=== PATIENT | female | born 2005 | race Caucasian/White ===

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

== ENCOUNTER 2024-02-11 09:22 | Outpatient (OUT) | payer OTHER, SELFPAY ==
--- NOTE | 2024-02-11 09:24 | US_ITS ---
[address] [address] Patient Name: MIHIR CHRISTIE MRN: [id number] date: 2005 Sex: F Assigned Patient Location: [facility] Current Patient Location: [facility] Accession/Order Number: [id number] Exam Date: 02/11/2024 09:24 Report Date: 02/11/2024 12:06 At the request of: LITA ROSENBERG Procedure: US pelvis w/ transvaginal EXAMINATION: US pelvis w/ transvaginal HISTORY: IRREGULAR MENSTRAL CYCLE COMPARISON: No relevant comparison available. FINDINGS: Transabdominal and transvaginal images The uterus is normal in size, contour and myometrial echotexture measuring 6.9 x 3.0 x 4.9 cm. Anteverted, anteflexed. Endometrium measures 6 mm, normal. The right ovary is normal in size, contour and echotexture measuring 3.0 x 2.0 x 2.8 cm. Normal color Doppler flow The left ovary is normal in size, contour and echotexture measuring 3.1 x 2.1 x 2.9 cm. Normal color Doppler flow No free fluid US/US pelvis w/ transvaginal IMPRESSION: Normal exam Electronically authenticated by: OPAL REYES Date: 02/11/2024 12:06
[2024-02-11 11:25] LABS: Basophils Absolute Auto 0.1 10^3/uL (0.0-0.1); Eosinophils Absolute Auto 0.2 10^3/uL (0.0-0.7); Eosinophils Percent Auto 2.6 % (0.9-7.0); Hematocrit 42.6 % (36.0-48.0); Hemoglobin 14.1 g/dL (12.0-16.0); Immature Granulocytes Abs Auto 0.02 10^3/uL (0.00-0.03); Immature Granulocytes Pct Auto 0.3 % (0.0-0.5); Lymphocytes Absolute Auto 2.2 10^3/uL (1.2-3.8); Lymphocytes Percent Auto 28.5 % (20.5-60.0); Mean Corpuscular HGB Conc 33.1 g/dL (29.9-35.2); Mean Corpuscular Hemoglobin 28.5 pg (26.7-34.0); Mean Corpuscular Volume 86.2 fL (81.0-99.0); Mean Platelet Volume 8.8 fL (9.5-13.5); Monocytes Absolute Auto 0.5 10^3/uL (0.3-0.8); Monocytes Percent Auto 6.8 % (1.7-12.0); Neutrophils Absolute Auto 4.7 10^3/uL (1.4-6.5); Neutrophils Percent Auto 60.8 % (43.0-75.0); Platelet Count 395 10^3/uL (150-450); Red Blood Count 4.94 10^6/uL (4.20-5.40); Red Cell Distribution Width 12.5 % (11.0-15.0); White Blood Count 7.8 10^3/uL (4.0-11.0)
[2024-02-11 11:48] LABS: Estimated Average Glucose 111 mg/dL; Glycohemoglobin A1C 5.5 % (4.5-6.2)
[2024-02-11 13:19] LABS: Thyroid Stimulating Hormone 2.107 uIU/mL (0.516-4.130)
[2024-02-11 13:51] LABS: HCG Quantitative <1 mIU/mL
[2024-02-12 04:08] LABS: FSH 4.3 mIU/mL (.); Luteinizing Hormone(LH) 9.5 mIU/mL (.)
== END 2024-02-11 09:23 | disposition home or self-care (01) ==
LOC: NOMS 09:22
PROVIDERS: Visit Provider Obstetrics & Gynecology
DX: N92.6 Irregular menstruation, unspecified (principal)
CPT/HCPCS: 36415; 76830; 76856; 82626; 82627; 83001; 83002; 83036; 84439; 84443; 84702; 85025

== ENCOUNTER 2024-02-20 09:54 | Emergency (ER) | payer OTHER, SELFPAY ==
--- OUTSIDE RECORDS SUMMARY | 2024-02-20 10:01 | XMS_ITS ---
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 Name Role Phone LITA ROSENBERG Attending Unavailable ALISHA WILLIAMSON Attending Unavailable CHET, LITA Attending Unavailable Encounters Encounter Date Encounter Type Care Provider Facility Start: 02-09-2024 End: 02-09-2024 ambulatory LITA ROSENBERG Not Available Start: 09-23-2023 End: 09-23-2023 ambulatory ALISHA WILLIAMSON Not Available Start: 08-25-2023 End: 08-25-2023 ambulatory LITA CHET Not Available Payers Date Payer Category Payer Medicaid [id number] 2005 Unknown [id number] 2004 Unknown [id number] 2004 Unknown [id number] Summary Purpose Family History No Family History Records Found Advance Directives No Advanced Directives Records Found Additional Source Comments INFORMATION SOURCE (unrecogn ized section and content) DATE CREATED AUTHOR 02/10/2024 [facility] EPIC FOR RECORDS PERTAINING TO PATIENTS WHO ARE OR HAVE BEEN ENROLLED IN A CHEMICAL DEPENDENCY/SUBSTANCEABUSE PROGRAM, SOME INFORMATION MAY BE OMITTED. This clinical summary was aggregated from multiple sources. Caution should be exercised in using it in the provision of clinical care. This summary normalizes information from multiple sources, and as a consequence, information in this document may materially change the coding, format and clinical context of patient data. In addition, data may be omitted in some cases. CLINICAL DECISIONS SHOULD BE BASED ON THE PRIMARY CLINICAL RECORDS. [facility] [employer] [facility]. provides no warranty or guarantee of the accuracy or completeness of information in this document.
[2024-02-20 10:03] VITALS: BP 128/92; PULSE 82; TEMP 37; O2SAT 100; BMI 33.4
--- NOTE | 2024-02-20 10:06 | ED.GENADUL1 ---
HPI HPI - General Adult General Chief complaint: Back Pain/Injury Stated complaint: RIGHT FLANK PAIN Time Seen by Provider: 02/20/24 10:06 Source: patient and family History of Present Illness HPI narrative: Patient here complaining of right flank pain. She states earlier this week she started developing symptoms such as diarrhea did not feel very good some nausea. She also has frequency of urination voiding very small amounts. She has no history of kidney stones. She has not seen blood in her stool or urine. She is not on any antibiotics. She has not been running a fever. She has no history of pyelonephritis. Does not have any cough cold or URI symptoms. She has not had any past surgical history. She is sexually active but does not know if she is . Most the pain is in the right flank sometimes rating to the right abdomen. Related Data Home Medications ?Medication ?Instructions ?Recorded ?Confirmed No Known Home Medications 02/20/24 02/20/24 Allergies Allergy/AdvReac Type Severity Reaction Status Date / Time No Known Drug Allergies Allergy Verified 02/20/24 10:08 Opioid HPI Opioid Management Most Recent Opioid Data: Last Pain Scale 0 02/20/24 11:05 Last ED Pain Assessment 02/20/24 11:05 Last MAR Pain Assessment 02/20/24 10:33 Exam Narrative Exam Narrative: Awake alert pleasant does not appear toxic. Her skin is warm and dry mucous membranes are moist and pink there is no mottling of the extremities. She is not cold or clammy. Examination abdomen is soft and supple with no tenderness guarding masses rebound or rigidity. No tenderness at McBurney's point. Henry sign is negative. Her lungs are clear but she does have some costovertebral angle tenderness to percussion on the right side. ENT examination shows no focal evidence of abnormalities or infectious process. Medical Decision Making MDM Narrative Medical decision making narrative: Patient underwent CT imaging laboratory testing and urinalysis. Urinalysis is suggestive of a UTI and the CT does not show any obstructions or stones but is consistent with pyelonephritis. She was given intravenous antibiotics and p.o. fluids and analgesics and is doing better. She is not . Discharge Plan Discharge Stand Alone Forms: Portal Instructions Chief Complaint: Back Pain/Injury Clinical Impression: Pyelonephritis Patient Disposition: Home, Self-Care Time of Disposition Decision: 12:45 Prescriptions / Home Meds: No Action No Known Home Medications Print Language: Kinyarwanda Additional Instructions: Cipro/Zofran/Vicodin Referrals: Physician,Non-Staff, MD [Primary Care Provider] - 1 week
--- NOTE | 2024-02-20 10:07 | CT_ITS ---
[address] [address] Patient Name: MIHIR CHRISTIE MRN: [id number] date: 2005 Sex: F Assigned Patient Location: ER Current Patient Location: ER Accession/Order Number: [id number] Exam Date: 02/20/2024 10:57 Report Date: 02/20/2024 12:32 At the request of: CONCEPCION RENDON Procedure: CT abdomen pelvis wo con EXAM: CT SCAN OF THE ABDOMEN AND PELVIS WITHOUT IV CONTRAST DATE OF EXAM: 02/20/2024 10:57 AM EDT HISTORY: Right flank pain 18-year-old female. COMPARISON: None. TECHNIQUE: CT examination of the abdomen and pelvis with sagittal and coronal reformations was performed without intravenous contrast. CT dose lowering techniques were used, to include: automated exposure control, adjustment for patient size, and/or use of iterative reconstruction. CONTRAST: None. FINDINGS: Note: This exam is limited because some types of pathology may not be adequately demonstrated due to lack of contrast enhancement. Services Host/Lines & Tubes: Non obstructive bowel gas pattern. Lower Chest: Normal Free Air: None. Liver: Normal Gallbladder: Normal Common Bile Duct: Normal Pancreas: Normal Spleen: Normal Adrenal Glands: Right: Normal. Left: Normal Kidneys: Right Kidney: Mild edema of the right renal parenchyma without evidence of hydronephrosis nor obstructing stone. Right Ureter: Normal. Left Kidney: Normal. Left Ureter: Normal. GI Tract: Distal Esophagus: Normal. Stomach: Normal Small Bowel: Normal Appendix: Normal on axial image 97 series 3 Large Bowel: Normal Mesentery/Peritoneum: Subcentimeter lymph nodes in the mesentery. Vasculature: Normal Lymph Nodes: Normal Abdominal Wall: Normal Bladder: Normal Reproductive: Normal Musculoskeletal: Normal Free Fluid: Mild amount of free fluid in the cul-de-sac. CT/CT abdomen pelvis wo con IMPRESSION: 1. Mild edema of the right renal parenchyma without evidence of hydronephrosis nor obstructing stone. Please correlate for pyelonephritis. 2. Unremarkable noncontrast CT of the abdomen and pelvis for acute pathology. Electronically authenticated by: LIDIA ESCOBEDO Date: 02/20/2024 12:32
[2024-02-20] MEDS: 0.9 % SODIUM CHLORIDE 1,000 ML 999 ML IV (10:32)
[2024-02-20] MEDS: ONDANSETRON PF 4 MG/2 ML VIAL IV (10:32)
[2024-02-20] MEDS: KETOROLAC TROMETHAMINE 30 MG/ML VIAL IVP (10:32)
[2024-02-20 10:33] LABS: Bilirubin Urine NEGATIVE (NEGATIVE); Blood Urine SMALL (NEGATIVE); Clarity Urine CLEAR (CLEAR); Color Urine LT. YELLOW (YELLOW); Glucose Urine UA NEGATIVE (NEGATIVE); HCG Qualitative Urine* NEGATIVE (NEGATIVE); Internal Control Within Normal Limits; Ketones Urine NEGATIVE (NEGATIVE); Leukocyte Esterase Urine SMALL (NEGATIVE); Nitrite Urine NEGATIVE (NEGATIVE); Protein Urine NEGATIVE (NEG/TRACE); Specific Gravity Urine 1.025 (1.005-1.025); Urobilinogen Urine 0.2 EU/dL (0.2-1.0)
[2024-02-20] MEDS: HYDROMORPHONE HCL 1 MG/ML CARTRIDGE IVP (10:33)
[2024-02-20 10:34] LABS: Urine Microscopic Indicated YES
[2024-02-20 10:34] LABS: Basophils Absolute Auto 0.1 10^3/uL (0.0-0.1); Basophils Percent Auto 0.5 % (0.2-2.0); Eosinophils Absolute Auto 0.1 10^3/uL (0.0-0.7); Eosinophils Percent Auto 1.5 % (0.9-7.0); Hematocrit 45.7 % (36.0-48.0); Hemoglobin 15.3 g/dL (12.0-16.0); Immature Granulocytes Abs Auto 0.01 10^3/uL (0.00-0.03); Immature Granulocytes Pct Auto 0.1 % (0.0-0.5); Lymphocytes Absolute Auto 2.5 10^3/uL (1.2-3.8); Lymphocytes Percent Auto 26.5 % (20.5-60.0); Mean Corpuscular HGB Conc 33.5 g/dL (29.9-35.2); Mean Corpuscular Hemoglobin 29.2 pg (26.7-34.0); Mean Corpuscular Volume 87.2 fL (81.0-99.0); Mean Platelet Volume 8.6 fL (9.5-13.5); Monocytes Absolute Auto 0.8 10^3/uL (0.3-0.8); Neutrophils Absolute Auto 5.9 10^3/uL (1.4-6.5); Neutrophils Percent Auto 63.4 % (43.0-75.0); Platelet Count 397 10^3/uL (150-450); Red Blood Count 5.24 10^6/uL (4.20-5.40); White Blood Count 9.4 10^3/uL (4.0-11.0)
[2024-02-20 10:37] LABS: Urine Culture Indicated YES
[2024-02-20 10:44] LABS: Bacteria Urine SMALL #/HPF (NONE SEEN); Cast Seen? NONE SEEN #/LPF (NONE SEEN); Crystals Seen? None Seen #/HPF (None Seen); Mucus Urine NONE SEEN (NONE SEEN); RBC Urine 0-2 #/HPF (0-2); Squamous Epithelial Cell Urine MODERATE #/LPF (NONE/RARE)
[2024-02-20 10:44] LABS: Anion Gap 14.4; Carbon Dioxide 25.7 mmol/L (21.0-32.0); Chloride 102 mmol/L (98-107); Estimated GFR (African America >60 (>=60); Estimated GFR (Non-African Ame >60 (>=60); Glucose 101 mg/dL (74-106); Potassium 4.1 mmol/L (3.5-5.1); Sodium 138 mmol/L (136-145)
--- NOTE | 2024-02-20 10:47 | PC.NURSE ---
Pain medication given as ordered
[2024-02-20 11:40] VITALS: BP 125/75; PULSE 69; O2SAT 99
[2024-02-20] MEDS: CIPROFLOXACIN IN 5 % DEXTROSE 400 MG/200 ML PIGGYBACK 200 MG IV (12:16)
[2024-02-20 13:22] VITALS: PULSE 70; O2SAT 98
== END 2024-02-20 13:24 | disposition home or self-care (01) ==
PROVIDERS: Emergency Provider Emergency Medicine Emergency Medical Services
DX: N12 Tubulo-interstitial nephritis, not specified as acute or chronic (principal)
CPT/HCPCS: 36415; 74176; 80048; 81001; 83690; 84703; 85025; 87086; 87150; 87186; 96361; 96365; 96375; 99284; J0744; J1170; J1885; J2405

== ENCOUNTER 2024-05-12 12:35 | Outpatient (OUT) | payer OTHER, SELFPAY ==
--- OUTSIDE RECORDS SUMMARY | 2024-05-12 12:41 | XMS_ITS | CCD ---
Author Organization [facility] Care Team Providers Care Orchestra Director Name Role Phone CHET, LITA Attending Unavailable TERIALISHA Attending Unavailable CHET, LITA Attending Unavailable CHET, LITA Attending Unavailable Encounters Encounter Date Encounter Type Care Provider Facility Start: 05-04-2024 End: 05-04-2024 ambulatory LITA CHET Not Available Start: 02-09-2024 End: 02-09-2024 ambulatory LITA CHET Not Available Start: 09-23-2023 End: 09-23-2023 ambulatory ALISHA WILLIAMSON Not Available Start: 08-25-2023 End: 08-25-2023 ambulatory LITA CHET Not Available Payers Date Payer Category Payer Medicaid [id number] 2005 Unknown [id number] 2004 Unknown [id number] 2004 Unknown [id number] 2004 Unknown [id number] Summary Purpose Family History No Family History Records Found Advance Directives No Advanced Directives Records Found Additional Source Comments INFORMATION SOURCE (unrecogn ized section and content) DATE CREATED AUTHOR 05/06/2024 [facility] EPIC FOR RECORDS PERTAINING TO PATIENTS [...] BE BASED ON THE PRIMARY CLINICAL RECORDS. [facility]. provides no warranty or guarantee of the accuracy or completeness of information in this document.
[2024-05-12 13:16] LABS: Basophils Absolute Auto 0.1 10^3/uL (0.0-0.1); Basophils Percent Auto 0.7 % (0.2-2.0); Eosinophils Absolute Auto 0.1 10^3/uL (0.0-0.7); Eosinophils Percent Auto 0.9 % (0.9-7.0); Hematocrit 42.4 % (36.0-48.0); Hemoglobin 14.4 g/dL (12.0-16.0); Immature Granulocytes Abs Auto 0.02 10^3/uL (0.00-0.03); Immature Granulocytes Pct Auto 0.2 % (0.0-0.5); Lymphocytes Absolute Auto 2.7 10^3/uL (1.2-3.8); Lymphocytes Percent Auto 30.6 % (20.5-60.0); Mean Corpuscular Hemoglobin 29.2 pg (26.7-34.0); Mean Platelet Volume 8.7 fL (9.5-13.5); Monocytes Absolute Auto 0.7 10^3/uL (0.3-0.8); Monocytes Percent Auto 8.4 % (1.7-12.0); Neutrophils Absolute Auto 5.1 10^3/uL (1.4-6.5); Neutrophils Percent Auto 59.2 % (43.0-75.0); Platelet Count 370 10^3/uL (150-450); Red Blood Count 4.93 10^6/uL (4.20-5.40); Red Cell Distribution Width 12.7 % (11.0-15.0); White Blood Count 8.7 10^3/uL (4.0-11.0)
[2024-05-12 13:30] LABS: Estimated Average Glucose 108 mg/dL; Glycohemoglobin A1C 5.4 % (4.5-6.2)
[2024-05-12 14:02] LABS: Free T4 0.89 ng/dL (0.78-1.34)
[2024-05-12 14:11] LABS: Thyroid Stimulating Hormone 4.328 uIU/mL (0.516-4.130)
[2024-05-12 14:24] LABS: HCG Quantitative <1 mIU/mL
[2024-05-13 04:08] LABS: Luteinizing Hormone(LH) 4.7 mIU/mL (.); Progesterone 8.5 ng/mL (.)
[2024-05-16 18:07] LABS: DHEA, Serum 316 ng/dL (40-491)
== END 2024-05-12 12:36 | disposition home or self-care (01) ==
LOC: LAB 12:39
PROVIDERS: Visit Provider Obstetrics & Gynecology
DX: N92.6 Irregular menstruation, unspecified (principal); N97.0 Female infertility associated with anovulation; E28.2 Polycystic ovarian syndrome; N97.9 Female infertility, unspecified; N93.8 Other specified abnormal uterine and vaginal bleeding
CPT/HCPCS: 36415; 82397; 82626; 82627; 83001; 83002; 83036; 84144; 84439; 84443; 84702; 85025

== ENCOUNTER 2024-08-17 07:02 | Outpatient (OUT) | payer OTHER, SELFPAY ==
--- OUTSIDE RECORDS SUMMARY | 2024-08-17 07:09 | XMS_ITS | CCD ---
Author Organization [facility] Care Team Providers Care [employer] Press Tender Name Role Phone LITA BROWN Attending Unavailable ALISHA WILLIAMSON Attending Unavailable LITA BROWN Attending Unavailable LITA BROWN Attending Unavailable Unavailable Primary Care Provider Unavailabl e Medications Current Medications Medication Drug Class(es) Dates Sig (Normalized) Sig (Original) [id number] 200 actuat albuterol 0.09 mg/actuat metered dose inhaler (7 sources) beta2-Adrenergic Agonist take 2 puff(s) by inhalation every six hours for wheezing albuterol HFA 90 mcg/act inhaler Inhale 2 puffs every 6 (six) hours if needed for wheezing Active 120 actuat fluticasone propionate 0.044 mg/actuat metered dose inhaler (7 sources) Corticosteroid take 1 puff(s) by inhalation in the morning fluticasone (Flovent HFA) 44 MCG/ACT inhaler Inhale 1 puff in the morning and 1 puff before bedtime. Active levothyroxine sodium 0.025 mg oral tablet (2 sources) l-Thyroxine Start: 05-13-2024 End: 05-13-2025 take 1 tablet by mouth before mealtime levothyroxine (Synthroid) 25 MCG tablet Indications: Elevated TSH Take 1 tablet (25 mcg) by mouth in the morning. Take before meals. 30 tablet 6 05/13/2024 05/13/2025 Active 24 hr metFORMIN hydrochloride 500 mg extended release oral tablet (2 sources) Biguanide Start: 05-13-2024 End: 06-12-2024 take 1 tablet by mouth every twenty-four hours at mealtime metFORMIN XR (Glucophage-XR) 500 MG 24 hr tablet Indications: Anovulation , Irregular menstrual cycle Take 1 tablet (500 mg) by mouth in the evening. Take with meals Do not crush, chew, or split. 30 tablet 6 05/13/2024 06/12/2024 Active Completed/Discontinued Medications Medication Drug Class(es) Dates Sig (Normalized) Sig (Original) doxycycline hyclate 100 mg oral capsule (6 sources) Tetracycline-clas s Drug Start: 05-04-2024 End: 07-03-2024 doxycycline (Vibramycin) 100 MG capsule Indications: Bacterial infection Take 1 capsule (100 mg) by mouth in the morning and 1 capsule (100 mg) before bedtime. Take with at least 8 ounces (large glass) of water, do not lie down for 30 minutes after. 120 capsule 05/04/2024 05/13/2024 Discontinued Problems Active Problems Problem Classification Problem Date Documented Da te Episodic/Chronic Bacterial infection; unspecified site (2 sources) Bacterial infectious disease; Translations: [Bacterial infection, unspecified] 05-04-2024 Episodic Female infertility (8 sources) Female infertility; Translations: [Female infertility, unspecified] Onset: 05-13-2024 05-04-2024 Chronic Menstrual disorders (9 sources) Irregular periods; Translations: [Irregular menstruation, unspecified] Onset: 02-09-2024 02-09-2024 Chronic Other screening for suspected conditions (not mental disorders or infectious disease) (4 sources) Raised TSH level; Translations: [Other specified abnormal findings of blood chemistry] Onset: 05-13-2024 05-13-2024 Episodic Past or Other Problems Problem Classification Problem Date Documented Da te Episodic/Chronic Contraceptive and procreative management (7 sources) Patient encounter status; Translations: [Encounter for other procreative management] Onset: 02-09-2024 02-09-2024 Episodic Results Test Name Value Interpretation Reference Range Facil ity ALL CBC WITH AUTO DIFFon BASOPHILS ABSOLUTE AUTO 0.1 [facility] Basophils/100 WBC (Bld) 0.7 % 0.2 - 2.0 % [facility] Eosinophils/100 WBC (Bld) 0.9 % 0.9 - 7.0 % [facility] Erythrocyte distribution width (RBC) [Ratio] 12.7 % 11.0 - 15.0 % [facility] are Hematocrit (Bld) [Volume fraction] 42.4 % 36.0 - 48.0 % [facility] Hemoglobin (Bld) [Mass/Vol] 14.4 g/dL 12.0 - 1 6.0 g/dL [facility] IMMATURE GRANULOCYTES ABS AUTO 0.02 [facility] Immature granulocytes/100 WBC (Bld) 0.2 % 0.0 - 0.5 % [facility] Interpretation and review of laboratory results Abnormal [facility] LYMPHOCYTES ABSOLUTE AUTO 2.7 [facility] Lymphocytes/100 WBC (Bld) 30.6 % 20.5 - 60. 0 % [facility] MCH (RBC) [Entitic mass] 29.2 pg 26.7 - 34.0 pg [facility] MCHC (RBC) [Mass/Vol] 34.0 g/dL 29.9 - 35.2 g/ dL [facility] MCV (RBC) [Entitic vol] 86.0 fL 81.0 - 99.0 fL [facility] MONOCYTES ABSOLUTE AUTO 0.7 N [facility] Monocytes/100 WBC (Bld) 8.4 % 1.7 - 12.0 % [facility] NEUTROPHILS ABSOLUTE AUTO 5.1 [facility] Neutrophils/100 WBC (Bld) 59.2 % 43.0 - 75. 0 % [facility] Platelet mean volume (Bld) [Entitic vol] 8.7 fL Low 9.5 - 13.5 fL [facility] EO # 0.1 [facility] PLT 370 [facility] RBC 4.93 [facility] WBC 8.7 [facility] Vital Signs Date Time Vital Sign Value Performing Clinician Angie reynoso 05-13-2024 11:58-0400 Body mass index (BMI) [Ratio] 32.88 kg/m2 [facility] Work Phone: [facility] 05-13-2024 11:58-0400 Body weight 73.85 kg [facility] Work Phone: [facility] 05-13-2024 11:58-0400 Diastolic blood pressure 70 mm[Hg] [facility] Work Phone: [facility] 05-13-2024 11:58-0400 Systolic blood pressure 100 mm[Hg] [facility] Work Phone: [facility] 05-04-2024 10:00-0400 Body mass index (BMI) [Ratio] 32.68 kg/m2 Lita Stephanie DO Work Phone: [facility] 05-04-2024 10:00-0400 Body weight 73.39 kg Lita Stephanie DO Work Phone: [facility] 05-04-2024 10:00-0400 Diastolic blood pressure 60 mm[Hg] Lita Stephanie DO Work Phone: [facility] 05-04-2024 10:00-0400 Systolic blood pressure 100 mm[Hg] Lita Stephanie DO Work Phone: [facility] Encounters Encounter Date Encounter Type Care Provider Facility Start: 05-13-2024 End: 05-13-2024 Bamboo flowsheet Lita Stephanie DO Work Phone: [facility] Start: 05-13-2024 End: 05-13-2024 Bamboo flowsheet Lita Stephanie DO Work Phone: [facility] Start: 05-13-2024 End: 05-13-2024 Office outpatient visit 15 minutes Lita Stephanie DO Work Phone: [facility] Comment on above: Anovulation; Irregular menstrual cycle; Elevated TSH Start: 05-12-2024 End: 05-12-2024 [facility] Result Encounter Lita Stephanie DO Work Phone: [facility] External Department Unsolicited Start: 05-12-2024 End: 05-12-2024 [facility] Result Encounter Lita Stephanie DO Work Phone: [facility] External Department Unsolicited Start: 05-04-2024 End: 05-04-2024 Bamboo flowsheet Lita Stephanie DO Work Phone: [facility] Start: 05-04-2024 End: 05-04-2024 Bamboo flowsheet Lita Stephanie DO Work Phone: [facility] Start: 05-04-2024 End: 05-04-2024 Office outpatient visit 15 minutes Lita Stephanie DO Work Phone: [facility] Comment on above: Female infertility; Anovulation; Bacterial infection Start: 05-04-2024 End: 05-04-2024 ambulatory LITA STEPHANIE Not Available Start: 02-09-2024 End: 02-09-2024 ambulatory LITA STEPHANIE Not Available Start: 09-23-2023 End: 09-23-2023 ambulatory ALISHA WILLIAMSON Not Available Start: 08-25-2023 End: 08-25-2023 ambulatory LITA STEPHANIE Not Available Procedures Date Procedure Procedure Detail Performing Clinician Start: 05-12-2024 ALL CBC WITH AUTO DIFF Lita Stephanie DO Work Phone: Plan of Treatment Date Care Activity Detail Author Start: 2024 End: 2024 Patient encounter procedure 2024 1:10 PM EDT Office Visit [facility] [address] [place] [id number] Lita Brown, DO [address] [place] [address] [facility] Start: 05-13-2024 End: 05-13-2024 Patient encounter procedure [facility] Comment on above: Arrived Start: 05-04-2024 End: 05-04-2025 Antimullerian hormone (AMH) Antimullerian hormone (AMH) Lab Routine Anovulation Expected: 05/04/2024 (Approximate), Expires: 05/04/2025 [facility] Comment on above: Expected: 05/04/2024 (Approximate), Expires: 05/04/2025 Start: 05-04-2024 End: 05-04-2024 Patient encounter procedure 05/04/2024 9:50 AM EDT Office Visit [facility] [address] [place] [id number] Lita Brown, DO [address] [place] [address] Arrived [facility] Comment on above: Arrived Progesterone Progesterone Lab Routine Anovulation Ordered: 05/04/2024 [facility] Work Phone: Comment on above: Ordered: 05/04/2024 Payers Date Payer Category Payer Medicaid [employer] [place] [employer] [id number] 2018-Present [address] [place] [address] [id number] 2018 Medicaid [id number] 2004 Unknown [id number] 2004 Unknown [id number] 2004 Unknown [id number] 2004 Unknown [id number] Social History Date Type Detail Facility Tobacco smoking stat [facility] Tobacco smoking consumption unknown [facility] Start: 2004 Sex assigned at Female [facility] Start: 04-27-2024 Gender identity Identifies as female gender (finding) [facility] Sexual orientation Not on file [facility] History of Present illness Narrative 05-13-2024 Tabby Gamble LPN - 05/13/2024 11:30 AM EDT Note Date & Type Note Facility 05-13-2024 History of Presen t illness Narrative Reason for Appointment: Patient ID: Amalia Bunch is a 18 y.o. female who presents for follow up labs Patient presents today for Consult appointment. MEDICATIONS Current Outpatient Medications Medication Instructions albuterol HFA 90 mcg/act inhaler 2 puffs, Inhalation, Every 6 hours PRN fluticasone (Flovent HFA) 44 MCG/ACT inhaler 1 puff, Inhalation, 2 times daily RT ALLERGIES No Known Allergies PROBLEMS Active Ambulatory Problems Diagnosis Date Noted Irregular menstrual cycle 02/09/2024 Encounter for fertility planning 02/09/2024 Resolved Ambulatory Problems Diagnosis Date Noted No Resolved Ambulatory Problems No Additional Past Medical History HISTORY PAST MEDICAL HISTORY SOCIAL HISTORY History reviewed. No pertinent past medical history. Social History Tobacco Use Smoking status: Not on file Smokeless tobacco: Not on file Substance Use Topics Alcohol use: Not on file Drug use: Not on file FAMILY HISTORY Family History Problem Relation Name Age of Onset Other (high blood pressure) Father Other (high blood pressure) Paternal Grandfather SURGICAL HISTORY Past Surgical History: Procedure Laterality Date TONSILLECTOMY REVIEW OF SYSTEMS Review of Systems: Review of Systems All other systems reviewed and are negative. OBJECTIVE Objective: Physical Exam Constitutional: Appearance: Normal appearance. She is well-developed. Cardiovascular: Rate and Rhythm: Normal rate and regular rhythm. Pulmonary: Effort: Pulmonary effort is normal. Breath sounds: Normal breath sounds. Abdominal: General: Bowel sounds are normal. There is no distension. Palpations: Abdomen is soft. Tenderness: There is no abdominal tenderness. There is no guarding or rebound. Musculoskeletal: General: No swelling. Normal range of motion. Right lower leg: No edema. Left lower leg: No edema. Neurological: Mental Status: She is alert and oriented to person, place, and time. Skin: General: Skin is warm and dry. Psychiatric: Mood and Affect: Mood normal. Behavior: Behavior normal. Vitals and nursing note reviewed. Exam conducted with a sports anchor present. Vitals: Estimated body mass index is 32.88 kg/m as calculated from the following: Height as of 09/23/23: 4' 11 . Weight as of this encounter: 162 lb 12.8 oz. BP: 100/70 Patient's last menstrual period was 04/22/2024. ASSESSMENT & PLAN ICD-10-CM 1. Female infertility N97.9 Patient presents for follow up lab work. Discussed lab results and how labs could effect ovulation. Informed patient that Progesterone on Day 21 is recommended to be >9 to confirm ovulation. Informed patient that based on A1c she would benefit from Metformin 500mg. Informed patient that it is ideal to have TSH a little lower as well and patient will be started on Synthroid 25mcg as well. Patient will reach out to office with any questions. Medications will be sent to Ysabel Barrera. Documented by Tabby Gamble LPN on behalf of: Lita Stephanie, DO documented in this encounter [facility] History of Present illness Narrative 05-04-2024 Sofía Higuera LPN - 05/04/2024 9:50 AM EDT Note Date & Type Note Facility 05-04-2024 History of Presen t illness Narrative Reason for Appointment: Patient ID: Amalia Bunch is a 18 y.o. female who presents for Infertility Patient presents today for Fertility Follow Up appointment. MEDICATIONS Current Outpatient Medications Medication Instructions albuterol HFA 90 mcg/act inhaler 2 puffs, Inhalation, Every 6 hours PRN fluticasone (Flovent HFA) 44 MCG/ACT inhaler 1 puff, Inhalation, 2 times daily RT ALLERGIES No Known Allergies PROBLEMS Active Ambulatory Problems Diagnosis Date Noted Irregular menstrual cycle 02/09/2024 Encounter for fertility planning 02/09/2024 Resolved Ambulatory Problems Diagnosis Date Noted No Resolved Ambulatory Problems No Additional Past Medical History HISTORY PAST MEDICAL HISTORY SOCIAL HISTORY History reviewed. No pertinent past medical history. Social History Tobacco Use Smoking status: Not on file Smokeless tobacco: Not on file Substance Use Topics Alcohol use: Not on file Drug use: Not on file FAMILY HISTORY Family History Problem Relation Name Age of Onset Other (high blood pressure) Father Other (high blood pressure) Paternal Grandfather SURGICAL HISTORY Past Surgical History: Procedure Laterality Date TONSILLECTOMY REVIEW OF SYSTEMS Review of Systems: Review of Systems Constitutional: Negative. HENT: Negative. Eyes: Negative. Respiratory: Negative. Cardiovascular: Negative. Gastrointestinal: Negative. Genitourinary: Negative. Musculoskeletal: Negative. Skin: Negative. Neurological: Negative. All other systems reviewed and are negative. Hematological: Negative. Endocrine: Negative. Allergic/Immunologic: Negative. OBJECTIVE Objective: Physical Exam Constitutional: Appearance: Normal appearance. She is well-developed. Cardiovascular: Rate and Rhythm: Normal rate and regular rhythm. Pulmonary: Effort: Pulmonary effort is normal. Breath sounds: Normal breath sounds. Abdominal: General: Bowel sounds are normal. There is no distension. Palpations: Abdomen is soft. Tenderness: There is no abdominal tenderness. There is no guarding or rebound. Musculoskeletal: General: No swelling. Normal range of motion. Right lower leg: No edema. Left lower leg: No edema. Neurological: Mental Status: She is alert and oriented to person, place, and time. Skin: General: Skin is warm and dry. Psychiatric: Mood and Affect: Mood normal. Behavior: Behavior normal. Vitals and nursing note reviewed. Exam conducted with a sports anchor present. Vitals: Estimated body mass index is 32.68 kg/m as calculated from the following: Height as of 24: 4' 11 . Weight as of this encounter: 161 lb 12.8 oz. BP: 100/60 Patient's last menstrual period was 04/22/2024. ASSESSMENT & PLAN ICD-10-CM 1. Female infertility N97.9 Pt presents to discuss fertility. Pt was referred to [facility] and pt never scheduled. Reviewed semen analysis with pt in detail. Doxy faxed to pharmacy for partner. Pt to have progesterone day 21 drawn. Pt to wait 2 more months to start femara. Pt voiced understanding. Repeat semen analysis in 2 months Documented by Sofía Higuera LPN on behalf of: Lita Brown DO documented in this encounter [facility] Evaluation note Note Date & Type Note Facility Evaluation note Diagnosis Female infertility Female infertility of unspecified origin Anovulation Female infertility associated with anovulation Bacterial infection documented in this encounter [facility] Evaluation note Note Date & Type Note Facility Evaluation note Diagnosis Anovulation Female infertility associated with anovulation Irregular menstrual cycle Elevated TSH Other abnormal blood chemistry documented in this encounter [facility] Summary Purpose Family History No Family History Records Found Advance Directives No Advanced Directives Records Found Additional Source Comments INFORMATION SOURCE (unrecogn ized section and content) DATE CREATED AUTHOR 05/06/2024 [facility] Reason for Visit (unrecogniz ed section and content) Reason Comments Infertility Reason Comments follow up labs FOR RECORDS PERTAINING TO PATIENTS WHO ARE [...] BE BASED ON THE PRIMARY CLINICAL RECORDS. [employer] [facility]. provides no warranty or guarantee of the accuracy or completeness of information in this document.
[2024-08-17 09:08] LABS: Basophils Absolute Auto 0.1 10^3/uL (0.0-0.1); Basophils Percent Auto 0.7 % (0.2-2.0); Eosinophils Absolute Auto 0.1 10^3/uL (0.0-0.7); Eosinophils Percent Auto 1.7 % (0.9-7.0); Hematocrit 43.1 % (36.0-48.0); Hemoglobin 14.1 g/dL (12.0-16.0); Immature Granulocytes Abs Auto 0.01 10^3/uL (0.00-0.03); Immature Granulocytes Pct Auto 0.1 % (0.0-0.5); Lymphocytes Absolute Auto 2.5 10^3/uL (1.2-3.8); Lymphocytes Percent Auto 33.9 % (20.5-60.0); Mean Corpuscular HGB Conc 32.7 g/dL (29.9-35.2); Mean Corpuscular Hemoglobin 28.7 pg (26.7-34.0); Mean Corpuscular Volume 87.8 fL (81.0-99.0); Mean Platelet Volume 8.8 fL (9.5-13.5); Monocytes Absolute Auto 0.6 10^3/uL (0.3-0.8); Monocytes Percent Auto 8.7 % (1.7-12.0); Neutrophils Percent Auto 54.9 % (43.0-75.0); Platelet Count 363 10^3/uL (150-450); Red Blood Count 4.91 10^6/uL (4.20-5.40); Red Cell Distribution Width 12.4 % (11.0-15.0); White Blood Count 7.3 10^3/uL (4.0-11.0)
[2024-08-17 10:15] LABS: Estimated Average Glucose 111 mg/dL; Glycohemoglobin A1C 5.5 % (4.5-6.2)
[2024-08-17 10:19] LABS: Alanine Aminotransferase 27 U/L (14-59); Albumin Level 3.9 g/dL (3.4-5.0); Alkaline Phosphatase 65 U/L (46-116); Anion Gap 11.1; Aspartate Amino Transferase 16 U/L (15-37); BUN Creatinine Ratio 14.1; Bilirubin Total 0.3 mg/dL (0.2-1.0); Calcium 9.2 mg/dL (8.5-10.1); Carbon Dioxide 29.3 mmol/L (21.0-32.0); Chloride 105 mmol/L (98-107); Chol HDL Ratio 2.8; Cholesterol 144 mg/dL (104-227); Estimated GFR (African America >60 (>=60 mL/min/1.73m^2); Estimated GFR (Non-African Ame >60 (>=60 mL/min/1.73m^2); Free T3 3.13 pg/mL (2.91-4.70); Globulin 3.8 g/dL; Glucose 89 mg/dL (74-106); HDL Cholesterol 52 mg/dL (29-69); LDL Cholesterol Calculated 79.4 mg/dL; Potassium 4.4 mmol/L (3.5-5.1); Sodium 141 mmol/L (136-145); Total Protein 7.7 g/dL (6.4-8.2); Triglycerides 63 mg/dL (53-208); VLDL CHOLESTEROL 12.6 mg/dL
== END 2024-08-17 07:03 | disposition home or self-care (01) ==
LOC: LAB 07:06
PROVIDERS: Visit Provider Family Medicine
DX: Z00.00 Encounter for general adult medical examination without abnormal findings (principal)
CPT/HCPCS: 36415; 80053; 80061; 83036; 83525; 83540; 84436; 84443; 84481; 85025

== ENCOUNTER 2024-08-25 10:18 | Emergency (ER) | payer BC, OTHER, SELFPAY ==
[2024-08-25 10:26] VITALS: BP 154/99; PULSE 94; TEMP 36.7; O2SAT 98; BMI 73.7
--- NOTE | 2024-08-25 10:43 | ED.GENADUL1 ---
HPI HPI - General Adult General Chief complaint: Abdominal Pain Stated complaint: ABDOMINAL PAIN, HEADACHE, NAUSEA Time Seen by Provider: 08/25/24 10:21 Source: patient Mode of arrival: walk-in History of Present Illness HPI narrative: Patient presents ED complaining of lower abdominal pain. She states for the past 3 days or so she has had severe cramps on and off in the lower abdomen. Nausea no vomiting. No fevers no cough or shortness of breath. She states she is not actively trying to get but she is not actively preventing either. Unsure if , last menstrual period was August 07. Patient states she has been constipated. She does report some urinary frequency yesterday but no pain with urination. Patient reports the abdominal pain is slightly generalized but seems worse in the lower Abdomen: On both sides and in the middle. No fevers.. Patient is resting comfortably in the bed in no acute distress. Denies any leg pain or swelling. She does report that she has had a mild headache on and off throughout this time as well. No other complaints at this time Related Data Previous Rx's ?Medication ?Instructions ?Recorded cephalexin 500 mg capsule 500 mg PO TID 7 days #21 caps 08/25/24 Allergies Allergy/AdvReac Type Severity Reaction Status Date / Time No Known Drug Allergies Allergy Verified 08/25/24 10:25 Opioid HPI Opioid Management Most Recent Opioid Data: Last Pain Scale 6 08/25/24 11:07 08/25/24 Last MAR Pain Assessment 08/25/24 11:07 Review of Systems ROS Status of ROS 10 or more systems reviewed and unremarkable except as noted in history and below PFSH PFSH Social History Little interest or pleasure in doing things: more than half the days Feeling down, depressed, or hopeless: more than half the days Exam Narrative Exam Narrative: Time Seen: [] Vital Signs: [Per nurse's notes.] General: [Alert] Skin: [Warm, dry, no rash.] Head: [Normocephalic, atraumatic.] Neck: [Supple, trachea midline.] Eye: [Pupils are equal, round and reactive to light, extraocular movements are intact, normal conjunctiva.] Ears, nose, mouth and throat: oral mucosa moist. Cardiovascular: [Regular rate and rhythm, no murmur.] Respiratory: [Lungs are clear to auscultation, respirations are non-labored, breath sounds are equal.] Chest wall: [No tenderness, no deformity.] Gastrointestinal: [Soft, mild generalized tenderness worse in the lower abdomen no rebound no guarding, non distended, normal bowel sounds.] MSK: 5 out of 5 muscle strength x 4 extremities no calf pain or edema Lymphatics: [No lymphadenopathy.] Psychiatric: [Cooperative, appropriate mood & affect.] Neurological: [Alert and oriented to person, place, time, and situation, no focal neurological deficit observed.] Constitutional Vital Signs, click to edit/add: Last Vital Signs Temp 98.1 F 08/25/24 10:26 Pulse 94 H 08/25/24 10:26 Resp 16 08/25/24 10:26 BP 154/99 H 08/25/24 10:26 Pulse Ox 98 08/25/24 10:26 O2 Del Method Room Air 08/25/24 10:26 Course Vital Signs Vital signs: Vital Signs Temperature 98.1 F 08/25/24 10:26 Pulse Rate 94 H 08/25/24 10:26 Respiratory Rate 16 08/25/24 10:26 Blood Pressure 154/99 H 08/25/24 10:26 Pulse Oximetry 98 08/25/24 10:26 Oxygen Delivery Method Room Air 08/25/24 10:26 Temperature 98.1 F 08/25/24 10:26 Pulse Rate 94 H 08/25/24 10:26 Respiratory Rate 16 08/25/24 10:26 Blood Pressure 154/99 H 08/25/24 10:26 Pulse Oximetry 98 08/25/24 10:26 Oxygen Delivery Method Room Air 08/25/24 10:26 Medical Decision Making [facility] Narrative Medical decision making narrative: Patient's labs showing urinary tract infection. Negative test. Labs are otherwise stable, no elevated white blood cell count or creatinine. Patient was given an IV dose of Rocephin here in ED and sent home with oral Keflex. Return to ED if worsening symptoms otherwise follow-up with family doctor as needed. Patient is comfortable with care plan for home Differential Diagnosis Differential Diagnosis: UTI, flu, COVID, viral gastroenteritis, Lab Data Lab results reviewed: Yes I reviewed the patient's lab results Labs: Lab Results 08/25/24 08/25/24 Range/Units 10:43 10:47 WBC 8.4 (4.0-11.0) 10^3/uL RBC 5.23 (4.20-5.40) 10^6/uL Hgb 15.0 (12.0-16.0) g/dL Hct 45.6 (36.0-48.0) % MCV 87.2 (81.0-99.0) fL MCH 28.7 (26.7-34.0) pg MCHC 32.9 (29.9-35.2) g/dL RDW 12.6 (11.0-15.0) % Plt Count 392 (150-450) 10^3/uL MPV 8.8 L (9.5-13.5) fL Neut % (Auto) 58.9 (43.0-75.0) % Lymph % (Auto) 30.6 (20.5-60.0) % [place]ing % (Auto) 8.6 (1.7-12.0) % Eos % (Auto) 1.2 (0.9-7.0) % Baso % (Auto) 0.6 (0.2-2.0) % Neut # (Auto) 4.9 (1.4-6.5) 10^3/uL Lymph # (Auto) 2.6 (1.2-3.8) 10^3/uL [place] # (Auto) 0.7 (0.3-0.8) 10^3/uL Eos # (Auto) 0.1 (0.0-0.7) 10^3/uL Baso # (Auto) 0.1 (0.0-0.1) 10^3/uL Abs Immat Gran (auto) 0.01 (0.00-0.03) 10^3/uL Imm/Tot Granulo (auto) 0.1 (0.0-0.5) % Sodium 141 (136-145) mmol/L Potassium 4.0 (3.5-5.1) mmol/L Chloride 104 (98-107) mmol/L Carbon Dioxide 26.1 (21.0-32.0) mmol/L Anion Gap 14.9 BUN 13.0 (6.4-19.3) mg/dL Creatinine 0.95 (0.55-1.02) mg/dL Est GFR ( Amer) >60 (>=60 mL/min/1.73m^2) Est GFR (Non-Af Amer) >60 (>=60 mL/min/1.73m^2) BUN/Creatinine Ratio 13.7 Glucose 86 (74-106) mg/dL Calcium 9.0 (8.5-10.1) mg/dL Total Bilirubin 0.3 (0.2-1.0) mg/dL AST 18 (15-37) U/L ALT 25 (14-59) U/L Alkaline Phosphatase 65 (46-116) U/L Total Protein 8.2 (6.4-8.2) g/dL Albumin 4.1 (3.4-5.0) g/dL Globulin 4.1 g/dL Albumin/Globulin Ratio 1.0 Urine Color Lt. yellow (YELLOW) Urine Clarity Clear (CLEAR) Urine pH 6.0 (5.0-9.0) Ur Specific [place] >=1.030 A (1.005-1.025) Urine Protein Negative (NEG/TRACE) mg/dL Urine Glucose (UA) Negative (NEGATIVE) mg/dL Urine Ketones Negative (NEGATIVE) mg/dL Urine Occult Blood Negative (NEGATIVE) Urine Nitrite Positive A (NEGATIVE) Urine Bilirubin Negative (NEGATIVE) Urine Urobilinogen 0.2 (0.2-1.0) EU/dL Ur Leukocyte Esterase Moderate A (NEGATIVE) Urine RBC None seen (0-2) #/HPF Urine WBC 20-50 A (NONE SEEN) #/HPF Ur Squamous Epith Cells Moderate A (NONE/RARE) #/LPF Urine Crystals Not Reportable Urine Bacteria Large A (NONE SEEN) #/HPF Urine Casts Not Reportable Urine Mucus None seen (NONE SEEN) Ur Culture Indicated? Yes Urine HCG, Qual Negative (NEGATIVE) Influenza Type A Ag Negative Influenza Type B Ag Negative SARS-CoV-2 Ag (CV2AG) Negative (NEGATIVE) Discharge Plan Discharge Chief Complaint: Abdominal Pain Clinical Impression: UTI (urinary tract infection) Patient Disposition: Home, Self-Care Time of Disposition Decision: 11:30 Condition: Good Mode of Transportation: Private Vehicle Prescriptions / Home Meds: New cephalexin 500 mg capsule 500 mg PO TID 7 Days Qty: 21 0RF Print Language: Estonian Instructions: Urinary Tract Infection in Women (ED) Referrals: Oliver Montelongo MD [Primary Care Provider] - 1 week
[2024-08-25 10:57] LABS: Basophils Absolute Auto 0.1 10^3/uL (0.0-0.1); Basophils Percent Auto 0.6 % (0.2-2.0); Bilirubin Urine NEGATIVE (NEGATIVE); Blood Urine NEGATIVE (NEGATIVE); Clarity Urine CLEAR (CLEAR); Color Urine LT. YELLOW (YELLOW); Eosinophils Absolute Auto 0.1 10^3/uL (0.0-0.7); Eosinophils Percent Auto 1.2 % (0.9-7.0); Glucose Urine UA NEGATIVE (NEGATIVE); Hematocrit 45.6 % (36.0-48.0); Immature Granulocytes Abs Auto 0.01 10^3/uL (0.00-0.03); Immature Granulocytes Pct Auto 0.1 % (0.0-0.5); Ketones Urine NEGATIVE (NEGATIVE); Leukocyte Esterase Urine MODERATE (NEGATIVE); Lymphocytes Absolute Auto 2.6 10^3/uL (1.2-3.8); Lymphocytes Percent Auto 30.6 % (20.5-60.0); Mean Corpuscular HGB Conc 32.9 g/dL (29.9-35.2); Mean Corpuscular Hemoglobin 28.7 pg (26.7-34.0); Mean Corpuscular Volume 87.2 fL (81.0-99.0); Mean Platelet Volume 8.8 fL (9.5-13.5); Monocytes Absolute Auto 0.7 10^3/uL (0.3-0.8); Monocytes Percent Auto 8.6 % (1.7-12.0); Neutrophils Absolute Auto 4.9 10^3/uL (1.4-6.5); Neutrophils Percent Auto 58.9 % (43.0-75.0); Nitrite Urine POSITIVE (NEGATIVE); Platelet Count 392 10^3/uL (150-450); Protein Urine NEGATIVE (NEG/TRACE); Red Blood Count 5.23 10^6/uL (4.20-5.40); Red Cell Distribution Width 12.6 % (11.0-15.0); Specific Gravity Urine >=1.030 (1.005-1.025); Urine Microscopic Indicated YES; Urobilinogen Urine 0.2 EU/dL (0.2-1.0); White Blood Count 8.4 10^3/uL (4.0-11.0)
[2024-08-25 11:03] LABS: HCG Qualitative Urine* NEGATIVE (NEGATIVE); Internal Control Within Normal Limits
[2024-08-25 11:07] LABS: WBC Urine 20-50 #/HPF (NONE SEEN)
[2024-08-25] MEDS: KETOROLAC TROMETHAMINE 30 MG/ML VIAL 15 MG IVP (11:07)
[2024-08-25] MEDS: 0.9 % SODIUM CHLORIDE 500 ML IV (11:07)
[2024-08-25 11:08] LABS: Bacteria Urine LARGE #/HPF (NONE SEEN); Mucus Urine NONE SEEN (NONE SEEN); RBC Urine NONE SEEN #/HPF (0-2); Squamous Epithelial Cell Urine MODERATE #/LPF (NONE/RARE)
[2024-08-25] MEDS: ONDANSETRON PF 4 MG/2 ML VIAL IV (11:08)
[2024-08-25 11:09] LABS: Urine Culture Indicated YES
[2024-08-25 11:10] LABS: Anion Gap 14.9; Carbon Dioxide 26.1 mmol/L (21.0-32.0); Chloride 104 mmol/L (98-107); Estimated GFR (African America >60 (>=60 mL/min/1.73m^2); Glucose 86 mg/dL (74-106); Sodium 141 mmol/L (136-145)
[2024-08-25 11:11] LABS: Alanine Aminotransferase 25 U/L (14-59); Albumin Level 4.1 g/dL (3.4-5.0); Alkaline Phosphatase 65 U/L (46-116); Aspartate Amino Transferase 18 U/L (15-37); BUN Creatinine Ratio 13.7; Bilirubin Total 0.3 mg/dL (0.2-1.0); Estimated GFR (Non-African Ame >60 (>=60 mL/min/1.73m^2); Globulin 4.1 g/dL; Total Protein 8.2 g/dL (6.4-8.2)
[2024-08-25 11:11] LABS: Influenza Virus A Antigen Negative; Influenza Virus B Antigen Negative; Internal Control Within Normal Limits; SARS-CoV-2 Ag NEGATIVE (NEGATIVE)
[2024-08-25] MEDS: CEFTRIAXONE 1,000 MG in 0.9 % SODIUM CHLORIDE 50 ML 100 MG IV (11:21)
[2024-08-25 11:47] VITALS: BP 110/65; PULSE 68; O2SAT 100
[2024-08-26 08:12] LABS: BOX Test Reference Lab FIRELANDS
--- NOTE | 2024-08-31 14:25 | PC.NURSE ---
Urine culture completed and reviewed by Brittanie CARD. patient already placed on cephalexin and no change in treatment needed.
== END 2024-08-25 11:58 | disposition home or self-care (01) ==
PROVIDERS: Emergency Provider Emergency Medicine; PCP Family Medicine
DX: N39.0 Urinary tract infection, site not specified (principal)
CPT/HCPCS: 36415; 80053; 81001; 84703; 85025; 87086; 87150; 87186; 87804; 87811; 96365; 96375; 99284; J0696; J1885; J2405

== ENCOUNTER 2024-09-08 15:35 | Outpatient (OUT) | payer BC, OTHER, SELFPAY ==
[2024-09-08 16:31] LABS: Free T3 2.75 pg/mL (2.91-4.70); Thyroid Stimulating Hormone 2.666 uIU/mL (0.516-4.130)
== END 2024-09-08 15:36 | disposition home or self-care (01) ==
LOC: LAB 15:35
PROVIDERS: PCP Family Medicine; Visit Provider Family Medicine
DX: R79.89 Other specified abnormal findings of blood chemistry (principal)
CPT/HCPCS: 36415; 84436; 84443; 84481

== ENCOUNTER 2024-09-11 10:33 | Outpatient (OUT) | payer BC, OTHER, SELFPAY ==
--- NOTE | 2024-09-11 10:36 | US_ITS ---
The [address] [address] Patient Name: MIHIR WOOD MRN: [id number] date: 2005 Sex: F Assigned Patient Location: Current Patient Location: Accession/Order Number: [id number] Exam Date: 09/11/2024 10:43 Report Date: 09/14/2024 04:49 At the request of: IAN REDDING Procedure: US renal bladder EXAMINATION: US renal bladder HISTORY: RECURRENT UTI N39.0 COMPARISON: No relevant comparison available. TECHNIQUE: Ultrasound examination was performed of the kidneys and urinary bladder. FINDINGS: RIGHT KIDNEY: No evidence of pelvocaliectasis, mass, or calculi. Normal parenchymal echogenicity. Color Doppler demonstrates blood flow within the kidney. Kidney: 9.7 x 4.8 x 5.3 cm LEFT KIDNEY: No evidence of pelvocaliectasis, mass, or calculi. Normal parenchymal echogenicity. Color Doppler demonstrates blood flow within the kidney. Kidney: 9.7 x 3.8 x 3.8 cm BLADDER: No visible wall thickening, mass, or calculi. Post void residual: 22 mL URETERAL JETS: Visualized bilaterally. US/US renal bladder IMPRESSION: 1. Normal appearance of the kidneys and urinary bladder. 2. Small amount of post void residual within bladder, 22 mL. Electronically authenticated by: UMBERTO RICCI Date: 09/14/2024 04:49
== END 2024-09-11 10:34 | disposition home or self-care (01) ==
LOC: US 10:33
PROVIDERS: PCP Family Medicine; Visit Provider Family Medicine
DX: N39.0 Urinary tract infection, site not specified (principal)
CPT/HCPCS: 76770

== ENCOUNTER 2024-11-11 07:26 | Outpatient (OUT) | payer BC, SELFPAY | END 2024-11-11 07:27 | disposition home or self-care (01) | LOC: LAB 07:27 | PROVIDERS: PCP Family Medicine; Visit Provider Obstetrics & Gynecology | DX: N97.0 Female infertility associated with anovulation (principal) | CPT/HCPCS: 36415; 84144 ==

== ENCOUNTER 2024-11-16 14:47 | Outpatient (RCR) | payer BC, SELFPAY ==
[2024-11-16 15:48] LABS: HCG Quantitative <1 mIU/mL
== END 2024-12-15 09:57 | disposition home or self-care (01) ==
LOC: LAB 14:47
PROVIDERS: Visit Provider Obstetrics & Gynecology
DX: N92.6 Irregular menstruation, unspecified (principal)
CPT/HCPCS: 36415; 84702

== ENCOUNTER 2024-12-06 15:02 | Outpatient (OUT) | payer BC, SELFPAY ==
[2024-12-07 08:11] LABS: Progesterone 11.6 ng/mL (.)
== END 2024-12-06 15:03 | disposition home or self-care (01) ==
LOC: LAB 15:03
PROVIDERS: Visit Provider Obstetrics & Gynecology
DX: N97.0 Female infertility associated with anovulation (principal); E34.9 Endocrine disorder, unspecified
CPT/HCPCS: 36415; 84144

== ENCOUNTER 2024-12-27 13:48 | Emergency (ER) | payer BC, SELFPAY ==
[2024-12-27 13:53] VITALS: BP 135/83; PULSE 99; TEMP 36.9; O2SAT 99; BMI 34.5
[2024-12-27 14:19] LABS: Bilirubin Urine NEGATIVE (NEGATIVE); Blood Urine NEGATIVE (NEGATIVE); Clarity Urine CLEAR (CLEAR); Color Urine LT. YELLOW (YELLOW); Glucose Urine UA NEGATIVE (NEGATIVE); Ketones Urine NEGATIVE (NEGATIVE); Leukocyte Esterase Urine SMALL (NEGATIVE); Nitrite Urine NEGATIVE (NEGATIVE); Protein Urine NEGATIVE (NEG/TRACE); Specific Gravity Urine 1.025 (1.005-1.025); Urobilinogen Urine 0.2 EU/dL (0.2-1.0)
[2024-12-27 14:23] LABS: HCG Qualitative Urine* NEGATIVE (NEGATIVE); Internal Control Within Normal Limits
[2024-12-27 14:31] LABS: Bacteria Urine SMALL #/HPF (NONE SEEN); Mucus Urine NONE SEEN (NONE SEEN); Squamous Epithelial Cell Urine FEW #/LPF (NONE/RARE)
[2024-12-27 14:32] LABS: Cast Seen? NONE SEEN #/LPF (NONE SEEN); Crystals Seen? None Seen #/HPF (None Seen); RBC Urine 0-2 #/HPF (0-2); Urine Culture Indicated YES-FRMC
--- NOTE | 2024-12-27 14:36 | ED_ITS ---
HPI HPI - General Adult General Chief complaint: Back Pain/Injury Stated complaint: BACK PAIN, PAIN IN R LEG, BLURRED VISION Time Seen by Provider: 12/27/24 13:53 Mode of arrival: walk-in History of Present Illness HPI narrative: 19-year-old female presents for right lower back pain. It goes into her right leg and she feels like something is pinched. No injury or unusual activity. No dysuria or hematuria. She does not have a history of back injuries or back issues. Related Data Previous Rx's ?Medication ?Instructions ?Recorded methocarbamol 500 mg tablet 500 mg PO Q8H PRN pain #20 tabs 12/27/24 prednisone 10 mg tablet See Rx Instructions .Route 0 12/27/24 .COMPLEX #30 tabs Allergies Allergy/AdvReac Type Severity Reaction Status Date / Time No Known Drug Allergies Allergy Verified 12/27/24 13:53 Opioid HPI Opioid Management Most Recent Opioid Data: Last Pain Scale 8 Today, 13:53 Review of Systems ROS Narrative A ten point review of systems is negative except as noted above. PFSH PFSH Social History Little interest or pleasure in doing things: not at all Feeling down, depressed, or hopeless: not at all Exam Narrative Exam Narrative: Nurses note and vital signs reviewed and patient is not hypoxic. General: The patient appears well and in no apparent distress. Patient is resting comfortably on cart. Skin: Warm, dry, no pallor noted. There is no rash noted. Head: Normocephalic, atraumatic Eye: Normal conjunctiva, no drainage Ears, Nose, Mouth, and Throat: oral mucosa is moist. Nares patent. Cardiovascular: Regular Rate and Rhythm Respiratory: Patient is in no distress, no accessory muscle use, lungs are clear to auscultation, no wheezing, rales or rhonchi Back: non-tender, no CVA tenderness bilaterally to percussion. No bruise rash or palpable tenderness GI: Soft and nontender Musculoskeletal: The patient has no evidence of calf tenderness, no pitting edema, symmetrical pulses noted bilaterally Neurological: A&O, normal speech Psychiatric: Cooperative Constitutional Vital Signs, click to edit/add: Last Vital Signs Temp 98.5 F 12/27/24 13:53 Pulse 99 H 12/27/24 13:53 Resp 16 12/27/24 13:53 BP 135/83 12/27/24 13:53 Pulse Ox 99 12/27/24 13:53 O2 Del Method Room Air 12/27/24 13:53 Course Vital Signs Vital signs: Vital Signs Temperature 98.5 F 12/27/24 13:53 Pulse Rate 99 H 12/27/24 13:53 Respiratory Rate 16 12/27/24 13:53 Blood Pressure 135/83 12/27/24 13:53 Pulse Oximetry 99 12/27/24 13:53 Oxygen Delivery Method Room Air 12/27/24 13:53 Temperature 98.5 F 12/27/24 13:53 Pulse Rate 99 H 12/27/24 13:53 Respiratory Rate 16 12/27/24 13:53 Blood Pressure 135/83 12/27/24 13:53 Pulse Oximetry 99 12/27/24 13:53 Oxygen Delivery Method Room Air 12/27/24 13:53 Medical Decision Making MDM Narrative Medical decision making narrative: Lumbar films on my interpretation showed no acute findings in her urinalysis is negative. She will be treated symptomatically with steroid and muscle relaxer. Treatment diagnosis and follow-up were discussed with the patient. Differential Diagnosis Differential Diagnosis: UTI, lumbar strain, lumbar radiculopathy Lab Data Lab results reviewed: Yes I reviewed the patient's lab results Labs: Lab Results 12/27/24 Range/Units 14:05 Urine Color Lt. yellow (YELLOW) Urine Clarity Clear (CLEAR) Urine pH 6.0 (5.0-9.0) Ur Specific [place] 1.025 (1.005-1.025) Urine Protein Negative (NEG/TRACE) mg/dL Urine Glucose (UA) Negative (NEGATIVE) mg/dL Urine Ketones Negative (NEGATIVE) mg/dL Urine Occult Blood Negative (NEGATIVE) Urine Nitrite Negative (NEGATIVE) Urine Bilirubin Negative (NEGATIVE) Urine Urobilinogen 0.2 (0.2-1.0) EU/dL Ur Leukocyte Esterase Small A (NEGATIVE) Urine RBC 0-2 (0-2) #/HPF Urine WBC 5-10 A (NONE SEEN) #/HPF Ur Squamous Epith Cells Few A (NONE/RARE) #/LPF Urine Crystals None seen (None Seen) #/HPF Urine Bacteria Small A (NONE SEEN) #/HPF Urine Casts None seen (NONE SEEN) #/LPF Urine Mucus None seen (NONE SEEN) Ur Culture Indicated? [place] [place] HCG, Qual Negative (NEGATIVE) Imaging Data Lumbar x-rays: My impression: No acute findings Discharge Plan Discharge Chief Complaint: Back Pain/Injury Clinical Impression: Low back pain Patient Disposition: Home, Self-Care Time of Disposition Decision: 15:54 Condition: Good Mode of Transportation: Private Vehicle Prescriptions / Home Meds: New methocarbamol 500 mg tablet 500 mg PO Q8H PRN (Reason: pain) Qty: 20 0RF prednisone 10 mg tablet See Rx Instructions .ROUTE .COMPLEX Qty: 30 0RF Rx Instructions: 4 by mouth daily for three days then 3 by mouth daily for three days then 2 by mouth daily for three days then 1 by mouth daily for three days Print Language: Lithuanian Instructions: Acute Low Back Pain (ED) Referrals: Physician,Non-Staff, MD [Primary Care Provider] - 1 week
== END 2024-12-27 16:08 | disposition home or self-care (01) ==
PROVIDERS: Emergency Provider Emergency Medicine
DX: M54.50 Low back pain, unspecified (principal); M54.16 Radiculopathy, lumbar region
CPT/HCPCS: 72100; 81001; 84703; 87086; 87088; 87186; 99285

== ENCOUNTER 2025-02-25 09:48 | Outpatient (OUT) | payer BC, SELFPAY ==
--- OUTSIDE RECORDS SUMMARY | 2024-12-29 12:01 | XMS_ITS ---
Author Organization The [facility] in [place] Address [address] [place] [address] Care Team Providers Care Building Maintenance Technician Name Role Phone Rogelio Montelongo Primary Care Provider REASON FOR VISIT referall to CASIE Encounters Encounter Location Date Provider Diagnosis [facility] [place] [address] [place] [address] 12/29/2024 Rogelio Jayda Plan Of Treatment Next Appt Details Provider Name:Rogelio Montelongo, 03:15:00 PM, [address] [place], [address], Progress Notes * Amalia WOODDOB: [birth year] (19 yo F)Acc No.[id number]:12/29/2024 Patient: Nano LEMOS Amalia COLON :2005 A ge:19 Y S ex:Female Address:[address] [place] [address], [phone] * true * Date: Generated for Printi ng/Faxing/eTransmitting on: 0 02/25/2025 09:51 AM EDT
--- OUTSIDE RECORDS SUMMARY | 2025-01-11 11:06 | XMS_ITS ---
Author Organization The [facility] in [place] Address [address] [place] [address] Care Team Providers Care Brake Specialist Name Role Phone Rogelio Montelongo Primary Care Provider Reason For Referral Diagnosis 1 Carpal tunnel syndro me (G56.00) Referral Organization [facility] Referring Provider First Name Rogelio Referring Provider Last Name Jayda Referring Provider [facility] icine Referred Provider [facility] Referred Provider Specialty Neurology Referral Priority Routine REASON FOR VISIT EMG CASIE referral Encounters Encounter Location Date Provider Diagnosis [facility] [address] [place] [address] 01/11/2025 Rogelio Montelongo Carpal tunnel syndro me G56.00 Assessments Encounter Date Diagnosis (ICD Code) Assessment Notes Treatment Notes Treatment Clinical Notes Section Notes 01/11/2025 Carpal tunnel syndrome (ICD-10 - G56.00) Plan Of Treatment Referrals Referral Date Details 01/11/2025 01/11/2025, [facility] Next Appt Details Provider Name:Rogelio Montelongo, 03:15:00 PM, [address] [place], [address], Progress Notes * Amalia WOODDOB: [birth year] (19 yo F)Acc No.[id number]:01/11/2025 Patient: Nano LEMOS Amalia COLON :2005 A ge:19 Y S ex:Female Address:[address] [place] [address], [phone] Subjective: * Chief Complaints: * E MG CASIE referral * Medical History: * Surgical History: * Hospitalization/Major Diagno stic Procedure: * Medications: Objective: * Vitals: * Physical Examination: Assessment: * Assessment: 1. C arpal tunnel syndrome - G56.00 (Primary) Plan: * Treatment: * Procedure Codes: * true * Date: Generated for Karen holt/Toby/eTransmitting on: 0 02/25/2025 09:51 AM EDT Consultation Request Notes Referral Date Referring Provider Referred Provider Not es 01/11/2025 Rogelio Montelongo [facility]
--- OUTSIDE RECORDS SUMMARY | 2025-01-28 11:15 | XMS_ITS ---
Author Organization The [facility] in [place] Address [address] [place] [address] Care Team Providers Care Resort Housekeeper Name Role Phone Rogelio Montelongo Primary Care Provider [phone] Allergies No Known Allergies REASON FOR VISIT [...] 01/28/2025 Encounters Encounter Location Date Provider Diagnosis [facility] [address] [place] [address] 01/28/2025 Rogelio Montelongo Asthma J45.909 and Encounter [...] arnaud kfast Orally Once a day 01/28/2025 Next Appt Details Provider Name:Rogelio Montelongo, 03:15:00 PM, [address] [place], [address], Progress Notes * Amalia GARZADOB: [birth year] (19 yo F)Acc No.[id number]:01/28/2025 Progress Note Patient: Amalia RAMOS Provider: Geovanni Montelongo ([facility])MD :2005 A ge:19 Y S ex:Female Date:01/28/2025 Address:[address] [place], [place] [address] Check In:03:13 PM ESTCheck O ut:03:51 PM [...] and affect. Assessment: * Assessment: 1. A sta - J45.909 (Primary) 2 . E ncounter for medication management - Z79.899 Plan: * Treatment: * Procedure Codes: * Preventive Medicine: Screenings/Counseling: B CA ACTION PLAN Above Normal BMI Follow-up D ietary management education, guidance, and counseling * * Sign off status: Completed Visit Status: C HK (Check Out) true * Provider: Geovanni Montelongo ([facility])MD Date: 0 01/28/2025 Generated for Printi ng/Faxing/eTransmitting on: 0 02/25/2025 09:51 AM EDT History and Physical Notes * [...]
--- OUTSIDE RECORDS SUMMARY | 2025-02-23 10:31 | XMS_ITS | Continuity of Care Document ---
Author Organization [facility] Address [address] [place] [address] Phone Care Team Providers Care Manufacturing Production Manager Name Role Phone Santos Simpson DO Attending Provider Huy Martínez DO Attending Provider Oliver Montelongo MD Primary Care Provider Care Teams Patient Care Team Team Status: Active Member Role Status Dates Oliver Montelongo MD Primary Care Provider Active Visit Care Team Team Status: Inactive Member Role Status Dates Santos Simpson DO Attending Provider Active S tart: December 27, 2024 End: December 27, 2024 Patient Care Team Team Status: Inactive Member Role Status Dates Huy Martínez DO Attending Provider Active Start: February 23, 2025 End: February 23, 2025 Oliver Montelongo MD Primary Care Provider Active Start: February 23, 2025 End: February 23, 2025 Chief Complaint and Reason for Visit Chief Complaint Admit Date Unknown December 27, 2024 2:05p m RUE February 23, 2025 1:50p m Social History Smoking Status Unknown if ever smoked Observation Status Observation Response Date of Response Legal Sex Female (finding) Sex Assigned At Female October Problems Active Problems Medical Problem Onset Date Status Carpal tunnel syndrome, right Unknown Ac tive Procedures Procedure Date Performed Status Urine Culture December 27, 2024 completed Relevant Diagnostic Tests and/or Laboratory Data Microbiology Results Procedure Source Result Collection Date/Time Result Date/Time Result Comment Performing Site Urine Culture Urine, Clean-Voided Midstream Escherichia coli December 27, 2024 2:05pm December 30, 2024 9:15am [facility] [id number] [address] [place], [place] [id number] Advance Directives Advance Directive Response Recorded Date/ Time Advance Directives No February 23 1:50pm Insurance Providers Payer Policy Id Subscriber's Name Subscriber Id Effectiv e Date Expiration Date Tali HOFFMAN [id number] Amalia Garza [id number] Encounters Encounter Location(s) Arrival/Admit Date Discharge/Depart Date Provider(s) Departed Referred -[facility] December 27, 2024 2:05pm December 27, 2024 2:06pm Geovanni Dixon DO Departed Physician/Prov ider Office Visit -[facility] February 23, 2025 1:50pm February 23, 2025 2:30pm Anegla Brownlee DO
--- OUTSIDE RECORDS SUMMARY | 2025-02-25 09:51 | XMS_ITS | Encounter Summary ---
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 [place] [address] Social History Tobacco Use Types Packs/Day Years Used Date Smoking Tobacco: Never Assessed Comments No Sex and Gender Information Value Date Recorded Sex Assigned at Female 04/27/2024 11:52 AM EDT Legal Sex Female 4:30 PM EDT Gender Identity Female 04/27/2024 11:52 AM EDT Sexual Orientation Not on file documented as of this encounter Plan of Treatment Not on file documented as of this encounter Procedures Procedure Name Priority Date/Time Associated Diagnosis Comments US PELVIS W/ TRANSVAGINAL 2023 12:06 PM EDT [facility] PREG QUANT HCG Routine 02/11/2024 10:54 AM EDT ALL THYROXINE (T4) FREE Routine 02/11/20 10:54 AM EDT ALL THYROID STIM HORMONE Routine 024 10:54 AM EDT ALL LUTEINIZING HORMONE Routine 02/11/20 24 10:54 AM EDT ALL FOLLICLE STIMULATING HORMONE Routine 02/11/2024 10:54 AM EDT ALL DHEA SULFATE Routine 02/11/2024 10:54 AM EDT ALL DEHYDROEPIANDROSTERONE Routine 02/10 10:54 AM EDT documented in this encounter Results * US PELVIS W/ TRANSVAGINAL (02/11/2024 12:06 PM EDT) Anatomical Region Laterality Modality Other 02/11/2024 12:0 6 PM EDT Narrative 02/11/2024 12:09 [place] [address] Ultrasound Report Signed Patient: MIHIR CHRISTIE MR#: [id number] : 2005 Acct:[id number] Age/Sex: 18 / F ADM Date: 02/11/24 Loc: [facility] Attending Dr: Lita Brown D.O. Ordering Physician: Lita Brown D.O. Date of Service: 02/11/24 Procedure(s): US pelvis w/ transvaginal Accession Number(s): [id number] cc: Lita Brown D.O.; Physician,Non-Staff M.D. [place] [id number] Patient Name: MIHIR CHRISTIE MRN: [id number] date: 2005 Sex: F Assigned Patient Location: [facility] Current Patient Location: [facility] Accession/Order Number: [id number] Exam Date: 02/11/2024 09:24 Report Date: 02/11/2024 12:06 At the request of: LITA BROWN Procedure: US pelvis w/ transvaginal EXAMINATION: US pelvis w/ transvaginal HISTORY: IRREGULAR MENSTRAL CYCLE COMPARISON: No relevant comparison available. FINDINGS: Transabdominal and transvaginal images The uterus is normal in size, contour and myometrial echotexture measuring 6.9 x 3.0 x 4.9 cm. Anteverted, anteflexed. Endometrium measures 6 mm, normal. The right ovary is normal in size, contour and echotexture measuring 3.0 x 2.0 x 2.8 cm. Normal color Doppler flow The left ovary is normal in size, contour and echotexture measuring 3.1 x 2.1 x 2.9 cm. Normal color Doppler flow No free fluid US/US pelvis w/ transvaginal IMPRESSION: Normal exam Electronically authenticated by: OPAL REYES Date: 02/11/2024 12:06 Dictated By: Opal Reyes M.D. Signed By: 02/11/24 1209 DD/ 1206 TD/TT: Delivery Person: Procedure Note Radiology, Radiologist, MD - 02/11/2024 [place] [address] Ultrasound Report Signed Patient: MIHIR CHRISTIEMR#: [id number] : 2005Acct:[id number] Age/Sex: 18 / FADM Date: 02/11/24 Loc: [facility] Attending Dr: Lita Brown D.O. Ordering Physician: Lita Brown D.O. Date of Service: 02/11/24 Procedure(s): US pelvis w/ transvaginal Accession Number(s): [id number] cc: Lita Brown D.O.; Physician,Non-Staff [place] [facility] [place] [id number] Patient Name: MIHIR CHRISTIE MRN: [id number] date: 2005 Sex: F Assigned Patient Location: [facility] Current Patient Location: [facility] Accession/Order Number: [id number] Exam Date: 02/11/2024 09:24 Report Date: 02/11/2024 12:06 At the request of: LITA BROWN Procedure: US pelvis w/ transvaginal EXAMINATION: US pelvis w/ transvaginal HISTORY: IRREGULAR MENSTRAL CYCLE COMPARISON: No relevant comparison available. FINDINGS: Transabdominal and transvaginal images The uterus is normal in size, contour and myometrial echotexture measuring6.9 x 3.0 x 4.9 cm. Anteverted, anteflexed. Endometrium measures 6 mm, normal. The right ovary is normal in size, contour and echotexture measuring 3.0 x2.0 x 2.8 cm. Normal color Doppler flow The left ovary is normal in size, contour and echotexture measuring 3.1 x2.1 x 2.9 cm. Normal color Doppler flow No free fluid US/US pelvis w/ transvaginal IMPRESSION: Normal exam Electronically authenticated by: OPAL REYES Date: 02/11/2024 12:06 Dictated By: Opal Reyes M.D. Signed By:02/11/24 1209 DD/ 1206 TD/TT: Delivery Person: us Lita Stephanie DO [facility] Final Result * ALL DEHYDROEPIANDROSTERONE (02/11/2024 10:54 AM EDT) DHEA, SERUM 376 40 - 491 ng/dL TB Comment: Age 1 - 5 years 0 - 67 6 - 7 years 0 - 110 8 - 10 years 0 - 185 11 - 12 years 0 - 201 13 - 14 years 0 - 318 15 - 16 years 39 - 481 17 - 19 years 40 - 491 20 - 50 years 31 - 701 >50 years 21 - 402 This test was developed and its performance characteristics determined by [facility]. It has not been cleared or approved by the Food and Drug Administration. Performed at: [address] [id number] Fishing Manager: Lisseth Betancourt MD, Phone: [phone] 02/11/2024 10:5 4 AM EDT 02/11/2024 11:05 AM EDT Narrative [facility] - 02/16/2024 3:09 PM EDT us Lita Stephanie DO [facility] Final Result Performing Organization Address [facility] Co de Phone Number [facility] * ALL FOLLICLE STIMULATING HORMONE (02/11/2024 10:54 AM EDT) FSH 4.3 . mIU/mL [facility] Comment: Adult Female Range Follicular phase 3.5 - 12.5 Ovulation phase 4.7 - 21.5 Luteal phase 1.7 - 7.7 Postmenopausal 25.8 - 134.8 Performed at: [address] [id number] Fishing Manager: Sonny Cox PhD, Phone: [phone] 02/11/2024 10:5 4 AM EDT 02/11/2024 11:05 AM EDT Narrative [facility] - 02/12/2024 4:08 AM EDT [facility] [place] DO [facility] Final Result Performing Organization Address [facility] de Phone Number [facility] * ALL LUTEINIZING HORMONE (02/11/2024 10:54 AM EDT) LUTEINIZING HORMONE(LH) 9.5 . mIU/mL [facility] Comment: Adult Female Range Follicular phase 2.4 - 12.6 Ovulation phase 14.0 - 95.6 Luteal phase 1.0 - 11.4 Postmenopausal 7.7 - 58.5 02/11/2024 10:5 4 AM EDT 02/11/2024 11:05 AM EDT Narrative [facility] - 02/12/2024 4:08 AM EDT [facility] Final Result Performing Organization Address [facility] de Phone Number [facility] * ALL DHEA SULFATE (02/11/2024 10:54 AM EDT) DHEA-SULFATE 378.0 110.0 - 433.2 ug/dL [facility] 02/11/2024 10:5 4 AM EDT 02/11/2024 11:05 AM EDT Narrative [facility] - 02/12/2024 4:08 AM EDT Lita Stevenso DO [facility] Final Result Performing Organization Address [facility] Co de Phone Number [facility] * [facility] PREG QUANT HCG (02/11/2024 10:54 AM EDT) HCG QUANTITATIVE <1 mIU/mL [facility] Comment: 5-50 0.2-1 WEEK 50-500 1-2 WEEKS 100-5,000 2-3 WEEKS 500-10,000 3-4 WEEKS 1,000-50,000 4-5 WEEKS 10,000-100,000 5-6 WEEKS 15,000-200,000 6-8 WEEKS 10,000-100,000 2-3 MONTHS 02/11/2024 10:5 4 AM EDT 02/11/2024 11:05 AM EDT Narrative [facility] - 02/11/2024 1:51 PM EDT Litakellee Stevenso DO [facility] Final Result Performing Organization Address [facility]/ZIP Co de Phone Number [facility] * ALL THYROID STIM HORMONE (02/11/2024 10:54 AM EDT) THYROID STIMULATING HORMONE 2.107 0.516 - 4.130 uIU/mL [facility] 02/11/2024 10:5 4 AM EDT 02/11/2024 11:05 AM EDT Narrative [facility] - 02/11/2024 1:51 PM EDT Litakellee Stevenso DO [facility] Final Result Performing Organization Address City/[facility] Co de Phone Number [facility] * ALL THYROXINE (T4) FREE (02/11/2024 10:54 AM EDT) FREE T4 1.00 0.78 - 1.34 ng/dL [facility] 02/11/2024 10:5 4 AM EDT 02/11/2024 11:05 AM EDT Narrative [facility] - 02/11/2024 12:16 PM EDT us Lita Brown DO [facility] Final Result [facility] documented in this encounter Visit Diagnoses Not on filedocumented in this encounter Care Teams [employer] Helper Relationship Specialty Start Date End Date Oliver Montelongo MD PCP - General Family Medicine 10/05/24 documented as of this encounter
--- OUTSIDE RECORDS SUMMARY | 2025-02-25 09:51 | XMS_ITS | Patient Health Record ---
Author Organization The [facility] [place] Address [address] [place] [address] Care Team Providers Care Balancing Machine Operator Name Role Phone Rogelio Redding Primary Care Provider [phone] Allergies No Known Allergies Results Component Value Reference Range Notes FREE T3 Reviewed date:08/18/2024 03:47:54 PM Interpretation: Performing Lab: Notes/Report: [facility] Free T3 3.13 2.91-4.70 pg/mL Performing Lab: see note ML - [facility] LB GLYCOHEMOGLOBIN A1C Reviewed date:08/18/2024 03:47:54 PM Interpretation: Performing Lab: Notes/Report: [facility] , Glycohemoglobin A1C 5.5 4.5-6.2 % > 7.0 ACTION SUGGESTED ADA THERAPEUTIC TARGET < 7.0 ADA RECOMMENDED LIMIT 4.0 - 6.0 Estimated Average Glucose 111 Performing Lab: see note ML - [facility] LB IRON Reviewed date:08/18/2024 03:47:54 PM Interpretation: Performing Lab: Notes/Report: [facility] , Iron 48.0 50.0-170.0 ug/dL Performing Lab: see note ML - [facility] LB LIPID PROFILE Reviewed date:08/18/2024 03:47:54 PM Interpretation: Performing Lab: Notes/Report: [facility] , Triglycerides 63 53-208 mg/dL Cholesterol 144 104-227 mg/dL HDL Cholesterol 52 29-69 mg/dL <40 mg/dl - HIGH CARDIOVASCULAR RISK > or =60 mg/dl - LOW CARDIOVASCULAR RISK LDL Cholesterol Calculated 79.4 100-129 mg/dl NEAR OR ABOVE OPTIMAL 130-159 mg/dl BORDERLINE HIGH >190 mg/dl VERY HIGH <100 mg/dl OPTIMAL 160-189 mg/dl HIGH VLDL CHOLESTEROL 12.6 Chol HDL Ratio 2.8 >11.0 HIGH RISK 7.1 - 11.0 MODERATE RISK 3.3 - 4.4 LOW RISK 4.4 - 7.1 AVERAGE RISK Performing Lab: see note ML - [facility] LB PROF 14(COMP METB) Reviewed date:08/18/2024 03:47:54 PM Interpretation: Performing Lab: Notes/Report: [facility] , Sodium 141 136-145 mmol/L Potassium 4.4 3.5-5.1 mmol/L Chloride 105 98-107 mmol/L Carbon Dioxide 29.3 21.0-32.0 mmol/L Anion Gap 11.1 Glucose 89 74-106 mg/dL Blood Urea Nitrogen 14.0 6.4-19.3 mg/dL Creatinine 0.99 0.55-1.02 mg/dL Estimated GFR ( Felecia >60 >=60 mL/min/1.73m 2 Estimated GFR (Non- Patricia >60 >=60 mL/min/1.73m 2 BUN Creatinine Ratio 14.1 Calcium 9.2 8.5-10.1 mg/dL Bilirubin Total 0.3 0.2-1.0 mg/dL Aspartate Amino Transferase 16 15-37 U/L Alanine Aminotransferase 27 14-59 U/L Alkaline Phosphatase 65 46-116 U/L Total Protein 7.7 6.4-8.2 g/dL Albumin Level 3.9 3.4-5.0 g/dL Globulin 3.8 Albumin Globulin Ratio 1.0 Performing Lab: see note ML - [facility] LB T4 Reviewed date:08/18/2024 03:47:54 PM Interpretation: Performing Lab: Notes/Report: [facility] , T4 Thyroxine 8.50 5.40-10.60 ug/dL Performing Lab: see note ML - [facility] LB TSH Reviewed date:08/18/2024 03:47:54 PM Interpretation: Performing Lab: Notes/Report: [facility] , Thyroid Stimulating Hormone 4.190 0.516-4.130 uIU/mL Performing Lab: see note ML - [facility] LB UA (CLEAN or CATCH) MEDICAL AFFAIRS DIRECTOR or M ICRO IF IND. Reviewed date:08/25/2024 07:20:00 PM Interpretation: Performing Lab: Notes/Report: [facility] , Color Urine LT. YELLOW YELLOW Clarity Urine CLEAR CLEAR Specific [place] Urine >=1.030 1.005-1.025 pH Urine 6.0 5.0-9.0 Protein Urine NEGATIVE NEG/TRACE mg/dL Glucose Urine UA NEGATIVE NEGATIVE mg/dL Bilirubin Urine NEGATIVE NEGATIVE Ketones Urine NEGATIVE NEGATIVE mg/dL Blood Urine NEGATIVE NEGATIVE Nitrite Urine POSITIVE NEGATIVE Urobilinogen Urine 0.2 0.2-1.0 EU/dL Leukocyte Esterase Urine MODERATE NEGATIVE Urine Microscopic Indicated YES Performing Lab: see note ML - [facility] URINE MICROSCOPIC ONLY Reviewed date:08/25/2024 07:20:00 PM Interpretation: Performing Lab: Notes/Report: [facility] , WBC Urine 20-50 NONE SEEN #/HPF RBC Urine NONE SEEN 0-2 #/HPF Bacteria Urine LARGE NONE SEEN #/HPF Mucus Urine NONE SEEN NONE SEEN Squamous Epithelial Cell Urine MODERATE NONE/RARE #/LPF Urine Culture Indicated YES Performing Lab: see note ML - [facility] HCG Qualitative Urine Reviewed date:08/25/2024 07:20:00 PM Interpretation: Performing Lab: Notes/Report: [facility] , HCG Qualitative Urine* NEGATIVE NEGATIVE Performing Lab: see note ML - [facility] LB Box Test Reviewed date:08/29/2024 10:43:25 AM Interpretation: Performing Lab: Notes/Report: [facility] , BOX Test Sent Out URINE CULTURE BOX Test Reference Lab [facility] BOX Test Date Sent 08/25/24 BOX Test Result SEE SCANNED REPORT Performing Lab: see note ML - [facility] FREE T3 Reviewed date:09/08/2024 04:48:07 PM Interpretation: Performing Lab: Notes/Report: [facility] , Free T3 2.75 2.91-4.70 pg/mL Performing Lab: see note ML - [facility] LB T4 Reviewed date:09/08/2024 04:48:07 PM Interpretation: Performing Lab: Notes/Report: [facility] , T4 Thyroxine 7.60 5.40-10.60 ug/dL Performing Lab: see note ML - [facility] LB TSH Reviewed date:09/08/2024 04:48:07 PM Interpretation: Performing Lab: Notes/Report: [facility] , Thyroid Stimulating Hormone 2.666 0.516-4.130 uIU/mL Performing Lab: see note - [facility] LB PROF 14(COMP METB) Reviewed date:08/25/2024 07:20:00 PM Interpretation: Performing Lab: Notes/Report: [facility] , Sodium 141 136-145 mmol/L Potassium 4.0 3.5-5.1 mmol/L Chloride 104 98-107 mmol/L Carbon Dioxide 26.1 21.0-32.0 mmol/L Anion Gap 14.9 Glucose 86 74-106 mg/dL Blood Urea Nitrogen 13.0 6.4-19.3 mg/dL Creatinine 0.95 0.55-1.02 mg/dL Estimated GFR ( Felecia >60 >=60 mL/min/1.73m 2 Estimated GFR (Non- Patricia >60 >=60 mL/min/1.73m 2 BUN Creatinine Ratio 13.7 Calcium 9.0 8.5-10.1 mg/dL Bilirubin Total 0.3 0.2-1.0 mg/dL Aspartate Amino Transferase 18 15-37 U/L Alanine Aminotransferase 25 14-59 U/L Alkaline Phosphatase 65 46-116 U/L Total Protein 8.2 6.4-8.2 g/dL Albumin Level 4.1 3.4-5.0 g/dL Globulin 4.1 Albumin Globulin Ratio 1.0 Performing Lab: see note ML - [facility] LB INFLUENZA A AND B AG Reviewed date:08/25/2024 07:20:00 PM Interpretation: Performing Lab: Notes/Report: [facility] , Influenza Virus A Antigen Negative Negative for Flu A protein antigen. Infection due to Flu A below the detection limit of the test. cannot be ruled out. Flu A antigen in the sample may be Influenza Virus B Antigen Negative Negative for Flu B protein antigen. Infection due to Flu B below the detection limit of the test. cannot be ruled out. Flu B antigen in the sample may be Performing Lab: see note ML - [facility] LB CBC AUTO DIFF Reviewed date:08/25/2024 07:20:00 PM Interpretation: Performing Lab: Notes/Report: [facility] , White Blood Count 8.4 4.0-11.0 10 3/uL Red Blood Count 5.23 4.20-5.40 10 6/uL Hemoglobin 15.0 12.0-16.0 g/dL Hematocrit 45.6 36.0-48.0 % Mean Corpuscular Volume 87.2 81.0-99.0 fL Mean Corpuscular Hemoglobin 28.7 26.7-34.0 pg Mean Corpuscular HGB Conc 32.9 29.9-35.2 g/dL Red Cell Distribution Width 12.6 11.0-15.0 % Platelet Count 392 150-450 10 3/uL Mean Platelet Volume 8.8 9.5-13.5 fL Neutrophils Percent Auto 58.9 43.0-75.0 % Lymphocytes Percent Auto 30.6 20.5-60.0 % Monocytes Percent Auto 8.6 1.7-12.0 % Eosinophils Percent Auto 1.2 0.9-7.0 % Basophils Percent Auto 0.6 0.2-2.0 % Immature Granulocytes Pct Auto 0.1 0.0-0.5 % Neutrophils Absolute Auto 4.9 1.4-6.5 10 3/uL Lymphocytes Absolute Auto 2.6 1.2-3.8 10 3/uL Monocytes Absolute Auto 0.7 0.3-0.8 10 3/uL Eosinophils Absolute Auto 0.1 0.0-0.7 10 3/uL Basophils Absolute Auto 0.1 0.0-0.1 10 3/uL Immature Granulocytes Abs Auto 0.01 0.00-0.03 10 3/uL Performing Lab: see note ML - [facility] LB INSULIN Reviewed date:08/22/2024 08:57:18 PM Interpretation: Performing Lab: Notes/Report: [facility] , Insulin 13.0 2.6-24.9 uIU/mL Patient Care Director: Sonny Cox PhD, Phone: [phone] Performed at: [facility] [address] [id number] Performing Lab: see note - [facility] LB CBC AUTO DIFF Reviewed date:08/18/2024 03:47:54 PM Interpretation: Performing Lab: Notes/Report: [facility] , White Blood Count 7.3 4.0-11.0 10 3/uL Red Blood Count 4.91 4.20-5.40 10 6/uL Hemoglobin 14.1 12.0-16.0 g/dL Hematocrit 43.1 36.0-48.0 % Mean Corpuscular Volume 87.8 81.0-99.0 fL Mean Corpuscular Hemoglobin 28.7 26.7-34.0 pg Mean Corpuscular HGB Conc 32.7 29.9-35.2 g/dL Red Cell Distribution Width 12.4 11.0-15.0 % Platelet Count 363 150-450 10 3/uL Mean Platelet Volume 8.8 9.5-13.5 fL Neutrophils Percent Auto 54.9 43.0-75.0 % Lymphocytes Percent Auto 33.9 20.5-60.0 % Monocytes Percent Auto 8.7 1.7-12.0 % Eosinophils Percent Auto 1.7 0.9-7.0 % Basophils Percent Auto 0.7 0.2-2.0 % Immature Granulocytes Pct Auto 0.1 0.0-0.5 % Neutrophils Absolute Auto 4.0 1.4-6.5 10 3/uL Lymphocytes Absolute Auto 2.5 1.2-3.8 10 3/uL Monocytes Absolute Auto 0.6 0.3-0.8 10 3/uL Eosinophils Absolute Auto 0.1 0.0-0.7 10 3/uL Basophils Absolute Auto 0.1 0.0-0.1 10 3/uL Immature Granulocytes Abs Auto 0.01 0.00-0.03 10 3/uL Performing Lab: see note ML - [facility] US renal bladder Reviewed date:09/14/2024 05:04:28 PM Interpretation: Performing Lab: Notes/Report: Source Facility: [place] [address] [place] [address] Ultrasound Report Signed Patient: MIHIR WOOD MR#: [id number] : 2005 Acct:[id number] Age/Sex: 18 / F ADM Date: 09/11/24 Loc: US Attending Dr: Oliver Redding M.D. Ordering Physician: Oliver Redding M.D. Date of Service: 09/11/24 Procedure(s): US renal bladder Accession Number(s): [id number] cc: Oliver Redding M.D. [place] [id number] Patient Name: MIHIR WOOD MRN: [facility]:[id number] date: 2005 Sex: F Assigned Patient Location: US Current Patient Location: Accession/Order Number: [id number] Exam Date: 09/11/2024 10:43 Report Date: 09/14/2024 04:49 At the request of: OLIVER REDDING Procedure: US renal bladder EXAMINATION: US renal bladder HISTORY: RECURRENT UTI N39.0 COMPARISON: No relevant comparison available. TECHNIQUE: Ultrasound examination was performed of the kidneys and urinary bladder. FINDINGS: RIGHT KIDNEY: No evidence of pelvocaliectasis, mass, or calculi. Normal parenchymal echogenicity. Color Doppler demonstrates blood flow within the kidney. Kidney: 9.7 x 4.8 x 5.3 cm LEFT KIDNEY: No evidence of pelvocaliectasis, mass, or calculi. Normal parenchymal echogenicity. Color Doppler demonstrates blood flow within the kidney. Kidney: 9.7 x 3.8 x 3.8 cm BLADDER: No visible wall thickening, mass, or calculi. Post void residual: 22 mL URETERAL JETS: Visualized bilaterally. US/US renal bladder IMPRESSION: 1. Normal appearance of the kidneys and urinary bladder. 2. Small amount of post void residual within bladder, 22 mL. Electronically authenticated by: TERRY IYER Date: 09/14/2024 04:49 Dictated By: Terry Iyer M.D. Signed By: 09/14/24 0452 DD/ 0449 TD/TT: [facility] [employer] Program Assistant: [address] [id number] Ultrasound Report Signed Patient: MIHIR WOOD MR#: [id number] : 2005 Acct:[id number] Age/Sex: 18 / F ADM Date: 09/11/24 Loc: US Attending Dr: James Redding M.D. Ordering Physician: Oliver Redding M.D. Date of Service: 09/11/24 Procedure(s): US jina al bladder Accession Number(s): [id number] cc: Oliver Redding M.D. [facility] [place] [id number] Patient Name: MIHIR WOOD MRN: [id number] date: 2005 Sex: F Assigned Patient Location: Current Patient Location: Accession/Order Number: [id number] Exam Date: 09/11/2024 10:43 Report Date: 09/14/2024 04:49 At the request of: OLIVER REDDING Procedure: US renal bladder EXAMINATION: US antione l bladder HISTORY: RECURRENT U TI N39.0 COMPARISON: No relevant comparison available. TECHNIQUE: Ultrasoun d examination was performed of the kidneys and urinary bladder. FINDINGS: RIGHT KIDNEY: No evidence of pelvocaliectasis, mass, or calculi. Normal parenchymal echogenicity. Color Doppler demonstrates blood flow within the kidney. Kidney: 9.7 x 4.8 x 5.3 cm LEFT KIDNEY: No evidence of pelvocaliectasis, mass, or calculi. Normal parenchymal echogenicity. Color Doppler demonstrates blood flow within the kidney. Kidney: 9.7 x 3.8 x 3.8 cm BLADDER: No visible wall thickening, mass, or calculi. Post void residual: 22 mL URETERAL JETS: Visualized bilaterally. US/US renal bladder IMPRESSION: 1. Normal appearance of the kidneys and urinary bladder. 2. Small amount of post void residual within bladder, 22 mL. Electronically authenticated by: TERRY IYER Date: 09/14/2024 04:49 Dictated By: Terry Iyer M.D. Signed By: 09/14/24 0452 DD/ 0449 TD/TT: Child [facility] Youth Program Assistant: SARS-CoV-2 Ag* Reviewed date:08/25/2024 07:20:00 PM Interpretation: Performing Lab: Notes/Report: [facility] , SARS-CoV-2 Ag NEGATIVE NEGATIVE the detection of proteins from SARS-CoV-2, not for any other terminated or authorization is revoked sooner. Act, 21 U.S.C. 360bbb-3(b)(1), unless the declaration is and/or diagnosis of Covid-19 under section 564(b)(1) of the authorized for the duration of the declaration that emergency use of in vitro diagnostic tests for detection authorized by the FDA under an Emergency Use Authorization viruses or pathogens. The emergency use of this test is This test has not been FDA cleared or approved, but has been (EUA) for use by authorized laboratories certified under CLIA that meet the requirements to perform moderate or high complexity testing. This test has been authorized only for circumstances exist justifying the authorization of Performing Lab: see note ML - [facility] LB Progesterone Reviewed date:11/14/2024 04:21:20 PM Interpretation: Performing Lab: Notes/Report: [facility] , Progesterone 13.0 . ng/mL Luteal phase 1.8 - 23.[address] [place] [id number] Patient Care Director: Sonny Cox PhD, Phone: [phone] Postmenopausal 0.0 - 0.1 Performed at: - [facility] [place] Ovulation phase 0.1 - 12.0 Third trimester 58.7 - 214.0 Second trimester 25.4 - 83.3 Follicular phase 0.1 - 0.9 First trimester 11.0 - 44.3 Performing Lab: see note LC - [facility] LB Reason For Referral Diagnosis 1 Carpal tunnel syndro me (G56.00) Referral Organization [facility] Referring Provider First Name Rogelio Referring Provider Last Name Jayda Referring Provider Speciality [facility] Referred Provider [facility] Referred Provider Specialty Neurology Referral Priority Routine Medications Medication SIG (Take, Route, Fr equency, Duration) Notes Start Date End Date Status Adipex-P 37.5 MG 1 tablet before arnaud kfast Orally Once a day 01/28/2025 Active Social History Tobacco Use: Social History Observation Description Date Details (start date - stop date) Never Smoker NA - NA Tobacco Control (Standard) Question Answer Notes Tobacco use: Nonsmoker AUDIT-C (Standard) Question Answer Notes Did you have a drink containing alcohol in the p ast year? No Points 0 Interpretation Negative Problems Problem Type SNOMED Code ICD Code Onset Dates Problem Status W/U Status Risk Notes Problem Recurrent urinary tract infection (768358222) Recurrent UTI (N39.0) Active confirmed Problem Asthma (137838362) Asthma (J45.909) Active confirmed Problem Carpal tunnel syndrome (18181226) Carpal tunnel syndrome (G56.00) Active confirmed Problem Anxiety (13944024) Anxiety (F41.9) Active confirmed Problem Well adult (212241621) Well adult (Z00.00) Active confirmed Vital Signs Blood pressure diastolic 82 mm Hg 01/28/2025 Height 58 in 01/28/2025 BMI Percentile 96.91 % 09/09/2024 Blood pressure systolic 122 mm Hg 01/28/2025 Weight 158.0 lbs 01/28/2025 BMI 33.02 kg/m2 01/28/2025 Encounters Encounter Location Date Provider Diagnosis [facility] [address] [place] [address] 08/16/2024 Rogelio Redding Well adult Z00.[address] [place] [address] [place] [address] 09/09/2024 Rogelio Redding Recurrent UTI N39.0 [facility] [address] [place] [address] 12/29/2024 Rogelio Redding Carpal tunnel syndro me G56.00 [facility] [address] [place] [address] 01/28/2025 Rogelio Redding Asthma J45.909 and Encounter for medication management Z79.899 [facility] [address] [place] [address] 08/18/2024 Rogelio Redding Low thyroid stimulat ing hormone (TSH) level R79.89 [facility] [address] [place] [address] 08/25/2024 Rogelio Redding [facility] [address] [place] [address] 08/29/2024 Rogelio Redding [facility] [address] [place] [address] 09/08/2024 Rogelio Reddnig [facility] [address] [place] [address] 09/14/2024 Rogelio Redding [facility] [address] [place] [address] 12/29/2024 Rogelio Redding [facility] [address] [place] [address] 01/11/2025 Rogelio Redding Carpal tunnel syndro [place] G56.00 Assessments Encounter Date Diagnosis (ICD Code) Assessment Notes Treatment Notes Treatment Clinical Notes Section Notes 08/16/2024 Well adult (ICD-10 - Z00.00) 09/09/2024 Recurrent UTI (ICD-10 - N39.0) 12/29/2024 Carpal tunnel syndrome (ICD-10 - G56.00) 01/28/2025 Asthma (ICD-10 - J45.909) 01/28/2025 Encounter for medication management (ICD-10 - Z79.899) 08/18/2024 Low thyroid stimulating hormone (TSH) level (ICD-10 - R79.89) 01/11/2025 Carpal tunnel syndrome (ICD-10 - G56.00) Plan Of Treatment Pending Test Test Name Order Date CMP (COMPLETE METABOLIC PANEL) 4 HEMOGLOBIN A1C (GLYCO) 08/16/2024 IRON, TOTAL 08/16/2024 LIPID PANEL (CHOL/TRIG/HDL/LDL) 08/16/20 24 CBC WITH DIFF 08/16/2024 Insulin Level 08/16/2024 THYROID PANEL (T4/TSH/FREE T3) 4 THYROID PANEL (T4/TSH/FREE T3) 5 Next Appt Details Provider Name:Rogelio Redding, 03:15:00 PM, [address] [place], [address], Insurance Providers Payer Name Payer Address Payer Phone Subscriber Number Group Number Insured Name Patient Relationship to Insured Coverage Start Date Coverage End Date [employer] ACCESS PPO PLUS LOCAL PLAN [address] [place] [address] [id number] Mihir Wood Self - patient is the insured Medical (General) History Medical History History ICD Code Asthma J45.909 Anxiety F41.9 Surgical History Surgery Date(Month/Year) Tonsillectomy and addenoidectomy
--- OUTSIDE RECORDS SUMMARY | 2025-02-25 09:51 | XMS_ITS | Encounter Summary ---
Author Organization [facility] Address [address] [place] [address] Care Team Providers Care Camera Person Name Role Phone Oliver Montelongo MD Primary Care Provider [phone] Encounter Details Date Type Department Care Team (Late st Contact Info) Description 05/04/2024 Abstract [facility] [address] [place] [address] Vickey Brown, [address] [place] [address] Social History Tobacco Use Types Packs/Day Years [...] on file documented as of this encounter Visit Diagnoses Not on filedocumented in this encounter Care Teams Camera Person Relationship Specialty Start Date End Date Oliver Montelongo MD PCP - General Family Medicine 10/05/24 documented as of this encounter
--- OUTSIDE RECORDS SUMMARY | 2025-02-25 09:51 | XMS_ITS | Clinical Summary ---
Author Organization [facility] Address [address] [place] [address] Care Team Providers Care Medical Collections Specialist Name Role Phone Oliver Montelongo MD Primary Care Provider [phone] Allergies No known active allergies Medications albuterol HFA 90 mcg/act inhaler Inhale 2 puffs every 6 (six) hours if needed for wheezing Active fluticasone (Flovent HFA) 44 MCG/ACT inhaler Inhale 1 puff in the morning and 1 puff before bedtime. Active levothyroxine (Synthroid) 25 MCG tabletIndicatio ns:Elevated TSH Take 1 tablet (25 mcg) by mouth in the morning. Take before meals. 30 tablet 6 10/22/2024 10/23/19 26 Active metFORMIN XR (Glucophage-XR) 500 MG 24 hr tabletIndicatio ns:Anovulation, Irregular menstrual cycle Take 1 tablet (500 mg) by mouth in the evening. Take with meals Do not crush, chew, or split. 30 tablet 11 10/22/2024 10/18/19 26 Active Active Problems Problem Noted Date Diagnosed Date Anovulation 05/13/2024 Elevated TSH 05/13/2024 Irregular menstrual cycle 02/09/2024 Encounter for fertility planning 02/09/2024 Encounters Date Type Department Care Team Description 12/06/2024 Clinisync Result Encounter [facility] External Department Unsolicited Stephanie, Vickey, DO 12/02/2024 Telephone [facility] [address] [place] [address] Vickey Brown DO from Last 3 Months Family History Medical History Relation Name Comments high blood pressure Father high blood pressure Paternal Grandfather Relation Name Status Comments Father Paternal Grandfather Social History Tobacco Use Types Packs/Day Years Used Date Smoking Tobacco: Never Assessed Comments No Sex and Gender Information Value Date Recorded Sex Assigned at Female 04/27/2024 11:52 AM EDT Legal Sex Female 4:30 PM EDT Gender Identity Female 04/27/2024 11:52 AM EDT Sexual Orientation Not on file Last Filed Vital Signs Vital Sign Reading Time Taken Comments Blood Pressure 102/68 10/05/2024 2:52 PM EST Pulse - - Temperature - - Respiratory Rate - - Oxygen Saturation - - Inhaled Oxygen Concentration - - Weight 75.8 kg (167 lb) 10/05/2024 2:52 PM EST Height 149.9 cm (4' 11 ) 09/23/2023 1:34 PM EST Body Mass Index 33.73 09/23/2023 1:34 PM EST Plan of Treatment Not on file Procedures Procedure Name Priority Date/Time Associated Diagnosis Comments ALL PROGESTERONE Routine 12/06/2024 3:15 PM EDT from Last 3 Months Results * ALL PROGESTERONE (12/06/2024 3:15 PM EDT) PROGESTERONE 11.6 . ng/mL [facility] Comment: Follicular phase 0.1 - 0.9 Luteal phase 1.8 - 23.9 Ovulation phase 0.1 - 12.0 First trimester 11.0 - 44.3 Second trimester 25.4 - 83.3 Third trimester 58.7 - 214.0 Postmenopausal 0.0 - 0.1 Performed at: - [address] [id number] Coremaking Machine Setter: Sonny Cox PhD, Phone: [phone] 12/06/2024 3:15 PM EDT 12/06/2024 3:15 PM EDT Narrative [facility] - 12/07/2024 8:11 AM EDT us Vickey Orrzio DO [facility] Final Result [facility] from Last 3 Months Insurance [employer] [facility] Care Teams Medical Collections Specialist Relationship Specialty Start Date End Date Oliver Montelongo MD PCP - General Family Medicine 10/05/24
[2025-02-25 11:33] LABS: Thyroid Stimulating Hormone 2.042 uIU/mL (0.358-3.740)
[2025-02-26 08:16] LABS: Rubella Antibodies, IgG 1.75 index (Immune >0.99); Varicella-Zoster V Ab, IgG Non Reactive (Non Reactive)
[2025-02-26 13:09] LABS: Rapid Plasma Reagin, Quant Non Reactive titer (NonRea<1:1)
[2025-02-28 23:08] LABS: Neisseria gonorrhoeae, NAA Negative (Negative)
== END 2025-02-25 09:49 | disposition home or self-care (01) ==
PROVIDERS: PCP Family Medicine; Visit Provider Obstetrics & Gynecology Reproductive Endocrinology
DX: Z01.812 Encounter for preprocedural laboratory examination (principal); Z11.3 Encounter for screening for infections with a predominantly sexual mode of transmission; E34.9 Endocrine disorder, unspecified; E28.9 Ovarian dysfunction, unspecified
CPT/HCPCS: 36415; 81240; 81241; 82306; 82397; 83036; 84146; 84443; 86592; 86704; 86762; 86787; 86803; 86850; 86900; 86901; 87340; 87389; 87491; 87591

== ENCOUNTER 2025-04-04 07:23 | Outpatient (OUT) | payer BC, SELFPAY ==
--- OUTSIDE RECORDS SUMMARY | 2025-01-11 11:06 | XMS_ITS ---
Author Organization The [facility] in [place] Address [address] [place] [address] Care Team Providers Care Butcher Helper Name Role Phone Mingokellee Rogelio Primary Care Provider Reason For Referral Diagnosis 1 Carpal tunnel syndro me (G56.00) Referral Organization [facility] Referring Provider First Name Rogelio Referring Provider Last Name Jayda Referring Provider [facility] icine Referred Provider [facility] Referred Provider Specialty Neurology Referral Priority Routine REASON FOR VISIT EMG CASIE referral Encounters Encounter Location Date Provider Diagnosis [address] [address] 01/11/2025 Rogelio Montelongo Carpal tunnel syndro me G56.00 Assessments Encounter Date Diagnosis (ICD Code) Assessment Notes Treatment Notes Treatment Clinical Notes Section Notes 01/11/2025 Carpal tunnel syndrome (ICD-10 - G56.00) Plan Of Treatment Referrals Referral Date Details 01/11/2025 01/11/2025[facility] Progress Notes * JEREMIAH Amalia TOMLINSONDOB: [birth year] (19 yo F)Acc No.[id number]:01/11/2025 Patient: Nano LEMOS ISAIAH Amalia :2005 A ge:19 Y S ex:Female Address:[address] [place] [address], [phone] Subjective: * Chief Complaints: * E MG CASIE referral * Medical History: * Surgical History: * Hospitalization/Major Diagno stic Procedure: * Medications: Objective: * Vitals: * Physical Examination: Assessment: * Assessment: 1. C arpal tunnel syndrome - G56.00 (Primary) Plan: * Treatment: * Procedure Codes: * true * Date: Generated for Karen holt/Toby/Maurice on: 0 04/04/2025 07:25 AM EDT Consultation Request Notes Referral Date Referring Provider Referred Provider Not es 01/11/2025 Rogelio Montelongo [facility]
--- OUTSIDE RECORDS SUMMARY | 2025-01-28 11:15 | XMS_ITS ---
Author Organization The [facility] in [place] Address [address] [place] [address] Care Team Providers Care Patrol Agent Name Role Phone Rogelio Montelongo Primary Care Provider Allergies No Known Allergies REASON FOR VISIT 1 month f/u, right side behind ear limphnode willswell been there for years somes times it goes away Medications Medication SIG (Take, Route, Fr equency, Duration) Notes Start Date End Date Status Adipex-P 37.5 MG 1 tablet before arnaud kfast Orally Once a day 01/28/2025 Active Social History Tobacco Use: Social History Observation Description Date Details (start date - stop date) Never Smoker NA - NA Tobacco Control (Standard) Question Answer Notes Tobacco use: Nonsmoker Vital Signs Blood pressure systolic 122 mm Hg 01/29/20 25 Blood pressure diastolic 82 mm Hg 025 Height 58 in 01/28/2025 Weight 158.0 lbs 01/28/2025 BMI 33.02 kg/m2 01/28/2025 Encounters Encounter Location Date Provider Diagnosis [facility] [address] [place] [address] 01/28/2025 Rogelio Montelongo Asthma J45.909 and Encounter for medication management Z79.899 Assessments Encounter Date Diagnosis (ICD Code) Assessment Notes Treatment Notes Treatment Clinical Notes Section Notes 01/28/2025 Asthma (ICD-10 - J45.909) 01/28/2025 Encounter for medication management (ICD-10 - Z79.899) Plan Of Treatment Medication Medication Name Sig Start Date Stop Date Notes Adipex-P 37.5 MG 1 tablet before arnaud kfast Orally Once a day 01/28/2025 Progress Notes * Amalia GARZADOB: [birth year] (19 yo F)Acc No.[id number]:01/28/2025 Progress Note Patient: Nano ON Amalia TOMLINSON Provider: Geovanni Montelongo ([facility])MD :2005 A ge:19 Y S ex:Female Date:01/28/2025 Address:[address] [place], [place] [id number] Check In:03:13 PM ESTCheck O ut:03:51 PM EST Subjective: * Chief Complaints: * 1 month f/uRight side behind ear limphnode willswell been there for years somes times it goes away * ROS: E ENT: hearing changes d enies. v isual changes d enies.?non-healing mouth sores d enies. s wollen glands or neck lumps d enies. h oarseness d enies. s ore throat d enies. d ifficulty swallowing d enies. n ose bleeds d enies. n joseph congestion d enies. e ar ache d enies. e ar discharge?denies. r inging in ears d enies. l ight sensitivity d enies. e ye pain d enies. b lurring d enies. e ye irritation d enies. d ouble vision d enies.?vision loss d enies. G eneral/Constitutional: Sweats: D enies. F atigue d enies. S leep problems d enies. A norexia d enies. M alaise d enies. W eight loss d enies.?Fatigue or Weakness d enies. F ever or Chills d enies. C ardiovascular: Shortness of Breath w/lying flat d enies. L ightheadedness/dizziness d enies. C hest tightness/ heavy pressure d enies. S welling of legs, ankles, or feet d enies. W aking up with shortness of breath d enies. C hest pain denies. P alpitations d enies. W eight gain d enies. R espiratory: Chronic or frequent cough d enies. C oughing up blood?denies. D ifficulty breathing d enies. P roductive cough d enies. S noring?denies. S hortness of breath that awakens from sleep (PND) d enies. C hest pain d enies. S putum production d enies. W heezing d enies. M usculoskeletal: Joint pain d enies. J oint Fluid d enies. B ack pain d enies. K nee pain d enies. N gabe pain d enies. J oint Stiffness d enies. M uscle cramps d enies. W eakness of muscles d enies. A rthritis d enies. M uscle aches d enies. P ain in shoulder(s) d enies. S wollen joints d enies. * Active Problem List J45.909 Asthma Modified On:08/16/2024/U Status:confirmed F41.9 Anxiety Modified On:08/16/2024/U Status:confirmed Z00.00 Well adult Modified On:08/16/2024/U Status:confirmed N39.0 Recurrent UTI Modified On:09/09/2024/U Status:confirmed G56.00 Carpal tunnel syndro me Modified On:12/29/2024/U Status:confirmed * Medical History: * Surgical History: T onsillectomy and addenoidectomy * Hospitalization/Major Diagno stic Procedure: D enies Past Hospitalization * Family History: F ather: alive, diagnosed with Unspecified essential hypertension. M other: alive, asthma.?Brother(s): alive. S ister(s): alive. 1 brother(s) , 2 sister(s) - healthy. . * Social History: T obacco Use: T obacco Control (Standard) T obacco use: N onsmoker * Medications: T akingAdipex-P(Phentermine HCl) 37.5 MG Tablet 1 tablet before breakfast Orally Once a day Medication List reviewed and reconciled with the patientTaking Adipex-P(Phentermine HCl) 37.5 MG Tablet 1 tablet before breakfast Orally Once a day Medication List reviewed and reconciled with the patient * Allergies: N .K.D.A.no[Allergies Verified] Objective: * Vitals: W t:158.0lbs, Ht: 58 in, BP:122/82mm Hg, BMI:33.02Index, Ht-cm: 147.32 cm, Wt-k.67 kg. * Examination: P hysical Exam: GENERAL: w ell developed, well nourished, in no acute distress. HEAD: n ormocephalic/atraumatic. EYES: p upils equal, round and reactive to light, conjunctivae and sclerae normal. EARS: n o deformity or lesion of external ear, canals and TM appear normal bilaterally, TM's intact, not inflamed with normal light reflex, hearing grossly normal to conversational speech. NOSE: n o deformity, discharge, inflammation, or lesions.? MOUTH: m ucous membranes moist, normal oropharynx and posterior pharynx without lesions or exudates, tongue normal, dentition normal. NECK: n gabe supple, no masses or palpable cervical nodes, trachea midline, thyroid without nodules, masses, tenderness, or enlargement. CHEST: n o chest wall deformity, no chest wall tenderness.? LUNGS: n ormal respiratory effort and clear to auscultation, no wheezes, rales, or rhonchi, good air exchange. CARDIO: r egular rate and rhythm, normal S1 and S2, nor murmur, rub, or gallop. PULSES: n ormal capillary refill. ABDOMEN: s oft, non-distended, non-tender, no masses. MUSCULOSKELETAL: n o deformity or scoliosis noted, normal range of motion, joints normal, no erythema, edema, effusion, or ecchymosis. EXTREMITY: n o clubbing, cyanosis, edema, or deformity with normal ROM in both upper and lower bilateral extremities. NEUROLOGIC: g rossly normal. SKIN: n o rashes, ulcerations, or suspicious lesions. LYMPH NODES: n o cervical adenopathy, nodes normal. MENTAL STATUS: a lert and oriented x3, normal mood and affect. Assessment: * Assessment: 1. A sthma - J45.909 (Primary) 2 . E ncounter for medication management - Z79.899 Plan: * Treatment: * Procedure Codes: * Preventive Medicine: Screenings/Counseling: B PA ACTION PLAN Above Normal BMI Follow-up D ietary management education, guidance, and counseling * * Sign off status: Completed Visit Status: C HK (Check Out) true * Provider: Geovanni Montelongo ([facility])MD Date: 0 01/28/2025 Generated for Printi ng/Faxing/eTransmitting on: 0 04/04/2025 07:25 AM EDT History and Physical Notes * Examination Category Sub-Category Detail Notes Category Not es Physical Exam GENERAL: well developed, well nourished, in no acute distress HEAD: normocephalic/atraum atic EYES: pupils equal, round and reactive to light, conjunctivae and sclerae normal EARS: no deformity or lesi on of external ear, canals and TM appear normal bilaterally, TM's intact, not inflamed with normal light reflex, hearing grossly normal to conversational speech NOSE: no deformity, discha rge, inflammation, or lesions MOUTH: mucous membranes estella st, normal oropharynx and posterior pharynx without lesions or exudates, tongue normal, dentition normal NECK: neck supple, no mass es or palpable cervical nodes, trachea midline, thyroid without nodules, masses, tenderness, or enlargement CHEST: no chest wall deform ity, no chest wall tenderness LUNGS: normal respiratory e ffort and clear to auscultation, no wheezes, rales, or rhonchi, good air exchange CARDIO: regular rate and rhy thm, normal S1 and S2, nor murmur, rub, or gallop PULSES: normal capillary ref ill ABDOMEN: soft, non-distended, non-tender, no masses RECTAL: MUSCULOSKELETAL: no deformity or scol iosis noted, normal range of motion, joints normal, no erythema, edema, effusion, or ecchymosis EXTREMITY: no clubbing, cyanosi s, edema, or deformity with normal ROM in both upper and lower bilateral extremities NEUROLOGIC: grossly normal SKIN: no rashes, ulceratio ns, or suspicious lesions LYMPH NODES: no cervical adenopat hy, nodes normal MENTAL STATUS: alert and oriented x 3, normal mood and affect
--- OUTSIDE RECORDS SUMMARY | 2025-02-28 11:15 | XMS_ITS ---
Author Organization [facility] [place] Address [address] [place] [address] Care Team Providers Care Set Off Press Operator Name Role Phone MingokelleeRogelio Primary Care Provider Allergies No Known Allergies REASON FOR VISIT month 2 of adipex Medications Medication SIG (Take, Route, Fr equency, Duration) Notes Start Date End Date Status Adipex-P 37.5 MG 1 tablet before arnaud kfast Orally Once a day 02/28/2025 Active Social History Tobacco Use: Social History Observation Description Date Details (start date - stop date) Never Smoker NA - NA Tobacco Control (Standard) Question Answer Notes Tobacco use: Nonsmoker AUDIT-C (Standard) Question Answer Notes Did you have a drink containing alcohol in the p ast year? No Points 0 Interpretation Negative Vital Signs Blood pressure systolic 122 mm Hg 02/29/20 25 Blood pressure diastolic 70 mm Hg 025 Height 58 in 02/28/2025 Weight 152.6 lbs 02/28/2025 BMI 31.89 kg/m2 02/28/2025 Encounters Encounter Location Date Provider Diagnosis [facility] [address] [place] [address] 02/28/2025 Rogelio Montelongo Asthma J45.909 Assessments Encounter Date Diagnosis (ICD Code) Assessment Notes Treatment Notes Treatment Clinical Notes Section Notes 02/28/2025 Asthma (ICD-10 - J45.909) Plan Of Treatment Medication Medication Name Sig Start Date Stop Date Notes Adipex-P 37.5 MG 1 tablet before arnaud kfast Orally Once a day 02/28/2025 Progress Notes * Amalia GARZADOB: [birth year] (19 yo F)Acc No.[id number]:02/28/2025 Progress Note Patient: Amalia RAMOS Provider: Geovanni Montelongo ([facility])MD :2005 A ge:19 Y S ex:Female Date:02/28/2025 Address:[address] [place], [place] [id number] Check In:03:13 PM ESTCheck O ut:03:53 PM EST Subjective: * Chief Complaints: * M onth 2 of adipex * HPI: G eneral: Disuced weight - Seeing fertility vasu - want her to stop the adipex. * ROS: E ENT: hearing changes d [...] Modified On:08/16/2024/U Status:confirmed N39.0 Recurrent UTI Modified On:09/09/2024W/U Status:confirmed G56.00 Carpal tunnel syndro me Modified On:12/29/2024/U Status:confirmed * Medical History: * Surgical History: T onsillectomy and addenoidectomy * Hospitalization/Major Diagno stic Procedure: N o Hospitalization History. * Family History: F ather: alive, diagnosed with Unspecified essential hypertension. M other: alive, asthma.?Brother(s): alive. S ister(s): alive. 1 brother(s) , 2 sister(s) - healthy. . * Social History: T obacco Use: T obacco Control (Standard) T obacco use: N onsmoker D rug/Alcohol: A SHERRI-C (Standard) D id you have a drink containing alcohol in the past year? N o P oints 0 I nterpretation N egative * Medications: T akingAdipex-P(Phentermine HCl) 37.5 MG Tablet 1 tablet before breakfast Orally Once a day Medication List reviewed and reconciled with the patientTaking Adipex-P(Phentermine HCl) 37.5 MG Tablet 1 tablet before breakfast Orally Once a day Medication List reviewed and reconciled with the patient * Allergies: N .K.D.A.no[Allergies Verified] Objective: * Vitals: W t:152.6lbs, Ht: 58 in, BP:122/70mm Hg, BMI:31.89Index, Ht-cm: 147.32 cm, Wt-k.22 kg. * Examination: P hysical Exam: GENERAL: [...] and affect. Assessment: * Assessment: 1. A [facility] - J45.909 (Primary) Plan: * Treatment: * Procedure Codes: * Preventive Medicine: Screenings/Counseling: B OR ACTION PLAN Above Normal BMI Follow-up D ietary management education, guidance, and counseling * * Sign off status: Completed Visit Status: C HK (Check Out) true * Provider: Geovanni Montelongo ([facility])MD Date: 0 02/28/2025 Generated for Printi ng/Faxing/eTransmitting on: 0 04/04/2025 07:25 AM EDT History and Physical Notes * HPI (History of Present Illness) Category Sub-Category Detail Notes Category Not es General Disuced weight - Seeing fertility vasu - want her to stop the adipex Examination Category Sub-Category Detail Notes Category Not [...]
--- OUTSIDE RECORDS SUMMARY | 2025-04-04 07:25 | XMS_ITS | Clinical Summary ---
Author Organization [facility] Address [address] [place] [address] Care Team Providers Care Bath Steward/Stewardess Name Role Phone Oliver Montelongo MD Primary Care Provider [phone] Allergies No known active allergies Medications albuterol [...] cycle 02/09/2024 Encounter for fertility planning 02/09/2024 Family History Medical History Relation Name Comments [...] EST Plan of Treatment Not on file Insurance [employer] [facility] Care Teams Bath Steward/Stewardess Relationship Specialty Start Date End Date Oliver Montelongo MD PCP - General Family Medicine 10/05/24
--- OUTSIDE RECORDS SUMMARY | 2025-04-04 07:25 | XMS_ITS | Encounter Summary ---
Author Organization [facility] Address [address] [place] [address] Care Team Providers Care Glove Tagger Name Role Phone Oliver Montelongo MD Primary Care Provider [phone] Encounter Details Date Type Department Care Team (Late st Contact Info) Description 02/11/2024 Clinisync Result Encounter [facility] External Department Unsolicited Lita Brown, DO [address] [place] [address] Social History Tobacco Use Types Packs/Day Years [...] PM EDT Narrative 02/11/2024 12:09 [place] [address] Ultrasound Report Signed Patient: MIHIR CHRISTIE MR#: [id number] : 2005 Acct:[id number] Age/Sex: 18 / F ADM Date: 02/11/24 Loc: [facility] Attending Dr: Lita Brown D.O. Ordering Physician: Lita Brown D.O. Date of Service: 02/11/24 Procedure(s): US pelvis w/ transvaginal Accession Number(s): [id number] cc: Lita Brown D.O.; Physician,Non-Staff M.D. [place] [id number] Patient Name: MIHIR CHRISTIE MRN: [id number] date: 2005 Sex: F Assigned Patient Location: [facility] Current Patient Location: [facility] Accession/Order Number: [id number] Exam Date: 02/11/2024 09:24 Report Date: 02/11/2024 [...] Signed By: 02/11/24 1209 DD/ 1206 TD/TT: Uc Architect: Procedure Note Radiology, Radiologist, MD - 02/11/2024 [place] [address] Ultrasound Report Signed Patient: MIHIR CHRISTIEMR#: [id number] : 2005Acct:[id number] Age/Sex: 18 / FADM Date: 02/11/24 Loc: [facility] Attending Dr: Lita Brown D.O. Ordering Physician: Lita Brown D.O. Date of Service: 02/11/24 Procedure(s): US pelvis w/ transvaginal Accession Number(s): [id number] cc: Lita Brown D.O.; Physician,Non-Staff [facility] [place] [id number] Patient Name: MIHIR CHRISTIE MRN: [id number] date: 2005 Sex: F Assigned Patient Location: [facility] Current Patient Location: [facility] Accession/Order Number: [id number] Exam Date: 02/11/2024 09:24 Report Date: 02/11/2024 [...] M.D. Signed By:02/11/24 1209 DD/ 1206 TD/TT: Uc Architect: us Lita Stephanie DO [facility] Final [...] developed and its performance characteristics determined by [employer]. It has not been cleared or approved by the Food and Drug Administration. Performed at: [address] [id number] Lubricating Specialist: Lisseth Betancourt MD, Phone: [phone] 02/11/2024 10:5 4 AM EDT 02/11/2024 11:05 AM EDT Narrative [facility] - 02/16/2024 3:09 PM EDT us Lita Stephanie DO [facility] Final Result Performing Organization Address [facility] Co de Phone Number [facility] * ALL FOLLICLE STIMULATING HORMONE (02/11/2024 10:54 AM EDT) FSH 4.3 . mIU/mL [facility] Comment: Adult Female Range Follicular phase 3.5 - 12.5 Ovulation phase 4.7 - 21.5 Luteal phase 1.7 - 7.7 Postmenopausal 25.8 - 134.8 Performed at: [address] [id number] Lubricating Specialist: Sonny Cox PhD, Phone: [phone] 02/11/2024 10:5 4 AM EDT 02/11/2024 11:05 AM EDT Narrative [facility] - 02/12/2024 4:08 AM EDT [facility] Stephanie DO [facility] Final Result Performing Organization Address [facility] de Phone Number [facility] * ALL LUTEINIZING HORMONE (02/11/2024 10:54 AM EDT) LUTEINIZING HORMONE(LH) 9.5 . mIU/mL [facility] Comment: Adult Female Range Follicular phase 2.4 - 12.6 Ovulation phase 14.0 - 95.6 Luteal phase 1.0 - 11.4 Postmenopausal 7.7 - 58.5 02/11/2024 10:5 4 AM EDT 02/11/2024 11:05 AM EDT Narrative [facility] - 02/12/2024 4:08 AM EDT [facility] Final Result Performing Organization Address [facility] de Phone Number [facility] * ALL DHEA SULFATE (02/11/2024 10:54 AM EDT) DHEA-SULFATE 378.0 110.0 - 433.2 ug/dL [facility] 02/11/2024 10:5 4 AM EDT 02/11/2024 11:05 AM EDT Narrative [facility] - 02/12/2024 4:08 AM EDT Lita Stevenso DO [facility] Final Result Performing Organization Address [facility] Co de Phone Number [facility] [...] DO [facility] Final Result Performing Organization Address [facility]/ZIP Co de Phone Number [facility] * ALL THYROID STIM HORMONE (02/11/2024 10:54 AM EDT) THYROID STIMULATING HORMONE 2.107 0.516 - 4.130 uIU/mL [facility] 02/11/2024 10:5 4 AM EDT 02/11/2024 11:05 AM EDT Narrative [facility] - 02/11/2024 1:51 PM EDT Litakellee Stevenso DO [facility] Final Result Performing Organization Address City/[facility] Co de Phone Number [facility] * ALL THYROXINE (T4) FREE (02/11/2024 10:54 AM EDT) FREE T4 1.00 0.78 - 1.34 ng/dL [facility] 02/11/2024 10:5 4 AM EDT 02/11/2024 11:05 AM EDT Narrative [facility] - 02/11/2024 12:16 PM EDT us Lita Brown DO [facility] Final Result [facility] documented in this encounter Visit Diagnoses Not on filedocumented in this encounter Care Teams Glove Tagger Relationship Specialty Start Date End Date Oliver Montelonog MD PCP - General Family Medicine 10/05/24 documented as of this encounter
--- OUTSIDE RECORDS SUMMARY | 2025-04-04 07:26 | XMS_ITS | Patient Health Record ---
Author Organization [facility] in [place] Address [address] [place] [address] Care Team Providers Care Want Ad Supervisor Name Role Phone Rogelio Montelongo Primary Care Provider Allergies No Known Allergies Results Component Value Reference Range Notes Factor V Leiden Mutation Reviewed date:03/02/2025 08:22:01 PM Interpretation: Performing Lab: Notes/Report: [facility] , Factor V Leiden Mutation Comment . on each chromosome) have an approximately 80-fold increased False positive or false negative results may occur for Comment: risk factors. The c.1601G>A (p. Duu303Fjn) variant in the of the [employer] [id number]. complex genotype combinations involving the F2 c.*97G>A providers to discuss results at [phone] ([phone]). Addendum: [employer] consensus DNA analysis of the F5 gene (NM_000130.5) was homozygous for this variant (ie, with a copy of the variant et al., editors. Frances(R) (Internet). [place] (ID): Result: c.1601G>A (p.Ttm826Jge) - Not Detected protein C, protein S, or antithrombin III, age, male sex, neoplasm, tamoxifen treatment, raloxifene treatment, oral Venous thromboembolism laboratory testing (factor V Leiden This test was developed and its performance genetic risk factor for venous thromboembolism. Test Details: reasons that include genetic variants, blood transfusions, Venous thromboembolism is a multifactorial disease personal or family history of deep vein thromboembolism, characteristics determined by [facility]. It has not been F5 gene, commonly referred to as Factor V Leiden, is a well as recommendations for testing family members. Heterozygous carriers of this variant have a 6- to 8-fold [facility]; 2051-4624. Available mosaicism, mislabeled samples, or erroneous representation Katie S, Laurel PONCE, Cornelius R, Dinora WW, Adarsh JH; to as Factor V Leiden Baljeet LORA. Factor V Leiden Thrombophilia. 1998December 29 an approximately 20-fold increased risk for venous combined with clinical information for the most accurate Albert Lopes, Laurel PONCE, Parish X, Paul B, Mike EB, Palma P, Comments. events should follow established guidelines and fit the clinical circumstance. This result cannot predict the Methods/Limitations: (Updated 2017Aug 21). In: Bjorn MP, Annie HH, Brooke RA, smoking, surgery, prolonged immobilization, malignant interpretation. Molecular-based testing is highly accurate, Marixa GARRETT; [facility] Laboratory Archivist Political History Committee. contraceptive use, hormone replacement therapy, and Additional Clinical Information: of family relationships. [facility] Professional Practice and Guidelines Committee. This result is not associated with an increased risk for venous risk for venous thromboembolism. Individuals who carry both ([facility]). Antonia Med. 2018 Jul;20(12): 0184-4075. doi: Genetic counseling is recommended to discuss the cleared or approved by the Food and Drug Administration. statement on factor V Leiden mutation testing. [facility]. variant and Factor V Leiden (PMID: 18969969). Additional performed by PCR amplification followed by electrophoresis. risk factors include but are not limited to: deficiency of thromboembolism. See Additional Clinical Information and References: a c.*97G>A variant in the F2 gene and Factor V Leiden have Variant Analyzed: c.1601G>A (p. Ted815Lai), referred potential clinical implications of positive results, as 2020Oct 20. doi: 10.1038/d51669-825-464 08-x. PMID: The diagnostic sensitivity is >99%. Results must be . Management of thrombotic risk and thrombotic from: https://www.ncbi.nlm.n ih.gov/books/HPR7815/ bone marrow transplantation, somatic or tissue-specific 10.1038/t15998-147-454 2-z. Epub 2017May 22. PMID: 23356839. occurrence or recurrence of a thrombotic event. influenced by genetic, environmental, and circumstantial but as in any laboratory test, diagnostic errors may occur. and factor II c. *97G>A), 2018 update: a technical standard thromboembolism. Risks are likely to be even higher in more Genetic Coordinators are available for health care increased risk for venous thromboembolism. Individuals Reviewed By Comment . [address] [facility], [facility], [place] [id number] Greer Jacinto, Ph.D., [facility] Settlement Technician: Henry Canales [facility], Phone: [phone] Performed at: - [facility] RT Performing Lab: see note - [facility] LB US renal bladder Reviewed date:09/14/2024 05:04:28 PM Interpretation: Performing Lab: Notes/Report: Source Facility: [place] [address] Ultrasound Report Signed Patient: MIHIR WOOD MR#: [id number] : 2005 Acct:[id number] Age/Sex: 18 / F ADM Date: 09/11/24 Loc: US Attending Dr: Ian Montelongo M.D. Ordering Physician: Ian Montelongo M.D. Date of Service: 09/11/24 Procedure(s): US renal bladder Accession Number(s): [id number] cc: Ian Montelongo M.D. [place] [address] Patient Name: MIHIR WOOD MRN: [id number] date: 2005 Sex: F Assigned Patient Location: Current Patient Location: Accession/Order Number: [id number] Exam Date: 09/11/2024 10:43 Report Date: 09/14/2024 04:49 At the request of: IAN MONTELONGO Procedure: US renal bladder EXAMINATION: US renal [...] Dictated By: Terry Iyer M.D. Signed By: 09/14/242 DD/ TD/TT: Airplane Mechanic Apprentice: [place] [address] Ultrasound Report Signed Patient: MIHIR WOOD MR#: [id number] : 2005 Acct:[id number] Age/Sex: 18 / F ADM Date: 09/11/24 Loc: US Attending Dr: James Montelongo M.D. Ordering Physician: Ian Montelongo M.D. Date of Service: 09/11/24 Procedure(s): US jina al bladder Accession Number(s): [id number] cc: Ian Montelongo M.D. [place] [id number] Patient Name: MIHIR WOOD MRN: [id number] date: 2005 Sex: F Assigned Patient Location: Current Patient Location: Accession/Order Number: [id number] Exam Date: 09/11/2024 10:43 Report Date: 09/14/2024 04:49 At the request of: IAN MONTELONGO Procedure: US renal bladder EXAMINATION: US antione [...] Signed By: 09/14/24 0452 DD/ 0449 TD/TT: Airplane Mechanic Apprentice: Factor II, DNA Analysis Reviewed date:03/02/2025 08:22:01 PM Interpretation: Performing Lab: Notes/Report: [facility] , Factor II, DNA Analysis Comment . Genetic Coordinators are available for health care providers to discuss mislabeled samples, or erroneous representation of family risk for venous thromboembolism. Homozygotes for the c.*97G>A variant [facility] Laboratory Archivist Political History Committee. Venous thromboembolism implications of positive results, as well as recommendations for information for the most accurate interpretation. Molecular-based [Updated 2020Sep 21]. In: Bjorn MP, Annie HH, Brooke RA, et al., References: thromboembolism. Heterozygous carriers have a 2- to 4-fold increased Variant analyzed: c.*97G>A, previously referred to as V13101C PMID: 58226387. 2018 update: a technical standard of the [employer] immobilization, malignant neoplasm, tamoxifen treatment, raloxifene fold increased risk for venous thromboembolism. Risks are likely to Practice and Guidelines Committee. Addendum: [employer] be even higher in more complex genotype combinations involving the Medical Genetics consensus statement on factor V Leiden mutation https://www.ncbi.nlm.n ih.gov/books/AAH0105/ treatment, oral contraceptive use, hormone replacement therapy, and This result is not associated with an increased risk for venous testing family members. laboratory testing (factor V Leiden and factor II c.*97G>A), by [facility]. It has not been cleared or approved by the Food and Drug genetic, environmental, and circumstantial risk factors. The c.*97G>A Genetics and Genomics ([facility]). Antonia Med. 2018 Jul;20(12):9346-5893. Comments: variant in the F2 gene is a genetic risk factor for venous results at [phone] ([phone]). Genetic counseling is recommended to discuss the potential clinical F2 gene and a c.1601G>A (p. Zrf681Qkc) variant in the F5 gene (commonly referred to as Factor V Leiden) have an approximately 20- amplification followed by restriction enzyme analysis. The diagnostic for reasons that include genetic variants, blood transfusions, bone Result: c.*97G>A - Not Detected Test Details: history of deep vein thromboembolism, smoking, surgery, prolonged sensitivity is >99%. Results must be combined with clinical protein S, or antithrombin III, age, male sex, personal or family doi: 10.1038/h92801-962-154 2-z. Epub 2017May 22. PMID: 70752744. result cannot predict the occurrence or recurrence of a thrombotic are rare. The annual risk of VTE in homozygotes has been reported to Methods/Limitations: relationships. Additional Clinical Information: event. testing is highly accurate, but as in any laboratory test, diagnostic Venous thromboembolism is a multifactorial disease influenced by editors. Frances(R) [Internet]. [place] (ID): [facility] S, Laurel PONCE, Cornelius R, Dinora WW, Adarsh JH; [facility] Professional This test was developed and its performance characteristics determined be 1.1%/year. Individuals who carry both a c.*97G>A variant in the DNA analysis of the F2 gene (NM_000506.5) was performed by PCR errors may occur. False positive or false negative results may occur [facility]; 7771-5696. Available from: F2 c.*97G>A variant and Factor V Leiden (PMID: 93082479). Additional marrow transplantation, somatic or tissue-specific mosaicism, Albert S, Laurel PONCE, Parish X, Paul B, Mike EB, Palma P, Marixa CS; thromboembolism. See Additional Clinical Information and . Management of thrombotic risk and thrombotic events should testing. Anton[facility] Med. 2020Oct 20. doi: 10.1038/a82082-459-177 08-x. Comments. Baljeet LORA. Prothrombin Thrombophilia. 2005Mar 11 risk factors include but are not limited to: deficiency of protein C, Administration. follow established guidelines and fit the clinical circumstance. This Reviewed By Comment . Settlement Technician: Henry Canales [facility], Phone: [phone] Technical Component performed at [facility] Performed at: [id number], [address] Professional Component performed by: [facility] [address] [address] Jorge, PhD, [facility] [address] [facility] [place] [phone] Performing Lab: see note [facility] LAB TESTING Reviewed date:03/13/2025 09:37:49 PM Interpretation: Performing Lab: Notes/Report: [id number] Chromosome Analysis, Whole Blood (Constitutional) [facility] , Miscellaneous Test COMMENT . [facility] [address], CLIA [id number], Catalogue Librarian, congenital anomalies due to other etiologies. Reference Range: . banding pattern in all cells observed. revealed a FEMALE karyotype with an apparently normal GTG Cytogenetic Result Comment: KENNEY Performed at: [facility] Technical Component-Processing performed at [address] [facility] [address], [facility], [place] [phone] Specimen Type Comment: KENNEY [facility] [address], CLIA [id number], Catalogue Librarian, Reference Range: . NORMAL FEMALE KARYOTYPE Performed at: [facility] performed at GBHOA5[facility] [address] [facility] [address], Cells Counted 20 46,XX Cells Karyotyped 2 [place] Settlement Technician: Sonny Cox PhD, Phone: [phone] Cells Analyzed 20 Technical Component-Partial chromosome analysis performed byRAHEEM, [facility] [id number]. Phytochemistry Professor, Henry Canales M.D., Ph.D. Armand De Leon, [place] [address], [facility] FEDERICO New PhD. Reference Range: . Reference Range: . Settlement Technician: Henry Canales [facility], Phone: [phone] Reference Range: . rearrangements below the resolution of cytogenetics or performed at HOA13, [facility] [address] [facility] [address], Yue Teran, PhD, [facility], Professional Component Director Review: Comment: KENNEY New PhD. Laci, FEDERICO [id number], [address], [facility], [place] Reference Range: . GTG Band Resolution Achieved [address] [place] Technical Component- Partial chromosome analysis Reference Range: . Interpretation Comment: [place] Test Ordered: [id number] Chromosome, Blood, Routine 72375. Phytochemistry Professor, Henry Canales MD,PhD Cytogenetic analysis of PHA stimulated cultures has Reference Range: . This result does not exclude the possibility of subtle [address] [place] [phone] BLOOD Performing Lab: see note - [facility] LB TSH Reviewed date:09/08/2024 04:48:07 PM Interpretation: Performing Lab: Notes/Report: [facility] , Thyroid Stimulating Hormone 2.666 0.516-4.130 uIU/mL Performing Lab: see note ML - [facility] LB T4 Reviewed date:09/08/2024 04:48:07 PM Interpretation: Performing Lab: Notes/Report: [facility] , T4 Thyroxine 7.60 5.40-10.60 ug/dL Performing Lab: see note ML - [facility] FREE T3 Reviewed date:09/08/2024 04:48:07 PM Interpretation: Performing Lab: Notes/Report: [facility] , Free T3 2.75 2.91-4.70 pg/mL Performing Lab: see note ML - [facility] LB Box Test Reviewed date:08/29/2024 10:43:25 AM Interpretation: Performing Lab: Notes/Report: [facility] , BOX Test Sent Out URINE CULTURE BOX Test Reference Lab [facility] BOX Test Date Sent 08/25/24 BOX Test Result SEE SCANNED REPORT Performing Lab: see note ML - [facility] LB HCG Qualitative Urine Reviewed date:08/25/2024 07:20:00 PM Interpretation: Performing Lab: Notes/Report: [facility] , HCG Qualitative Urine* NEGATIVE NEGATIVE Performing Lab: see note ML - [facility] SARS-CoV-2 Ag* Reviewed date:08/25/2024 07:20:00 PM Interpretation: Performing Lab: Notes/Report: [facility] , SARS-CoV-2 Ag NEGATIVE NEGATIVE the detection [...] Performing Lab: see note ML - [facility] LB URINE MICROSCOPIC ONLY Reviewed date:08/25/2024 07:20:00 PM Interpretation: Performing Lab: Notes/Report: [facility] , WBC Urine 20-50 NONE SEEN #/HPF RBC Urine NONE SEEN 0-2 #/HPF Bacteria Urine LARGE NONE SEEN #/HPF Mucus Urine NONE SEEN NONE SEEN Squamous Epithelial Cell Urine MODERATE NONE/RARE #/LPF Urine Culture Indicated YES Performing Lab: see note ML - [facility] LB UA (CLEAN or CATCH) CONGRESSIONAL AIDE or M ICRO IF IND. Reviewed date:08/25/2024 07:20:00 PM Interpretation: Performing Lab: Notes/Report: [facility] , Color Urine LT. YELLOW YELLOW Clarity Urine CLEAR CLEAR Specific [place] Urine >=1.030 1.005-1.025 pH Urine 6.0 5.0-9.0 Protein Urine NEGATIVE NEG/TRACE mg/dL Glucose Urine UA NEGATIVE NEGATIVE mg/dL Bilirubin Urine NEGATIVE NEGATIVE Ketones Urine NEGATIVE NEGATIVE mg/dL Blood Urine NEGATIVE NEGATIVE Nitrite Urine POSITIVE NEGATIVE Urobilinogen Urine 0.2 0.2-1.0 EU/dL Leukocyte Esterase Urine MODERATE NEGATIVE Urine Microscopic Indicated YES Performing Lab: see note ML - [facility] LB PROF 14(COMP METB) Reviewed date:08/25/2024 07:20:00 PM Interpretation: Performing Lab: Notes/Report: [facility] , Sodium 141 136-145 mmol/L Potassium 4.0 [...] 1.0 Performing Lab: see note ML - [facility] LB INFLUENZA A AND B AG Reviewed date:08/25/2024 07:20:00 PM Interpretation: Performing Lab: Notes/Report: [facility] , Influenza Virus A Antigen Negative Negative [...] be Performing Lab: see note ML - [facility] LB CBC AUTO DIFF Reviewed date:08/25/2024 07:20:00 PM Interpretation: Performing Lab: Notes/Report: [facility] , White Blood Count 8.4 4.0-11.0 10 [...] 3/uL Performing Lab: see note ML - [facility] LB TSH Reviewed date:08/18/2024 03:47:54 PM Interpretation: Performing Lab: Notes/Report: [facility] , Thyroid Stimulating Hormone 4.190 0.516-4.130 uIU/mL Performing Lab: see note ML - [facility] LB T4 Reviewed date:08/18/2024 03:47:54 PM Interpretation: Performing Lab: Notes/Report: [facility] , T4 Thyroxine 8.50 5.40-10.60 ug/dL Performing Lab: see note - [facility] LB PROF 14(COMP METB) Reviewed date:08/18/2024 03:47:54 PM Interpretation: Performing Lab: Notes/Report: [facility] , Sodium 141 136-145 mmol/L Potassium 4.4 [...] Lab: see note ML - [facility] LIPID PROFILE Reviewed date:08/18/2024 03:47:54 PM Interpretation: Performing Lab: Notes/Report: [facility] , Triglycerides 63 53-208 mg/dL Cholesterol 144 [...] 7.1 AVERAGE RISK Performing Lab: see note - [facility] INSULIN Reviewed date:08/22/2024 08:57:18 PM Interpretation: Performing Lab: Notes/Report: [facility] , Insulin 13.0 2.6-24.9 uIU/mL Settlement Technician: Sonny Cox PhD, Phone: [phone] Performed at: [facility] [address] [phone] Performing Lab: see note - [facility] GLYCOHEMOGLOBIN A1C Reviewed date:08/18/2024 03:47:54 PM Interpretation: Performing Lab: Notes/Report: [facility] , Glycohemoglobin A1C 5.5 4.5-6.2 % > 7.0 ACTION SUGGESTED ADA THERAPEUTIC TARGET < 7.0 ADA RECOMMENDED LIMIT 4.0 - 6.0 Estimated Average Glucose 111 Performing Lab: see note ML - [facility] FREE T3 Reviewed date:08/18/2024 03:47:54 PM Interpretation: Performing Lab: Notes/Report: [facility] , Free T3 3.13 2.91-4.70 pg/mL Performing Lab: see note ML - [facility] LB CBC AUTO DIFF Reviewed date:08/18/2024 03:47:54 PM Interpretation: Performing Lab: Notes/Report: [facility] , White Blood Count 7.3 4.0-11.0 [...] Performing Lab: see note ML - [facility] LB Progesterone Reviewed date:11/14/2024 04:21:20 PM Interpretation: Performing Lab: Notes/Report: [facility] , Progesterone 13.0 . ng/mL Luteal phase 1.8 - 23.9 [address] [place], [place] [id number] Settlement Technician: Sonny Cox PhD, Phone: [phone] Postmenopausal 0.0 - 0.1 Performed at: - [facility] [place] Ovulation phase 0.1 - 12.0 Third trimester 58.7 - 214.0 Second trimester 25.4 - 83.3 Follicular phase 0.1 - 0.9 First trimester 11.0 - 44.3 Performing Lab: see note LC - [facility] LB IRON Reviewed date:08/18/2024 03:47:54 PM Interpretation: Performing Lab: Notes/Report: [facility] , Iron 48.0 50.0-170.0 ug/dL Performing Lab: see note ML - [facility] Reason For Referral Diagnosis 1 Carpal tunnel syndro me (G56.00) Referral Organization [facility] Referring Provider First Name Rogelio Referring Provider Last Name Jayda Referring Provider [facility] Referred Provider [facility] Risk Notes Problem Recurrent urinary tract infection (373168495) Recurrent UTI (N39.0) Active confirmed Problem Asthma (883774846) Asthma (J45.909) Active confirmed Problem Carpal tunnel syndrome (85035316) Carpal tunnel syndrome (G56.00) Active confirmed Problem Anxiety (39535316) Anxiety (F41.9) Active confirmed Problem Well adult (469309634) Well adult (Z00.00) Active confirmed Vital Signs Blood pressure diastolic 70 mm Hg 02/28/2025 BMI Percentile 96.91 % 09/09/2024 Height 58 in 02/28/2025 Blood pressure systolic 122 mm Hg 02/28/2025 Weight 152.6 lbs 02/28/2025 BMI 31.89 kg/m2 02/28/2025 Encounters Encounter Location Date Provider Diagnosis [facility] [address] [place] [place] [address] 08/18/2024 Rogelio Jayda Low thyroid stimulat ing hormone (TSH) level R79.89 [facility] [address] [place] [address] 08/25/2024 Rogelio Jayda [facility] [address] [place] [address] 08/29/2024 Rogelio Jayda [facility] [address] [place] [facility] [place] [address] 09/08/2024 Rogelio Jayda [facility] [address] [place] [facility] [place] [address] 09/14/2024 Rogelio Jayda [facility] [address] [place] [place] [address] 12/29/2024 Rogelio Aguilakellee [facility] [address] [place] [place] [place] [address] 01/11/2025 Rogelio Aguilay Carpal tunnel syndro me G56.00 [facility] [address] [place] [place] [place] [address] 08/16/2024 Rogelio Montelongo Well adult Z00.00 [facility] [address] [place] [address] 09/09/2024 Rogelio Montelongo Recurrent UTI N39.0 [facility] [address] [place] [address] 12/29/2024 Rogelio Aguilay Carpal tunnel syndro me G56.[address] [address] 01/28/2025 Rogelio Aguilay Asthma J45.909 and Encounter for medication management Z79.899 [facility] [address] [place] [address] 02/28/2025 Rogelio Aguilay Asthma J45.909 Assessments Encounter Date Diagnosis (ICD Code) Assessment Notes Treatment Notes Treatment Clinical Notes Section Notes 08/16/2024 Well adult (ICD-10 - Z00.00) 09/09/2024 Recurrent UTI (ICD-10 - N39.0) 12/29/2024 Carpal tunnel syndrome (ICD-10 - G56.00) 01/28/2025 Asthma (ICD-10 - J45.909) 01/28/2025 Encounter for medication management (ICD-10 - Z79.899) 02/28/2025 Asthma (ICD-10 - J45.909) 08/18/2024 Low thyroid stimulating hormone (TSH) level (ICD-10 - R79.89) 01/11/2025 Carpal tunnel syndrome (ICD-10 - G56.00) Plan Of Treatment Pending Test Test Name Order Date CMP (COMPLETE METABOLIC PANEL) 4 HEMOGLOBIN A1C (GLYCO) 08/16/2024 IRON, TOTAL 08/16/2024 LIPID PANEL (CHOL/TRIG/HDL/LDL) 08/16/20 24 CBC WITH DIFF 08/16/2024 Insulin Level 08/16/2024 THYROID PANEL (T4/TSH/FREE T3) 4 THYROID PANEL (T4/TSH/FREE T3) 5 Insurance Providers Payer Name Payer Address Payer Phone Subscriber Number Group Number Insured Name Patient Relationship to Insured Coverage Start Date Coverage End Date [employer] PPO PLUS LOCAL PLAN [address] [place] [address] [id number] Mihir Wood Self - patient is the insured Medical (General) History Medical History History ICD Code Asthma J45.909 Anxiety F41.9 Surgical History Surgery Date(Month/Year) Tonsillectomy and addenoidectomy
== END 2025-04-04 07:24 | disposition home or self-care (01) ==
LOC: LAB 07:23
PROVIDERS: PCP Family Medicine; Visit Provider Obstetrics & Gynecology Reproductive Endocrinology
DX: Z01.812 Encounter for preprocedural laboratory examination (principal)
CPT/HCPCS: 36415; 84702

== ENCOUNTER 2025-05-23 09:53 | Outpatient (RCR) | payer BC, OTHER, SELFPAY ==
--- OUTSIDE RECORDS SUMMARY | 2025-05-23 09:27 | XMS_ITS | CCD ---
Author Organization [facility] Care Team Providers Care Street Vendor Name Role Phone Unavailable Primary Care Provider UnavailOliver Ackerman MD Primary Care Provider [phone] Harleen Streeter DO Attending Provider [phone] LITA BROWN Attending Unavailable LITA BROWN Attending Unavailable LITA BROWN Attending Unavailable LITA RBOWN Attending Unavailable Oliver Montelongo MD Primary Care Provider [phone] Harleen Streeter Admitting Unavailable Harleen Streeter Attending Unavailable Oliver Montelongo Primary Care Unavailable Santos Simpson Admitting Unavailable Santos Simpson Attending Unavailable Santos Simpson DO Attending Provider [phone] Huy Martínez DO Attending Provider [phone] Oliver Montelongo MD Primary Care Provider [phone] Medications Current Medications Medication Drug Class(es) Dates Sig (Normalized) Sig (Original) [id number] 200 actuat albuterol 0.09 mg/actuat metered dose inhaler (13 sources) beta2-Adrenergic Agonist take 2 puff(s) by inhalation every six hours for wheezing albuterol HFA 90 mcg/act inhaler Inhale 2 puffs every 6 (six) hours if needed for wheezing Active 120 actuat fluticasone propionate 0.044 mg/actuat metered dose inhaler (13 sources) Corticosteroid take 1 puff(s) by inhalation in the morning fluticasone (Flovent HFA) 44 MCG/ACT inhaler Inhale 1 puff in the morning and 1 puff before bedtime. Active letrozole 2.5 mg oral tablet (1 source) Aromatase Inhibitor Start: 11-16-2024 End: 11-21-2024 take 2 tablets by mouth once daily letrozole (Femara) 2.5 MG chemo tablet Indications: Anovulation Take 2 tablets (5 mg total) by mouth Daily for 5 days. 10 tablet 11/16/2024 11/21/2024 Active levothyroxine sodium 0.025 mg oral tablet (8 sources) l-Thyroxine Start: 05-13-2024 End: 10-22-2025 take 1 tablet by mouth before mealtime levothyroxine (Synthroid) 25 MCG tablet Indications: Elevated TSH Take 1 tablet (25 mcg) by mouth in the morning. Take before meals. 30 tablet 6 10/22/2024 10/22/2025 Active 24 hr metFORMIN hydrochloride 500 mg extended release oral tablet (8 sources) Biguanide Start: 10-22-2024 End: 10-17-2025 take 1 tablet by mouth every twenty-four hours at mealtime metFORMIN XR (Glucophage-XR) 500 MG 24 hr tablet Indications: Anovulation , Irregular menstrual cycle Take 1 tablet (500 mg) by mouth in the evening. Take with meals Do not crush, chew, or split. 30 tablet 11 10/22/2024 10/17/2025 Active Start: 05-13-2024 End: 06-12-2024 take 1 tablet by mouth every twenty-four hours at mealtime metFORMIN XR (Glucophage-XR) 500 MG 24 hr tablet Indications: Anovulation , Irregular menstrual cycle Take 1 tablet (500 mg) by mouth in the evening. Take with meals Do not crush, chew, or split. 30 tablet 6 05/13/2024 Active Completed/Discontinued Medications Medication Drug Class(es) Dates [...] [Bacterial infection, unspecified] 05-04-2024 Episodic Female infertility (14 sources) Female infertility; Translations: [Female infertility, unspecified] Onset: 05-13-2024 05-04-2024 Chronic Menstrual disorders (15 sources) Irregular periods; Translations: [Irregular menstruation, unspecified] Onset: 02-09-2024 02-09-2024 Chronic Other endocrine disorders (2 sources) Disorder of endocrine system; Translations: [Endocrine disorder, unspecified] 10-05-2024 Episodic Other nervous system disorders (1 source) Carpal tunnel syndrome of right wrist; Translations: [Carpal tunnel syndrome, right upper limb] 02-23-2025 Chronic Past or Other Problems Problem Classification Problem Date Documented Da te Episodic/Chronic Contraceptive and procreative management (13 sources) Patient encounter status; Translations: [Encounter for other procreative management] Onset: 02-09-2024 02-09-2024 Episodic Other screening for suspected conditions (not mental disorders or infectious disease) (10 sources) Raised TSH level; Translations: [Other specified abnormal findings of blood chemistry] Onset: 05-13-2024 05-13-2024 Episodic Results Test Name Value Interpretation Reference Range Facil ity Urine Cultureon 12-27-2024 Bacteria identified Cx Nom (U) ORGANISM: Escherichia coli (O:ESCCOL) [place] Count >100,000 Aerobic JERONIMO Charge (NMIC56) ----- SUSCEPTIBILITY ---- ORGANISM: O:ESCCOL ANTIBIOTIC INTERPRETATION JERONIMO Amikacin S <16 Amoxacillin/K Clavulanate S <8 Ampicillin S <8 Ampicillin/Sulbactam S <4 Aztreonam S <4 Cefazolin S <2 Cefepime S <2 Ceftazidime S <1 Ceftazidime/Avibacta m S <4 Ceftolozane/Tazobact am S <2 Ceftriaxone S <1 Cefuroxime I 16 Ciprofloxacin S <0.25 Ertapenem S <0.5 Gentamicin S <2 Levofloxacin S <0.5 Meropenem S <1 Meropenem/Vaborbacta m S <2 Nitrofurantoin S <32 Piperacillin/Tazobac chang S <8 Tetracycline S <4 Tigecycline S <2 Tobramycin S <2 Trimethoprim/Sulfame thoxazole S <0.5 S = SUSCEPTIBLE I = INTERMEDIATE R = RESISTANT BLANK = DATA NOT AVAILABLE, OR DRUG NOT ADVISABLE OR TESTED R* = RESISTANCE DUE TO EXTENDED SPECTRUM BETA-LACTAMASES ESBL = EXTENDED SPECTRUM BETA-LACTAMASE TFG = THYMIDINE-DEPENDENT STRAIN JAY = BETA-LACTAMASE POSITIVE IB = INDUCIBLE BETA-LACTAMASE. APPEARS IN PLACE OF 'S' WITH SPECIES KNOWN TO POSSESS INDUCIBLE BETA-LACTAMASES. POTENTIALLY THEY MAY BECOME RESISTANT TO ALL B-LACTAM DRUGS. PERFORMED BY: [place] [address] PATHOLOGIST TOOL HONING MACHINE SET UP OPERATOR GRACE CURRY M.D. Normal [facility] Comment on above: Performed By: #### C UU #### [address] Urine cultureOrdered By: Han Simpson on 12-27-2024 Bacteria identified Cx Nom (U) Escherichia coli Abnormal [facility] ALL PROGESTERONEon 5 PROGESTERONE 11.6 ng/mL . [facility] Comment on above: Follicular phase 0.1 - 0.9 Luteal phase 1.8 - 23.9 Ovulation phase 0.1 - 12.0 First trimester 11.0 - 44.3 Second trimester 25.4 - 83.3 Third trimester 58.7 - 214.0 Postmenopausal 0.0 - 0.1 Performed at: [facility] [address] [id number] Dermatologist And Dermatopathologist: Sonny Cox PhD, Phone: [phone] [facility] PREG QUANT HCGon 025 HCG QUANTITATIVE <1 mIU/mL [facility] Comment on above: 5-50 0.2-1 WEEK 50-500 1-2 WEEKS 100-5,000 2-3 WEEKS 500-10,000 3-4 WEEKS 1,000-50,000 4-5 WEEKS 10,000-100,000 5-6 WEEKS 15,000-200,000 6-8 WEEKS 10,000-100,000 2-3 MONTHS [facility] ALL PROGESTERONEon 03-28-202 5 PROGESTERONE 13.0 ng/mL . [facility] are Comment on above: Follicular phase 0.1 - 0.9 Luteal phase 1.8 - 23.9 Ovulation phase 0.1 - 12.0 First trimester 11.0 - 44.3 Second trimester 25.4 - 83.3 Third trimester 58.7 - 214.0 Postmenopausal 0.0 - 0.1 Performed at: [facility] [address] [id number] Dermatologist And Dermatopathologist: Sonny Cox PhD, Phone: [phone] [facility] Urine Cultureon 08-25-2024 Bacteria identified Cx Nom (U) ORGANISM: Klebsiella pneumoniae (O:KLEPNE) [place] Count >100,000 Aerobic JERONIMO Charge (NMIC56) ----- SUSCEPTIBILITY ---- ORGANISM: O:KLEPNE ANTIBIOTIC INTERPRETATION JERONIMO Amikacin S <16 Amoxacillin/K Clavulanate S <8 Ampicillin/Sulbactam S 88/4 Aztreonam S <4 Cefazolin S <2 Cefepime S <2 Ceftazidime S <1 Ceftazidime/Avibacta m S <4 Ceftolozane/Tazobact am S <2 Ceftriaxone S <1 Cefuroxime S <4 Ciprofloxacin S <0.25 Ertapenem S <0.5 Gentamicin S <2 Levofloxacin S <0.5 Meropenem S <1 Meropenem/Vaborbacta m S <2 Nitrofurantoin S <32 Piperacillin/Tazobac chang S <8 Tetracycline S <4 Tigecycline S <2 Tobramycin S <2 Trimethoprim/Sulfame thoxazole S <0.5 S = SUSCEPTIBLE I = INTERMEDIATE R = RESISTANT BLANK = DATA NOT AVAILABLE, OR DRUG NOT ADVISABLE OR TESTED R* = RESISTANCE DUE TO EXTENDED SPECTRUM BETA-LACTAMASES ESBL = EXTENDED SPECTRUM BETA-LACTAMASE TFG = THYMIDINE-DEPENDENT STRAIN JAY = BETA-LACTAMASE POSITIVE IB = INDUCIBLE BETA-LACTAMASE. APPEARS IN PLACE OF 'S' WITH SPECIES KNOWN TO POSSESS INDUCIBLE BETA-LACTAMASES. POTENTIALLY THEY MAY BECOME RESISTANT TO ALL B-LACTAM DRUGS. PERFORMED BY: [facility] [address] [id number] PATHOLOGIST TOOL HONING MACHINE SET UP OPERATOR GRACE CURRY M.D. Normal [facility] Comment on above: Performed By: #### C UU #### [facility] [address] [id number] [facility] ALL CBC WITH AUTO DIFFon BASOPHILS ABSOLUTE AUTO 0.1 [facility] Basophils/100 WBC (Bld) 0.7 % 0.2 - 2.0 % [facility] Eosinophils/100 WBC (Bld) 0.9 % 0.9 - 7.0 % [facility] Erythrocyte distribution width (RBC) [Ratio] 12.7 % 11.0 - 15.0 % [facility] Hematocrit (Bld) [Volume fraction] 42.4 % 36.0 - 48.0 % [facility] Hemoglobin (Bld) [Mass/Vol] 14.4 g/dL 12.0 - 16.0 g/dL [facility] GRANULOCYTES ABS AUTO 0.02 [facility] Immature granulocytes/100 WBC (Bld) 0.2 % 0.0 - 0.5 % [facility] Interpretation and review of laboratory results Abnormal [facility] LYMPHOCYTES ABSOLUTE AUTO 2.7 [facility] Lymphocytes/100 WBC (Bld) 30.6 % 20.5 - 60.0 % [facility] MCH (RBC) [Entitic mass] 29.2 pg 26.7 - 34.0 pg [facility] MCHC (RBC) [Mass/Vol] 34.0 g/dL 29.9 - 35.2 g/dL [facility] MCV (RBC) [Entitic vol] 86.0 fL 81.0 - 99.0 fL [facility] MONOCYTES ABSOLUTE AUTO 0.7 [facility] Monocytes/100 WBC (Bld) 8.4 % 1.7 - 12.0 % [facility] NEUTROPHILS ABSOLUTE AUTO 5.1 [facility] Neutrophils/100 WBC (Bld) 59.2 % 43.0 - 75.0 % [facility] Platelet mean volume (Bld) [Entitic vol] 8.7 fL Low 9.5 - 13.5 fL [facility] EO # 0.1 [facility] PLT 370 [facility] RBC 4.93 [facility] WBC 8.7 [facility] Vital Signs Date Time Vital Sign Value Performing Clinician Angie reynoso 10-05-2024 14:52-0500 Body mass index (BMI) [Ratio] 33.73 kg/m2 Lita Stephanie DO Work Phone: [facility] 10-05-2024 14:52-0500 Body weight 75.75 kg Lita Stephanie DO Work Phone: [facility] 10-05-2024 14:52-0500 Diastolic blood pressure 68 mm[Hg] Lita Stephanie DO Work Phone: [facility] 10-05-2024 14:52-0500 Systolic blood pressure 102 mm[Hg] Lita Stephanie DO Work Phone: [facility] 05-13-2024 11:58-0400 Body mass index (BMI) [Ratio] 32.88 kg/m2 Lita Stephanie DO Work Phone: [facility] 05-13-2024 11:58-0400 Body weight 73.85 kg Lita Stephanie DO Work Phone: [facility] 05-13-2024 11:58-0400 Diastolic blood pressure 70 mm[Hg] Lita Stephanie DO Work Phone: [facility] 05-13-2024 11:58-0400 Systolic blood pressure 100 mm[Hg] Ltia Stephanie DO Work Phone: [facility] 05-04-2024 10:00-0400 Body mass index (BMI) [Ratio] 32.68 kg/m2 Lita Stephanie DO Work Phone: [facility] 05-04-2024 10:00-0400 Body weight 73.39 kg Lita Stephanie DO Work Phone: [facility] 05-04-2024 10:00-0400 Diastolic blood pressure 60 mm[Hg] Lita Stephanie DO Work Phone: [facility] 05-04-2024 10:00-0400 Systolic blood pressure 100 mm[Hg] Lita Stephanie DO Work Phone: [facility] Encounters Encounter Date Encounter Type Care Provider Facility Start: 02-23-2025 End: 02-23-2025 ambulatory Oliver Montelongo MD Work Phone: [facility] Work Phone: Start: 02-23-2025 End: 02-23-2025 Patient encounter procedure Huy Miller DO -[facility] Work Phone: Start: 12-27-2024 End: 12-27-2024 ambulatory Santos Simpson Facility:[facility] Start: 12-27-2024 End: 12-27-2024 Departed Referred Santos Simpson DO Work Phone: [facility] Start: 12-06-2024 End: 12-07-2024 [facility] Result Encounter Lita Stephanie DO Work Phone: [facility] Unsolicited Start: 12-06-2024 End: 12-07-2024 [facility] Result Encounter Lita Stephanie DO Work Phone: [facility]solic[facility] Start: 11-16-2024 End: 11-16-2024 [facility] Result Encounter Lita Stephanie DO Work Phone: [facility] Unsolicited Start: 11-16-2024 End: 11-16-2024 [facility] Result Encounter Lita Stephanie DO Work Phone: [facility]solicited Start: 11-11-2024 End: 11-12-2024 [facility] Result Encounter Lita Stephanie DO Work Phone: [facility] Unsolicited Start: 11-11-2024 End: 11-12-2024 [facility] Result Encounter Lita Stephanie DO Work Phone: [facility]solic[facility] Start: 10-05-2024 End: 10-05-2024 ambulatory LITA STEPHANIE Not Available Start: 10-05-2024 End: 10-05-2024 Office outpatient visit 15 minutes Lita Stephanie DO Work Phone: [facility] Comment on above: Hormone imbalance Start: 10-05-2024 End: 10-05-2024 Bamboo flowsheet Lita Stephanie DO Work Phone: [facility] Start: 10-05-2024 End: 10-05-2024 Bamboo flowsheet Lita Stephanie DO Work Phone: [facility] Start: 08-25-2024 End: 08-25-2024 Departed Referred Oliver Montelongo MD Work Phone: [facility] Start: 08-25-2024 End: 08-25-2024 ambulatory Oliver Montelongo MD Work Phone: [facility] Work Phone: Start: 05-13-2024 End: 05-13-2024 Bamboo flowsheet Lita Stephanie DO Work Phone: [facility] Start: 05-13-2024 End: 05-13-2024 Bamboo flowsheet Lita Stephanie DO Work Phone: [facility] Start: 05-13-2024 End: 05-13-2024 Office outpatient visit 15 minutes Lita Stephanie DO Work Phone: [facility] Comment on above: Anovulation; Irregular menstrual cycle; Elevated TSH Start: 05-13-2024 End: 05-13-2024 ambulatory LITA STEPHANIE Not Available Start: 05-12-2024 End: 05-12-2024 [facility] Result Encounter Lita Stephanie DO Work Phone: [facility]solicited Start: 05-12-2024 End: 05-12-2024 [facility]inis[facility] Result Encounter Lita Stephanie DO Work Phone: [facility]solicited Start: 05-04-2024 End: 05-04-2024 Bamboo flowsheet Lita Stephanie DO Work Phone: [facility] Start: 05-04-2024 End: 05-04-2024 Bamboo flowsheet Lita Stephanie DO Work Phone: [facility] Start: 05-04-2024 End: 05-04-2024 Office outpatient visit 15 minutes Lita Stephanie DO Work Phone: [facility] Comment on above: Female infertility; Anovulation; Bacterial infection Start: 05-04-2024 End: 05-04-2024 ambulatory LITA STEPHANIE Not Available Start: 02-09-2024 End: 02-09-2024 ambulatory LITA STEPHANIE Not Available Procedures Date Procedure Procedure Detail Performing Clinician Start: 12-27-2024 Urine culture Oliver garza MD Work Phone: Start: 12-06-2024 ALL PROGESTERONE Lita Stephanie DO Work Phone: Start: 11-16-2024 [facility] PREG QUANT HCG Core y Stephanie DO Work Phone: Start: 11-11-2024 ALL PROGESTERONE Lita Stephanie DO Work Phone: Start: 05-12-2024 ALL CBC WITH AUTO DIFF Lita Stephanie DO Work Phone: Plan of Treatment Date Care Activity Detail Author Start: 12-27-2024 [address] [facility] Start: 12-27-2024 Bacteria identified in Urine by Culture Urine Culture [facility] Start: 2024 End: 2024 Patient encounter procedure 2024 1:10 PM EDT Office Visit [facility] [address] [place] [address] Lita Brown, DO [address] [place] [address] [facility] Start: 08-25-2024 Bacteria identified in Urine by Culture Urine Culture [facility] Start: 08-25-2024 [address] culture [facility] Start: 05-13-2024 End: 05-13-2024 Patient encounter procedure [facility] Comment on above: Arrived Start: 05-04-2024 End: 05-04-2025 Antimullerian hormone (AMH) Antimullerian hormone (AMH) Lab Routine Anovulation Expected: 05/04/2024 (Approximate), Expires: 05/04/2025 [facility] Comment on above: Expected: 05/04/2024 (Approximate), Expires: 05/04/2025 Start: 05-04-2024 End: 05-04-2024 Patient encounter procedure 05/04/2024 9:50 AM EDT Office Visit [facility] [address] [place] [address] Lita Brown DO [address] [place] [address] Arrived [facility] Comment on above: Arrived Progesterone Progesterone Lab Routine Anovulation Ordered: 05/04/2024 [facility] Work Phone: Comment on above: Ordered: 05/04/2024 Payers Date Payer Category Payer Self-pay 2024 [facility] er [id number] 2024 Unknown [id number] 2018 Medicaid [employer] [id number] 2018-Present [address] [place] [address] [id number] 2018 Medicaid (Managed Care) [facility] MEDICAID [id number] 2018 Medicaid [id number] 2004 Unknown [id number] 2004 Unknown [id number] 2004 Unknown [id number] 2004 Unknown [id number] Social History Date Type Detail Facility Tobacco smoking stat [facility] Tobacco smoking consumption unknown [facility] Start: 2004 End: 2004 Sex assigned at Female [facility] Start: 04-27-2024 Gender identity Identifies as female gender (finding) [facility] Sexual orientation Not on file [facility] Start: 08-26-2024 End: 12-29-2024 Sex Female (finding) [facility] History of Present illness Narrative 10-05-2024 Sofía Higuera LPN - 10/05/2024 2:30 PM EST Note Date & Type Note Facility 10-05-2024 History of Presen t illness Narrative Reason for Appointment: Patient ID: Amalia Garza is a 18 y.o. female who presents for hormone imbalance (Pt present today to discuss hormones) Patient presents today for Acute Visit. and Fertility Follow Up appointment. MEDICATIONS Current Outpatient Medications Medication Instructions albuterol HFA 90 mcg/act inhaler 2 puffs, Inhalation, Every 6 hours PRN fluticasone (Flovent HFA) 44 MCG/ACT inhaler 1 puff, Inhalation, 2 times daily RT levothyroxine (SYNTHROID) 25 mcg, Oral, Daily before breakfast metFORMIN XR (GLUCOPHAGE-XR) 500 mg, Oral, Daily with evening meal, Do not crush, chew, or split. ALLERGIES No Known Allergies PROBLEMS Active Ambulatory Problems Diagnosis Date Noted Irregular menstrual cycle 02/09/2024 Encounter for fertility planning 02/09/2024 Anovulation 05/13/2024 Elevated TSH 05/13/2024 Resolved Ambulatory Problems Diagnosis Date Noted No Resolved Ambulatory Problems No Additional Past Medical History HISTORY PAST MEDICAL HISTORY SOCIAL HISTORY No past medical history on file. Social History Tobacco Use Smoking status: Not [...] nursing note reviewed. Exam conducted with a cigar wrapper present. Vitals: Estimated body mass index is 33.73 kg/m as calculated from the following: Height as of 09/23/23: 4' 11 . Weight as of this encounter: 167 lb. BP: 102/68 No LMP recorded. ASSESSMENT & PLAN ICD-10-CM 1. Hormone imbalance E34.9 Patient presents today to discuss fertility. Patient was instructed to call the office once menstrual cycle begins so femara can be called into patients pharmacy. Patient has been instructed to take Femara on days 3-7 of cycle. On day 21 of cycle patient is to have progesterone labs drawn. Patient was advised to have intercourse on days 12, 14, 16, 18, and 20 of cycle. We will do three rounds of Femara and if patient has not conceived by then, we will perform HSG. Patient has voiced understanding and will call our office for any further questions/concerns. No orders of the defined types were placed in this encounter. Follow Up: As needed Documented by Sofía Higuera LPN on behalf of: Lita Brown DO documented in this encounter [facility] History of Present illness Narrative 05-13-2024 Tabby [...] nursing note reviewed. Exam conducted with a cigar wrapper present. Vitals: Estimated body mass index is [...] Tabby Gamble LPN on behalf of: Lita Brown DO documented in this encounter [facility] [...] nursing note reviewed. Exam conducted with a cigar wrapper present. Vitals: Estimated body mass index is [...] Lita Brown DO documented in this encounter [facility] Evaluation note Note Date & Type Note Facility Evaluation note Diagnosis Female infertility Female infertility of unspecified origin Anovulation Female infertility associated with anovulation Bacterial infection documented in this encounter [facility] Evaluation note Note Date & Type Note Facility Evaluation note Diagnosis Anovulation Female infertility associated with anovulation Irregular menstrual cycle Elevated TSH Other abnormal blood chemistry documented in this encounter [facility] Evaluation note Note Date & Type Note Facility Evaluation note No assessment information availa [facility] Work Phone: Evaluation note Note Date & Type Note Facility Evaluation note Diagnosis Hormone imbalance documented in this encounter [facility] Reason for referral (narrative) Note Date & Type Note Facility Reason for referral (narrative) No reason for referral information available [facility] Work Phone: Chief Complaint and Reason for Visit Chief Complaint Admit Date N August 25, 2024 6: 59pm Chief Complaint Admit Date Unknown December 27, 2024 2:05p m Chief Complaint Admit Date Unknown December 27, 2024 2:05p m RUE February 23, 2025 1:50p m Summary Purpose Family History No Family History Records FoundNo Family History Records Found Advance Directives Advance Directive Response Recorded Date/ Time Advance Directives No February 23 1:50pm Additional Source Comments Reason for Visit (unrecogniz ed section and content) Reason Comments Infertility Reason Comments follow up labs Reason Comments hormone imbalance Pt present today to discuss hormones Care Teams (unrecognized sec tion and content) Team Status: Active Member Role Status Dates Oliver Montelongo MD Primary Care Provider Active Team Status: Inactive Member Role Status Dates Oliver Montelongo MD Primary Care Provider Active Start: August 25, 2024 End: August 25, 2024 Harleen Streeter DO Attending Provider Active Sta rt: August 25, 2024 End: August 25, 2024 Street Vendor Relationship Specialty Start Date End Date Oliver Montelongo MD [address] [place] [address] PCP - General Family Medicine 10/05/24 Street Vendor Relationship Specialty Start Date End Date Oliver Montelongo MD [address] [place] [address] PCP - General Family Medicine 10/05/24 Street Vendor Relationship Specialty Start Date End Date Oliver Montelongo MD [address] [place] [address] PCP - General Family Medicine 10/05/24 Street Vendor Relationship Specialty Start Date End Date Oliver Montelongo MD [address] [place] [address] PCP - General Family Medicine 10/05/24 Team Status: Inactive Member Role Status Dates Santos Simpson DO Attending Provider Active S tart: December 27, 2024 End: December 27, 2024 Team Status: Inactive Member Role Status Dates Huy Martínez DO Attending Provider Active Start: February 23, 2025 End: February 23, 2025 Oliver Montelongo MD Primary Care Provider Active Start: February 23, 2025 End: February 23, 2025 Goals (unrecognized section and content) Goals may be documented in a n alternate sectionGoals may be documented in an alternate sectionGoals may be documented in an alternate section INFORMATION SOURCE (unrecogn ized section and content) DATE CREATED AUTHOR 10/07/2024 [facility] EPIC DATE CREATED AUTHOR AUTHOR'S ALINE DOW 12/31/2024 [facility] FOR RECORDS PERTAINING TO PATIENTS WHO ARE [...] BE BASED ON THE PRIMARY CLINICAL RECORDS. [facility] [employer] [facility]. provides no warranty or guarantee of the accuracy or completeness of information in this document.
== END 2025-06-20 11:57 | disposition home or self-care (01) ==
LOC: LAB 09:53
PROVIDERS: PCP Family Medicine; Visit Provider Obstetrics & Gynecology
DX: Z51.81 Encounter for therapeutic drug level monitoring (principal); N92.6 Irregular menstruation, unspecified
CPT/HCPCS: 36415; 84702

== ENCOUNTER 2025-06-25 11:02 | Outpatient (OUT) | payer BC, OTHER, SELFPAY ==
--- OUTSIDE RECORDS SUMMARY | 2025-06-17 08:30 | XMS_ITS | Encounter Summary ---
Author Organization [facility] Address [address] [facility] [place] [address] Care Team Providers Care Tribunal Member Name Role Phone Oliver Montelongo MD Primary Care Provider [phone] Encounter Details DateTypeDepartmentCare Team (Latest Contact Info)Ivdlbpnghaj05/31/2025 9:30 AM EDTAncillary Procedure [facility] [address] [place] [address] Missed menses; Positive urine test ([facility]) Social History Tobacco UseTypesPacks/DayYears UsedDateSmoking Tobacco: Never Assessed Estimated Date of DsymeywbEgwaaallSsh00/13/2026Based on last menstrual period of 04/23/2025Sex and Gender InformationValueDate RecordedSex Assigned at BirthFemale 04/27/2024 11:52 AM EDTLegal XuiRcvhxm74/17/2023 4:30 PM EDTGender Identity Pfzqdd7604/27/2024 11:52 AM EDTSexual OrientationNot on filedocumented as of this encounter Plan of Treatment DateTypeDepartmentCare Team (Latest Contact Info)Fcjkbpmxwbh72/02/2025 2:20 PM ESTRoutine [facility] [address] [place] [address] Vickey Brown DO [address] [place] [address] documented as of this encounter Procedures Procedure NamePriorityDate/TimeAssociated DiagnosisCommentsUS OB TRANSVAGINAL Uyrdfyv5306/17/2025 10:02 AM EDT Missed menses Positive urine test ([facility]) documented in this encounter Results * US OB transvaginal (06/17/2025 10:02 AM EDT)Anatomical RegionLaterality ModalityBodyUltrasoundSpecimen (Source)Anatomical Location / Laterality Collection Method / VolumeCollection TimeReceived Time06/20/2025 12:40 PM EST Impressions 06/20/2025 2:38 PM EST Findings consistent with a live intrauterine gestation, current sonographic age of 8 weeks and 2 days resulting in an estimated date of delivery of January 25, 2026. TRANSCRIBED BY: ? ELECTRONICALLY SIGNED BY: Gabriel Santana MD Narrative 06/20/2025 2:38 PM EST FINDINGS: A single intrauterine gestational sac is present. ??No subchorionic hemorrhage. ??A single pole is present. Normal heart rate at 168 beats per minute. ??Yolk sac also is seen. ?? Current sonographic age is 8 weeks and 2 days based on the crown-rump length measurement of 1.8 cm. ??Based on this age, current estimated date of delivery is January 25, 2026. ?? No pelvic fluid or adnexal masspresent. ??Cervical length is ??4.7cm. Procedure Note Gabriel Santana MD - 06/20/2025 FINDINGS: A single intrauterine gestational sac is present. No subchorionichemorrhage. A single pole is present. Normal heart rate at168 beats per minute. Yolk sac also is seen. Current sonographic age is8 weeks and 2 days based on the crown-rump length measurement of 1.8 cm.Based on this age, current estimated date of delivery is January 25, 2026.No pelvic fluid or adnexal mass present. Cervical length is 4.7cm. IMPRESSION: Findings consistent with a live intrauterine gestation, currentsonographic age of 8 weeks and 2 days resulting in an estimated date ofdelivery of January 25, 2026. TRANSCRIBED BY: ELECTRONICALLY SIGNED BY: Gabriel Santana MD Authorizing ProviderResult TypeResult StatusCorey Stephanie ROMERO OB US PROCEDURES Final Result documented in this encounter Visit Diagnoses Diagnosis Missed menses Positive urine test ([facility]) documented in this encounter Care Teams Team MemberRelationshipSpecialtyStart DateEnd Date Oliver Montelongo MD PCP - GeneralFamily Medicine10/05/24documented as of this encounter
--- OUTSIDE RECORDS SUMMARY | 2025-06-17 09:00 | XMS_ITS | Encounter Summary ---
Author Organization [facility] Address [address] [place] [address] Care Team Providers Care Soft Metals Engraver Hand Name Role Phone Oliver Montelongo MD Primary Care Provider [phone] Reason for Visit * ReasonCommentsAmenorrhea Encounter Details DateTypeDepartmentCare Team (Latest Contact Info)Bjdagecfxbp14/31/2025 10:00 AM EDTInitial [facility] [address] [place] [address] [place] [address] GA: 7w6d Social History Tobacco UseTypesPacks/DayYears UsedDateSmoking Tobacco: Never Assessed Estimated Date of OocwyyfqTuwwkleuMgi48/13/2026ased on last menstrual period of 04/23/2025Sex and Gender InformationValueDate RecordedSex Assigned at BirthFemale 04/27/2024 11:52 AM EDTLegal KfwEjzciz89/17/2023 4:30 PM EDTGender Identity Wnwqfj7704/27/2024 11:52 AM EDTSexual OrientationNot on filedocumented as of this encounter Progress Notes * Patti Soliz LPN - 06/17/2025 10:00 AM EDT Reason for Appointment: Patient ID: Amalia Garza is a 19 y.o. female who presents for Amenorrhea Patient presents today for a Nurse OB Intake appointment. Patient is 7w6d with a Estimated Date of Delivery: 01/28/26 OB History Para Term AB Living 1 0 0 0 0 0 SAB IAB Ectopic Multiple Live Births 0 0 0 0 0 # Outcome Date GA Lbr Alfredo/2nd Weight Sex Type Anes PTL Lv 1 Current Current Medications: has a current medication list which includes the following prescription(s): vit-fe fumarate-fa. Medical History: Active Ambulatory Problems Diagnosis Date Noted Irregular menstrual cycle 02/09/2024 Encounter for fertility planning 02/09/2024 Anovulation 05/13/2024 Elevated TSH 05/13/2024 Resolved Ambulatory Problems Diagnosis Date Noted No Resolved Ambulatory Problems Past Medical History: Diagnosis Date Anxiety Asthma (HCC) Thyroid disease Family History Problem Relation Name Age of Onset Other (high blood pressure) Father Other (high blood pressure) Paternal Grandfather Social History Tobacco Use Smoking status: Not on file Smokeless tobacco: Not on file Substance Use Topics Alcohol use: Not on file Drug use: Not on file Past Surgical History: Procedure Laterality Date TONSILLECTOMY No Known Allergies Vitals: Estimated body mass index is 33.73 kg/m?? as calculated from the following: Height as of 09/23/23: 4' 11 . Weight as of 10/05/24: 167 lb. BP: Patient's last menstrual period was 04/23/2025. Assessment/Plan Diagnoses and all orders for this visit: Missed menses - US OB transvaginal; Future - Type and screen; Future - ABO/Rh; Future - CBC and differential - Hemoglobin A1c - RPR - Rubella antibody, IgG - Hepatitis B surface antigen - Hepatitis C antibody - HIV-1 and HIV-2 antibodies - Urine culture - POCT , urine manually resulted - POCT urinalysis dipstick manually resulted Positive urine test ([facility]) - US OB transvaginal; Future , unspecified gestational age ([facility]) - Type and screen; Future - ABO/Rh; Future - CBC and differential - Hemoglobin A1c - RPR - Rubella antibody, IgG - Hepatitis B surface antigen - Hepatitis C antibody - HIV-1 and HIV-2 antibodies - Rapid drug screen, urine; Future Encounter for supervision of normal first in first trimester ([facility]) - Rapid drug screen, urine; Future Thyroid disease - TSH; Future Nurse Note: OB Intake: Patient presents today for first OB visit. Patients history has been reviewed in great detail including any potential risks. Patient signed consent forms and patient desires testing in both trimesters. Patient currently has no complaints and has been advised to drink 6-8 glasses of water a day, eatno raw or undercooked meat, and stay away from [facility]. Patient has also been advised to not change litter boxes and eat 6 small meals a day. Patient has been consulted regarding the do's and don'ts ofpregnancy. Patient was given labs and all questions and concerns were answered. Patient was given [place] to have completed at 9 weeks. Follow Up: Patient is to return in 4 weeks for routine OB appointment. Follow Up: Patient is to have labs drawn at directed and return to office for initial OB appointment with provider. Patient may call office as needed with any concerns or questions. Nurse Visit Completed by: Patti Soliz LPN documented in this encounter Miscellaneous Notes * Addendum Note - Patti Soliz LPN - 06/17/2025 10:00 AM EDTAddended by: PATTI SOLIZ on: 06/17/2025 11:21 AM Modules accepted: Orders documented in this encounter Plan of Treatment DateTypeDepartmentCare Team (Latest Contact Info)Itbekprymtv38/02/2025 2:20 PM ESTRoutine [facility] [address] [place] [phone] Vickey Brown, [address] [facility] [place] [address] NameTypePriorityAssociated DiagnosesOrder ScheduleType and screenLabRoutine Missed menses , unspecified gestational age ([facility]) Expected: 06/17/2025 (Approximate), Expires: 6ABO/RhLabRoutine Missed menses , unspecified gestational age ([facility]) Expected: 06/17/2025 (Approximate), Expires: 6CBC and differentialLab Routine Missed menses , unspecified gestational age ([facility]) Ordered: 06/17/2025Hemoglobin V9iQihUkbbbul Missed menses , unspecified gestational age ([facility]) Ordered: 06/17/2025RPRLabRoutine Missed menses , unspecified gestational age ([facility]) Ordered: 06/17/2025Rubella antibody, IgGLabRoutine Missed menses , unspecified gestational age ([facility]) Ordered: 06/17/2025Hepatitis B surface antigenLabRoutine Missed menses , unspecified gestational age ([facility]) Ordered: 06/17/2025Hepatitis C antibodyLabRoutine Missed menses , unspecified gestational age ([facility]) Ordered: 06/17/2025HIV-1 and HIV-2 antibodiesLabRoutine Missed menses , unspecified gestational age ([facility]) Ordered: 06/17/2025Urine cultureMicrobiologyRoutine Missed menses Ordered: 06/17/2025Rapid drug screen, urineLabRoutine , unspecified gestational age ([facility]) Encounter for supervision of normal first in first trimester ([facility]) Expected: 06/17/2025 (Approximate), Expires: 06/17/2026TSHLabRoutine Thyroid disease Expected: 06/17/2025 (Approximate), Expires: 06/17/2026documented as of this encounter Procedures Procedure NamePriorityDate/TimeAssociated DiagnosisCommentsPOCT URINALYSIS LHTXCDPXKmqrrdf44/31/2025 10:01 AM EDT Missed menses POCT , PCRDWEenbfjy20/31/2025 10:00 AM EDT Missed menses documented in this encounter Results * US [...] Santana MD Authorizing ProviderResult TypeResult StatusCorey Stephanie DOI OB US PROCEDURES Final Result * (ABNORMAL) POCT urinalysis dipstick manually resulted (06/17/2025 10:01 AM EDT)ComponentValueRef RangeTest MethodAnalysis TimePerformed AtPathologist SignatureColor, UAYellowClarity, UAClearGlucose, UANegativeNegative - 2000(110) ++++ mg/dLBilirubin, UANegativeNegative - 4(70) +++ mg/dLKetones, UA NegativeNegative - 160(16) ++++ mg/dLSpec Grav, UA1.0201 - 1.03Blood, UA NegativeNegative - 50 Johann/mcLpH, UA6.05 - 9Protein, UAPositiveNegative - 2000(20) ++++ mg/dLUrobilinogen, UA1.00.2 - 12 mg/dLLeukocytes, UANegative Negative - 500+++ Johnny/mcLNitrite, UANegativeNegative - PositiveSpecimen (Source)Anatomical Location / LateralityCollection Method / VolumeCollection TimeReceived SprpZqqaf56/31/2025 10:01 AM EDT Narrative Authorizing ProviderResult TypeResult StatusCorey Stephanie DOPOINT OF CARE TEST ENTER/EDIT ORDERABLESFinal Result * (ABNORMAL) POCT , urine manually resulted (06/17/2025 10:00 AM EDT) ComponentValueRef RangeTest MethodAnalysis TimePerformed AtPathologist SignaturePreg Test, UrPositiveNegativeSpecimen (Source)Anatomical Location / LateralityCollection Method / VolumeCollection TimeReceived TimeUrine 06/17/2025 10:00 AM EDT Narrative Authorizing ProviderResult TypeResult StatusCorey Stephanie DOPOINT OF CARE TEST ENTER/EDIT ORDERABLESFinal Result documented in this encounter Visit Diagnoses Diagnosis Missed menses Positive urine test ([facility]) Missed menses Positive urine test ([facility]) , unspecified gestational age ([facility]) Encounter for supervision of normal first in first trimester ([facility]) Thyroid disease Unspecified disorder of thyroid Nausea Nausea alone documented in this encounter Care Teams Team MemberRelationshipSpecialtyStart DateEnd Date Oliver Montelongo MD PCP - GeneralFamily Medicine10/05/24documented as of this encounter
--- OUTSIDE RECORDS SUMMARY | 2025-06-25 11:05 | XMS_ITS | Clinical Summary ---
Author Organization [facility] Address [address] [place] [address] Care Team Providers Care Director Of Rotc Name Role Phone Oliver Montelongo MD Primary Care Provider [phone] Allergies No known active allergies Medications MedicationSigDispense QuantityRefillsLast FilledStart DateEnd DateStatus Vit-Fe Fumarate-FA ( VITAMINS PO) Take 1 each by mouth DailyActive ondansetron ODT (Zofran-ODT) 4 MG disintegrating tablet Indications:NauseaTake 1 tablet (4 mg) by mouth every 6 (six) hours if needed for nausea or vomiting 30 tablet 5Active albuterol HFA 90 mcg/act inhaler Inhale 2 puffs every 6 (six) hours if needed for /31/2025Discontinued fluticasone (Flovent HFA) 44 MCG/ACT inhaler Inhale 1 puff in the morning and 1 puff before bedtime.06/17/2025Discontinued levothyroxine (Synthroid) 25 MCG tablet Indications:Elevated TSHTake 1 tablet (25 mcg) by mouth in the morning. Take before meals. 30 tablet Discontinued metFORMIN XR (Glucophage-XR) 500 MG 24 hr tablet Indications:Anovulation,Irregular menstrual cycleTake 1 tablet (500 mg) by mouth in the evening. Take with meals Do not crush, chew, or split. 30 tablet 1103/51Discontinued Active Problems ProblemNoted DateDiagnosed MmlcCbpwbkaklhj74/26/2024Elevated TSH05/13/2024 Irregular menstrual cycle02/09/2024Encounter for fertility xwbofgwb96/24/2024 Estimated Date of EnnyxyduHpckutinCoz14/13/2026ased on last menstrual period of 04/23/2025 Encounters DateTypeDepartmentCare LpvdAdsvipffdbj36/31/2025 10:00 AM EDTInitial [facility] [address] [place] [address] GA: 7w6d1 9:30 AM EDTAncillary Procedure [facility] [address] [place] [address] Missed menses; Positive urine test ([facility])06/16/20253192Okazfk55/08/2025Clinisync Result Encounter [facility] External Department Unsolicited Vickey Brown, DO 05/24/2025Telephone [facility] [address] [place] [address] Libia David MA Error (VOID this visit)5Clinisync Result Encounter [facility] External Department Unsolicited Vickey Brown, DO 05/23/2025Telephone [facility] [address] [facility] [address] Libia David MA from Last 3 Months Family History Medical HistoryRelationNameCommentshigh blood pressureFatherhigh blood pressure Paternal GrandfatherRelationNameStatusCommentsFatherPaternal Grandfather Social History Tobacco UseTypesPacks/DayYears UsedDateSmoking Tobacco: Never Assessed Estimated Date of AhgbolayLdrdzrdoIdw16/13/2026Based on last menstrual period of 04/23/2025Sex and Gender InformationValueDate RecordedSex Assigned at BirthFemale 04/27/2024 11:52 AM EDTLegal JcgLkmpjk02/17/2023 4:30 PM EDTGender Identity Msglwh3804/27/2024 11:52 AM EDTSexual OrientationNot on file Last Filed Vital Signs Vital SignReadingTime TakenCommentsBlood Merefrum259/68010/05/2024 2:52 PM EST Pulse--Temperature--Respiratory Rate--Oxygen Saturation--Inhaled Oxygen Concentration--Hhbxpi18.8 kg (167 lb)10/05/2024 2:52 PM SHCYtljai852.9 cm (4' 11 )09/23/2023 1:34 PM ESTBody Mass Index33.7309/23/2023 1:34 PM EST Plan of Treatment DateTypeDepartmentCare Team (Latest Contact Info)Pbpvpkxotpl04/02/2025 2:20 PM ESTRoutine [facility] [address] [place] [phone] Vickey Brown DO [address] [facility] [address] [place], [place] [id number] Procedures Procedure NamePriorityDate/TimeAssociated DiagnosisCommentsUS OB TRANSVAGINAL Qfsuvhs9306/17/2025 10:02 AM EDT Missed menses Positive urine test ([facility]) POCT URINALYSIS DYNEZYGAUmpushs91/31/2025 10:01 AM EDT Missed menses POCT , DAUJMMqqvgyg32/31/2025 10:00 AM EDT Missed menses [facility] PREG QUANT XOWRudruea80/08/2025 8:00 AM EDT [facility] PREG QUANT XZVTstakhq68/06/2025 9:59 AM EDT from Last 3 Months Results * OB transvaginal (06/17/2025 10:02 AM EDT)Anatomical RegionLaterality [...] Santana MD Authorizing ProviderResult TypeResult StatusCorey Stephanie DOIMG OB US PROCEDURES Final Result * (ABNORMAL) [...] Location / LateralityCollection Method / VolumeCollection TimeReceived TotuZztnt96/31/2025 10:01 AM EDT Narrative Authorizing ProviderResult TypeResult StatusCorey Stephanie DOPOINT OF CARE TEST ENTER/EDIT ORDERABLESFinal Result * (ABNORMAL) POCT , urine manually resulted (06/17/2025 10:00 AM EDT) ComponentValueRef RangeTest MethodAnalysis TimePerformed AtPathologist SignaturePreg Test, UrPositiveNegativeSpecimen (Source)Anatomical Location / LateralityCollection Method / VolumeCollection TimeReceived TimeUrine 06/17/2025 10:00 AM EDT Narrative Authorizing ProviderResult TypeResult StatusCorey Stephanie DOPOINT OF CARE TEST ENTER/EDIT ORDERABLESFinal Result * [facility] PREG QUANT HCG (05/25/2025 8:00 AM EDT) Only the most recent of2 resultswithin the time period is included. ComponentValueRef RangeTest MethodAnalysis TimePerformed AtPathologist Signature HCG QUANTITATIVE1,526mIU/mLTBHComment: 5-50 ? 0.2-1 WEEK 50-500 ? 1-2 WEEKS 100-5,000 ?2-3 WEEKS 500-10,000 ? 3-4 WEEKS 1,000-50,000 ?? 4-5 WEEKS 10,000-100,000 5-6 WEEKS 15,000-200,000 6-8 WEEKS 10,000-100,000 2-3 MONTHS Specimen (Source)Anatomical Location / LateralityCollection Method / Volume Collection TimeReceived Time05/25/2025 8:00 AM EDT1 8:01 AM EDT Narrative [facility] - 05/25/2025 8:51 AM EDT Authorizing ProviderResult TypeResult StatusCorey Stephanie DOCLINISYNCFinal Result Performing OrganizationAddressCity/State/ZIP CodePhone Number [facility] from Last 3 Months Insurance Care Teams Team MemberRelationshipSpecialtyStart Date Oliver Montelongo MD [facility] - [facility]/05/24
--- OUTSIDE RECORDS SUMMARY | 2025-06-25 11:05 | XMS_ITS | Patient Health Record ---
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 Name Role Phone Rogelio Montelongo Primary Care Provider [phone] Allergies No Known Allergies Results Component Value Reference Range Notes IRON Reviewed date:08/18/2024 03:47:54 PM Interpretation: Performing Lab: Notes/Report: [facility] , Iron 48.0 50.0-170.0 ug/dL Performing Lab:see noteML - [facility] LBCBC AUTO DIFF Reviewed date:08/25/2024 07:20:00 PM Interpretation: Performing Lab: Notes/Report: [facility] ,White Blood Count8.44.0-11.0 10 3/uLRed Blood Count5.234.20-5.40 10 6/uL Colqafycoe86.012.0-16.0 g/gSMeblhtbhte36.636.0-48.0 %Mean Corpuscular Jniekl64.2 81.0-99.0 fLMean Corpuscular Gywmjqszhi81.726.7-34.0 pgMean Corpuscular HGB Conc 32.929.9-35.2 g/dLRed Cell Distribution Width12.611.0-15.0 %Platelet Xwxdh642 150-450 10 3/uLMean Platelet Volume8.89.5-13.5 fLNeutrophils Percent Auto58.9 43.0-75.0 %Lymphocytes Percent Auto30.620.5-60.0 %Monocytes Percent Auto8.61.7- 12.0 %Eosinophils Percent Auto1.20.9-7.0 %Basophils Percent Auto0.60.2-2.0 % Immature Granulocytes Pct Auto0.10.0-0.5 %Neutrophils Absolute Auto4.91.4-6.5 10 3/uLLymphocytes Absolute Auto2.61.2-3.8 10 3/uLMonocytes Absolute Auto0.70.3-0.8 10 3/uLEosinophils Absolute Auto0.10.0-0.7 10 3/uLBasophils Absolute Auto0.10.0- 0.1 10 3/uLImmature Granulocytes Abs Auto0.010.00-0.03 10 3/uLPerforming Lab:see noteML - [facility] LBINFLUENZA A AND B AG Reviewed date:08/25/2024 07:20:00 PM Interpretation: Performing Lab: Notes/Report: [facility] ,Influenza Virus A AntigenNegative Negative for Flu A protein antigen. Infection due to Flu A below the detection limit of the test. cannot be ruled out. Flu A antigen in the sample may be Influenza Virus B AntigenNegative Negative for Flu B protein antigen. Infection due to Flu B below the detection limit of the test. cannot be ruled out. Flu B antigen in the sample may be Performing Lab:see noteML - [facility] LBPROF 14(COMP METB) Reviewed date:08/25/2024 07:20:00 PM Interpretation: Performing Lab: Notes/Report: [facility] ,Qjwdky211000-374 mmol/LPotassium4.03.5-5.1 mmol/SVtppwywn36839-382 mmol/LCarbon Dexqczu29.121.0-32.0 mmol/LAnion Gap14.6Vqavgsj0901-929 mg/dLBlood Urea Nitrogen 13.06.4-19.3 mg/dLCreatinine0.950.55-1.02 mg/dLEstimated GFR ( Felecia>60 >=60 mL/min/1.73m 2Estimated GFR (Non- Patricia>60>=60 mL/min/1.73m 2BUN Creatinine Ratio13.9Jrvmcmt9.08.5-10.1 mg/dLBilirubin Total0.30.2-1.0 mg/dL Aspartate Amino Pdqsdgrtxhb8903-60 U/LAlanine Zxvvcccdemcpjbpv3983-35 U/L Alkaline Njwbvecuvbn0981-212 U/LTotal Protein8.26.4-8.2 g/dLAlbumin Level4.13.4- 5.0 g/dLGlobulin4.1Albumin Globulin Ratio1.0Performing Lab:see noteML - [facility] LBURINE MICROSCOPIC ONLY Reviewed date:08/25/2024 07:20:00 PM Interpretation: Performing Lab: Notes/Report: [facility] ,WBC Xudvl86-56RTDS SEEN #/HPFRBC UrineNONE SEEN0-2 #/HPFBacteria UrineLARGENONE SEEN #/HPFMucus UrineNONE SEENNONE SEENSquamous Epithelial Cell UrineMODERATE NONE/RARE #/LPFUrine Culture IndicatedYESPerforming Lab:see noteML - [facility] AFWDKX-OuX-8 Ag* Reviewed date:08/25/2024 07:20:00 PM Interpretation: Performing Lab: Notes/Report: [facility] ,SARS-CoV-2 AgNEGATIVENEGATIVE the detection of proteins from SARS-CoV-2, not [...] circumstances exist justifying the authorization of Performing Lab:see noteML - [facility] LBHCG Qualitative Urine Reviewed date:08/25/2024 07:20:00 PM Interpretation: Performing Lab: Notes/Report: [facility] ,HCG Qualitative Urine*NEGATIVENEGATIVEPerforming Lab:see noteML - [facility] LBFREE T3 Reviewed date:09/08/2024 04:48:07 PM Interpretation: Performing Lab: Notes/Report: [facility] ,Free T32.752.91-4.70 pg/mLPerforming Lab:see noteML - [facility] LB T4 Reviewed date:09/08/2024 04:48:07 PM Interpretation: Performing Lab: Notes/Report: [facility] ,T4 Thyroxine7.605.40-10.60 ug/dLPerforming Lab:see noteML - [facility] LBTSH Reviewed date:09/08/2024 04:48:07 PM Interpretation: Performing Lab: Notes/Report: [facility] ,Thyroid Stimulating Hormone2.6660.516-4.130 uIU/mLPerforming Lab:see noteML - [facility] LBLAB TESTING Reviewed date:03/13/2025 09:37:49 PM Interpretation: Performing Lab: Notes/Report: [id number] Chromosome Analysis, Whole Blood (Constitutional) [facility] ,Miscellaneous TestCOMMENT. [facility] [address], CLIA [id number], [employer]pper [employer], congenital anomalies due to other etiologies. Reference Range: . banding pattern in all cells observed. revealed a FEMALE karyotype with an apparently normal GTG Cytogenetic Result Comment: KENNEY Performed at: [facility] Technical Component-Processing performed at [address] [facility], [facility], [place] [id number] Specimen Type Comment: KENNEY [facility] [address], CLIA [id number], [employer], Reference Range: . NORMAL FEMALE KARYOTYPE Performed at: - [facility] RTP performed at [email or web address], [facility] [address] [facility] 101, Cells Counted 20 46,XX Cells Karyotyped 2 Criminal Justice Professor: Sonny Cox PhD, Phone: [phone] Cells Analyzed 20 Technical Component-Partial chromosome analysis performed by, [email or web address], [email or web address] [id number]. Crystal Finisher, Henry Canales M.D., Ph.D. [address], [place] [address], [facility] FEDERICO New PhD. Reference Range: . Reference Range: . Criminal Justice Professor: Henry Canales [facility], Phone: [phone] Reference Range: . rearrangements below the resolution of cytogenetics or performed at HOA13, [facility] [address] [facility] [address], Yueroland Teran, PhD, [facility], Professional Component Director Review: Comment: KENNEY New PhD. FEDERICO Aguero [id number], [address], [facility], [place] Reference Range: . GTG Band Resolution Achieved [address] Technical Component- Partial chromosome analysis Reference Range: . Interpretation Comment: Test Ordered: [id number] Chromosome, Blood, Routine 74613. Crystal Finisher, Henry Canales MD,PhD Cytogenetic analysis of PHA stimulated cultures has Reference Range: . This result does not exclude the possibility of subtle [address] [place], [place] [id number] BLOOD Performing Lab:see noteLC - [facility] LBPREG QUANT HCG Reviewed date:05/23/2025 12:56:54 PM Interpretation: Performing Lab: Notes/Report: [facility] ,HCG Zszragyyrqbp143 10,000-100,000 5-6 WEEKS 100-5,000 2-3 WEEKS 1,000-50,000 4-5 WEEKS 50-500 1-2 WEEKS 15,000-200,000 6-8 WEEKS 10,000-100,000 2-3 MONTHS 500-10,000 3-4 WEEKS 5-50 0.2-1 WEEK Performing Lab:see noteML - [facility] LBFactor II, DNA Analysis Reviewed date:03/02/2025 08:22:01 PM Interpretation: Performing Lab: Notes/Report: [facility] ,Factor II, DNA AnalysisComment. Genetic Coordinators are available for health care providers to discuss mislabeled samples, or erroneous representation of family risk for venous thromboembolism. Homozygotes for the c.*97G>A variant [facility] [employer] Committee. Venous thromboembolism implications of positive results, as well as recommendations for information for the most accurate interpretation. Molecular-based [Updated 2020Sep 21]. In: Bjorn MP, Annie HH, Brooke RA, et al., References: thromboembolism. Heterozygous carriers have a 2- to 4-fold increased Variant analyzed: c.*97G>A, previously referred to as [id number] PMID: [id number]. 2018 update: a technical standard of the [employer] immobilization, malignant neoplasm, tamoxifen treatment, raloxifene fold increased risk for venous thromboembolism. Risks are likely to Practice and Guidelines Committee. Addendum: [employer] be even higher in more complex genotype combinations involving the Medical Genetics consensus statement on factor V Leiden mutation https://www.ncbi.nlm.nih.gov/books/LWM1181/ treatment, oral contraceptive use, hormone replacement therapy, and This result is not associated with an increased risk for venous testing family members. laboratory testing (factor V Leiden and factor II c.*97G>A), by [facility]. It has not been cleared or approved by the Food and Drug genetic, environmental, and circumstantial risk factors. The c.*97G>A Genetics and Genomics ([facility]). [facility] Med. 2018 Jul;20(12):0441-1630. Comments: variant in the F2 gene is a genetic risk factor for venous results at [phone] (4363). Genetic counseling is recommended to discuss the potential clinical F2 gene and a c.1601G>A (p. Sci707Ztw) variant in the F5 gene (commonly referred [...] age, male sex, personal or family doi: 10.1038/c27644-864-1111-x. Epub 2017May 22. PMID: 31657385. result cannot predict the occurrence or recurrence of a thrombotic are rare. The annual risk of VTE in homozygotes has been reported to Methods/Limitations: relationships. Additional Clinical Information: event. testing is highly accurate, but as in any laboratory test, diagnostic Venous thromboembolism is a multifactorial disease influenced by editors. Frances(R) [Internet]. [place] ([place]): [facility] Healthcareatt S, Laurel AK, Cornelius R, Dinora WW, Adarsh WETZEL; [facility] Professional This test was developed and its performance characteristics determined be 1.1%/year. Individuals who carry both a c.*97G>A variant in the DNA analysis of the F2 gene (NM_000506.5) was performed by PCR errors may occur. False positive or false negative results may occur [facility]; 4580-6198. Available from: F2 c.*97G>A variant and Factor V Leiden (PMID: 02142916). Additional marrow transplantation, somatic or tissue-specific mosaicism, Albert S, Laurel AK, Parish X, Paul B, Mike EB, Palma P, Marixa CS; thromboembolism. See Additional Clinical Information and . Management of thrombotic risk and thrombotic events should testing. [facility] Med. 2020Oct 20. doi: 10.1038/h27269-930-38149-v. Comments. Baljeet LORA. Prothrombin Thrombophilia. 2005Mar 11 risk factors include but are not limited to: deficiency of protein C, Administration. follow established guidelines and fit the clinical circumstance. This Reviewed ByComment. Criminal Justice Professor: Henry Canales [facility], Phone: [phone] Technical Component [facility] at [facility] Performed at: [facility] WSTGD6, [facility], [address] Professional Component performed by: [facility] [address], PhD, [facility] [address], [facility], [place] [id number] Performing Lab:see noteLC - [facility] LBFactor V Leiden Mutation Reviewed date:03/02/2025 08:22:01 PM Interpretation: Performing Lab: Notes/Report: Sun ,Factor V Leiden MutationComment. on each chromosome) have an approximately 80-fold increased False positive or false negative results may occur for Comment: risk factors. The c.1601G>A (p. Dze590Aqr) variant in the of the [employer] Genetics and Genomics [id number]. complex genotype combinations involving the F2 c.*97G>A providers to discuss results at [phone] (3681). Addendum: [employer] Genetics consensus DNA analysis of the F5 gene (NM_000130.5) was homozygous for this variant (ie, with a copy of the variant et al., editors. Frances(R) (Internet). [place] ([place]): Result: c.1601G>A (p.Tze163Dlc) - Not Detected protein C, protein S, [...] variant have a 6- to 8-fold [facility]; 0508-5744. Available mosaicism, mislabeled samples, or erroneous representation Katie Lopes, Laurel PONCE, Cornelius R, Dinora WW, Adarsh [...] is highly accurate, Marixa GARRETT; [facility] [employer] [facility]. contraceptive use, hormone replacement therapy, and Additional Clinical Information: of family relationships. [facility] Professional Practice and Guidelines Committee. This result is not associated with an increased risk for venous risk for venous thromboembolism. Individuals who carry both ([facility]). Antonia Med. 2018 Jul;20(12): 4275-5725. doi: Genetic counseling is recommended to discuss the cleared or approved by the Food and Drug Administration. statement on factor V Leiden mutation testing. [facility]. variant and Factor V Leiden (PMID: 32207970). Additional performed by PCR amplification followed by electrophoresis. risk factors include but are not limited to: deficiency of thromboembolism. See Additional Clinical Information and References: a c.*97G>A variant in the F2 gene and Factor V Leiden have Variant Analyzed: c.1601G>A (p. Crj091Ner), referred potential clinical implications of positive results, as 2020Oct 20. doi: 10.1038/b59442-835-67732-h. PMID: The diagnostic sensitivity is >99%. Results must be . Management of thrombotic risk and thrombotic from: https://www.ncbi.nlm.nih.gov/books/GIE6242/ bone marrow transplantation, somatic or tissue-specific 10.1038/f03648-460-5794-n. Epub 2017May 22. PMID: 36455588. occurrence or recurrence of a thrombotic event. influenced by genetic, environmental, and circumstantial but as in any laboratory test, diagnostic errors may occur. and factor II c. *97G>A), 2018 update: a technical standard thromboembolism. Risks are likely to be even higher in more Genetic Coordinators are available for health care increased risk for venous thromboembolism. Individuals Reviewed [facility]. [address] [facility], [facility], [place] [id number] Greer Jacinto, Ph.D., [facility] Criminal Justice Professor: Henry Canales [facility], Phone: [phone] Performed at: [facility] Performing Lab:[facility] LBProgesterone Reviewed date:11/14/2024 04:21:20 PM Interpretation: Performing Lab: Notes/Report: [facility] ,Wsrzeoiodgdq06.0. ng/mL Luteal phase 1.8 - 23.[address] [place] [phone] Criminal Justice Professor: Sonny Cox PhD, Phone: [phone] Postmenopausal 0.0 - 0.1 Performed at: [facility] Ovulation phase 0.1 - 12.0 Third trimester 58.7 - 214.0 Second trimester 25.4 - 83.3 Follicular phase 0.1 - 0.9 First trimester 11.0 - 44.3 Performing Lab:see note - [facility] LBBox Test Reviewed date:08/29/2024 10:43:25 AM Interpretation: Performing Lab: Notes/Report: [facility] ,BOX Test Sent OutURINE CULTUREBOX Test Reference LabFIRELANDSBOX Test Date Sent 08/25/24BOX Test ResultSEE SCANNED REPORTPerforming Lab:see noteML - [facility] LBUA (CLEAN or CATCH) TURKEY BONER or MICRO IF IND. Reviewed date:08/25/2024 07:20:00 PM Interpretation: Performing Lab: Notes/Report: [facility] ,Color UrineLT. YELLOWYELLOWClarity UrineCLEARCLEARSpecific [place] Urine>=1.030 1.005-1.025pH Urine6.05.0-9.0Protein UrineNEGATIVENEG/TRACE mg/dLGlucose Urine UANEGATIVENEGATIVE mg/dLBilirubin UrineNEGATIVENEGATIVEKetones UrineNEGATIVE NEGATIVE mg/dLBlood UrineNEGATIVENEGATIVENitrite UrinePOSITIVENEGATIVE Urobilinogen Urine0.20.2-1.0 EU/dLLeukocyte Esterase UrineMODERATENEGATIVEUrine Microscopic IndicatedYESPerforming Lab:see noteML - [facility] LBTSH Reviewed date:08/18/2024 03:47:54 PM Interpretation: Performing Lab: Notes/Report: [facility] ,Thyroid Stimulating Hormone4.1900.516-4.130 uIU/mLPerforming Lab:see noteML - [facility] LBT4 Reviewed date:08/18/2024 03:47:54 PM Interpretation: Performing Lab: Notes/Report: [facility] ,T4 Thyroxine8.505.40-10.60 ug/dLPerforming Lab:see noteML - [facility] LBPROF 14(COMP METB) Reviewed date:08/18/2024 03:47:54 PM Interpretation: Performing Lab: Notes/Report: [facility] ,Dbzosy341998-218 mmol/LPotassium4.43.5-5.1 mmol/HQuuhvsgy52881-556 mmol/LCarbon Kmhtxpi04.321.0-32.0 mmol/LAnion Gap11.0Jxycnbj3583-050 mg/dLBlood Urea Pfubymvq23.06.4-19.3 mg/dLCreatinine0.990.55-1.02 mg/dLEstimated GFR ( Felecia>60>=60 mL/min/1.73m 2Estimated GFR (Non- Patricia>60>=60 mL/min/1.73m 2BUN Creatinine Ratio14.4Herywoq8.28.5-10.1 mg/dLBilirubin Total0.30.2-1.0 mg/dL Aspartate Amino Gwaksiiarcf3815-24 U/LAlanine Cybbbafuvhgamerw4274-09 U/L Alkaline Wisqlapmqpq3537-086 U/LTotal Protein7.76.4-8.2 g/dLAlbumin Level3.93.4- 5.0 g/dLGlobulin3.8Albumin Globulin Ratio1.0Performing Lab:see note - [facility] LBLIPID PROFILE Reviewed date:08/18/2024 03:47:54 PM Interpretation: Performing Lab: Notes/Report: [facility] ,Qqplipropbtkt4986-852 mg/iTRahytgjjwbw624586-947 mg/dLHDL Sbanscqhljw2163-86 mg/dL <40 mg/dl - HIGH CARDIOVASCULAR RISK > or =60 mg/dl - LOW CARDIOVASCULAR RISK LDL Cholesterol Epobfextqb90.4 100-129 mg/dl NEAR OR ABOVE OPTIMAL 130-159 mg/dl BORDERLINE HIGH >190 mg/dl VERY HIGH <100 mg/dl OPTIMAL 160-189 mg/dl HIGH VLDL HBQRVQJISLI63.6Chol HDL Ratio2.8 >11.0 HIGH RISK 7.1 - 11.0 MODERATE RISK 3.3 - 4.4 LOW RISK 4.4 - 7.1 AVERAGE RISK Performing Lab:see note - [facility] LBINSULIN Reviewed date:08/22/2024 08:57:18 PM Interpretation: Performing Lab: Notes/Report: [facility] ,Eraidkc26.02.6-24.9 uIU/mL Criminal Justice Professor: Sonny Cox PhD, Phone: [phone] Performed at: [facility] [address] [phone] Performing Lab:see note - [facility] LBGLYCOHEMOGLOBIN A1C Reviewed date:08/18/2024 03:47:54 PM Interpretation: Performing Lab: Notes/Report: [facility] ,Glycohemoglobin A1C5.54.5-6.2 % > 7.0 ACTION SUGGESTED ADA THERAPEUTIC TARGET < 7.0 ADA RECOMMENDED LIMIT 4.0 - 6.0 Estimated Average Kybclio260Pwnzezlxeg Lab:see note - [facility] LB FREE T3 Reviewed date:08/18/2024 03:47:54 PM Interpretation: Performing Lab: Notes/Report: [facility] ,Free T33.132.91-4.70 pg/mLPerforming Lab:see [facility] LB CBC AUTO DIFF Reviewed date:08/18/2024 03:47:54 PM Interpretation: Performing Lab: Notes/Report: [facility] ,White Blood Count7.34.0-11.0 10 3/uLRed Blood Count4.914.20-5.40 10 6/uL Mzvovzcyxm90.112.0-16.0 g/iADuihmpeeve74.136.0-48.0 %Mean Corpuscular Myubpi36.8 81.0-99.0 fLMean Corpuscular Vusdgkzzsv14.726.7-34.0 pgMean Corpuscular HGB Conc 32.729.9-35.2 g/dLRed Cell Distribution Width12.411.0-15.0 %Platelet Sdbuo018 150-450 10 3/uLMean Platelet Volume8.89.5-13.5 fLNeutrophils Percent Auto54.9 43.0-75.0 %Lymphocytes Percent Auto33.920.5-60.0 %Monocytes Percent Auto8.71.7- 12.0 %Eosinophils Percent Auto1.70.9-7.0 %Basophils Percent Auto0.70.2-2.0 % Immature Granulocytes Pct Auto0.10.0-0.5 %Neutrophils Absolute Auto4.01.4-6.5 10 3/uLLymphocytes Absolute Auto2.51.2-3.8 10 3/uLMonocytes Absolute Auto0.60.3- 0.8 10 3/uLEosinophils Absolute Auto0.10.0-0.7 10 3/uLBasophils Absolute Auto0.1 0.0-0.1 10 3/uLImmature Granulocytes Abs Auto0.010.00-0.03 10 3/uLPerforming Lab:see noteML - [facility] LBUS renal bladder Reviewed date:09/14/2024 05:04:28 PM Interpretation: Performing Lab: Notes/Report: Source Facility: [facility]-[address] [place] [address] [place] [address] Ultrasound Report Signed Patient: MIHIR WOOD MR#: [id number] : 2005 Acct:[id number] Age/Sex: 18 / F ADM Date: 09/11/24 Loc: US Attending Dr: Ian Montelongo M.D. Ordering Physician: Ian Montelongo M.D. Date of Service: 09/11/24 Procedure(s): US renal bladder Accession Number(s): [id number] cc: Ian Montelongo M.D. [address] [address] Patient Name: MIHIR WOOD MRN: [id number] date: 2005 Sex: F Assigned Patient Location: US Current Patient Location: Accession/Order Number: [id number] Exam Date: 09/11/2024 10:43 Report Date: 09/14/2024 [...] Signed By: 09/14/24 0452 DD/ 0449 TD/TT: Certifier:UVALDO CHAVARRIA Reviewed date:05/25/2025 12:28:31 PM Interpretation: Performing Lab: Notes/Report: [facility] ,[facility] Vgxtonnqvtpu8113 10,000-100,000 5-6 WEEKS 100-5,000 2-3 WEEKS 50-500 1-2 WEEKS 10,000-100,000 2-3 MONTHS 1,000-50,000 4-5 WEEKS 15,000-200,000 6-8 WEEKS 500-10,000 3-4 WEEKS 5-50 0.2-1 WEEK Performing Lab:see noteML - [facility] LBPREG QUANT HCG Reviewed date:04/04/2025 07:26:10 PM Interpretation: Performing Lab: Notes/Report: [facility] ,HCG Quantitative<1 1,000-50,000 4-5 WEEKS 50-500 1-2 WEEKS 5-50 0.2-1 WEEK 15,000-200,000 6-8 WEEKS 10,000-100,000 5-6 WEEKS 500-10,000 3-4 WEEKS 100-5,000 2-3 WEEKS 10,000-100,000 2-3 MONTHS Performing Lab:see noteML - [facility] LB Reason For Referral Diagnosis 1 Carpal tunnel syndro me (G56.00) Referral Organization [facility] Referring Provider First Name Rogelio Referring Provider Last Name Jayda Referring Provider [facility] Referred Provider [facility] Referred Provider Specialty Neurology Referral Priority Routine Medications Medication SIG (Take, Route, Frequency, Duration) Notes Start Date End Date Status Adipex-P 37.5 MG 1 tablet before breakfast Orall y Once a day 5Active Social History Tobacco Use: Social History Observation Description Date Details (start date - stop date) Never Smoker NA - NA Tobacco Control (Standard) Question Answer Notes Tobacco use: Nonsmoker AUDIT-C (Standard) Question Answer Notes Did you have a drink containing alcohol in the p ast year? No Ptbzwu1FcyagxdyystuawXjanvcuj Problems Problem Type SNOMED Code ICD Code Onset Dates Problem Status W/U Status Risk Notes Problem Recurrent urinary tract infection (143677 001) Recurrent UTI (N39.0) ActiveconfirmedProblemAsthma (165037717)Asthma (J45.909)ActiveconfirmedProblem Carpal tunnel syndrome (04672173)Carpal tunnel syndrome (G56.00)Activeconfirmed ProblemAnxiety (95730881)Anxiety (F41.9)ActiveconfirmedProblemWell adult (972827558)Well adult (Z00.00)Activeconfirmed Vital Signs Blood pressure diastolic 70 mm Hg 02/28/2025 BMI Jjxxnbjyhs10.91 %09/09/20246247Ghdsih56 in07/14/2025Blood pressure bhspiqbp020 mm Hg02/28/20251774Mvsbtc048.6 lbs02/28/2025BMI31.89 kg/m202/28/2025 Encounters Encounter Location Date Provider Diagnosis [facility] [address] [facility] [place] [address] 08/18/2024 Rogelio Montelongo Low thyroid stimulat ing hormone (TSH) level R79.89 [facility] [address] [facility] [place] [address] 08/25/2024 Rogelio Aguilay [facility] [facility] [place] [address] [facility]20[facility] [facility] [place] [address]/[facility] [facility] [place] [address]/[facility] [facility] [place] [address]/[facility] [facility] [place] [address]/Doug HoyCarpal tunnel syndrome G56.00[facility] [facility] [id number]/oug HoyWell adult Z00.00[facility] [facility] [place] [address]/Doug HoyRecurrent UTI N39.0[facility] [facility] [place] [address]/Doug HoyCarpal tunnel syndrome G56.00[facility] [facility] [place] [address]/Doug HoyAsthma J45.909 and Encounter for medication management Z79.899[facility] [facility] [place] [address]Doug Sirisha J45.909 Assessments Encounter Date Diagnosis (ICD Code) Assessment Notes Treatment Notes Treatment Clinical Notes Section Notes 08/16/2024 Well adult (ICD-10 - Z00.00) 09/09/2024Recurrent UTI (ICD-10 - N39.0)12/29/2024arpal tunnel syndrome (ICD-10 - G56.00)01/28/2025sthma (ICD-10 - J45.909)01/28/2025Encounter for medication management (ICD-10 - Z79.899)02/28/2025sthma (ICD-10 - J45.909)08/18/2024Low thyroid stimulating hormone (TSH) level (ICD-10 - R79.89)01/11/2025arpal tunnel syndrome (ICD-10 - G56.00) Plan Of [...] ACCESS PPO PLUS LOCAL PLAN [address] [place] [address] [id number] Yancy Wood - patient is the insured Medical (General) History Medical History History ICD Code Asthma J45.909 Anxiety F41.9 Surgical History Surgery Date(Month/Year) Tonsillectomy and addenoidectomy
--- OUTSIDE RECORDS SUMMARY | 2025-06-25 11:05 | XMS_ITS | Encounter Summary ---
Author Organization [facility] Address [address] [place] [address] Care Team Providers Care Mat Packer Name Role Phone Oliver Montelongo MD Primary Care Provider [phone] Encounter Details DateTypeDepartmentCare Team (Latest Contact Info)Hkspuedatui91/30/2025Travel Social History Tobacco UseTypesPacks/DayYears UsedDateSmoking Tobacco: Never Assessed CommentsNoSex and Gender InformationValueDate RecordedSex Assigned at Hhwygn4004/27/2024 11:52 AM EDTLegal PswAlxzuk81/17/2023 4:30 PM EDTGender MkrtjtxeMgwlvi42/10/2024 11:52 AM EDTSexual OrientationNot on filedocumented as of this encounter Plan of Treatment DateTypeDepartmentCare Team (Latest Contact Info)Phgeehiukld61/02/2025 2:20 PM ESTRoutine [facility] [address] [facility] [place] [address] Vickey Brown DO [address] [place], [place] [phone] documented as of this encounter Visit Diagnoses Not on filedocumented in this encounter Care Teams Team MemberRelationshipSpecialtyStart DateEnd Date Oliver Montelongo MD PCP - GeneralFamily Medicine10/05/24documented as of this encounter
--- OUTSIDE RECORDS SUMMARY | 2025-06-25 11:05 | XMS_ITS | Encounter Summary ---
Author Organization [facility] Address [address] [facility] [place] [address] Care Team Providers Care Glass Blower Name Role Phone Oliver Montelongo MD Primary Care Provider [phone] Encounter Details DateTypeDepartmentCare Team (Latest Contact Info)Qezpvzedeen35/26/2024Clinisync Result Encounter [facility] External Department Unsolicited Lita Brown DO [address] [place] [address] Social History Tobacco UseTypesPacks/DayYears UsedDateSmoking Tobacco: Never Assessed CommentsNoSex and Gender InformationValueDate RecordedSex Assigned at Ealzpj5704/27/2024 11:52 AM EDTLegal GzdBcnyja55/17/2023 4:30 PM EDTGender OqtjegwmGdkwdl46/10/2024 11:52 AM EDTSexual OrientationNot on filedocumented as of this encounter Plan of Treatment DateTypeDepartmentCare Team (Latest Contact Info)Zqeoimnpdvm11/02/2025 2:20 PM ESTRoutine [facility] [place] [facility] [address] [facility] [place] [address] Lita Brown DO [address] [place] [address] documented as of this encounter Procedures Procedure NamePriorityDate/TimeAssociated DiagnosisCommentsUS PELVIS W/ AQJBATYXZKYW32/26/2024 12:06 PM EDT [facility] PREG QUANT RTOFvgsbbx42/26/2024 10:54 AM EDT ALL THYROXINE (T4) NGXIPhmomrz35/26/2024 10:54 AM EDT ALL THYROID STIM BMCABLBMkdttqz18/26/2024 10:54 AM EDT ALL LUTEINIZING WYTPPBWPqmwzke26/26/2024 10:54 AM EDT ALL FOLLICLE STIMULATING GBQDMECObfwmxm67/26/2024 10:54 AM EDT ALL DHEA THSQUHONuxmppy76/26/2024 10:54 AM EDT ALL GECPTXVGCQXBNNXDZFQBMRGixlpns79/26/2024 10:54 AM EDT documented in this encounter Results * US PELVIS W/ TRANSVAGINAL (02/11/2024 12:06 PM EDT)Anatomical RegionLaterality ModalityOtherSpecimen (Source)Anatomical Location / LateralityCollection Method / VolumeCollection TimeReceived Time02/11/2024 12:06 PM EDT Narrative 02/11/2024 12:09 PM EDT [facility] ?[address] ? [place] [id number] ? Ultrasound Report ? Signed ? Patient: MIHIR CHRISTIE ?MR#: [id number] ?? : 2005 ?Acct:[id number] ?? Age/Sex: 18 / F ?ADM Date: 02/11/24 ?? Loc[facility] ? Attending Dr: Lita Brown D.O. ? Ordering Physician: iLta Brown D.O. ?? Date of Service: 02/11/24 ?? Procedure(s): US pelvis w/ transvaginal ?? Accession Number(s): [id number] ? cc: Lita Brown D.O.; Physician,Non-Staff M.D. ? [facility] ? [address] ? [place] [address] ? Patient Name: ?? MIHIR ??SHAHNAZ ? MRN: [facility]:[id number] ? date: 2005 ?Sex: F ?? Assigned Patient [facility] ?? Current Patient Location: [facility] ?? Accession/Order Number: [id number] ?? Exam Date: 02/11/2024 ??09:24 ?Report Date: 02/11/2024 ??12:06 ? At the request of: ?? LITA ??STEPHANIE ? Procedure: ??US pelvis w/ transvaginal ? EXAMINATION: US pelvis w/ transvaginal ? HISTORY: IRREGULAR MENSTRAL CYCLE ? COMPARISON: No relevant comparison available. ? FINDINGS: ? Transabdominal and transvaginal images ? The uterus is normal in size, contour and myometrial echotexture measuring 6.9 ? x 3.0 x 4.9 cm. Anteverted, anteflexed. ? Endometrium measures 6 mm, normal. ? The right ovary is normal in size, contour and echotexture measuring 3.0 x 2.0 ? x 2.8 cm. Normal color Doppler flow ? The left ovary is normal in size, contour and echotexture measuring 3.1 x 2.1 ?? x ?? 2.9 cm. Normal color Doppler flow ? No free fluid ? US/US pelvis w/ transvaginal ?? IMPRESSION: ? Normal exam ? Electronically authenticated by: OPAL ??ERIC ?? Date: 02/11/2024 ??12:06 ? Dictated By: ?Opal Reyes M.D. ? Signed By: ?02/11/24 1209 ? DD/ 1206 ? TD/TT: ? Wind Project Manager: Procedure Note Radiology, Radiologist, MD - 02/11/2024 [place] [id number] Ultrasound Report Signed Patient: MIHIR CHRISTIE#: [id number] : 2005Acct:[id number] Age/Sex: 18 / FADM Date: 02/11/24 Loc: [facility] Attending Dr: Lita Bronw D.O. Ordering Physician: Lita Brown D.O. Date of Service: 02/11/24 Procedure(s): US pelvis w/ transvaginal Accession Number(s): [id number] cc: Lita Brown D.O.; Physician,Non-Staff [place] [id number] Patient Name: MIHIR CHRISTIE MRN: [id number] date: 2005 Sex: F Assigned Patient Location: [facility] Current Patient Location: [facility] Accession/Order Number: [id number] Exam Date: 02/11/2024 09:24 Report Date: 02/11/2024 [...] M.D. Signed By:02/11/24 1209 DD/ 1206 TD/TT: Wind Project Manager: Authorizing ProviderResult TypeResult StatusCorey Stephanie DOCLINISYNC IMAGINGFinal Result * ALL DEHYDROEPIANDROSTERONE (02/11/2024 10:54 AM EDT)ComponentValueRef Range Test MethodAnalysis TimePerformed AtPathologist SignatureDHEA, [id number] - 491 ng/dLTBHComment: ? Age ?1 - ??5 years ?0 - ??67 ?6 - ??7 years ?0 - 110 ?8 - 10 years ?0 - 185 ? 11 - 12 years ?0 - 201 ? 13 - 14 years ?0 - 318 ? 15 - 16 years ?? 39 - 481 ? 17 - 19 years ?? 40 - 491 ? 20 - 50 years ?? 31 - 701 >50 years 21 - 402 This test was developed and its performance characteristics determined by [facility]. It has not been cleared or approved by the Food and Drug Administration. Performed at: ?? - [facility] ??[id number] Design Inserter: Lisseth Betancourt MD, Phone: ??[phone] Specimen (Source)Anatomical Location / LateralityCollection Method / Volume Collection TimeReceived Time02/11/2024 10:54 AM EDT02/11/2024 11:05 AM EDT Narrative CLINISYNC - 02/16/2024 3:09 PM EDT Authorizing ProviderResult TypeResult StatusCorey Stephanie DOCLINISYNCFinal Result Performing OrganizationAddressCity/State/ZIP CodePhone Number CLINISYNC [facility] * ALL FOLLICLE STIMULATING HORMONE (02/11/2024 10:54 AM EDT)ComponentValueRef RangeTest MethodAnalysis TimePerformed AtPathologist SignatureFSH4.3. mIU/mL TBHComment: ? Adult Female ? Range ?Follicular phase ?3.5 - ??12.5 ?Ovulation phase ? 4.7 - ??21.5 ?Luteal phase ?1.7 - ?? 7.7 ?Postmenopausal ? 25.8 - 134.8 Performed at: ??CB - [facility] [address] ??[id number] Design Inserter: Sonny Cox PhD, Phone: ??[phone] Specimen (Source)Anatomical Location / LateralityCollection Method / Volume Collection TimeReceived Time02/11/2024 10:54 AM EDT02/11/2024 11:05 AM EDT Narrative CLINISYNC - 02/12/2024 4:08 AM EDT Authorizing ProviderResult TypeResult StatusCorey Stephanie DOCLINISYNCFinal Result Performing OrganizationAddressCity/State/ZIP CodePhone Number CLINISYNC TB * ALL LUTEINIZING HORMONE (02/11/2024 10:54 AM EDT)ComponentValueRef RangeTest MethodAnalysis TimePerformed AtPathologist SignatureLUTEINIZING HORMONE(LH)9.5 . mIU/mLTBHComment: ? Adult Female ?Range ?Follicular phase ?2.4 - ??12.6 ?Ovulation phase ?14.0 - ??95.6 ?Luteal phase ?1.0 - ??11.4 ?Postmenopausal ?7.7 - ??58.5 Specimen (Source)Anatomical Location / LateralityCollection Method / Volume Collection TimeReceived Time02/11/2024 10:54 AM EDT02/11/2024 11:05 AM EDT Narrative CLINISYNC - 02/12/2024 4:08 AM EDT Authorizing ProviderResult TypeResult StatusCorey Stephanie DOCLINISYNCFinal Result Performing OrganizationAddressty/State/ZIP CodePhone Number [facility] * ALL DHEA SULFATE (02/11/2024 10:54 AM EDT)ComponentValueRef RangeTest Method Analysis TimePerformed AtPathologist SignatureDHEA-KJESDAH150.0110.0 - 433.2 ug/dLTBHSpecimen (Source)Anatomical Location / LateralityCollection Method / VolumeCollection TimeReceived Time02/11/2024 10:54 AM EDT02/11/2024 11:05 AM EDT Narrative CLINISYNC - 02/12/2024 4:08 AM EDT Authorizing ProviderResult TypeResult StatusCorey Stephanie DOCLINISYNCFinal Result Performing OrganizationAddUniversity of Pennsylvania Health Systemty/State/ZIP CodePhone Number CLINISYNC [facility] * [facility] PREG QUANT HCG (02/11/2024 10:54 AM EDT)ComponentValueRef RangeTest Method Analysis TimePerformed AtPathologist SignatureHCG QUANTITATIVE<1mIU/mLTBH Comment: 5-50 ? 0.2-1 WEEK 50-500 ? 1-2 WEEKS 100-5,000 ?2-3 WEEKS 500-10,000 ? 3-4 WEEKS 1,000-50,000 ?? 4-5 WEEKS 10,000-100,000 5-6 WEEKS 15,000-200,000 6-8 WEEKS 10,000-100,000 2-3 MONTHS Specimen (Source)Anatomical Location / LateralityCollection Method / Volume Collection TimeReceived Time02/11/2024 10:54 AM EDT02/11/2024 11:05 AM EDT Narrative CLINISYNC - 02/11/2024 1:51 PM EDT Authorizing ProviderResult TypeResult StatusCorey Stephanie DOCLINISYNCFinal Result Performing OrganizationAddressCity/State/ZIP CodePhone Number CLINISYNC TB * ALL THYROID STIM HORMONE (02/11/2024 10:54 AM EDT)ComponentValueRef RangeTest MethodAnalysis TimePerformed AtPathologist SignatureTHYROID STIMULATING HORMONE2.1070.516 - 4.130 uIU/mLTBHSpecimen (Source)Anatomical Location / LateralityCollection Method / VolumeCollection TimeReceived Time02/11/2024 10:54 AM EDT02/11/2024 11:05 AM EDT Narrative CLINISYNC - 02/11/2024 1:51 PM EDT Authorizing ProviderResult TypeResult StatusCorey Stephanie DOCLINISYNCFinal Result Performing OrganizationAddressCity/State/ZIP CodePhone Number JAMENC TB * ALL THYROXINE (T4) FREE (02/11/2024 10:54 AM EDT)ComponentValueRef RangeTest MethodAnalysis TimePerformed AtPathologist SignatureFREE T41.000.78 - 1.34 ng/dLTBHSpecimen (Source)Anatomical Location / LateralityCollection Method / VolumeCollection TimeReceived Time02/11/2024 10:54 AM EDT02/11/2024 11:05 AM EDT Narrative CLINISYNC - 02/11/2024 12:16 PM EDT Authorizing ProviderResult TypeResult StatusCorey Stephanie DOCLINISYNCFinal Result Performing OrganizationAddressCity/State/ZIP CodePhone Number JAMEID TB documented in this encounter Visit Diagnoses Not on filedocumented in this encounter Care Teams Team MemberRelationshipSpecialtyStart DateEnd Date Oliver Montelongo MD PCP - GeneralFamily Medicine10/05/24documented as of this encounter
[2025-06-25 11:34] LABS: Hematocrit 41.0 % (36.0-48.0); Hemoglobin 14.0 g/dL (12.0-16.0); Immature Granulocytes Abs Auto 0.02 10^3/uL (0.00-0.03); Immature Granulocytes Pct Auto 0.2 % (0.0-0.5); Lymphocytes Absolute Auto 1.8 10^3/uL (1.2-3.8); Mean Corpuscular HGB Conc 34.1 g/dL (29.9-35.2); Mean Corpuscular Hemoglobin 29.7 pg (26.7-34.0); Mean Corpuscular Volume 86.9 fL (81.0-99.0); Platelet Count 333 10^3/uL (150-450); Red Blood Count 4.72 10^6/uL (4.20-5.40); White Blood Count 10.2 10^3/uL (4.0-11.0)
[2025-06-25 11:50] LABS: Cannabinoid Screen Urine NEGATIVE (NEGATIVE); Methamphetamines Screen Urine NEGATIVE (NEGATIVE); Tricyclic Antidepressant Urine NEGATIVE (NEGATIVE)
[2025-06-25 11:55] LABS: Thyroid Stimulating Hormone 1.436 uIU/mL (0.358-3.740)
[2025-06-26 10:09] LABS: Rubella Antibodies, IgG 1.77 index (Immune >0.99)
[2025-06-26 14:08] LABS: Rapid Plasma Reagin, Quant Non Reactive titer (NonRea<1:1)
== END 2025-06-25 11:03 | disposition home or self-care (01) ==
LOC: LAB 11:02
PROVIDERS: PCP Family Medicine; Visit Provider Obstetrics & Gynecology
DX: Z34.01 Encounter for supervision of normal first pregnancy, first trimester (principal); N92.6 Irregular menstruation, unspecified; E07.9 Disorder of thyroid, unspecified
CPT/HCPCS: 36415; 80307; 83036; 84443; 85025; 86592; 86762; 86803; 86850; 86900; 86901; 87086; 87340; 87389

== ENCOUNTER 2025-07-07 10:55 | Emergency (ER) | payer BC, OTHER, SELFPAY ==
[2025-07-07 10:59] VITALS: BP 142/92; PULSE 112; TEMP 36.7; O2SAT 100; BMI 33.4
--- NOTE | 2025-07-07 11:19 | US_ITS ---
The [place] [address] Patient Name: MIHIR WOOD MRN: [id number] date: 2005 Sex: F Assigned Patient Location: ED.MAIN Current Patient Location: ED.MAIN Accession/Order Number: [id number] Exam Date: 07/07/2025 11:30 Report Date: 07/07/2025 12:31 At the request of: BRANDON STODDARD MD Procedure: US OB transvaginal OB ultrasound. Reason for exam:Passed tissue today. Comparison:None Technique: Transvaginal imaging of the gravid uterus was obtained. Findings: Single live intrauterine measuring 11 weeks 3 days by CRL RYAN 01/23/2026. heart rate 170 bpm. No free fluid. Ovaries appear unremarkable. US/US OB transvaginal Impression: Single live intrauterine 11 weeks 3 days by CRL RYAN 01/23/2026. Impression dictated by: Gabriel White Jr., DElisaOElisa 07/07/2025 12:31 PM Dictation Location: [place] [address] Electronically authenticated by: [id number] Y Date: 07/07/2025 12:31
--- NOTE | 2025-07-07 11:19 | ED.GENADUL1 ---
HPI HPI - General Adult General Chief complaint: OB/Uterine Contractions Stated complaint: VAGINAL DISCHARGE ? - 11 WEEKS PREG Time Seen by Provider: 07/07/25 11:14 Source: patient Mode of arrival: walk-in Limitations: no limitations History of Present Illness HPI narrative: 19-year-old female who is 1 para 0 at 11 weeks presents for passing of some tissue from her vagina. She did not have any bleeding. No trauma. She had some cramping last night but not today. Related Data Previous Rx's ?Medication ?Instructions ?Recorded methocarbamol 500 mg tablet 500 mg PO Q8H PRN pain #20 tabs 12/27/24 prednisone 10 mg tablet See Rx Instructions .Route 12/27/24 .COMPLEX #30 tabs Allergies Allergy/AdvReac Type Severity Reaction Status Date / Time No Known Drug Allergies Allergy Verified 07/07/25 11:04 Opioid HPI Opioid Management Most Recent Opioid Data: Last Pain Scale 8 12/27/24, 13:53 Ur Phencyclidine Scrn, (NEGATIVE) Negative 06/25/25, 11:07 Review of Systems ROS Narrative A ten point review of systems is negative except as noted above. PFSH PFSH Social History Little interest or pleasure in doing things: not at all Feeling down, depressed, or hopeless: not at all Exam Narrative Exam Narrative: Nurses note and vital signs reviewed General:The patient appears well and in no apparent distress.Patient is resting comfortably on cart. Skin:Warm, dry, no pallor noted.There is no rash noted. Head:Normocephalic, atraumatic Eye: Normal conjunctiva, no drainage Ears, Nose, Mouth, and Throat: oral mucosa is moist. Nares patent. Cardiovascular:Regular Rate and Rhythm Respiratory:Patient is in no distress, no accessory muscle use, lungs are clear to auscultation, no wheezing, rales or rhonchi Back:non-tender GI: Soft and nontender Musculoskeletal: The patient has no evidence of calf tenderness, no pitting edema, symmetrical pulses noted bilaterally Neurological:A&O, normal speech Psychiatric:Cooperative Constitutional Vital Signs, click to edit/add: Last Vital Signs Temp 98.1 F 07/07/25 10:59 Pulse 112 H 07/07/25 10:59 Resp 18 07/07/25 10:59 BP 142/92 H 07/07/25 10:59 Pulse Ox 100 07/07/25 10:59 O2 Del Method Room Air 07/07/25 10:59 Course Vital Signs Vital signs: Vital Signs Temperature 98.1 F 07/07/25 10:59 Pulse Rate 112 H 07/07/25 10:59 Respiratory Rate 18 07/07/25 10:59 Blood Pressure 142/92 H 07/07/25 10:59 Pulse Oximetry 100 07/07/25 10:59 Oxygen Delivery Method Room Air 07/07/25 10:59 Temperature 98.1 F 07/07/25 10:59 Pulse Rate 112 H 07/07/25 10:59 Respiratory Rate 18 07/07/25 10:59 Blood Pressure 142/92 H 07/07/25 10:59 Pulse Oximetry 100 07/07/25 10:59 Oxygen Delivery Method Room Air 07/07/25 10:59 Medical Decision Making MDM Narrative Medical decision making narrative: She has a normal exam and normal ultrasound with IUP at 11 weeks 3 days. She was reassured and discharged home. Differential Diagnosis Differential Diagnosis: Miscarriage, normal exam Imaging Data Ultrasound: Radiologist's impression: ITS Impressions Transvaginal US 07/07/25 11:19 Impression: Single live intrauterine 11 weeks 3 days by CRL RYAN 01/23/2026. Impression dictated by: Gabriel White Jr., D.O. 07/07/2025 12:31 PM Dictation Location: [place] [address] Electronically authenticated by: [id number] Y Date: 07/07/2025 12:31 Discharge Plan Discharge Chief Complaint: OB/Uterine Contractions Clinical Impression: Intrauterine normal Patient Disposition: Home, Self-Care Time of Disposition Decision: 13:24 Condition: Good Mode of Transportation: Private Vehicle Prescriptions / Home Meds: No Action methocarbamol 500 mg tablet 500 mg PO Q8H PRN (Reason: pain) Qty: 20 0RF prednisone 10 mg tablet See Rx Instructions .ROUTE .COMPLEX Qty: 30 0RF Rx Instructions: 4 by mouth daily for three days then 3 by mouth daily for three days then 2 by mouth daily for three days then 1 by mouth daily for three days Print Language: Maltese Instructions: at 11 to 14 Weeks (ED) Referrals: Oliver Montelongo MD [Primary Care Provider, Family Practice] - 1 week
--- OUTSIDE RECORDS SUMMARY | 2025-07-07 11:21 | XMS_ITS | Encounter Summary ---
Author Organization [facility] Address [address] [facility] [place] [address] Care Team Providers Care Broommaking Supervisor Name Role Phone Oliver Montelongo MD Primary Care Provider [phone] Encounter Details DateTypeDepartmentCare Team (Latest Contact Info)Pmvahtgjewy57/08/2025Clinisync Result Encounter [facility] Unsolicited Virginia Quiroz PA [address] [place] [address] Social History Tobacco UseTypesPacks/DayYears UsedDateSmoking Tobacco: Never Assessed Estimated Date of ZfogiycwCsnkgruvOrh28/13/2026Based on last menstrual period of 04/23/2025Sex and Gender InformationValueDate RecordedSex Assigned at BirthFemale 04/27/2024 11:52 AM EDTLegal QoiYthepb13/17/2023 4:30 PM EDTGender Identity Smilnh7404/27/2024 11:52 AM EDTSexual OrientationNot on filedocumented as of this encounter Plan of Treatment DateTypeDepartmentCare Team (Latest Contact Info)Gsxedupyfbe58/02/2025 2:20 PM ESTRoutine [facility] [address] [place] [address] Vickey Brown DO [address] [place] [address] documented as of this encounter Procedures Procedure NamePriorityDate/TimeAssociated DiagnosisCommentsBOX TESTRoutine 06/25/2025 11:20 AM EST HBSAG HOHVKVKgprewe94/08/2025 11:20 AM EST RAPID PLASMA REAGIN, NUFCDKvwzbpc12/08/2025 11:20 AM EST HIV AB/P24 AG WITH IXRRGEAlwixgo34/08/2025 11:20 AM EST HCV ANTIBODY RFX TO QUANT GRMOnuremw44/08/2025 11:20 AM EST MLR HEMOGLOBIN A6IHlvfzig42/08/2025 11:20 AM EST ALL TYPE AND IAWXAQGjtjlyj76/08/2025 11:20 AM EST ALL THYROID STIM JFFJJTAPtqpqon36/08/2025 11:20 AM EST ALL RUBELLA IGG MVNvjzriv87/08/2025 11:20 AM EST ALL CBC WITH AUTO IEQGAzlfmtw83/08/2025 11:20 AM EST URINE CULTURE, JYCNOIOSyfpwpz62/08/2025 11:07 AM EST TBH DRUG SCREEN RAPID (URINE)Jpvuauf8906/25/2025 11:07 AM EST documented in this encounter Results * HBSAG SCREEN (06/25/2025 11:20 AM EST)ComponentValueRef RangeTest Method Analysis TimePerformed AtPathologist SignatureHBSAG SCREENNegativeNegativeTBH Comment: Performed at: ??CB - [facility] [address] ??[id number] Market Risk Manager: Sonny Cox PhD, Phone: ??[phone] Specimen (Source)Anatomical Location / LateralityCollection Method / Volume Collection TimeReceived Time06/25/2025 11:20 AM EST06/25/2025 11:26 AM EST Narrative CLINISYNC - 06/26/2025 2:08 PM EST Authorizing ProviderResult TypeResult StatusCorey Stephanie DOLAB BLOOD ORDERABLES Final ResultPerforming OrganizationAddressty/State/ZIP CodePhone Number [facility] * RAPID PLASMA REAGIN, QUANT (06/25/2025 11:20 AM EST)ComponentValueRef Range Test MethodAnalysis TimePerformed AtPathologist SignatureRAPID PLASMA REAGIN, QUANTNon ReactiveNonRea<1:1 titerTBHComment: Please Note: This test does not meet current guidelines for screening and diagnosis of syphilis. This test is intended for following treatment response in patients being treated for syphilis infection. To screen for syphilis infection, a reflex cascade that includes both RPR and a treponema-specific assay should be utilized, such as Treponema pallidum (Syphilis) Screening Ritchie (102410) or Rapid Plasma Reagin (RPR) Test With Reflex to Quantitative RPR and Confirmatory Treponema pallidum Antibodies (259784). Performed at: ?? - [facility] ??[id number] Market Risk Manager: Sonny Cox PhD, Phone: ??[phone] Specimen (Source)Anatomical Location / LateralityCollection Method / Volume Collection TimeReceived Time06/25/2025 11:20 AM EST06/25/2025 11:26 AM EST Narrative FRANCISCA - 06/26/2025 2:08 PM EST Authorizing ProviderResult TypeResult StatusCorey Stephanie DOLAB BLOOD ORDERABLES Final ResultPerforming OrganizationAddressty/State/ZIP CodePhone Number [facility] * HCV ANTIBODY RFX TO QUANT PCR (06/25/2025 11:20 AM EST)ComponentValueRef Range Test MethodAnalysis TimePerformed AtPathologist SignatureHCV ABNon ReactiveNon ReactiveTBHINTERPRETATION:Comment.TBHComment: Not infected with HCV unless early or acute infection is suspected (which may be delayed in an immunocompromised individual), or other evidence exists to indicate HCV infection. Performed at: ??[address] ??[id number] Market Risk Manager: Sonny Cox PhD, Phone: ??[phone] Specimen (Source)Anatomical Location / LateralityCollection Method / Volume Collection TimeReceived Time06/25/2025 11:20 AM EST06/25/2025 11:26 AM EST Narrative CLINISYNC - 06/26/2025 10:09 AM EST Authorizing ProviderResult TypeResult StatusCorey Stephanie DOLAB BLOOD ORDERABLES Final ResultPerforming OrganizationAddBerwick Hospital Centerty/[facility] CenterPhone Number [facility] * ALL RUBELLA IGG AB (06/25/2025 11:20 AM EST)ComponentValueRef RangeTest Method Analysis TimePerformed AtPathologist SignatureRUBELLA ANTIBODIES, IGG1.77 Immune >0.99 indexTBHComment: Non-immune <0.90 ?Equivocal ??0.90 - 0.99 Immune >0.99 Performed at: ??[address] ??[id number] Market Risk Manager: Sonny Cox PhD, Phone: ??[phone] Specimen (Source)Anatomical Location / LateralityCollection Method / Volume Collection TimeReceived Time06/25/2025 11:20 AM EST06/25/2025 11:26 AM EST Narrative CLINISYNC - 06/26/2025 10:09 AM EST Authorizing ProviderResult TypeResult StatusCorey Stephanie DOCLINISYNCFinal Result Performing OrganizationAdd[facility] CenterPhone Number [facility] * HIV AB/P24 AG WITH REFLEX (06/25/2025 11:20 AM EST)ComponentValueRef RangeTest MethodAnalysis TimePerformed AtPathologist SignatureHIV AB/P24 AG SCREENNon ReactiveNon ReactiveTBHComment: HIV-1/HIV-2 antibodies and HIV-1 p24 antigen were NOT detected. There is no laboratory evidence of HIV infection. HIV Negative Performed at: ??[address] ??[id number] Market Risk Manager: Sonny Cox PhD, Phone: ??[phone] Specimen (Source)Anatomical Location / LateralityCollection Method / Volume Collection TimeReceived Time06/25/2025 11:20 AM EST06/25/2025 11:26 AM EST Narrative CLINISYNC - 06/26/2025 8:09 AM EST Authorizing ProviderResult TypeResult StatusCorey Stephanie DOL BLOOD ORDERABLES Final ResultPerforming OrganizationAddBerwick Hospital Centerty/State/ZIP CodePhone Number [facility] * ALL TYPE AND SCREEN (06/25/2025 11:20 AM EST)ComponentValueRef RangeTest MethodAnalysis TimePerformed AtPathologist SignatureBLOOD TYPEO PositiveTBH ANTIBODY SCREENNEGATIVETBHSpecimen (Source)Anatomical Location / Laterality Collection Method / VolumeCollection TimeReceived Time06/25/2025 11:20 AM EST 06/25/2025 11:26 AM EST Narrative CLINISYNC - 06/25/2025 1:51 PM EST [facility] , ?? Authorizing ProviderResult TypeResult StatusCorey Stephanie DOCLINISYNCFinal Result Performing OrganizationAddBer[facility] Centerty/State/ZIP CodePhone Number [facility] * ALL THYROID STIM HORMONE (06/25/2025 11:20 AM EST)ComponentValueRef RangeTest MethodAnalysis TimePerformed AtPathologist SignatureTHYROID STIMULATING HORMONE1.4360.358 - 3.740 uIU/mLTBHSpecimen (Source)Anatomical Location / LateralityCollection Method / VolumeCollection TimeReceived Time06/25/2025 11:20 AM EST06/25/2025 11:26 AM EST Narrative CLINISYNC - 06/25/2025 12:07 PM EST Authorizing ProviderResult TypeResult StatusCorey Stephanie DOCLINISYNCFinal Result Performing OrganizationAdd[facility]/State/ZIP CodePhone Number [facility] * MLR HEMOGLOBIN A1C (06/25/2025 11:20 AM EST)ComponentValueRef RangeTest Method Analysis TimePerformed AtPathologist SignatureGLYCOHEMOGLOBIN A1C5.04.5 - 6.2 %TBHComment: ADA RECOMMENDED LIMIT 4.0 - 6.0 ADA THERAPEUTIC TARGET < 7.0 ACTION SUGGESTED > 7.0 ESTIMATED AVERAGE ALBLHNO09ti/dLTBHSpecimen (Source)Anatomical Location / LateralityCollection Method / VolumeCollection TimeReceived Time06/25/2025 11:20 AM EST06/25/2025 11:26 AM EST Narrative FRANCISCA - 06/25/2025 12:07 PM EST Authorizing ProviderResult TypeResult StatusCorey Stephanie DOCLINISYNCFinal Result Performing OrganizationAddressCity/State/ZIP CodePhone Number [facility] * (ABNORMAL) ALL CBC WITH AUTO DIFF (06/25/2025 11:20 AM EST)ComponentValueRef RangeTest MethodAnalysis TimePerformed AtPathologist SignatureTBH WBC10.24.0 - 11.0 10 3/uLTBHTBH RBC4.724.20 - 5.40 10 6/uLTBHTBH HGB14.012.0 - 16.0 g/dLTBH TBH HCT41.036.0 - 48.0 %TBHTBH MCV86.981.0 - 99.0 fLTBHTBH MCH29.726.7 - 34.0 pgTBHTBH MCHC34.129.9 - 35.2 g/dLTBHTBH RDW13.011.0 - 15.0 %TBHTBH TQU193018 - 450 10 3/uLTBHTBH MPV8.7(L)9.5 - 13.5 fLTBHNEUTROPHILS PERCENT AUTO76.2(H)43.0 - 75.0 %TBHLYMPHOCYTES PERCENT AUTO17.7(L)20.5 - 60.0 %TBHMONOCYTES PERCENT AUTO5.11.7 - 12.0 %TBHTBH EO %0.4(L)0.9 - 7.0 %TBHBASOPHILS PERCENT AUTO0.40.2 - 2.0 %TBHIMMATURE GRANULOCYTES PCT AUTO0.20.0 - 0.5 %TBHNEUTROPHILS ABSOLUTE AUTO7.8(H)1.4 - 6.5 10 3/uLTBHLYMPHOCYTES ABSOLUTE AUTO1.81.2 - 3.8 10 3/uLTBH MONOCYTES ABSOLUTE AUTO0.50.3 - 0.8 10 3/uLTBHTBH EO #0.00.0 - 0.7 10 3/uLTBH BASOPHILS ABSOLUTE AUTO0.00.0 - 0.1 10 3/uLTBHIMMATURE GRANULOCYTES ABS AUTO 0.020.00 - 0.03 10 3/uLTBHSpecimen (Source)Anatomical Location / Laterality Collection Method / VolumeCollection TimeReceived Time06/25/2025 11:20 AM EST 06/25/2025 11:26 AM EST Narrative CLINISYNC - 06/25/2025 11:35 AM EST Authorizing ProviderResult TypeResult StatusCorey Stephanie DOCLINISYNCFinal Result Performing OrganizationAddressCity/State/ZIP CodePhone Number [facility] * BOX TEST (06/25/2025 11:20 AM EST)ComponentValueRef RangeTest MethodAnalysis TimePerformed AtPathologist SignatureBOX TEST SENT VFOWNJCQQHPCHU4YLREGWWQEES5 06/25/25TBHSpecimen (Source)Anatomical Location / LateralityCollection Method / VolumeCollection TimeReceived Time06/25/2025 11:20 AM EST06/25/2025 11:26 AM EST Narrative CLINISYNC - 06/25/2025 11:29 AM EST Authorizing ProviderResult TypeResult StatusAmy Oakdale PALAB BLOOD ORDERABLES Final ResultPerforming OrganizationAddressCity/State/ZIP CodePhone Number [facility] * URINE CULTURE, ROUTINE (06/25/2025 11:07 AM EST)ComponentValueRef RangeTest MethodAnalysis TimePerformed AtPathologist SignatureURINE CULTURE, ROUTINE ??Urine Culture, Routine TBHURINE CULTURE, ROUTINEMixed urogenital floraTBHURINE CULTURE, ROUTINELess than 10,000 colonies/mLTBHURINE CULTURE, ROUTINEPerformed at: - [facility]TB[facility], [id number] [place], [place] [id number] CULTURE, ROUTINELab Director: Sonny Cox PhD, Phone: [phone] Specimen (Source)Anatomical Location / LateralityCollection Method / Volume Collection TimeReceived Time06/25/2025 11:07 AM EST06/25/2025 11:26 AM EST Narrative CLINISYNC - 06/27/2025 3:07 AM EST Authorizing ProviderResult TypeResult StatusCorey Stephanie DOLAB BLOOD ORDERABLES Final ResultPerforming OrganizationAddressCity/State/ZIP CodePhone Number [facility] * [facility] DRUG SCREEN RAPID (URINE) (06/25/2025 11:07 AM EST)ComponentValueRef Range Test MethodAnalysis TimePerformed AtPathologist SignatureCANNABINOID SCREEN URINENEGATIVENEGATIVETBHPHENCYCLIDINE SCREEN URINENEGATIVENEGATIVETBHCOCAINE SCREEN URINENEGATIVENEGATIVETBHMETHAMPHETAMINES SCREEN URINENEGATIVENEGATIVE TBHOPIATE SCREEN URINENEGATIVENEGATIVETBHAMPHETAMINE SCREEN URINENEGATIVE NEGATIVETBHBENZODIAZEPINES SCREEN URINENEGATIVENEGATIVETBHTRICYCLIC ANTIDEPRESSANT URINENEGATIVENEGATIVETBHMETHADONE SCREEN URINENEGATIVENEGATIVE TBHBARBITURATES SCREEN URINENEGATIVENEGATIVETBHOXYCODONE SCREEN URINENEGATIVE NEGATIVETBHBUPRENORPHINE SCREEN URINENEGATIVENEGATIVETBHComment: DRUG CLASS TEST SYSTEM CUT-OFF CONCENTRATIONS ARE FOLLOWS: AMP (Amphetamine): 500 ng/mL BAR (Barbiturates): 200 ng/mL BZO (Benzodiazepines): 150 ng/mL BUP (Buprenorphine): 10 ng/mL AMARJIT (Cocaine): 150 ng/mL mAMP (Methamphetamine): 500 ng/mL MTD (Methadone): 200 ng/mL OPI (Opiates): 100 ng/mL OXY (Oxycodone): 100 ng/mL PCP (Phencyclidine): 25 ng/mL THC (Cannabinoids): 50 ng/mL TCA (Trycyclic Antidepressants): 300 ng/mL Specimen (Source)Anatomical Location / LateralityCollection Method / Volume Collection TimeReceived Time06/25/2025 11:07 AM EST06/25/2025 11:26 AM EST Narrative CLINISYNC - 06/25/2025 11:50 AM EST Authorizing ProviderResult TypeResult StatusCorey Stephanie DOCLINISYNCFinal Result Performing OrganizationAddressCity/State/ZIP CodePhone Number [facility] documented in this encounter Visit Diagnoses Not on filedocumented in this encounter Care Teams Team MemberRelationshipSpecialtyStart DateEnd Oliver Montelongo MD [address] [place] [id number] PCP - GeneralFamily Medicine10/05/24documented as of this encounter
--- OUTSIDE RECORDS SUMMARY | 2025-07-07 11:21 | XMS_ITS ---
Author Organization [facility] Source Produ ction (ClinicalSummary Clone) Address Unknown Care Team Providers Care Promotions Manager Name Role Phone Unavailable Primary Care Physician Unavailab le Results * [UNITY] ANEUPLOIDY NIPT Performed by: [email or web address] Component Value Range Date Fraction 5.5% 07/04/2025 10:15 am UTCRh(D) NIPTRhD FEWFKIQT65/17/2025 10:15 am UTCSex Chromosome AneuploidyNOT GYBTCGHH55/17/2025 10:15 am UTCMonosomy XLOW RISK <1 in 10:15 am UTCTrisomy 13LOW RISK <1 in 10:15 am UTCTrisomy 18LOW RISK <1 in 10:15 am UTCTrisomy 21LOW RISK <1 in 10:15 am UTCFetal ZwqVSYTGQ89/17/2025 10:15 am UTCPregnancy UfcirkonyUJCIDRFRA50/17/2025 10:15 am UTCFor detailed report, see PDFSee PDF 07/04/2025 10:15 am UTC109/03/2024 10:15 am UTC Social History Observation Value Start Date End Date
--- OUTSIDE RECORDS SUMMARY | 2025-07-07 11:21 | XMS_ITS | Clinical Summary ---
Author Organization [facility] Address [address] [place] [address] Care Team Providers Care Mail Caller Name Role Phone Oliver Montelongo MD Primary Care Provider [phone] Allergies No known active allergies Medications MedicationSigDispense [...] every 6 (six) hours if needed for tchwhpov33/31/2025Discontinued fluticasone (Flovent HFA) 44 MCG/ACT inhaler Inhale [...] not crush, chew, or split. 30 tablet 110351Discontinued Active Problems ProblemNoted DateDiagnosed IevaWhbzsojpnrx12/26/2024Elevated TSH05/13/2024 Irregular menstrual cycle02/09/2024Encounter for fertility /24/2024 Estimated Date of SoreajbwHpcilutaFzw16/13/2026ased on last menstrual period of 04/23/2025 Encounters DateTypeDepartmentCare OylfNlwzstfkzyt76/08/2025linisync Result Encounter [facility] Department Unsolicited Virginia Quiroz PA 06/17/2025 10:00 AM EDTInitial [facility] [address] [place] [phone] [place]: 7w6d1 9:30 AM EDTAncillary Procedure [facility] [address] [facility] [place] [phone] Missed menses; Positive urine test ([facility])06/16/20259190Zszlcz99/08/2025linisync Result Encounter [facility] External Department Unsolicited Vickey Brown DO 05/24/2025Telephone [facility] [address] [place] [phone] Libia David MA Error (VOID this visit)05/23/2025linisync Result Encounter [facility] External Department Unsolicited Vickey Brown, DO 05/23/2025Telephone [facility] [address] [place] [address] Libia David MA from Last 3 Months Family History Medical HistoryRelationNameCommentshigh blood pressureFatherhigh blood pressure Paternal GrandfatherRelationNameStatusCommentsFatherPaternal Grandfather Social History Tobacco UseTypesPacks/DayYears UsedDateSmoking Tobacco: Never Assessed Estimated Date of IklyzsosAywxhqjxLqm20/13/2026Based on last menstrual period of 04/23/2025Sex and Gender InformationValueDate RecordedSex Assigned at BirthFemale 04/27/2024 11:52 AM EDTLegal QjjJvmynx63/17/2023 4:30 PM EDTGender Identity Jjlsop4504/27/2024 11:52 AM EDTSexual OrientationNot on file Last Filed Vital Signs Vital SignReadingTime TakenCommentsBlood Ldqunoqz362/68010/05/2024 2:52 PM EST Pulse--Temperature--Respiratory Rate--Oxygen Saturation--Inhaled Oxygen Concentration--Dfgtxh58.8 kg (167 lb)10/05/2024 2:52 PM ZFRWxizqn600.9 cm (4' 11 )09/23/2023 1:34 PM ESTBody Mass Index33.7309/23/2023 1:34 PM EST Plan of Treatment DateTypeDepartmentCare Team (Latest Contact Info)Ajpmfcljnqi92/02/2025 2:20 PM ESTRoutine [facility] [address] [place] [phone] Vickey Brown, DO [address] [facility] [place] [address] Procedures Procedure NamePriorityDate/TimeAssociated DiagnosisCommentsHBSAG SCREENRoutine 06/25/2025 11:20 AM EST RAPID PLASMA REAGIN, UVSRAOmkqdsl70/08/2025 11:20 AM EST HCV ANTIBODY RFX TO QUANT BHYIgolmrn38/08/2025 11:20 AM EST ALL RUBELLA IGG HAOicdozu81/08/2025 11:20 AM EST HIV AB/P24 AG WITH KXEXHELyiohdp24/08/2025 11:20 AM EST ALL TYPE AND TNVBZUZfswtme37/08/2025 11:20 AM EST ALL THYROID STIM QUNHYOVZrafxof93/08/2025 11:20 AM EST MLR HEMOGLOBIN Y9GTkhlrzy20/08/2025 11:20 AM EST ALL CBC WITH AUTO CFDOOmomfww60/08/2025 11:20 AM EST BOX CTFWJoxyfmv84/08/2025 11:20 AM EST URINE CULTURE, DUJKWKWLikqdyo65/08/2025 11:07 AM EST TBH DRUG SCREEN RAPID (URINE)Jbdszey6106/25/2025 11:07 AM EST US OB TZTCYZYJUOVIEcmrjvl72/31/2025 10:02 AM EDT Missed menses Positive urine test ([facility]) POCT URINALYSIS JTSKKEMYVaeewcc46/31/2025 10:01 AM EDT Missed menses POCT , ZYFJDGrzrxnw00/31/2025 10:00 AM EDT Missed menses [facility] PREG QUANT ONZCwltcjz95/08/2025 8:00 AM EDT [facility] PREG QUANT UKMFhcktfp86/06/2025 9:59 AM EDT from Last 3 Months Results * BOX TEST (06/25/2025 11:20 AM EST)ComponentValueRef RangeTest MethodAnalysis TimePerformed AtPathologist SignatureBOX TEST SENT CUMMLDPJBTHQKF9DOAUSXQKQDP8 06/25/25TBHSpecimen (Source)Anatomical Location / LateralityCollection Method / VolumeCollection TimeReceived Time06/25/2025 11:20 AM EST06/25/2025 11:26 AM EST Narrative CLINISYNC - 06/25/2025 11:29 AM EST Authorizing ProviderResult TypeResult StatusAmy Gabriella HOANG BLOOD ORDERABLES Final ResultPerforming OrganizationAddressCity/State/ZIP CodePhone Number CLINISYNC [facility] * HBSAG SCREEN (06/25/2025 11:20 AM EST)ComponentValueRef RangeTest Method Analysis TimePerformed AtPathologist SignatureHBSAG SCREENNegativeNegativeTBH Comment: Performed at: ??[address] ??[id number] Lead Case Manager: Sonny Cox PhD, Phone: ??[phone] Specimen (Source)Anatomical Location / LateralityCollection Method / Volume Collection TimeReceived Time06/25/2025 11:20 AM EST06/25/2025 11:26 AM EST Narrative CLINISYNC - 06/26/2025 2:08 PM EST Authorizing ProviderResult TypeResult StatusCorey Stephanie DOLAB BLOOD ORDERABLES Final ResultPerforming OrganizationAddressCity/State/ZIP CodePhone Number FRANCISCA [facility] * RAPID PLASMA REAGIN, QUANT (06/25/2025 11:20 [...] utilized, such as Treponema pallidum (Syphilis) Screening [place] (391693) or Rapid Plasma Reagin (RPR) Test With Reflex to Quantitative RPR and Confirmatory Treponema pallidum Antibodies (257010). Performed at: ??[address] ??[id number] Lead Case Manager: Sonny Cox PhD, Phone: ??[phone] Specimen (Source)Anatomical Location / LateralityCollection Method / Volume Collection TimeReceived Time06/25/2025 11:20 AM EST06/25/2025 11:26 AM EST Narrative CLINISYNC - 06/26/2025 2:08 PM EST Authorizing ProviderResult TypeResult StatusCorey Stephanie DOLAB BLOOD ORDERABLES Final ResultPerforming OrganizationAddressty/State/ZIP CodePhone Number [facility] * HIV AB/P24 AG WITH REFLEX (06/25/2025 11:20 AM EST)ComponentValueRef RangeTest MethodAnalysis TimePerformed AtPathologist SignatureHIV AB/P24 AG SCREENNon ReactiveNon ReactiveTBHComment: HIV-1/HIV-2 antibodies and HIV-1 p24 antigen were NOT detected. There is no laboratory evidence of HIV infection. HIV Negative Performed at: ??[address] ??[id number] Lead Case Manager: Sonny Cox PhD, Phone: ??[phone] Specimen (Source)Anatomical Location / LateralityCollection Method / Volume Collection TimeReceived Time06/25/2025 11:20 AM EST06/25/2025 11:26 AM EST Narrative CLINISYNC - 06/26/2025 8:09 AM EST Authorizing ProviderResult TypeResult StatusCorey Stephanie DOLAB BLOOD ORDERABLES Final ResultPerforming OrganizationAddressty/State/ZIP CodePhone Number [facility] * HCV ANTIBODY RFX TO QUANT PCR (06/25/2025 11:20 AM EST)ComponentValueRef Range Test MethodAnalysis TimePerformed AtPathologist SignatureHCV ABNon ReactiveNon ReactiveTBHINTERPRETATION:Comment.TBHComment: Not infected with HCV unless early or acute infection is suspected (which may be delayed in an immunocompromised individual), or other evidence exists to indicate HCV infection. Performed at: ??[address] ??[id number] Lead Case Manager: Sonny Cox PhD, Phone: ??[phone] Specimen (Source)Anatomical Location / LateralityCollection Method / Volume Collection TimeReceived Time06/25/2025 11:20 AM EST06/25/2025 11:26 AM EST Narrative CLINISYNC - 06/26/2025 10:09 AM EST Authorizing ProviderResult TypeResult StatusCorey Stephanie DOLAB BLOOD ORDERABLES Final ResultPerforming OrganizationAddressty/State/ZIP CodePhone Number [facility] * MLR HEMOGLOBIN A1C (06/25/2025 11:20 AM EST)ComponentValueRef RangeTest Method Analysis TimePerformed AtPathologist SignatureGLYCOHEMOGLOBIN A1C5.04.5 - 6.2 %TBHComment: ADA RECOMMENDED LIMIT 4.0 - 6.0 ADA THERAPEUTIC TARGET < 7.0 ACTION SUGGESTED > 7.0 ESTIMATED AVERAGE SEUUQRM90vq/dLTBHSpecimen (Source)Anatomical Location / LateralityCollection Method / VolumeCollection TimeReceived Time06/25/2025 11:20 AM EST06/25/2025 11:26 AM EST Narrative CLINISYMA - 06/25/2025 12:07 PM EST Authorizing ProviderResult TypeResult StatusCorey Stephanie DOCLINISYNCFinal Result Performing OrganizationAddressCity/State/ZIP CodePhone [facility] * ALL TYPE AND SCREEN (06/25/2025 11:20 AM EST)ComponentValueRef RangeTest MethodAnalysis TimePerformed AtPathologist SignatureBLOOD TYPEO PositiveTBH ANTIBODY SCREENNEGATIVETBHSpecimen (Source)Anatomical Location / Laterality Collection Method / VolumeCollection TimeReceived Time06/25/2025 11:20 AM EST 06/25/2025 11:26 AM EST Narrative [facility] - 06/25/2025 1:51 PM EST [facility] , ?? Authorizing ProviderResult TypeResult StatusCorey Stephanie DOCLINISYNCFinal Result Performing OrganizationAdd[facility]/State/ZIP CodePhone Number [facility] * ALL THYROID STIM HORMONE (06/25/2025 11:20 AM EST)ComponentValueRef RangeTest MethodAnalysis TimePerformed AtPathologist SignatureTHYROID STIMULATING HORMONE1.4360.358 - 3.740 uIU/mLTBHSpecimen (Source)Anatomical Location / LateralityCollection Method / VolumeCollection TimeReceived Time06/25/2025 11:20 AM EST06/25/2025 11:26 AM EST Narrative CLINISYMA - 06/25/2025 12:07 PM EST Authorizing ProviderResult TypeResult StatusCorey Stephanie DOCLINISYNCFinal Result Performing OrganizationAdd[facility]/State/ZIP CodePhone Number [facility] * ALL RUBELLA IGG AB (06/25/2025 11:20 AM EST)ComponentValueRef RangeTest Method Analysis TimePerformed AtPathologist SignatureRUBELLA ANTIBODIES, IGG1.77 Immune >0.99 indexTBHComment: Non-immune <0.90 ?Equivocal ??0.90 - 0.99 Immune >0.99 Performed at: ??CB - [facility] [address] ??[id number] Lead Case Manager: Sonny Cox PhD, Phone: ??[phone] Specimen (Source)Anatomical Location / LateralityCollection Method / Volume Collection TimeReceived Time06/25/2025 11:20 AM EST06/25/2025 11:26 AM EST Narrative CLINISYNC - 06/26/2025 10:09 AM EST Authorizing ProviderResult TypeResult StatusCorey Stephanie DOCLINISYNCFinal Result Performing OrganizationAddressCity/State/ZIP CodePhone Number [facility] * (ABNORMAL) ALL CBC WITH AUTO DIFF (06/25/2025 11:20 AM EST)ComponentValueRef RangeTest MethodAnalysis TimePerformed AtPathologist SignatureTBH WBC10.24.0 - 11.0 10 3/uLTBHTBH RBC4.724.20 - 5.40 10 6/uLTBHTBH HGB14.012.0 - 16.0 g/dLTBH TBH HCT41.036.0 - 48.0 %TBHTBH MCV86.981.0 - 99.0 fLTBHTBH MCH29.726.7 - 34.0 pgTBHTBH MCHC34.129.9 - 35.2 g/dLTBHTBH RDW13.011.0 - 15.0 %TBHTBH RNR342809 - 450 10 3/uLTBHTBH MPV8.7(L)9.5 - 13.5 [...] AM EST 06/25/2025 11:26 AM EST Narrative AVELISYMA - 06/25/2025 11:35 AM EST Authorizing ProviderResult TypeResult StatusCorey Stephanie DOCLINISYNCFinal Result Performing OrganizationAddressCity/State/ZIP CodePhone Number [facility] * URINE CULTURE, ROUTINE (06/25/2025 11:07 AM EST)ComponentValueRef RangeTest MethodAnalysis TimePerformed AtPathologist SignatureURINE CULTURE, ROUTINE ??Urine Culture, Routine TBHURINE CULTURE, ROUTINEMixed urogenital floraTBHURINE CULTURE, ROUTINELess than 10,000 colonies/mLTBHURINE CULTURE, ROUTINEPerformed at: [facility] HospitalTBHUR[facility]ULT[facility], [id number] [place], [place] [id number] CULTURE, ROUTINELab Director: Sonny Cox PhD, Phone: [phone] Specimen (Source)Anatomical Location / LateralityCollection Method / Volume Collection TimeReceived Time06/25/2025 11:07 AM EST06/25/2025 11:26 AM EST Narrative CLINISYNC - 06/27/2025 3:07 AM EST Authorizing ProviderResult TypeResult StatusCorey Stephanie DOLAB BLOOD ORDERABLES Final ResultPerforming OrganizationAddressCity/State/ZIP CodePhone Number [facility] * TB DRUG SCREEN RAPID (URINE) (06/25/2025 11:07 AM [...] 11:07 AM EST06/25/2025 11:26 AM EST Narrative FRANCISCA - 06/25/2025 11:50 AM EST Authorizing ProviderResult TypeResult StatusCorey Stephanie DOCLINISYNCFinal Result Performing OrganizationAddressCity/State/ZIP CodePhone Number [facility] OB transvaginal (06/17/2025 10:02 AM EDT)Anatomical RegionLaterality [...] Gabriel Santana MD Authorizing ProviderResult TypeResult StatusCorey [facility] OB US PROCEDURES Final Result * (ABNORMAL) POCT urinalysis dipstick manually resulted (06/17/2025 10:01 AM EDT)ComponentValueRef RangeTest MethodAnalysis TimePerformed AtPathologist SignatureColor, UAYellowClarity, UAClearGlucose, UANegativeNegative - 1999(110) ++++ mg/dLBilirubin, UANegativeNegative - 4(70) +++ mg/dLKetones, UA NegativeNegative - 160(16) ++++ mg/dLSpec Grav, UA1.0201 - 1.03Blood, UA NegativeNegative - 50 Johann/mcLpH, UA6.05 - 9Protein, UAPositiveNegative - 1999(20) ++++ mg/dLUrobilinogen, UA1.00.2 - 12 mg/dLLeukocytes, UANegative Negative - 500+++ Johnny/mcLNitrite, UANegativeNegative - PositiveSpecimen (Source)Anatomical Location / LateralityCollection Method / VolumeCollection TimeReceived QiazDwhxw62/31/2025 10:01 AM EDT Narrative Authorizing ProviderResult TypeResult [...] Teams Team MemberRelationshipSpecialtyStart Date Oliver Montelongo MD [address] [place] [address] [facility]
--- OUTSIDE RECORDS SUMMARY | 2025-07-07 11:21 | XMS_ITS ---
Author Organization [facility] Source Produ ction (ClinicalSummary Clone) Address Unknown Care Team Providers Care [employer] Intern[employer] Name Role Phone Unavailable Primary Care Physician Unavailab le Results * [UNITY] CARRIER SCREEN Performed by: [employer] Component Value Range Date Sickle Cell Disease/Beta-Thalassemia/Hemoglobino pathies carrier screen NEGATIVE 07/04/2025 10:42 am UTCAlpha-Thalassemia carrier gkaxgfLFHTAYSB98/17/2025 10:42 am UTCCystic Fibrosis carrier gjkdjvTOFGXHOK65/17/2025 10:42 am UTCSpinal Muscular Atrophy carrier screenNEGATIVE 2 SMN1 copies, SNP not zhlaics5607/04/2025 10:42 am UTCFor detailed report, see PDFSee PDF07/04/2025 10:42 am UTC 07/04/2025 10:42 am UT Social History Observation Value Start Date End Date
--- OUTSIDE RECORDS SUMMARY | 2025-07-07 11:23 | XMS_ITS | Patient Health Record ---
Author Organization [facility] in [place] Address [address] [place] [address] Care Team Providers Care Type Mapper Name Role Phone Rogelio Montelongo Primary Care Provider [phone] Allergies No Known Allergies Results Component Value Reference Range Notes US renal bladder Reviewed date:09/14/2024 05:04:28 PM Interpretation: Performing Lab: Notes/Report: Source Facility: [place] [address] Ultrasound Report Signed Patient: MIHIR WOOD MR#: [id number] : 2005 Acct:[id number] Age/Sex: 18 / F ADM Date: 09/11/24 Loc: US Attending Dr: Ian Montelongo M.D. Ordering Physician: Ian Montelongo M.D. Date of Service: 09/11/24 Procedure(s): US renal bladder Accession Number(s): [id number] cc: Ian Montelongo M.D. [place] [address] Patient Name: MIHIR WOOD MRN: [id number] date: 2005 Sex: F Assigned Patient Location: US Current Patient Location: Accession/Order Number: [id number] Exam Date: 09/11/2024 10:43 Report Date: 09/14/2024 [...] Signed By: 09/14/24 0452 DD/ 0449 TD/TT: Bag Bailer: CBC AUTO DIFF Reviewed date:08/18/2024 03:47:54 PM Interpretation: Performing Lab: Notes/Report: [facility] , White Blood Count 7.3 4.0-11.0 10 3/uL Red Blood Count4.914.20-5.40 10 6/mUBbejfldtty41.112.0-16.0 g/cGBpxxuramdh83.1 36.0-48.0 %Mean Corpuscular Eyibha26.881.0-99.0 fLMean Corpuscular Hemoglobin 28.726.7-34.0 pgMean Corpuscular HGB Conc32.729.9-35.2 g/dLRed Cell Distribution Width12.411.0-15.0 %Platelet Quvut753866-624 10 3/uLMean Platelet Volume8.89.5- 13.5 fLNeutrophils Percent Auto54.943.0-75.0 %Lymphocytes Percent Auto33.920.5- 60.0 %Monocytes Percent Auto8.71.7-12.0 %Eosinophils Percent Auto1.70.9-7.0 % Basophils Percent Auto0.70.2-2.0 %Immature Granulocytes Pct Auto0.10.0-0.5 % Neutrophils Absolute Auto4.01.4-6.5 10 3/uLLymphocytes Absolute Auto2.51.2-3.8 10 3/uLMonocytes Absolute Auto0.60.3-0.8 10 3/uLEosinophils Absolute Auto0.10.0- 0.7 10 3/uLBasophils Absolute Auto0.10.0-0.1 10 3/uLImmature Granulocytes Abs Auto0.010.00-0.03 10 3/uLPerforming Lab:see noteML - [facility] LB INSULIN Reviewed date:08/22/2024 08:57:18 PM Interpretation: Performing Lab: Notes/Report: [facility] ,Ynkhcgq29.02.6-24.9 uIU/mL Supervisor Decorating: Sonny Cox PhD, Phone: [phone] Performed at: [address] [phone] Performing Lab[facility] LBLIPID PROFILE Reviewed date:08/18/2024 03:47:54 PM Interpretation: Performing Lab: Notes/Report: [facility] ,Ehmuzzhhrfpcd7672-397 mg/lOXieqghkygyr017016-089 mg/dLHDL Btwzelhxjma4491-48 mg/dL <40 mg/dl - HIGH CARDIOVASCULAR RISK > or =60 mg/dl - LOW CARDIOVASCULAR RISK LDL Cholesterol Bsphghewwz70.4 100-129 mg/dl NEAR OR ABOVE OPTIMAL 130-159 mg/dl BORDERLINE HIGH >190 mg/dl VERY HIGH <100 mg/dl OPTIMAL 160-189 mg/dl HIGH VLDL ZXJJFHNBQTU82.6Chol HDL Ratio2.8 >11.0 HIGH RISK 7.1 - 11.0 MODERATE RISK 3.3 - 4.4 LOW RISK 4.4 - 7.1 AVERAGE RISK Performing Lab:see note - [facility] LBPROF 14(COMP METB) Reviewed date:08/18/2024 03:47:54 PM Interpretation: Performing Lab: Notes/Report: [facility] ,Gxiptr015904-335 mmol/LPotassium4.43.5-5.1 mmol/MXqetibsj49425-410 mmol/LCarbon Sqdnvhx67.321.0-32.0 mmol/LAnion Gap11.3Rnkxihv1005-647 mg/dLBlood Urea Nitrogen 14.06.4-19.3 mg/dLCreatinine0.990.55-1.02 mg/dLEstimated GFR ( Felecia>60 >=60 mL/min/1.73m 2Estimated GFR (Non- Patricia>60>=60 mL/min/1.73m 2BUN Creatinine Ratio14.9Ekeemmy1.28.5-10.1 mg/dLBilirubin Total0.30.2-1.0 mg/dL Aspartate Amino Swzciieqsdy0475-58 U/LAlanine Eoiuctrarsfmchzb2886-40 U/L Alkaline Rxwygcgrstc5846-011 U/LTotal Protein7.76.4-8.2 g/dLAlbumin Level3.93.4- 5.0 g/dLGlobulin3.8Albumin Globulin Ratio1.0Performing Lab:see noteML - [facility] LBT4 Reviewed date:08/18/2024 03:47:54 PM Interpretation: Performing Lab: Notes/Report: [facility] ,T4 Thyroxine8.505.40-10.60 ug/dLPerforming Lab:see noteML - [facility] LBTSH Reviewed date:08/18/2024 03:47:54 PM Interpretation: Performing Lab: Notes/Report: [facility] ,Thyroid Stimulating Hormone4.1900.516-4.130 uIU/mLPerforming Lab:see noteML - [facility] LBCBC AUTO DIFF Reviewed date:08/25/2024 07:20:00 PM Interpretation: Performing Lab: Notes/Report: [facility] ,White Blood Count8.44.0-11.0 10 3/uLRed Blood Count5.234.20-5.40 10 6/uL Wgsidgxsqh67.012.0-16.0 g/jISzftlyxzxc47.636.0-48.0 %Mean Corpuscular Nbssrg31.2 81.0-99.0 fLMean Corpuscular Xbjwxpjcnx14.726.7-34.0 pgMean Corpuscular HGB Conc 32.929.9-35.2 g/dLRed Cell Distribution Width12.611.0-15.0 %Platelet Cjwoc931 150-450 10 3/uLMean Platelet Volume8.89.5-13.5 fLNeutrophils Percent Auto58.9 43.0-75.0 %Lymphocytes Percent Auto30.620.5-60.0 %Monocytes Percent Auto8.61.7- 12.0 %Eosinophils Percent Auto1.20.9-7.0 %Basophils Percent Auto0.60.2-2.0 % Immature Granulocytes Pct Auto0.10.0-0.5 %Neutrophils Absolute Auto4.91.4-6.5 10 3/uLLymphocytes Absolute Auto2.61.2-3.8 10 3/uLMonocytes Absolute Auto0.70.3-0.8 10 3/uLEosinophils Absolute Auto0.10.0-0.7 10 3/uLBasophils Absolute Auto0.10.0- 0.1 10 3/uLImmature Granulocytes Abs Auto0.010.00-0.03 10 3/uLPerforming Lab:see noteML - [facility] LBINFLUENZA A AND B AG Reviewed date:08/25/2024 07:20:00 PM Interpretation: Performing Lab: Notes/Report: [facility] ,Influenza Virus A AntigenNegative Negative for Flu [...] sample may be Performing Lab:see noteML - [facility] LBPROF 14(COMP METB) Reviewed date:08/25/2024 07:20:00 PM Interpretation: Performing Lab: Notes/Report: [facility] ,Fbxtik509947-527 mmol/LPotassium4.03.5-5.1 mmol/ECilsyhci32294-533 mmol/LCarbon Trotvoz03.121.0-32.0 mmol/LAnion Gap14.6Hynzdyg8647-101 mg/dLBlood Urea Nitrogen 13.06.4-19.3 mg/dLCreatinine0.950.55-1.02 mg/dLEstimated GFR ( Felecia>60 >=60 mL/min/1.73m 2Estimated GFR (Non- Patricia>60>=60 mL/min/1.73m 2BUN Creatinine Ratio13.6Cfaddwr2.08.5-10.1 mg/dLBilirubin Total0.30.2-1.0 mg/dL Aspartate Amino Zqwpuxpwcoe7521-83 U/LAlanine Hyehdhnluycabhqm8388-74 U/L Alkaline Kjajmcadmym4394-302 U/LTotal Protein8.26.4-8.2 g/dLAlbumin Level4.13.4- 5.0 g/dLGlobulin4.1Albumin Globulin Ratio1.0Performing Lab:see noteML - [facility] LBUA (CLEAN or CATCH) ELEVATORS INSPECTOR or MICRO IF IND. Reviewed date:08/25/2024 07:20:00 PM Interpretation: Performing Lab: Notes/Report: [facility] ,Color UrineLT. YELLOWYELLOWClarity UrineCLEARCLEARSpecific [place] Urine>=1.030 1.005-1.025pH Urine6.05.0-9.0Protein UrineNEGATIVENEG/TRACE mg/dLGlucose Urine UANEGATIVENEGATIVE mg/dLBilirubin UrineNEGATIVENEGATIVEKetones UrineNEGATIVE NEGATIVE mg/dLBlood UrineNEGATIVENEGATIVENitrite UrinePOSITIVENEGATIVE Urobilinogen Urine0.20.2-1.0 EU/dLLeukocyte Esterase UrineMODERATENEGATIVEUrine Microscopic IndicatedYESPerforming Lab:see noteML - [facility] LB URINE MICROSCOPIC ONLY Reviewed date:08/25/2024 07:20:00 PM Interpretation: Performing Lab: Notes/Report: [facility] ,WBC Jotwq88-25BRMJ SEEN #/HPFRBC UrineNONE SEEN0-2 #/HPFBacteria UrineLARGENONE SEEN #/HPFMucus UrineNONE SEENNONE SEENSquamous Epithelial Cell UrineMODERATE NONE/RARE #/LPFUrine Culture IndicatedYESPerforming Lab:see noteML - [facility] WGNONU-ArV-7 Ag* Reviewed date:08/25/2024 07:20:00 PM Interpretation: Performing Lab: Notes/Report: [facility] ,SARS-CoV-2 AgNEGATIVENEGATIVE the detection of proteins from SARS-CoV-2, not for any other terminated or authorization is revoked sooner. Act, 21 U.S.C. 360bbb-3(b)(1), unless the declaration is authorized for the duration of the declaration that and/or diagnosis of Covid-19 under section 564(b)(1) of the authorized by the FDA under an Emergency Use Authorization emergency use of in vitro diagnostic tests for detection viruses or pathogens. The emergency use of this test is (EUA) for use by authorized laboratories certified under CLIA that meet the requirements to perform moderate or high This test has not been FDA cleared or approved, but has been complexity testing. This test has been authorized only for circumstances exist justifying the authorization of Performing Lab:see noteML - [facility] Qualitative Urine Reviewed date:08/25/2024 07:20:00 PM Interpretation: Performing Lab: Notes/Report: [facility] ,HCG Qualitative Urine*NEGATIVENEGATIVEPerforming Lab:see noteML - [facility] LBBox Test Reviewed date:08/29/2024 10:43:25 AM Interpretation: Performing Lab: Notes/Report: [facility] ,BOX Test Sent OutURINE CULTUREBOX Test Reference LabFIRELANDSBOX Test Date Sent 08/25/24BOX Test ResultSEE SCANNED REPORTPerforming Lab:see note - [facility] LBFREE T3 Reviewed date:09/08/2024 04:48:07 PM Interpretation: Performing Lab: Notes/Report: [facility] ,Free T32.752.91-4.70 pg/mLPerforming Lab:see noteML - [facility] LB T4 Reviewed date:09/08/2024 04:48:07 PM Interpretation: Performing Lab: Notes/Report: [facility] ,T4 Thyroxine7.605.40-10.60 ug/dLPerforming Lab:see note - [facility] LBTSH Reviewed date:09/08/2024 04:48:07 PM Interpretation: Performing Lab: Notes/Report: [facility] ,Thyroid Stimulating Hormone2.6660.516-4.130 uIU/mLPerforming Lab:see noteML - [facility] LBProgesterone Reviewed date:11/14/2024 04:21:20 PM Interpretation: Performing Lab: Notes/Report: [facility] ,Ysyglpwgoasd22.0. ng/mL Luteal phase 1.8 - 23.[address] [place] [phone] Supervisor Decorating: Sonny Cox PhD, Phone: [phone] Postmenopausal 0.0 - 0.1 Performed at: [facility] Ovulation phase 0.1 - 12.0 Third trimester 58.7 - 214.0 Second trimester 25.4 - 83.3 Follicular phase 0.1 - 0.9 First trimester 11.0 - 44.3 Performing Lab:[facility] LBLAB TESTING Reviewed date:03/13/2025 09:37:49 PM Interpretation: Performing Lab: Notes/Report: [id number] Chromosome Analysis, Whole Blood (Constitutional) [facility] ,Miscellaneous TestCOMMENT. [facility] [address], CLIA [id number], Pool Player, congenital anomalies due to other etiologies. Reference Range: . Cytogenetic Result Comment: KENNEY Performed at: [facility] banding pattern in all cells observed. revealed a FEMALE karyotype with an apparently normal GTG [facility] [address], CLIA [id number], Pool Player, Reference Range: . NORMAL FEMALE KARYOTYPE Technical Component-Processing performed at [address] [facility], [place] [id number] Specimen Type Comment: MOULTON performed at [facility], [facility] [place] [address], 46,XX Performed at: [facility] Cells Counted 20 MOULTON Cells Karyotyped 2 MOULTON Supervisor Decorating: Sonny Cox PhD, Phone: [phone] Cells Analyzed 20 MOULTON Technical Component-Partial chromosome analysis performed by, [employer] [id number]. Database Programmer, Henry Canales M.D., Ph.D. Reference Range: . [address], [place] [address], [facility] FEDERICO New PhD. Reference Range: . Supervisor Decorating: Henry Canales [facility], Phone: [phone] Reference Range: . rearrangements below the resolution of cytogenetics or performed at [facility], [facility] [address] [facility] [address], Director Review: Comment: KENNEY Teran, PhD, [facility], Professional Component Katie New PhD. FEDERICO Aguero [id number], [address], [facility], [place] Reference Range: . GTG Band Resolution Achieved 500 MOULTON Technical Component- Partial chromosome analysis Reference Range: . Test Ordered: [id number] Chromosome, Blood, Routine Reference Range: . [address] [place], [place] [id number] Interpretation Comment: KENNEY [id number]. Database Programmer, Henry Canales MD,PhD Cytogenetic analysis of PHA stimulated cultures has This result does not exclude the possibility of subtle BLOOD Performing Lab:see noteLC - [facility] LBFactor V Leiden Mutation Reviewed date:03/02/2025 08:22:01 PM Interpretation: Performing Lab: Notes/Report: [facility] ,Factor V Leiden MutationComment. on each chromosome) have an approximately 80-fold increased Comment: of the [employer] [id number]. Addendum: [employer] consensus False positive or false negative results may occur for risk factors. The c.1601G>A (p. Ani667Zdo) variant in the complex genotype combinations involving the F2 c.*97G>A providers to discuss results at [phone] (0006). DNA analysis of the F5 gene (NM_000130.5) was genetic risk factor for venous thromboembolism. homozygous for this variant (ie, with a copy of the variant et al., editors. Frances(R) (Internet). [facility]): Result: c.1601G>A (p.Pdb211Yld) - Not Detected protein C, protein S, or antithrombin III, age, male sex, neoplasm, tamoxifen treatment, raloxifene treatment, oral Venous thromboembolism laboratory testing (factor V Leiden This test was developed and its performance Test Details: Heterozygous carriers of this variant have a 6- to 8-fold [facility]; [phone]. Available reasons that include genetic variants, blood transfusions, Venous thromboembolism is a multifactorial disease personal or family history of deep vein thromboembolism, characteristics determined by [facility]. It has not been F5 gene, commonly referred to as Factor V Leiden, is a well as recommendations for testing family members. mosaicism, mislabeled samples, or erroneous representation Katie S, Laurel PONCE, Cornelius R, Dinora WW, Adarsh JH; to as Factor V Leiden an approximately 20-fold increased risk for venous combined with clinical information for the most accurate events should follow established guidelines and fit the Baljeet LORA. Factor V Leiden Thrombophilia. 1998December 29 Albert S, Laurel PONCE, Lugo X, Paul B, Mike EB, Palma P, Comments. Methods/Limitations: interpretation. Molecular-based testing is highly accurate, contraceptive use, hormone replacement therapy, and clinical circumstance. This result cannot predict the (Updated 2017Aug 21). In: Bjorn MP, Annie HH, Brooke RA, smoking, surgery, prolonged immobilization, malignant Calvin CS; [facility] Laboratory It Application Support Analyst Committee. Additional Clinical Information: of family relationships. [facility] Professional Practice and Guidelines Committee. This result is not associated with an increased risk for venous risk for venous thromboembolism. Individuals who carry both ([facility]). [facility]. 2018 Jul;20(12): 8062-5200. doi: Genetic counseling is recommended to discuss the cleared or approved by the Food and Drug Administration. statement on factor V Leiden mutation testing. [facility]. performed by PCR amplification followed by electrophoresis. variant and Factor V Leiden (PMID: 36400566). Additional risk factors include but are not limited to: deficiency of thromboembolism. See Additional Clinical Information and References: a c.*97G>A variant in the F2 gene and Factor V Leiden have Variant Analyzed: c.1601G>A (p. Szl914Jbb), referred potential clinical implications of positive results, as 2020Oct 20. doi: 10.1038/n79912-255-89574-l. PMID: The diagnostic sensitivity is >99%. Results must be . Management of thrombotic risk and thrombotic from: https://www.ncbi.nlm.nih.gov/books/AAD0579/ 10.1038/r01979-016-5339-b. Epub 2017May 22. PMID: 03168635. occurrence or recurrence of a thrombotic event. and factor II c. *97G>A), 2018 update: a technical standard increased risk for venous thromboembolism. Individuals bone marrow transplantation, somatic or tissue-specific influenced by genetic, environmental, and circumstantial but as in any laboratory test, diagnostic errors may occur. thromboembolism. Risks are likely to be even higher in more Genetic Coordinators are available for health care Reviewed ByComment. [address], [facility], [place] [phone] Supervisor Decorating: Henry Canales [facility], Phone: [phone] Greer Jacinto, Ph.D., FACMG Performed at: - [facility] RTP Performing Lab:see noteLC - [facility] LBPREG QUANT HCG Reviewed date:04/04/2025 07:26:10 PM Interpretation: Performing Lab: Notes/Report: [facility] ,[facility] Quantitative<1 1,000-50,000 4-5 WEEKS 50-500 1-2 WEEKS 5-50 0.2-1 WEEK 15,000-200,000 6-8 WEEKS 500-10,000 3-4 WEEKS 10,000-100,000 5-6 WEEKS 100-5,000 2-3 WEEKS 10,000-100,000 2-3 MONTHS Performing Lab:see noteML - [facility] Reviewed date:05/23/2025 12:56:54 PM Interpretation: Performing Lab: Notes/Report: [facility] ,HCG Zdynsfbowcdv945 10,000-100,000 5-6 WEEKS 100-5,000 2-3 WEEKS 1,000-50,000 4-5 WEEKS 50-500 1-2 WEEKS 15,000-200,000 6-8 WEEKS 10,000-100,000 2-3 MONTHS 500-10,000 3-4 WEEKS 5-50 0.2-1 WEEK Performing Lab:see noteML - [facility] LBPREG QUANT HCG Reviewed date:05/25/2025 12:28:31 PM Interpretation: Performing Lab: Notes/Report: [facility] ,HCG Mospyxhwaqgx3995 10,000-100,000 5-6 WEEKS 100-5,000 2-3 WEEKS 50-500 1-2 WEEKS 10,000-100,000 2-3 MONTHS 1,000-50,000 4-5 WEEKS 15,000-200,000 6-8 WEEKS 500-10,000 3-4 WEEKS 5-50 0.2-1 WEEK Performing Lab:see noteML - [facility] LBDRUG SCREEN RAPID (URINE) Reviewed date:06/26/2025 04:48:00 PM Interpretation: Performing Lab: Notes/Report: [facility] ,Cannabinoid Screen UrineNEGATIVENEGATIVEPhencyclidine Screen UrineNEGATIVE NEGATIVECocaine Screen UrineNEGATIVENEGATIVEMethamphetamines Screen Urine NEGATIVENEGATIVEOpiate Screen UrineNEGATIVENEGATIVEAmphetamine Screen Urine NEGATIVENEGATIVEBenzodiazepines Screen UrineNEGATIVENEGATIVETricyclic Antidepressant UrineNEGATIVENEGATIVEMethadone Screen UrineNEGATIVENEGATIVE Barbiturates Screen UrineNEGATIVENEGATIVEOxycodone Screen UrineNEGATIVENEGATIVE Buprenorphine Screen UrineNEGATIVENEGATIVE mAMP (Methamphetamine): 500 ng/mL BUP (Buprenorphine): 10 ng/mL DRUG CLASS TEST SYSTEM CUT-OFF CONCENTRATIONS ARE BZO (Benzodiazepines): 150 ng/mL BAR (Barbiturates): 200 ng/mL TCA (Trycyclic Antidepressants): 300 ng/mL MTD (Methadone): 200 ng/mL FOLLOWS: THC (Cannabinoids): 50 ng/mL AMARJIT (Cocaine): 150 ng/mL PCP (Phencyclidine): 25 ng/mL OPI (Opiates): 100 ng/mL OXY (Oxycodone): 100 ng/mL AMP (Amphetamine): 500 ng/mL Performing Lab:see note - [facility] LBGLYCOHEMOGLOBIN A1C Reviewed date:06/26/2025 04:48:00 PM Interpretation: Performing Lab: Notes/Report: [facility] ,Glycohemoglobin A1C5.04.5-6.2 % ADA THERAPEUTIC TARGET < 7.0 ADA RECOMMENDED LIMIT 4.0 - 6.0 > 7.0 ACTION SUGGESTED Estimated Average Yjqgbcq82Sjvwlnoktx Lab:see note - [facility] LB RUBELLA AB IGG Reviewed date:06/26/2025 04:48:00 PM Interpretation: Performing Lab: Notes/Report: [facility] ,Rubella Antibodies, IgG1.77Immune >0.99 index Supervisor Decorating: Snony Cox PhD, Phone: [phone] [address] [place], [place] [phone] Performed at: CB - [facility] Williams Immune >0.99 Equivocal 0.90 - 0.99 Non-immune <0.90 Performing Lab:see note - [facility] LBTSH Reviewed date:06/26/2025 04:48:00 PM Interpretation: Performing Lab: Notes/Report: [facility] ,Thyroid Stimulating Hormone1.4360.358-3.740 uIU/mLPerforming Lab:see noteML - [facility] LBType and Screen Reviewed date:06/26/2025 04:48:00 PM Interpretation: Performing Lab: Notes/Report: [facility] ,Blood TypeO PositiveAntibody ScreenNEGATIVEHIV Ab/p24 Ag with Reflex Reviewed date:06/26/2025 04:48:00 PM Interpretation: Performing Lab: Notes/Report: [facility] ,HIV Ab/p24 Ag ScreenNon ReactiveNon Reactive HIV-1/HIV-2 antibodies and HIV-1 p24 antigen were NOT Performed at: [facility] Supervisor Decorating: Sonny Cox PhD, Phone: [phone] [address] [place] [address] detected. There is no laboratory evidence of HIV infection. HIV Negative Performing Lab:see noteLC - [facility] LBRapid Plasma Reagin, Quant Reviewed date:06/26/2025 04:48:00 PM Interpretation: Performing Lab: Notes/Report: [facility] ,Rapid Plasma Reagin, QuantNon ReactiveNonRea<1:1 titer Treponema pallidum (Syphilis) Screening [place] ([id number]) or Rapid Plasma Reagin (RPR) Test With Reflex to Quantitative treated for syphilis infection. To screen for syphilis Please Note: This test does not meet current guidelines for screening and diagnosis of syphilis. This test is (890173). RPR and Confirmatory Treponema pallidum Antibodies intended for following treatment response in patients being [address] [place] [phone] infection, a reflex cascade that includes both RPR and a treponema-specific assay should be utilized, such as Performed at: [facility] Supervisor Decorating: Sonny Cox PhD, Phone: [phone] Performing Lab:[facility] LBHCV Antibody RFX to Quant PCR Reviewed date:06/26/2025 04:48:00 PM Interpretation: Performing Lab: Notes/Report: [facility] ,HCV AbNon ReactiveNon ReactiveInterpretation:Comment. infection. Performed at: [address] [phone] individual), or other evidence exists to indicate HCV Supervisor Decorating: Sonny Cox PhD, Phone: [phone] Not infected with HCV unless early or acute infection is suspected (which may be delayed in an immunocompromised Performing Lab:see note - [facility] LBHBsAg Screen Reviewed date:06/26/2025 04:48:00 PM Interpretation: Performing Lab: Notes/Report: [facility] ,HBsAg ScreenNegativeNegative Performed at: [facility] Supervisor Decorating: Sonny Cox PhD, Phone: [phone] [address] [place], [place] [phone] Performing Lab:see note - [facility] LBUnity Box Reviewed date:06/26/2025 04:48:00 PM Interpretation: Performing Lab: Notes/Report: [facility] ,BOX Test Sent OutUNITYBOX Test Reference LabUNITYBOX Test Date Sent06/25/25 Performing Lab:see note - [facility] LBCBC AUTO DIFF Reviewed date:06/26/2025 04:48:00 PM Interpretation: Performing Lab: Notes/Report: [facility] ,White Blood Count10.24.0-11.0 10 3/uLRed Blood Count4.724.20-5.40 10 6/uL Njynrsollk44.012.0-16.0 g/tSEdufxybjlm57.036.0-48.0 %Mean Corpuscular Ftbekd73.9 81.0-99.0 fLMean Corpuscular Psohuyghyl37.726.7-34.0 pgMean Corpuscular HGB Conc 34.129.9-35.2 g/dLRed Cell Distribution Width13.011.0-15.0 %Platelet Ryohx206 150-450 10 3/uLMean Platelet Volume8.79.5-13.5 fLNeutrophils Percent Auto76.2 43.0-75.0 %Lymphocytes Percent Auto17.720.5-60.0 %Monocytes Percent Auto5.11.7- 12.0 %Eosinophils Percent Auto0.40.9-7.0 %Basophils Percent Auto0.40.2-2.0 % Immature Granulocytes Pct Auto0.20.0-0.5 %Neutrophils Absolute Auto7.81.4-6.5 10 3/uLLymphocytes Absolute Auto1.81.2-3.8 10 3/uLMonocytes Absolute Auto0.50.3-0.8 10 3/uLEosinophils Absolute Auto0.00.0-0.7 10 3/uLBasophils Absolute Auto0.00.0- 0.1 10 3/uLImmature Granulocytes Abs Auto0.020.00-0.03 10 3/uLPerforming Lab:see noteML - [facility] LBFactor II, DNA Analysis Reviewed date:03/02/2025 08:22:01 PM Interpretation: Performing Lab: Notes/Report: [facility] ,Factor II, DNA AnalysisComment. Genetic Coordinators are available for health care providers to discuss risk for venous thromboembolism. Homozygotes for the c.*97G>A variant implications of positive results, as well as recommendations for References: thromboembolism. Heterozygous carriers have a 2- to 4-fold increased mislabeled samples, or erroneous representation of family [facility] It Application Support Analyst Committee. Venous thromboembolism information for the most accurate interpretation. Molecular-based [Updated 2020Sep 21]. In: Bojrn MP, Annie HH, Brooke RA, et al., Variant analyzed: c.*97G>A, previously referred to as [id number] PMID: [id number]. 2018 update: a technical standard of the [employer] immobilization, malignant neoplasm, tamoxifen treatment, raloxifene fold increased risk for venous thromboembolism. Risks are likely to Practice and Guidelines Committee. Addendum: [employer] be even higher in more complex genotype combinations involving the Medical Genetics consensus statement on factor V Leiden mutation treatment, oral contraceptive use, hormone replacement therapy, and testing family members. by [facility]. It has not been cleared or approved by the Food and Drug genetic, environmental, and circumstantial risk factors. The c.*97G>A Genetics and Genomics ([facility]). Antonia Med. 2018 Jul;20(12):7029-0833. Comments: https://www.ncbi.nlm.nih.gov/books/SFS4694/ This result is not associated with an increased risk for venous laboratory testing (factor V Leiden and factor II c.*97G>A), variant in the F2 gene is a genetic risk factor for venous results at [phone] (4363). F2 gene and a c.1601G>A (p. Hmo780Svt) variant in the F5 gene amplification followed by restriction enzyme analysis. The diagnostic Genetic counseling is recommended to discuss the potential clinical (commonly referred to as Factor V Leiden) have an approximately 20- for reasons that include genetic variants, blood transfusions, bone Test Details: history of deep vein thromboembolism, smoking, surgery, prolonged sensitivity is >99%. Results must be combined with clinical doi: 10.1038/[id number]-d. Epub 2017May 22. PMID: [id number]. Result: c.*97G>A - Not Detected protein S, or antithrombin III, age, male sex, personal or family result cannot predict the occurrence or recurrence of a thrombotic are rare. The annual risk of VTE in homozygotes has been reported to event. Venous thromboembolism is a multifactorial disease influenced by Katie Lopes, Laurel PONCE, Cornelius R, Dinora WW, Adarsh WETZEL; AC Professional Methods/Limitations: relationships. Additional Clinical Information: testing is highly accurate, but as in any laboratory test, diagnostic editors. Frances(R) [Internet]. [place] ([place]): [facility] analysis of the F2 gene (NM_000506.5) was performed by PCR This test was developed and its performance characteristics determined be 1.1%/year. Individuals who carry both a c.*97G>A variant in the errors may occur. False positive or false negative results may occur [facility] [address]; 3970-5249. Available from: F2 c.*97G>A variant and Factor V Leiden (PMID: 10733986). Additional . Management of thrombotic risk and thrombotic events should testing. Antonia Med. 2020Oct 20. doi: 10.1038/[id number]-n. Comments. Administration. follow established guidelines and fit the clinical circumstance. This marrow transplantation, somatic or tissue-specific mosaicism, Albert S, Laurel PONCE, Parish X, Paul B, Mike EB, Palma P, Marixa CS; thromboembolism. See Additional Clinical Information and Baljeet LORA. Prothrombin Thrombophilia. 2005Mar 11 risk factors include but are not limited to: deficiency of protein C, Reviewed ByComment. Supervisor Decorating: Henry Canales MDPhD, Phone: [phone] Technical Component performed at [facility] Performed at: - [facility] [id number], [facility], [address] [employer] Professional Component performed by: RTP [place] [address] Sarah Jorge, PhD, [facility] [address] [facility] [facility], [facility], [place] [id number] Performing Lab:see noteLC - [facility] LBIRON Reviewed date:08/18/2024 03:47:54 PM Interpretation: Performing Lab: Notes/Report: [facility] ,Iron48.050.0-170.0 ug/dLPerforming Lab:see noteML - [facility] LB GLYCOHEMOGLOBIN A1C Reviewed date:08/18/2024 03:47:54 PM Interpretation: Performing Lab: Notes/Report: [facility] ,Glycohemoglobin A1C5.54.5-6.2 % > 7.0 ACTION SUGGESTED ADA THERAPEUTIC TARGET < 7.0 ADA RECOMMENDED LIMIT 4.0 - 6.0 Estimated Average Vdkhobi548Iguvbylgnv Lab:see note - [facility] FREE T3 Reviewed date:08/18/2024 03:47:54 PM Interpretation: Performing Lab: Notes/Report: [facility] ,Free T33.132.91-4.70 pg/mLPerforming Lab:see note - [facility] LB Urine Culture, Routine Reviewed date:06/27/2025 01:34:07 PM Interpretation: Performing Lab: Notes/Report: [facility] ,Urine Culture, RoutineSee Below For Report Urine Culture, Routine Urine Culture, RoutineMixed urogenital angela Urine Culture, Routine Urine Culture, RoutineLess than 10,000 colonies/mL Urine Culture, Routine Urine Culture, RoutinePerformed at: - [facility] [place] Urine Culture, Routine Urine Culture, [address] [place], [place] [id number] Urine Culture, Routine Urine Culture, RoutineLab Director: Sonny Cox PhD, Phone: [phone] Urine Culture, Routine Performing Lab:see note SEE REPORT - Researcher Id information not found for OBX-specific 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 No Cwasju5WktebcvzjyztqeDlkkooay Problems Problem Type SNOMED Code ICD Code Onset Dates Problem Status W/U Status Risk Notes Problem Recurrent urinary tract infection (367233 001) Recurrent UTI (N39.0) ActiveconfirmedProblemAsthma (877134387)Asthma (J45.909)ActiveconfirmedProblem Carpal tunnel syndrome (57361708)Carpal tunnel syndrome (G56.00)Activeconfirmed ProblemAnxiety (07953826)Anxiety (F41.9)ActiveconfirmedProblemWell adult (109132311)Well adult (Z00.00)Activeconfirmed Vital Signs Blood pressure diastolic 70 mm Hg 02/28/2025 BMI Crkvtwleuu76.91 %09/09/20246627Azwtfw69 in02/28/2025lood pressure bhycfegp844 mm Hg02/28/20259093Uuviko809.6 lbs02/28/2025BMI31.89 kg/m202/28/2025 Encounters Encounter Location Date Provider Diagnosis [facility] [address] [place] [address] 08/16/2024 Rogeilo Jayda Well adult Z00.00 [facility] [address] [place] [address] 09/09/2024 Rogelio Montelongo Recurrent UTI N39.[address] [address] 12/29/2024 Rogelio Montelongo Carpal tunnel syndro me G56.00 [facility] [address] [place] [address] 01/28/2025 Rogelio Montelongo Asthma J45.909 and Encounter for medication management Z79.899 [facility] [address] [place] [address] 02/28/2025 Rogelio Montelongo Asthma J45.909 [facility] [address] [facility] [place] [address] 08/18/2024 Rogelio Montelongo Low thyroid stimulat ing hormone (TSH) level R79.89 [facility] [address] [place] [address] 08/25/2024 Rogelio Aguilay [facility] [place] [address] 08/29/2024[facility] [place] [address]/[facility] [place] [address]/[facility] [place] [address]/[facility] [place] [address]/Doug HoyCarpal tunnel syndrome G56.00 Assessments Encounter Date Diagnosis (ICD Code) Assessment Notes Treatment Notes Treatment Clinical Notes Section Notes 08/16/2024 Well adult (ICD-10 - Z00.00) 09/09/2024Recurrent UTI (ICD-10 - N39.0)5Carpal tunnel syndrome (ICD-10 - G56.00)01/28/2025sthma (ICD-10 - J45.909)01/28/2025Encounter for medication management (ICD-10 - Z79.899)02/28/2025sthma (ICD-10 - J45.909)08/18/2024Low thyroid stimulating hormone (TSH) level (ICD-10 - R79.89)5Carpal tunnel syndrome (ICD-10 - G56.00) Plan Of Treatment Pending Test Test Name Order Date CMP (COMPLETE METABOLIC PANEL) 12/30/202 4 HEMOGLOBIN A1C (GLYCO) 08/16/2024 IRON, TOTAL 08/16/2024 LIPID PANEL (CHOL/TRIG/HDL/LDL) 08/16/20 24 CBC WITH DIFF 08/16/2024 Insulin Level 08/16/2024 THYROID PANEL (T4/TSH/FREE T3) 4 THYROID PANEL (T4/TSH/FREE T3) 5 Insurance Providers Payer Name Payer Address Payer Phone Subscriber Number Group Number Insured Name Patient Relationship to Insured Coverage Start Date Coverage End Date [employer] ACCESS PPO PLUS LOCAL PLAN [address] [place] [address] [id number] Yancy Wood - patient is the insured Medical (General) History Medical History History ICD Code Asthma J45.909 Anxiety F41.9 Surgical History Surgery Date(Month/Year) Tonsillectomy and addenoidectomy
== END 2025-07-07 13:29 | disposition home or self-care (01) ==
PROVIDERS: Emergency Provider Emergency Medicine; PCP Family Medicine
DX: Z34.91 Encounter for supervision of normal pregnancy, unspecified, first trimester (principal)
CPT/HCPCS: 76817; 99284

== ENCOUNTER 2025-07-30 14:49 | Emergency (ER) | payer BC, SELFPAY ==
--- OUTSIDE RECORDS SUMMARY | 2025-07-19 14:20 | XMS_ITS | Encounter Summary ---
Author Organization [facility] Address [address] [place] [address] Care Team Providers Care Victorian Literature Professor Name Role Phone Oliver Montelongo MD Primary Care Provider [phone] Reason for Visit * ReasonCommentsRoutine Visit Encounter Details DateTypeDepartmentCare Team (Latest Contact Info)Ujfocvrodfb55/02/2025 2:20 PM ESTRoutine [facility] [address] [place] [address] Vickey Brown DO [address] [facility] [address] [place] [phone] Second trimester ([facility]); 12 weeks gestation of ([facility]) Social History Tobacco UseTypesPacks/DayYears UsedDateSmoking Tobacco: NeverSmokeless Tobacco: Never Tobacco Cessation:Counseling Given: Not Answered Comments:sencond hand from family Alcohol UseStandard Drinks/WeekCommentsNever0 (1 standard drink = 0.6 oz pure alcohol)Estimated Date of KapflhrtZjobndmhVpx28/13/2026ased on last menstrual period of 04/23/2025Sex and Gender InformationValueDate RecordedSex Assigned at UnhquNxqkgq70/10/2024 11:52 AM EDTLegal LmaPnntqo14/17/2023 4:30 PM EDTGender HlevhhsfWsryhi02/10/2024 11:52 AM EDTSexual OrientationNot on file documented as of this encounter Last Filed Vital Signs Vital SignReadingTime TakenCommentsBlood Bugrzvrf255/6007/19/2025 2:44 PM EST Pulse--Temperature--Respiratory Rate--Oxygen Saturation--Inhaled Oxygen Concentration--Bflsiu14.6 kg (160 lb)07/19/2025 2:44 PM ESTHeight--Body Mass Index32.3202 1:34 PM ESTdocumented in this encounter Progress Notes * Patti ChmabersMANUEL - 07/19/2025 2:20 PM EST Reason for Appointment: Patient ID: Amalia Garza is a 19 y.o. female who presents for Routine Visit Patient presents today for Return OB appointment. MEDICATIONS Current Outpatient Medications Medication Instructions Vit-Fe Fumarate-FA ( VITAMINS PO) 1 each, Daily ALLERGIES No Known Allergies PROBLEMS Active Ambulatory Problems Diagnosis Date Noted Irregular menstrual cycle 02/09/2024 Encounter for fertility planning 02/09/2024 Anovulation 05/13/2024 Elevated TSH 05/13/2024 Resolved Ambulatory Problems Diagnosis Date Noted No Resolved Ambulatory Problems Past Medical History: Diagnosis Date Anxiety Asthma (HCC) Thyroid disease Urinary tract infection HISTORY PAST MEDICAL HISTORY SOCIAL HISTORY Past Medical History: Diagnosis Date Anxiety Asthma (HCC) Thyroid disease Urinary tract infection Social History Tobacco Use Smoking status: Never Smokeless tobacco: Never Tobacco comments: sencond hand from family Substance Use Topics Alcohol use: Never Drug use: Never FAMILY HISTORY Family History Problem Relation Name Age of Onset Other (high blood pressure) Father Other (high blood pressure) Paternal Grandfather Asthma Mother Thuy Bunch Cancer Maternal Grandmother Paola Burgos SURGICAL HISTORY Past Surgical History: Procedure Laterality [...] nursing note reviewed. Exam conducted with a family practitioner present. Vitals: Estimated body mass index is 32.32 kg/m?? as calculated from the following: Height as of 09/23/23: 4' 11 . Weight as of this encounter: 160 lb. BP: 108/60 Patient's last menstrual period was 04/23/2025. Assessment/Plan ICD-10-CM 1. Second trimester ([facility]) Z34.92 2. 12 weeks gestation of ([facility]) Z3A.12 POCT urinalysis dipstick manually resulted Assessment/Plan New OB: Patient presents today for 1st time obstetrics appointment with provider. Patient is currently 12w3d . Patients history has been reviewed in great detail including any potential risks. Patient stated she currently has no complaints. Expectations throughout regarding labs, ultrasounds, and appointments have been discussed with the patient in detail. It was reiterated that the patient is to drink 6-8 glasses of water a day, eat 6 small meals a day, do not consume raw or undercooked meat, and stay away from [facility]. Patient has been consulted regarding any further do's and don'tsof . Patient voiced understanding and all questions and concerns were answered. Orders Placed This Encounter Procedures POCT urinalysis dipstick manually resulted Follow Up: Patient is to return in 4 weeks for routine OB appointment. Documented by Patti Chambers LPN on behalf of: Virginia Quiroz PA-C documented in this encounter Plan of Treatment DateTypeDepartmentCare Team (Latest Contact Info)Umuhruruqqi13/05/2026 2:50 PM ESTRoutine [facility] [address] [place] [address] Vickey Brown, DO [address] [facility] [place], [place] [phone] documented as of this encounter Procedures Procedure NamePriorityDate/TimeAssociated DiagnosisCommentsPOCT URINALYSIS FITPGZTXXnxwjon11/02/2025 2:49 PM EST 12 weeks gestation of ([facility]) documented in this encounter Results * POCT urinalysis dipstick manually resulted (07/19/2025 2:49 PM EST)Component ValueRef RangeTest MethodAnalysis TimePerformed AtPathologist SignatureColor, UAYellowClarity, UAClearGlucose, UANegativeNegative - 2000(110) ++++ mg/dL Bilirubin, UANegativeNegative - 4(70) +++ mg/dLKetones, UANegativeNegative - 160(16) ++++ mg/dLSpec Grav, UA1.0251 - 1.03Blood, UANegativeNegative - 50 Johann/mcLpH, UA6.55 - 9Protein, UANegativeNegative - 2000(20) ++++ mg/dL Urobilinogen, UA1.00.2 - 12 mg/dLLeukocytes, UANegativeNegative - 500+++ Johnny/mcLNitrite, UANegativeNegative - PositiveSpecimen (Source)Anatomical Location / LateralityCollection Method / VolumeCollection TimeReceived Time Urine07/19/2025 2:49 PM EST Narrative Authorizing ProviderResult TypeResult StatusCorey Stephanie DOPOINT OF CARE TEST ENTER/EDIT ORDERABLESFinal Result documented in this encounter Visit Diagnoses Diagnosis Second trimester ([facility]) state, incidental 12 weeks gestation of ([facility]) documented in this encounter Care Teams Team MemberRelationshipSpecialtyStart DateEnd Date Oliver Montelongo MD [address] [place] [address] PCP - GeneralFamily Medicine10/05/24documented as of this encounter
[2025-07-30 14:55] VITALS: BP 124/92; PULSE 111; TEMP 36.5; O2SAT 100; BMI 33.4
[2025-07-30 15:20] VITALS: BP 139/72; PULSE 97; TEMP 36.6; O2SAT 99
[2025-07-30 15:34] LABS: Glucose Urine UA NEGATIVE (NEGATIVE)
--- OUTSIDE RECORDS SUMMARY | 2025-07-30 15:46 | XMS_ITS | Clinical Summary ---
Author Organization [facility] Address [address] [place] [address] Care Team Providers Care General Internal Medicine Doctor Name Role Phone Oliver Montelongo MD Primary Care Provider [phone] Allergies No known active allergies Medications MedicationSigDispense QuantityRefillsLast FilledStart DateEnd DateStatus Vit-Fe Fumarate-FA ( VITAMINS PO) Take 1 each by mouth DailyActive nitrofurantoin, macrocrystal-monohydrate, (Macrobid) 100 MG capsule Indications:Urinary tract infection without hematuria, site unspecifiedTake 1 capsule (100 mg) by mouth in the morning and 1 capsule (100 mg) before bedtime. Do all this for 7 days. 14 capsule /5Active ondansetron ODT (Zofran-ODT) 4 MG disintegrating tablet Indications:NauseaTake 1 tablet (4 mg) by mouth every 6 (six) hours if needed for nausea or vomiting 30 tablet Expired Active Problems ProblemNoted DateDiagnosed BbikHokkrqeqppz42/26/2024Elevated TSH05/13/2024 Irregular menstrual cycle02/09/2024Encounter for fertility vnnnyyxq15/24/2024 Estimated Date of HshqzqctDrlkiisiThk95/13/2026ased on last menstrual period of 04/23/2025 Encounters DateTypeDepartmentCare CqryRzdhtygpdvi77/09/2025Telephone [facility] [address] [place] [phone] Libia David MA 07/19/2025 2:20 PM ESTRoutine [facility] [address] [place] [phone] Vickey Brown, DO Second trimester ([facility]); 12 weeks gestation of ([facility])5Bamboo flowsheet [facility] [address] [place] [address] Vickey Brown, DO 07/18/20258391Mlkhoj20/17/2025Abstract [facility] [address] [place] [address] Vickey Brown, DO 06/25/2025linisync Result Encounter [facility] External Department Unsolicited Virginia Quiroz PA 06/17/2025 10:00 AM EDTInitial [facility] [address] [place] [phone] [place]: 7w6d1 9:30 AM EDTAncillary Procedure [facility] [address] [place] [address] Missed menses; Positive urine test ([facility])06/16/20258258Tqwdvv97/08/2025Clinisync Result Encounter [facility] External Department Unsolicited Vickey Brown, DO 05/24/2025Telephone [facility] [address] [place] [phone] Libia David MA Error (VOID this visit)5Clinisync Result Encounter [facility] External Department Unsolicited Vickey Brown, DO 05/23/2025Telephone [facility] [address] [place] [address] Libia David MA from Last 3 Months Family History Medical HistoryRelationNameCommentshigh blood pressureFatherCancerMaternal GrandmotherDeloris KrienkeAsthmaMotherJulie Hendersonhigh blood pressurePaternal GrandfatherRelationNameStatusCommentsFatherMaternal GrandmotherDeloris Krienke AliveMotherJulie HendersonAlivePaternal Grandfather Social History Tobacco UseTypesPacks/DayYears UsedDateSmoking Tobacco: NeverSmokeless Tobacco: Never Tobacco Cessation:Counseling Given: Not Answered Comments:sencond hand from family Alcohol UseStandard Drinks/WeekCommentsNever0 (1 standard drink = 0.6 oz pure alcohol)Estimated Date of SniacvucBlwykkpgNxv62/13/2026ased on last menstrual period of 04/23/2025Sex and Gender InformationValueDate RecordedSex Assigned at YskrdFqybil42/10/2024 11:52 AM EDTLegal MfkSoqkow06/17/2023 4:30 PM EDTGender AslfumnkUjdbat14/10/2024 11:52 AM EDTSexual OrientationNot on file Last Filed Vital Signs Vital SignReadingTime TakenCommentsBlood Mzxntwmx854/6007/19/2025 2:44 PM EST Pulse--Temperature--Respiratory Rate--Oxygen Saturation--Inhaled Oxygen Concentration--Jkxtjy20.6 kg (160 lb)07/19/2025 2:44 PM ZCWLrowfs800.9 cm (4' 11 )09/23/2023 1:34 PM ESTBody Mass Index32.32009/23/2023 1:34 PM EST Plan of Treatment DateTypeDepartmentCare Team (Latest Contact Info)Xlmjwswjlfk96/05/2026 2:50 PM ESTRoutine [facility] [address] [place] [address] Vickey Brown DO [address] [address] Procedures Procedure NamePriorityDate/TimeAssociated DiagnosisCommentsPOCT URINALYSIS FAEDPEIWMdpwsmw08/09/2024 2:49 PM EST 12 weeks gestation of ([facility]) HBSAG YGWVCMTudsbat84/08/2025 11:20 AM EST RAPID PLASMA REAGIN, GXGMKOctewmy15/08/2025 11:20 AM EST HCV ANTIBODY RFX TO QUANT VNVAosunox91/08/2025 11:20 AM EST ALL RUBELLA IGG AWXnupgma38/08/2025 11:20 AM EST HIV AB/P24 AG WITH MVLZTHNefkpez36/08/2025 11:20 AM EST ALL TYPE AND YCJLMSFryjyma22/08/2025 11:20 AM EST ALL THYROID STIM WUUSIZZVgmzdsn90/08/2025 11:20 AM EST MLR HEMOGLOBIN C2UVmjepht26/08/2025 11:20 AM EST ALL CBC WITH AUTO WEDLEgzkmah77/08/2025 11:20 AM EST BOX NWPHKrjwwby29/08/2025 11:20 AM EST URINE CULTURE, FOQTJXHNdlpvrl03/08/2025 11:07 AM EST [facility] DRUG SCREEN RAPID (URINE)Shvasfs5206/25/2025 11:07 AM EST US OB SYGVMNBVFRQDOoqwjcl46/31/2025 10:02 AM EDT Missed menses Positive urine test ([facility]) POCT URINALYSIS ELGVCRHNCamuxdn44/31/2025 10:01 AM EDT Missed menses POCT , GRZNPWbymjwr85/31/2025 10:00 AM EDT Missed menses [facility] PREG QUANT HZGVftumtp72/08/2025 8:00 AM EDT [facility] PREG QUANT OCDEypnzjk60/06/2025 9:59 AM EDT from Last 3 Months Results * POCT urinalysis dipstick manually resulted (07/19/2025 2:49 PM EST) Only the most recent of2 resultswithin the time period is included. ComponentValueRef RangeTest MethodAnalysis TimePerformed AtPathologist Signature Color, UAYellowClarity, UAClearGlucose, UANegativeNegative - 2000(110) ++++ mg/dLBilirubin, UANegativeNegative - 4(70) +++ mg/dLKetones, UANegativeNegative - 160(16) ++++ mg/dLSpec Grav, UA1.0251 - 1.03Blood, UANegativeNegative - 50 Johann/mcLpH, UA6.55 - 9Protein, UANegativeNegative - 2000(20) ++++ mg/dL Urobilinogen, UA1.00.2 - 12 mg/dLLeukocytes, UANegativeNegative - 500+++ Johnny/mcL Nitrite, UANegativeNegative - PositiveSpecimen (Source)Anatomical Location / LateralityCollection Method / VolumeCollection TimeReceived XpqbIwcig14/02/2025 2:49 PM EST Narrative Authorizing ProviderResult TypeResult StatusCorey Stephanie DOPOINT OF CARE TEST ENTER/EDIT ORDERABLESFinal Result * BOX TEST (06/25/2025 11:20 AM EST)ComponentValueRef RangeTest MethodAnalysis TimePerformed AtPathologist SignatureBOX TEST SENT RFUBJFRXYYIIZX8HQHEBYRWQZL3 06/25/25TBHSpecimen (Source)Anatomical Location / LateralityCollection Method / VolumeCollection TimeReceived Time06/25/2025 11:20 AM EST06/25/2025 11:26 AM EST Narrative CLINISYNC - 06/25/2025 11:29 AM EST Authorizing ProviderResult TypeResult StatusAmy Gabriella HOANG BLOOD ORDERABLES Final ResultPerforming OrganizationAddressCity/State/ZIP CodePhone Number AVELISYNC [facility] * HBSAG SCREEN (06/25/2025 11:20 AM EST)ComponentValueRef RangeTest Method Analysis TimePerformed AtPathologist SignatureHBSAG SCREENNegativeNegativeTBH Comment: Performed at: ??[address] ??[id number] Personal Financial Advisor: Sonny Cox PhD, Phone: ??[phone] Specimen (Source)Anatomical Location / LateralityCollection Method / Volume Collection TimeReceived Time06/25/2025 11:20 AM EST06/25/2025 11:26 AM EST Narrative CLINISYNC - 06/26/2025 2:08 PM EST Authorizing ProviderResult TypeResult StatusCorey Stephanie DOLAB BLOOD ORDERABLES Final ResultPerforming OrganizationAddSelect Specialty Hospital [facility]ty/[facility] CodePhone Number JAMENC [facility] * RAPID PLASMA REAGIN, QUANT (06/25/2025 11:20 [...] utilized, such as Treponema pallidum (Syphilis) Screening [place] (431314) or Rapid Plasma Reagin (RPR) Test With Reflex to Quantitative RPR and Confirmatory Treponema pallidum Antibodies (675989). Performed at: ??[address] ??[id number] Personal Financial Advisor: Sonny Cox PhD, Phone: ??[phone] Specimen (Source)Anatomical Location / LateralityCollection Method / Volume Collection TimeReceived Time06/25/2025 11:20 AM EST06/25/2025 11:26 AM EST Narrative CLINISYNC - 06/26/2025 2:08 PM EST Authorizing ProviderResult TypeResult StatusCorey Stephanie DOLAB BLOOD ORDERABLES Final ResultPerforming OrganizationAddSelect Specialty Hospital [facility]ty/State/ZIP CodePhone Number [facility] * HIV AB/P24 AG WITH REFLEX (06/25/2025 11:20 AM EST)ComponentValueRef RangeTest MethodAnalysis TimePerformed AtPathologist SignatureHIV AB/P24 AG SCREENNon ReactiveNon ReactiveTBHComment: HIV-1/HIV-2 antibodies and HIV-1 p24 antigen were NOT detected. There is no laboratory evidence of HIV infection. HIV Negative Performed at: ??[address] ??[id number] Personal Financial Advisor: Sonny Cox PhD, Phone: ??[phone] Specimen (Source)Anatomical Location / LateralityCollection Method / Volume Collection TimeReceived Time06/25/2025 11:20 AM EST06/25/2025 11:26 AM EST Narrative JAMEAK - 06/26/2025 8:09 AM EST Authorizing ProviderResult TypeResult StatusCorey Stephanie DOLAB BLOOD ORDERABLES Final ResultPerforming [facility] CodePhone Number [facility] * HCV ANTIBODY RFX TO QUANT PCR (06/25/2025 11:20 AM EST)ComponentValueRef Range Test MethodAnalysis TimePerformed AtPathologist SignatureHCV ABNon ReactiveNon ReactiveTBHINTERPRETATION:Comment.TBHComment: Not infected with HCV unless early or acute infection is suspected (which may be delayed in an immunocompromised individual), or other evidence exists to indicate HCV infection. Performed at: ??[address] ??[id number] Personal Financial Advisor: Sonny Cox PhD, Phone: ??[phone] Specimen (Source)Anatomical Location / LateralityCollection Method / Volume Collection TimeReceived Time06/25/2025 11:20 AM EST06/25/2025 11:26 AM EST Narrative AVELISYAK - 06/26/2025 10:09 AM EST Authorizing ProviderResult TypeResult StatusCorey Stephanie DOLAB BLOOD ORDERABLES Final ResultPerforming OrganizationAddAdvanced [facility]/State/ZIP CodePhone Number [facility] * MLR HEMOGLOBIN A1C (06/25/2025 11:20 AM EST)ComponentValueRef RangeTest Method Analysis TimePerformed AtPathologist SignatureGLYCOHEMOGLOBIN A1C5.04.5 - 6.2 %TBHComment: ADA RECOMMENDED LIMIT 4.0 - 6.0 ADA THERAPEUTIC TARGET < 7.0 ACTION SUGGESTED > 7.0 ESTIMATED AVERAGE BYFRMRU78fx/dLTBHSpecimen (Source)Anatomical Location / LateralityCollection Method / VolumeCollection TimeReceived Time06/25/2025 11:20 AM EST06/25/2025 11:26 AM EST Narrative CLINISYNC - 06/25/2025 12:07 PM EST Authorizing ProviderResult TypeResult StatusCorey Stephanie DOCLINISYNCFinal Result Performing OrganizationAddressCity/State/ZIP CodePhone Number [facility] * ALL TYPE AND SCREEN (06/25/2025 11:20 AM EST)ComponentValueRef RangeTest MethodAnalysis TimePerformed AtPathologist SignatureBLOOD TYPEO PositiveTBH ANTIBODY SCREENNEGATIVETBHSpecimen (Source)Anatomical Location / Laterality Collection Method / VolumeCollection TimeReceived Time06/25/2025 11:20 AM EST 06/25/2025 11:26 AM EST Narrative CLINISYNC - 06/25/2025 1:51 PM EST [facility] , ?? Authorizing ProviderResult TypeResult StatusCorey Stephanie DOCLINISYNCFinal Result Performing OrganizationAddressCity/State/ZIP CodePhone Number [facility] * ALL THYROID STIM HORMONE (06/25/2025 11:20 AM EST)ComponentValueRef RangeTest MethodAnalysis TimePerformed AtPathologist SignatureTHYROID STIMULATING HORMONE1.4360.358 - 3.740 uIU/mLTBHSpecimen (Source)Anatomical Location / LateralityCollection Method / VolumeCollection TimeReceived Time06/25/2025 11:20 AM EST06/25/2025 11:26 AM EST Narrative CLINISYNC - 06/25/2025 12:07 PM EST Authorizing ProviderResult TypeResult StatusCorey Stephanie DOCLINISYNCFinal Result Performing OrganizationAddressCity/State/ZIP CodePhone Number [facility] * ALL RUBELLA IGG AB (06/25/2025 11:20 AM EST)ComponentValueRef RangeTest Method Analysis TimePerformed AtPathologist SignatureRUBELLA ANTIBODIES, IGG1.77 Immune >0.99 indexTBHComment: Non-immune <0.90 ?Equivocal ??0.90 - 0.99 Immune >0.99 Performed at: ??[facility] [address], [place], [place] ??[id number] Personal Financial Advisor: Sonny Cox PhD, Phone: ??[phone] Specimen (Source)Anatomical Location / LateralityCollection Method / Volume Collection TimeReceived Time06/25/2025 11:20 AM EST06/25/2025 11:26 AM EST Narrative CLINISYNC - 06/26/2025 10:09 AM EST Authorizing ProviderResult TypeResult StatusCorey Stephanie DOCLINISYNCFinal Result Performing OrganizationAddressCity/State/ZIP CodePhone Number [facility] * (ABNORMAL) ALL CBC WITH AUTO DIFF (06/25/2025 11:20 AM EST)ComponentValueRef RangeTest MethodAnalysis TimePerformed AtPathologist SignatureTBH WBC10.24.0 - 11.0 10 3/uLTBHTBH RBC4.724.20 - 5.40 10 6/uLTBHTBH HGB14.012.0 - 16.0 g/dLTBH TBH HCT41.036.0 - 48.0 %TBHTBH MCV86.981.0 - 99.0 fLTBHTBH MCH29.726.7 - 34.0 pgTBHTBH MCHC34.129.9 - 35.2 g/dLTBHTBH RDW13.011.0 - 15.0 %TBHTBH OOK873718 - 450 10 3/uLTBHTBH MPV8.7(L)9.5 - 13.5 [...] AM EST 06/25/2025 11:26 AM EST Narrative AVELISYAK - 06/25/2025 11:35 AM EST Authorizing ProviderResult TypeResult StatusCorey Stephanie DOCLINISYNCFinal Result Performing OrganizationAddressCity/State/ZIP CodePhone Number [facility] * URINE CULTURE, ROUTINE (06/25/2025 11:07 AM EST)ComponentValueRef RangeTest MethodAnalysis TimePerformed AtPathologist SignatureURINE CULTURE, ROUTINE ??Urine Culture, Routine TBHURINE CULTURE, ROUTINEMixed urogenital floraTBHURINE CULTURE, ROUTINELess than 10,000 colonies/mLTBHURINE CULTURE, ROUTINEPerformed at: [facility] FlintTBHURINE CULTURE, [id number] [place], [place] [id number] CULTURE, ROUTINELab Director: Sonny Cox PhD, Phone: [phone] Specimen (Source)Anatomical Location / LateralityCollection Method / Volume Collection TimeReceived Time06/25/2025 11:07 AM EST06/25/2025 11:26 AM EST Narrative CLINISYNC - 06/27/2025 3:07 AM EST Authorizing ProviderResult TypeResult StatusCorey Stephanie DOLAB BLOOD ORDERABLES Final ResultPerforming OrganizationAddressCity/State/ZIP CodePhone Number [facility] * TB DRUG SCREEN RAPID [...] Performing OrganizationAddressCity/State/ZIP CodePhone Number CLINISYNC [facility] * OB transvaginal (06/17/2025 10:02 AM EDT)Anatomical [...] Santana MD Authorizing ProviderResult TypeResult StatusCorey Stephanie [facility] OB US PROCEDURES Final Result * (ABNORMAL) POCT , urine manually [...] 3 Months Insurance Care Teams Team MemberRelationshipSpecialtyStart DateEnd Date Oliver Montelongo MD [address] [place] [address] PCP - GeneralFamily Medicine10/05/24
--- OUTSIDE RECORDS SUMMARY | 2025-07-30 15:46 | XMS_ITS | Encounter Summary ---
Author Organization [facility] Address [address] [place] [address] Care Team Providers Care Barley Steeper Name Role Phone Oliver Montelongo MD Primary Care Provider [phone] Encounter Details DateTypeDepartmentCare Team (Latest Contact Info)Bpfhvzkstlx38/02/2025amboo flowsheet [facility] [address] [place] [address] Vickey Brown DO [address] [place], [place] [id number] Social History Tobacco UseTypesPacks/DayYears UsedDateSmoking Tobacco: NeverSmokeless Tobacco: Never Comments:sencond hand from f bertha Alcohol UseStandard Drinks/WeekCommentsNever0 (1 standard drink = 0.6 oz pure alcohol)Estimated Date of SgaklnkaUxlxbcoxHzr51/13/2026Based on last menstrual period of 04/23/2025Sex and Gender InformationValueDate RecordedSex Assigned at IoevqSyxtwr97/10/2024 11:52 AM EDTLegal VuaLlwqnr84/17/2023 4:30 PM EDTGender PvyxkejuIkfmad97/10/2024 11:52 AM EDTSexual OrientationNot on file documented as of this encounter Plan of Treatment DateTypeDepartmentCare Team (Latest Contact Info)Zbcpgaabtnf32/05/2026 2:50 PM ESTRoutine [facility] [address] [place] [address] Vickey Brown DO [address] [place], [place] [id number] documented as of this encounter Visit Diagnoses Not on filedocumented in this encounter Care Teams Team MemberRelationshipSpecialtyStart DateEnd Date Oliver Montelongo MD [address] [facility] [place] [phone] PCP - GeneralFamily Medicine10/05/24documented as of this encounter
--- OUTSIDE RECORDS SUMMARY | 2025-07-30 15:46 | XMS_ITS | Encounter Summary ---
Author Organization [facility] Address [address] [place] [address] Care Team Providers Care Manager Chinese Name Role Phone Oliver Montelongo MD Primary Care Provider [phone] Encounter Details DateTypeDepartmentCare Team (Latest Contact Info)Mlqfzxtwmcx67/09/2025Telephone [facility] [address] [place] [address] Libia David MA [address] [place] [address] Social History Tobacco UseTypesPacks/DayYears UsedDateSmoking Tobacco: NeverSmokeless Tobacco: Never Comments:sencond hand from f amily Alcohol UseStandard Drinks/WeekCommentsNever0 (1 standard drink = 0.6 oz pure alcohol)Estimated Date of ObcaxmvuDerbzxqxQei27/13/2026ased on last menstrual period of 04/23/2025Sex and Gender InformationValueDate RecordedSex Assigned at DbktcFnbuok87/10/2024 11:52 AM EDTLegal EfyKbjfhy44/17/2023 4:30 PM EDTGender HgqlessvMuwdxs28/10/2024 11:52 AM EDTSexual OrientationNot on file documented as of this encounter Miscellaneous Notes * Telephone Encounter - Libia David MA - 07/26/2025 9:04 AM EST Pt called is having shortness of breath each time she takes a breath in. And pain in the center of her back. Pt also stated she is 13 weeks and has a UTI on top of her breathing issue. I advised the patient I will send in macrobid and that she should go to the hosptial to get checked out due to shortness of breath/pain. PVU. documented in this encounter Plan of Treatment DateTypeDepartmentCare Team (Latest Contact Info)Fmhfsorzptj00/05/2026 2:50 PM ESTRoutine [facility] [address] [place] [place] [address] Vickey Brown DO [address] [facility] [address] [place], [place] [id number] documented as of this encounter Visit Diagnoses Diagnosis Urinary tract infection without hematuria, site unspecified documented in this encounter Care Teams Team MemberRelationshipSpecialtyStart DateEnd Date Oliver Montelongo MD [address] [facility] [place] [address] PCP - GeneralFamily Medicine10/05/24documented as of this encounter
--- OUTSIDE RECORDS SUMMARY | 2025-07-30 15:47 | XMS_ITS | Patient Health Record ---
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 Ordering Physician: Ian Montelongo M.D. Date of Service: 09/11/24 Procedure(s): US renal bladder Accession Number(s): [id number] cc: Ian Montelongo M.D. [place] [address] Patient Name: MIHIR WOOD MRN: [id number] date: 2005 Sex: F Assigned Patient Location: US Current Patient Location: Accession/Order Number: [id number] Exam Date: 09/11/2024 10:43 Report Date: 09/14/2024 [...] Signed By: 09/14/24 0452 DD/ 0449 TD/TT: Bakery Machine Mechanic: CBC AUTO DIFF Reviewed date:08/18/2024 03:47:54 PM Interpretation: Performing Lab: Notes/Report: [facility] , White Blood Count 7.3 4.0-11.0 10 3/uL Red Blood Count4.914.20-5.40 10 6/iRTqurjpgaek63.112.0-16.0 g/oQTofxtftjlg74.1 36.0-48.0 %Mean Corpuscular Hesvrv77.881.0-99.0 fLMean Corpuscular Hemoglobin 28.726.7-34.0 pgMean Corpuscular HGB Conc32.729.9-35.2 g/dLRed Cell Distribution Width12.411.0-15.0 %Platelet Immto902909-857 10 3/uLMean Platelet Volume8.89.5- 13.5 fLNeutrophils Percent Auto54.943.0-75.0 %Lymphocytes Percent Auto33.920.5- 60.0 %Monocytes Percent Auto8.71.7-12.0 %Eosinophils Percent Auto1.70.9-7.0 % Basophils Percent Auto0.70.2-2.0 %Immature Granulocytes Pct Auto0.10.0-0.5 % Neutrophils Absolute Auto4.01.4-6.5 10 3/uLLymphocytes Absolute Auto2.51.2-3.8 10 3/uLMonocytes Absolute Auto0.60.3-0.8 10 3/uLEosinophils Absolute Auto0.10.0- 0.7 10 3/uLBasophils Absolute Auto0.10.0-0.1 10 3/uLImmature Granulocytes Abs Auto0.010.00-0.03 10 3/uLPerforming Lab:see noteML - [facility] LB FREE T3 Reviewed date:08/18/2024 03:47:54 PM Interpretation: Performing Lab: Notes/Report: [facility] ,Free T33.132.91-4.70 pg/mLPerforming Lab:see noteML - [facility] LB LIPID PROFILE Reviewed date:08/18/2024 03:47:54 PM Interpretation: Performing Lab: Notes/Report: [facility] ,Skgpdxfbijdlr9050-152 mg/nWLizgcyqwenr057088-390 mg/dLHDL Nxrwudtqwet2353-44 mg/dL <40 mg/dl - HIGH CARDIOVASCULAR RISK > or =60 mg/dl - LOW CARDIOVASCULAR RISK LDL Cholesterol Vtjmlgxsys31.4 100-129 mg/dl NEAR OR ABOVE OPTIMAL 130-159 mg/dl BORDERLINE HIGH >190 mg/dl VERY HIGH <100 mg/dl OPTIMAL 160-189 mg/dl HIGH VLDL HMJZXDLKQBB03.6Chol HDL Ratio2.8 >11.0 HIGH RISK 7.1 - 11.0 MODERATE RISK 3.3 - 4.4 LOW RISK 4.4 - 7.1 AVERAGE RISK Performing Lab:see noteML - [facility] LBPROF 14(COMP METB) Reviewed date:08/18/2024 03:47:54 PM Interpretation: Performing Lab: Notes/Report: [facility] ,Yagxji371175-629 mmol/LPotassium4.43.5-5.1 mmol/YZxwkaybd37538-227 mmol/LCarbon Myxsity62.321.0-32.0 mmol/LAnion Gap11.4Vptxgnv2036-286 mg/dLBlood Urea Nitrogen 14.06.4-19.3 mg/dLCreatinine0.990.55-1.02 mg/dLEstimated GFR ( Felecia>60 >=60 mL/min/1.73m 2Estimated GFR (Non- Aptricia>60>=60 mL/min/1.73m 2BUN Creatinine Ratio14.4Kxvusrd4.28.5-10.1 mg/dLBilirubin Total0.30.2-1.0 mg/dL Aspartate Amino Cogfqmxvfns0163-65 U/LAlanine Hxoknrqgeqxrdqke1313-88 U/L Alkaline Raiaszkvsso9511-049 U/LTotal Protein7.76.4-8.2 g/dLAlbumin Level3.93.4- 5.0 g/dLGlobulin3.8Albumin Globulin Ratio1.0Performing Lab:see noteML - [facility] LBT4 Reviewed date:08/18/2024 03:47:54 PM Interpretation: Performing Lab: Notes/Report: [facility] ,T4 Thyroxine8.505.40-10.60 ug/dLPerforming Lab:see noteML - [facility] LBTSH Reviewed date:08/18/2024 03:47:54 PM Interpretation: Performing Lab: Notes/Report: [facility] ,Thyroid Stimulating Hormone4.1900.516-4.130 uIU/mLPerforming Lab:see noteML - [facility] LBCBC AUTO DIFF Reviewed date:08/25/2024 07:20:00 PM Interpretation: Performing Lab: Notes/Report: [facility] ,White Blood Count8.44.0-11.0 10 3/uLRed Blood Count5.234.20-5.40 10 6/uL Gimpdozhsi02.012.0-16.0 g/kVEtpgzkelmz18.636.0-48.0 %Mean Corpuscular Qgjmfe10.2 81.0-99.0 fLMean Corpuscular Usevzjbdfu26.726.7-34.0 pgMean Corpuscular HGB Conc 32.929.9-35.2 g/dLRed Cell Distribution Width12.611.0-15.0 %Platelet Wposk799 150-450 10 3/uLMean Platelet Volume8.89.5-13.5 fLNeutrophils Percent Auto58.9 43.0-75.0 %Lymphocytes Percent Auto30.620.5-60.0 %Monocytes Percent Auto8.61.7- 12.0 %Eosinophils Percent Auto1.20.9-7.0 %Basophils Percent Auto0.60.2-2.0 % Immature Granulocytes Pct Auto0.10.0-0.5 %Neutrophils Absolute Auto4.91.4-6.5 10 3/uLLymphocytes Absolute Auto2.61.2-3.8 10 3/uLMonocytes Absolute Auto0.70.3-0.8 10 3/uLEosinophils Absolute Auto0.10.0-0.7 10 3/uLBasophils Absolute Auto0.10.0- 0.1 10 3/uLImmature Granulocytes Abs Auto0.010.00-0.03 10 3/uLPerforming Lab:see noteML - [facility] LBPROF 14(COMP METB) Reviewed date:08/25/2024 07:20:00 PM Interpretation: Performing Lab: Notes/Report: [facility] ,Cblpuz250052-535 mmol/LPotassium4.03.5-5.1 mmol/ZGduelnef48048-819 mmol/LCarbon Dfchofo53.121.0-32.0 mmol/LAnion Gap14.9Mgwespm6719-974 mg/dLBlood Urea Nitrogen 13.06.4-19.3 mg/dLCreatinine0.950.55-1.02 mg/dLEstimated GFR ( Felecia>60 >=60 mL/min/1.73m 2Estimated GFR (Non- Patricia>60>=60 mL/min/1.73m 2BUN Creatinine Ratio13.7Bazlnya7.08.5-10.1 mg/dLBilirubin Total0.30.2-1.0 mg/dL Aspartate Amino Yjjjyjjhljf2066-82 U/LAlanine Zrsugspusfpqhjly7133-11 U/L Alkaline Vtdzalcmhet5628-274 U/LTotal Protein8.26.4-8.2 g/dLAlbumin Level4.13.4- 5.0 g/dLGlobulin4.1Albumin Globulin Ratio1.0Performing Lab:see noteML - [facility] LBURINE MICROSCOPIC ONLY Reviewed date:08/25/2024 07:20:00 PM Interpretation: Performing Lab: Notes/Report: [facility] ,WBC Cnltr17-50TEPL SEEN #/HPFRBC UrineNONE SEEN0-2 #/HPFBacteria UrineLARGENONE SEEN #/HPFMucus UrineNONE SEENNONE SEENSquamous Epithelial Cell UrineMODERATE NONE/RARE #/LPFUrine Culture IndicatedYESPerforming Lab:see note - [facility] LBHCG Qualitative Urine Reviewed date:08/25/2024 07:20:00 PM Interpretation: Performing Lab: Notes/Report: [facility] ,HCG Qualitative Urine*NEGATIVENEGATIVEPerforming Lab:see [facility] LBBox Test Reviewed date:08/29/2024 10:43:25 AM Interpretation: Performing Lab: Notes/Report: [facility] ,BOX Test Sent OutURINE CULTUREBOX Test Reference LabFIRELANDSBOX Test Date Sent 08/25/24BOX Test ResultSEE SCANNED REPORTPerforming Lab:see [facility] LBProgesterone Reviewed date:11/14/2024 04:21:20 PM Interpretation: Performing Lab: Notes/Report: [facility] ,Ewhrqrwwgmss51.0. ng/mL Luteal phase 1.8 - 23.[address] [place] [id number] Shell Assembler: Sonny Cox PhD, Phone: [phone] Postmenopausal 0.0 - 0.1 Performed at: [facility] Ovulation phase 0.1 - 12.0 Third trimester 58.7 - 214.0 Second trimester 25.4 - 83.3 Follicular phase 0.1 - 0.9 First trimester 11.0 - 44.3 Performing Lab:[facility] LBLAB TESTING Reviewed date:03/13/2025 09:37:49 PM Interpretation: Performing Lab: Notes/Report: [id number] Chromosome Analysis, Whole Blood (Constitutional) [facility] ,Miscellaneous TestCOMMENT. [facility] [address], [place] [id number], Diamond Die Driller, congenital anomalies due to other etiologies. Reference Range: . Cytogenetic Result Comment: KENNEY Performed at: [facility] banding pattern in all cells observed. revealed a FEMALE karyotype [place] [address], CLIA [id number], Diamond Die Driller, Reference Range: . NORMAL FEMALE KARYOTYPE Technical Component-Processing performed at [address] [facility], [place] [id number] Specimen Type Comment: MOULTON performed at GBHOA5, [facility] [address] [facility] [address], 46,XX Performed at: - [facility] RT Cells Counted 20 MOULTON Cells Karyotyped 2 MOULTON Shell Assembler: Sonny Cox PhD, Phone: [phone] Cells Analyzed 20 MOULTON Technical Component-Partial chromosome analysis performed by, TLBX.meOctavioEASTERN NEW MEXICO MEDICAL CENTERSolx [id number]. Environmental Permitting Specialist, Henry Canales M.D., Ph.D. Reference Range: . [address], [place] [address], [facility] FEDERICO New PhD. Reference Range: . Shell Assembler: Henry Canales [facility], Phone: [phone] Reference Range: . rearrangements below the resolution of cytogenetics or performed at [facility], [facility] [address] [facility], Director Review: Comment: KENNEY Teran, PhD, [facility], Professional Component Katie New PhD. [employer], [facility] [id number], [address], [facility], [place] Reference Range: . GTG Band Resolution Achieved 500 MOULTON Technical Component- Partial chromosome analysis Reference Range: . Test Ordered: [id number] Chromosome, Blood, Routine Reference Range: . [address] [place], [place] [id number] Interpretation Comment: MOULTON 1000[address]. Environmental Permitting Specialist, Henry Canales MD,PhD Cytogenetic analysis of PHA stimulated cultures has This result does not exclude the possibility of subtle BLOOD Performing Lab:see note - [facility] LBPREG QUANT HCG Reviewed date:05/23/2025 12:56:54 PM Interpretation: Performing Lab: Notes/Report: [facility] ,HCG Vvklpqheekgg588 10,000-100,000 5-6 WEEKS 100-5,000 2-3 WEEKS 1,000-50,000 4-5 WEEKS 50-500 1-2 WEEKS 15,000-200,000 6-8 WEEKS 10,000-100,000 2-3 MONTHS 500-10,000 3-4 WEEKS 5-50 0.2-1 WEEK Performing Lab:see noteML - [facility] LBPREG QUANT HCG Reviewed date:05/25/2025 12:28:31 PM Interpretation: Performing Lab: Notes/Report: [facility] ,HCG Mvahigvbqnpt2764 10,000-100,000 5-6 WEEKS 100-5,000 2-3 WEEKS 50-500 1-2 WEEKS 10,000-100,000 2-3 MONTHS 1,000-50,000 4-5 WEEKS 15,000-200,000 6-8 WEEKS 500-10,000 3-4 WEEKS 5-50 0.2-1 WEEK Performing Lab:see noteML - [facility] LBCBC AUTO DIFF Reviewed date:06/26/2025 04:48:00 PM Interpretation: Performing Lab: Notes/Report: [facility] ,White Blood Count10.24.0-11.0 10 3/uLRed Blood Count4.724.20-5.40 10 6/uL Vmcuhjmkoz63.012.0-16.0 g/eVRjcrdpgutw30.036.0-48.0 %Mean Corpuscular Lomxgz86.9 81.0-99.0 fLMean Corpuscular Pwwhkfoxpw95.726.7-34.0 pgMean Corpuscular HGB Conc 34.129.9-35.2 g/dLRed Cell Distribution Width13.011.0-15.0 %Platelet Cqefr299 150-450 10 3/uLMean Platelet Volume8.79.5-13.5 fLNeutrophils Percent Auto76.2 43.0-75.0 %Lymphocytes Percent Auto17.720.5-60.0 %Monocytes Percent Auto5.11.7- 12.0 %Eosinophils Percent Auto0.40.9-7.0 %Basophils Percent Auto0.40.2-2.0 % Immature Granulocytes Pct Auto0.20.0-0.5 %Neutrophils Absolute Auto7.81.4-6.5 10 3/uLLymphocytes Absolute Auto1.81.2-3.8 10 3/uLMonocytes Absolute Auto0.50.3-0.8 10 3/uLEosinophils Absolute Auto0.00.0-0.7 10 3/uLBasophils Absolute Auto0.00.0- 0.1 10 3/uLImmature Granulocytes Abs Auto0.020.00-0.03 10 3/uLPerforming Lab:see note - [facility] LBDRUG SCREEN RAPID (URINE) Reviewed date:06/26/2025 04:48:00 PM Interpretation: Performing Lab: Notes/Report: [facility] ,Cannabinoid Screen UrineNEGATIVENEGATIVEPhencyclidine Screen UrineNEGATIVE NEGATIVECocaine Screen [...] (Amphetamine): 500 ng/mL Performing Lab:see note - [facility] LBGLYCOHEMOGLOBIN A1C Reviewed date:06/26/2025 04:48:00 PM Interpretation: Performing Lab: Notes/Report: [facility] ,Glycohemoglobin A1C5.04.5-6.2 % ADA THERAPEUTIC TARGET < 7.0 ADA RECOMMENDED LIMIT 4.0 - 6.0 > 7.0 ACTION SUGGESTED Estimated Average Kynhfkk12Eesbqpvkpx Lab:see note - [facility] LB TSH Reviewed date:06/26/2025 04:48:00 PM Interpretation: Performing Lab: Notes/Report: [facility] ,Thyroid Stimulating Hormone1.4360.358-3.740 uIU/mLPerforming Lab:see note - [facility] LBHIV Ab/p24 Ag with Reflex Reviewed date:06/26/2025 04:48:00 PM Interpretation: Performing Lab: Notes/Report: [facility] ,HIV Ab/p24 Ag ScreenNon ReactiveNon Reactive HIV-1/HIV-2 antibodies and HIV-1 p24 antigen were NOT Performed at: [facility] Shell Assembler: Sonny Cox PhD, Phone: [phone] [address] [place] [phone] detected. There is no laboratory evidence of HIV infection. HIV Negative Performing Lab:[facility] LBRapid Plasma Reagin, Quant Reviewed date:06/26/2025 04:48:00 PM Interpretation: Performing Lab: Notes/Report: [facility] ,Rapid Plasma Reagin, QuantNon ReactiveNonRea<1:1 titer Treponema pallidum (Syphilis) Screening [place] (668860) or Rapid Plasma Reagin (RPR) Test With Reflex to Quantitative treated for syphilis infection. To screen for syphilis Please Note: This test does not meet current guidelines for screening and diagnosis of syphilis. This test is (270620). RPR and Confirmatory Treponema pallidum Antibodies intended for following treatment response in patients being [address] [place] [address] [phone] infection, a reflex cascade that includes both RPR and a treponema-specific assay should be utilized, such as Performed at: [facility] Shell Assembler: Sonny Cox PhD, Phone: [phone] Performing Lab:[facility] LBHBsAg Screen Reviewed date:06/26/2025 04:48:00 PM Interpretation: Performing Lab: Notes/Report: [facility] ,HBsAg ScreenNegativeNegative Performed at: [facility] Shell Assembler: Sonny Cox PhD, Phone: [phone] [address] [place], [place] [phone] Performing Lab:[facility] LBUrine Culture, Routine Reviewed date:06/27/2025 01:34:07 PM Interpretation: Performing Lab: Notes/Report: [facility] ,Urine Culture, RoutineSee Below For Report Urine Culture, Routine Urine Culture, RoutineMixed urogenital angela Urine Culture, Routine Urine Culture, RoutineLess than 10,000 colonies/mL Urine Culture, Routine Urine Culture, RoutinePerformed at: [facility] Urine Culture, Routine Urine Culture, [address] [place], [place] [phone] Urine Culture, Routine Urine Culture, RoutineLab Director: Sonny Cox PhD, Phone: [phone] Urine Culture, Routine Performing Lab:see note SEE REPORT - Insurance Verification Clerk Id information not found for OBX-specific 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 Date of Service: 07/07/25 Procedure(s): US OB transvaginal Accession Number(s): [id number] cc: Ian Montelongo M.D.; Brandon Stoddard M.D. [place] [address] Patient Name: MIHIR WOOD MRN: [id number] date: 2005 Sex: F Assigned Patient Location: ED.MAIN Current Patient Location: ED.MAIN Accession/Order Number: [id number] Exam Date: 07/07/2025 11:30 Report Date: 07/07/2025 12:31 At the request of: BRANDON STODDARD MD Procedure: US OB transvaginal OB ultrasound. Reason for exam:Passed tissue today. Comparison:None Technique: Transvaginal imaging of the gravid uterus was obtained. Findings: Single live intrauterine measuring 11 weeks 3 days by CRL RYAN 01/23/2026. heart rate 170 bpm. No free fluid. Ovaries appear unremarkable. US/US OB transvaginal Impression: Single live intrauterine 11 weeks 3 days by CRL RYAN 01/23/2026. Impression dictated by: Gabriel White Jr., D.O. 07/07/2025 12:31 PM Dictation Location: [place] [address] Electronically authenticated by: [id number] Y Date: 07/07/2025 12:31 Dictated By: Gabriel White M.D. Signed By: 07/07/25 1234 DD/ 1231 TD/TT: Bakery Machine Mechanic:HCV Antibody RFX to Quant PCR Reviewed date:06/26/2025 04:48:00 PM Interpretation: Performing Lab: Notes/Report: [facility] ,HCV AbNon ReactiveNon ReactiveInterpretation:Comment. infection. Performed at: [address] [phone] individual), or other evidence exists to indicate HCV Shell Assembler: Sonny Cox PhD, Phone: [phone] Not infected with HCV unless early or acute infection is suspected (which may be delayed in an immunocompromised Performing Lab:see noteLC - [facility] LBType and Screen Reviewed date:06/26/2025 04:48:00 PM Interpretation: Performing Lab: Notes/Report: [facility] ,Blood TypeO PositiveAntibody ScreenNEGATIVERUBELLA AB IGG Reviewed date:06/26/2025 04:48:00 PM Interpretation: Performing Lab: Notes/Report: [facility] ,Rubella Antibodies, IgG1.77Immune >0.99 index Shell Assembler: Sonny Cox PhD, Phone: [phone] [address] [place] [phone] Performed at: [facility] Immune >0.99 Equivocal 0.90 - 0.99 Non-immune <0.90 Performing Lab:see note - [facility] LBPREG QUANT HCG Reviewed date:04/04/2025 07:26:10 PM Interpretation: Performing Lab: Notes/Report: [facility] ,HCG Quantitative<1 1,000-50,000 4-5 WEEKS 50-500 1-2 WEEKS 5-50 0.2-1 WEEK 15,000-200,000 6-8 WEEKS 500-10,000 3-4 WEEKS 10,000-100,000 5-6 WEEKS 100-5,000 2-3 WEEKS 10,000-100,000 2-3 MONTHS Performing Lab:see noteML - [facility] LBFactor II, DNA Analysis Reviewed date:03/02/2025 08:22:01 PM Interpretation: Performing Lab: Notes/Report: [facility] ,Factor II, DNA AnalysisComment. Genetic Coordinators are available for health care providers to discuss risk for venous thromboembolism. Homozygotes for the c.*97G>A variant implications of positive results, as well as recommendations for References: thromboembolism. Heterozygous carriers have a 2- to 4-fold increased mislabeled samples, or erroneous representation of family [facility] [facility]. Venous thromboembolism information for the most accurate interpretation. Molecular-based [Updated 2020Sep 21]. In: Bjorn MP, Annie HH, Brooke RA, et al., Variant analyzed: c.*97G>A, previously referred to as E56584C PMID: 19007966. 2018 update: a technical standard of the [employer] immobilization, malignant neoplasm, tamoxifen treatment, raloxifene fold increased risk for venous thromboembolism. Risks are likely to Practice and Guidelines Committee. Addendum: [employer] be even higher in more complex genotype combinations involving the Medical Genetics consensus statement on factor V Leiden mutation treatment, oral contraceptive use, hormone replacement therapy, and testing family members. by [facility]. It has not been cleared or approved by the Food and Drug genetic, environmental, and circumstantial risk factors. The c.*97G>A Genetics and Genomics ([facility]). Antonia Med. 2018 Jul;20(12):4412-4495. Comments: https://www.ncbi.nlm.nih.gov/books/JGD4521/ This result is not associated with an increased risk for venous laboratory testing (factor V Leiden and factor II c.*97G>A), variant in the F2 gene is a genetic risk factor for venous results at [phone] (4363). F2 gene and a c.1601G>A (p. Fxm993Ygd) variant in the F5 gene amplification followed by restriction enzyme analysis. The diagnostic Genetic counseling is recommended to discuss the potential clinical (commonly referred to as Factor V Leiden) have an approximately 20- for reasons that include genetic variants, blood transfusions, bone Test Details: history of deep vein thromboembolism, smoking, surgery, prolonged sensitivity is >99%. Results must be combined with clinical doi: 10.1038/j38780-849-5672-t. Epub 2017May 22. PMID: 63543365. Result: c.*97G>A - Not Detected protein S, or antithrombin III, age, male sex, personal or family result cannot predict the occurrence or recurrence of a thrombotic are rare. The annual risk of VTE in homozygotes has been reported to event. Venous thromboembolism is a multifactorial disease influenced by Katie Lopes, Laurel PONCE, Cornelius R, Dinora WW, Adarsh WETZEL; [facility] Professional Methods/Limitations: relationships. Additional Clinical Information: testing is highly accurate, but as in any laboratory test, diagnostic editors. Frances(R) [Internet]. [place] ([place]): [facility] analysis of the F2 gene (NM_000506.5) was performed by PCR This test was developed and its performance characteristics determined be 1.1%/year. Individuals who carry both a c.*97G>A variant in the errors may occur. False positive or false negative results may occur [facility] [address]; 5572-3353. Available from: F2 c.*97G>A variant and Factor V Leiden (PMID: 93522329). Additional . Management of thrombotic risk and thrombotic events should testing. Antonia Med. 2020Oct 20. doi: 10.1038/j84002-611-30078-d. Comments. Administration. follow established guidelines and fit the clinical circumstance. This marrow transplantation, somatic or tissue-specific mosaicism, Albert S, Laurel PONCE, Parish X, Paul B, Mike EB, Palma P, Marixa CS; thromboembolism. See Additional Clinical Information and Baljeet LORA. Prothrombin Thrombophilia. 2005Mar 11 risk factors include but are not limited to: deficiency of protein C, Reviewed ByComment. Shell Assembler: Henry Canales [facility], Phone: [phone] Technical Component performed at [facility] RT Performed at: [facility] RT [id number], [facility], [address] Professional Component performed by: RTP [place] [address] [address], PhD, [facility] [address] RTP, [place] [phone] Performing Lab:[facility] LBFactor V Leiden Mutation Reviewed date:03/02/2025 08:22:01 PM Interpretation: Performing Lab: Notes/Report: [facility] ,Factor V Leiden MutationComment. on each chromosome) have an approximately 80-fold increased Comment: of the [employer] and Genomics [id number]. Addendum: [employer] Gen[employer] consensus False positive or false negative results may occur for risk factors. The c.1601G>A (p. Dbb391Qyy) variant in the complex genotype combinations involving the F2 c.*97G>A providers to discuss results at [address] [place] [address] (7043). DNA analysis of the F5 gene (NM_000130.5) was genetic risk factor for venous thromboembolism. homozygous for this variant (ie, with a copy of the variant et al., editors. Frances(R) (Internet). [place] ([place]): Result: c.1601G>A (p.Alx787Nbc) - Not Detected protein C, protein S, or antithrombin III, age, male sex, neoplasm, tamoxifen treatment, raloxifene treatment, oral Venous thromboembolism laboratory testing (factor V Leiden This test was developed and its performance Test Details: Heterozygous carriers of this variant have a 6- to 8-fold [facility]; [id number]. Available reasons that include genetic variants, blood [...] smoking, surgery, prolonged immobilization, malignant Calvin CS; [facility] Laboratory Gas Cutter Committee. Additional Clinical Information: of family relationships. [facility] Professional Practice and Guidelines Committee. This result is not associated with an increased risk for venous risk for venous thromboembolism. Individuals who carry both ([facility]). [facility]. 2018 Jul;20(12): 3614-9523. doi: Genetic counseling is recommended to discuss the cleared or approved by the Food and Drug Administration. statement on factor V Leiden mutation testing. [facility] performed by PCR amplification followed by electrophoresis. variant and Factor V Leiden (PMID: 76743961). Additional risk factors include but are not limited to: deficiency of thromboembolism. See Additional Clinical Information and References: a c.*97G>A variant in the F2 gene and Factor V Leiden have Variant Analyzed: c.1601G>A (p. Trd190Iwm), referred potential clinical implications of positive results, as 2020Oct 20. doi: 10.1038/m43875-546-86525-w. PMID: The diagnostic sensitivity is >99%. Results must be . Management of thrombotic risk and thrombotic from: https://www.ncbi.nlm.nih.gov/books/DSO6745/ 10.1038/j21441-850-0921-g. Epub 2017May 22. PMID: 27295805. occurrence or recurrence of a thrombotic event. [...] available for health care Reviewed ByComment. [address] [place], [place] [id number] Shell Assembler: Henry Canales [facility], Phone: [phone] Greer Jacinto, Ph.D., FACMG Performed at: - [facility] Performing Lab:see noteLC - [facility] Reviewed date:09/08/2024 04:48:07 PM Interpretation: Performing Lab: Notes/Report: [facility] ,Thyroid Stimulating Hormone2.6660.516-4.130 uIU/mLPerforming Lab:see noteML - [facility] LBT4 Reviewed date:09/08/2024 04:48:07 PM Interpretation: Performing Lab: Notes/Report: [facility] ,T4 Thyroxine7.605.40-10.60 ug/dLPerforming Lab:see noteML - [facility] LBFREE T3 Reviewed date:09/08/2024 04:48:07 PM Interpretation: Performing Lab: Notes/Report: [facility] ,Free T32.752.91-4.70 pg/mLPerforming Lab:see noteML - [facility] LB SARS-CoV-2 Ag* Reviewed date:08/25/2024 07:20:00 PM Interpretation: Performing Lab: Notes/Report: [facility] ,SARS-CoV-2 AgNEGATIVENEGATIVE the detection of proteins from [...] - [facility] LBUA (CLEAN or CATCH) MANIFOLD OPERATOR or MICRO IF IND. Reviewed date:08/25/2024 07:20:00 PM Interpretation: Performing Lab: Notes/Report: [facility] ,Color UrineLT. YELLOWYELLOWClarity UrineCLEARCLEARSpecific [place] Urine>=1.030 1.005-1.025pH Urine6.05.0-9.0Protein UrineNEGATIVENEG/TRACE mg/dLGlucose Urine UANEGATIVENEGATIVE mg/dLBilirubin UrineNEGATIVENEGATIVEKetones UrineNEGATIVE NEGATIVE mg/dLBlood UrineNEGATIVENEGATIVENitrite UrinePOSITIVENEGATIVE Urobilinogen Urine0.20.2-1.0 EU/dLLeukocyte Esterase UrineMODERATENEGATIVEUrine Microscopic IndicatedYESPerforming Lab:see noteML - [facility] INFLUENZA A AND B AG Reviewed date:08/25/2024 07:20:00 PM Interpretation: Performing Lab: Notes/Report: [facility] ,Influenza Virus A AntigenNegative Negative for Flu [...] sample may be Performing Lab:see noteML - [facility] LBIRON Reviewed date:08/18/2024 03:47:54 PM Interpretation: Performing Lab: Notes/Report: [facility] ,Iron48.050.0-170.0 ug/dLPerforming Lab:see note - [facility] INSULIN Reviewed date:08/22/2024 08:57:18 PM Interpretation: Performing Lab: Notes/Report: [facility] ,Mvlmotg21.02.6-24.9 uIU/mL Shell Assembler: Sonny Cox PhD, Phone: [phone] Performed at: [address] [id number] Performing Lab[facility] LBGLYCOHEMOGLOBIN A1C Reviewed date:08/18/2024 03:47:54 PM Interpretation: Performing Lab: Notes/Report: [facility] ,Glycohemoglobin A1C5.54.5-6.2 % > 7.0 ACTION SUGGESTED ADA THERAPEUTIC TARGET < 7.0 ADA RECOMMENDED LIMIT 4.0 - 6.0 Estimated Average Gwqjyud916Tpmiawtduu Lab:see noteML - [facility] LB [place] Box Reviewed date:06/26/2025 04:48:00 PM Interpretation: Performing Lab: Notes/Report: [facility] ,BOX Test Sent OutUNITYBOX Test Reference LabUNITYBOX Test Date Sent06/25/25 Performing Lab:see noteML - [facility] LB Reason For Referral Diagnosis 1 Carpal tunnel syndro me (G56.00) Referral Organization [facility] Referring Provider First Name Rogelio Referring Provider Last Name Jayda Referring Provider Speciality Family [facility] lakshmi Referred Provider [facility] [...] alcohol in the p ast year? No Encdxj2KohlsrcndbzmlhHnyggfpc Problems Problem Type SNOMED Code ICD Code Onset Dates Problem Status W/U Status Risk Notes Problem Recurrent urinary tract infection (875352 001) Recurrent UTI (N39.0) ActiveconfirmedProblemAsthma (913002633)Asthma (J45.909)ActiveconfirmedProblem Carpal tunnel syndrome (06555268)Carpal tunnel syndrome (G56.00)Activeconfirmed ProblemAnxiety (44132711)Anxiety (F41.9)ActiveconfirmedProblemWell adult (975479483)Well adult (Z00.00)Activeconfirmed Vital Signs Blood pressure diastolic 70 mm Hg 02/28/2025 Ejockx86 in02/28/2025MI Hjkebncdcp77.91 %09/09/2024lood pressure tacpaqtu124 mm Hg02/28/20257905Swqxpp666.6 lbs02/28/2025BMI31.89 kg/m202/28/2025 Encounters Encounter Location Date Provider Diagnosis [facility] [address] [place] [address] 08/16/2024 Rogelio Aguilay Well adult Z00.00 [facility] [address] [place] [address] 09/09/2024 Rogelio Montelongo Recurrent UTI N39.0 [facility] [address] [place] [address] 12/29/2024 Rogelio Montelongo Carpal tunnel syndro me G56.00 [place] [address] [place] [address] 01/28/2025 Rogelio Aguilay Asthma J45.909 and Encounter for medication management Z79.899 [facility] [address] [place] [address] 02/28/2025 Rogelio Montelongo Asthma J45.909 [facility] [address] [place] [address] 08/18/2024 Rogelio Montelongo Low thyroid stimulat ing hormone (TSH) level R79.89 [facility] [address] [place] [address] 08/25/2024 Rogelio Hoy [facility] [place] [address] 08/29/2024[facility] [place] [address]/[facility] [place] [address]/[facility] [place] [address]/[facility] [place] [address]/Doug HoyCarpal tunnel syndrome G56.00 Assessments Encounter Date [...] PANEL (CHOL/TRIG/HDL/LDL) 08/16/20 24 CBC WITH DIFF (EXP 06/2025) 08/16/2024 Insulin Level 08/16/2024 THYROID PANEL (T4/TSH/FREE T3) 4 THYROID PANEL (T4/TSH/FREE T3) 5 Insurance Providers Payer Name Payer Address Payer Phone Subscriber Number Group Number Insured Name Patient Relationship to Insured Coverage Start Date Coverage End Date [employer] ACCESS PPO PLUS LOCAL PLAN [address] [place] [address] [id number] Yancy Wood - patient is the insured Medical (General) History Medical History History ICD Code Asthma J45.909 Anxiety F41.9 Surgical History Surgery Date(Month/Year) Tonsillectomy and addenoidectomy
--- OUTSIDE RECORDS SUMMARY | 2025-07-30 15:47 | XMS_ITS | Encounter Summary ---
Author Organization [facility] Address [address] [place] [address] Care Team Providers Care Feather Stitcher Name Role Phone Oliver Montelongo MD Primary Care Provider [phone] Encounter Details DateTypeDepartmentCare Team (Latest Contact Info)Mdistgfpmvk31/01/2025Travel Social History Tobacco UseTypesPacks/DayYears UsedDateSmoking Tobacco: Never Assessed Estimated Date of MydlgdtwYpnodcvrTiy57/13/2026ased on last menstrual period of 04/23/2025Sex and Gender InformationValueDate RecordedSex Assigned at BirthFemale 04/27/2024 11:52 AM EDTLegal WulRgihda73/17/2023 4:30 PM EDTGender Identity Rqqevf7404/27/2024 11:52 AM EDTSexual OrientationNot on filedocumented as of this encounter Plan of Treatment DateTypeDepartmentCare Team (Latest Contact Info)Wscjhrflqnd56/05/2026 2:50 PM ESTRoutine [facility] [address] [place] [address] Vickey Brown DO [address] [place] [address] documented as of this encounter Visit Diagnoses Not on filedocumented in this encounter Care Teams Team MemberRelationshipSpecialtyStart DateEnd Date Oliver Montelongo MD [address] [place] [address] PCP - GeneralFamily Medicine10/05/24documented as of this encounter
[2025-07-30 15:51] LABS: Cast Seen? NONE SEEN #/LPF (NONE SEEN); Crystals Seen? None Seen #/HPF (None Seen); Urine Culture Indicated NO
--- NOTE | 2025-07-30 15:56 | ED.GENADUL1 ---
HPI HPI - General Adult General Chief complaint: Back Pain/Injury Stated complaint: LOWER BACK PAIN, HEADACHE 14 WKS Time Seen by Provider: 07/30/25 15:01 Source: patient Mode of arrival: walk-in Related Data Previous Rx's ?Medication ?Instructions ?Recorded methocarbamol 500 mg tablet 500 mg PO Q8H PRN pain #20 tabs 12/27/24 prednisone 10 mg tablet See Rx Instructions .Route 12/27/24 .COMPLEX #30 tabs Allergies Allergy/AdvReac Type Severity Reaction Status Date / Time No Known Drug Allergies Allergy Verified 07/07/25 11:04 Opioid HPI Opioid Management Most Recent Opioid Data: Last Pain Scale 8 12/27/24, 13:53 Ur Phencyclidine Scrn, (NEGATIVE) Negative 06/25/25, 11:07 PFSH PFSH Social History Little interest or pleasure in doing things: not at all Feeling down, depressed, or hopeless: not at all Exam Constitutional Vital Signs, click to edit/add: Last Vital Signs Temp 98 F 07/30/25 15:20 Pulse 97 H 07/30/25 15:20 Resp 16 07/30/25 15:20 BP 139/72 07/30/25 15:20 Pulse Ox 99 07/30/25 15:20 Course Vital Signs Vital signs: Vital Signs Temperature 97.7 F 07/30/25 14:55 Pulse Rate 111 H 07/30/25 14:55 Respiratory Rate 18 07/30/25 14:55 Blood Pressure 124/92 H 07/30/25 14:55 Pulse Oximetry 100 07/30/25 14:55 Temperature 98 F 07/30/25 15:20 Pulse Rate 97 H 07/30/25 15:20 Respiratory Rate 16 07/30/25 15:20 Blood Pressure 139/72 07/30/25 15:20 Pulse Oximetry 99 07/30/25 15:20 Medical Decision Making MDM Narrative Medical decision making narrative: Urinalysis is negative. I suspect that this is muscular pain and the patient was reassured. Treatment diagnosis and follow-up were discussed with the patient. She was recommended to take Tylenol. Differential Diagnosis Differential Diagnosis: UTI, muscle pain Lab Data Lab results reviewed: Yes I reviewed the patient's lab results Labs: Lab Results 07/30/25 Range/Units 15:25 Urine Color Yellow (YELLOW) Urine Clarity Clear (CLEAR) Urine pH 5.5 (5.0-9.0) Ur Specific [place] >=1.030 A (1.005-1.025) Urine Protein Negative (NEG/TRACE) mg/dL Urine Glucose (UA) Negative (NEGATIVE) mg/dL Urine Ketones Negative (NEGATIVE) mg/dL Urine Occult Blood Negative (NEGATIVE) Urine Nitrite Negative (NEGATIVE) Urine Bilirubin Negative (NEGATIVE) Urine Urobilinogen 0.2 (0.2-1.0) EU/dL Ur Leukocyte Esterase Negative (NEGATIVE) Urine RBC 0-2 (0-2) #/HPF Urine WBC None seen (NONE SEEN) #/HPF Ur Squamous Epith Cells Few A (NONE/RARE) #/LPF Urine Crystals None seen (None Seen) #/HPF Urine Bacteria Trace A (NONE SEEN) #/HPF Urine Casts None seen (NONE SEEN) #/LPF Urine Mucus Trace A (NONE SEEN) Ur Culture Indicated? No Discharge Plan Discharge Chief Complaint: Back Pain/Injury Clinical Impression: Low back pain Patient Disposition: Home, Self-Care Time of Disposition Decision: 15:56 Condition: Good Mode of Transportation: Private Vehicle Prescriptions / Home Meds: No Action methocarbamol 500 mg tablet 500 mg PO Q8H PRN (Reason: pain) Qty: 20 0RF prednisone 10 mg tablet See Rx Instructions .ROUTE .COMPLEX Qty: 30 0RF Rx Instructions: 4 by mouth daily for three days then 3 by mouth daily for three days then 2 by mouth daily for three days then 1 by mouth daily for three days Print Language: Ukrainian Instructions: Acute Low Back Pain (ED) Referrals: Oliver Montelongo MD [Primary Care Provider, Family Practice] - 1 week
--- NOTE | 2025-07-30 15:59 | ED_ITS ---
HPI HPI - General Adult General Chief complaint: Back Pain/Injury Stated complaint: LOWER BACK PAIN, HEADACHE 14 WKS Time Seen by Provider: 07/30/25 15:01 Source: patient Mode of arrival: walk-in History of Present Illness HPI narrative: 19-year-old female who is 1 para 0 at 14 weeks presents for lower back pain. She has had it for a few days. There is been no injury. She has no vaginal bleeding or abdominal pain. No dysuria or hematuria. Related Data Previous Rx's ?Medication ?Instructions ?Recorded methocarbamol 500 mg tablet 500 mg PO Q8H PRN pain #20 tabs 12/27/24 prednisone 10 mg tablet See Rx Instructions .Route 0 12/27/24 .COMPLEX #30 tabs Allergies Allergy/AdvReac Type Severity Reaction Status Date / Time No Known Drug Allergies Allergy Verified 07/07/25 11:04 Opioid HPI Opioid Management Most Recent Opioid Data: Last Pain Scale 8 12/27/24, 13:53 Ur Phencyclidine Scrn, (NEGATIVE) Negative , 11:07 Review of Systems ROS Narrative A ten point review of systems is negative except as noted above. PFSH PFSH Social History Little interest or pleasure in doing things: not at all Feeling down, depressed, or hopeless: not at all Exam Narrative Exam Narrative: Nurses note and vital signs reviewed General:The patient appears well and in no apparent distress.Patient is resting comfortably on cart. Skin:Warm, dry, no pallor noted.There is no rash noted. Head:Normocephalic, atraumatic Eye: Normal conjunctiva, no drainage Ears, Nose, Mouth, and Throat: oral mucosa is moist. Nares patent. Cardiovascular:Regular Rate and Rhythm Respiratory:Patient is in no distress, no accessory muscle use, lungs are clear to auscultation, no wheezing, rales or rhonchi Back: Her back is examined. There is no bruise rash or abrasion. She has no focal area of tenderness to palpation GI: Soft and nontender Musculoskeletal: The patient has no evidence of calf tenderness, no pitting edema, symmetrical pulses noted bilaterally Neurological:A&O, normal speech Psychiatric:Cooperative Constitutional Vital Signs, click to edit/add: Last Vital Signs Temp 98 F 07/30/25 15:20 Pulse 97 H 07/30/25 15:20 Resp 16 07/30/25 15:20 BP 139/72 07/30/25 15:20 Pulse Ox 99 07/30/25 15:20 Course Vital Signs Vital signs: Vital Signs Temperature 97.7 F 07/30/25 14:55 Pulse Rate 111 H 07/30/25 14:55 Respiratory Rate 18 07/30/25 14:55 Blood Pressure 124/92 H 07/30/25 14:55 Pulse Oximetry 100 07/30/25 14:55 Temperature 98 F 07/30/25 15:20 Pulse Rate 97 H 07/30/25 15:20 Respiratory Rate 16 07/30/25 15:20 Blood Pressure 139/72 07/30/25 15:20 Pulse Oximetry 99 07/30/25 15:20 Medical Decision Making MDM Narrative Medical decision making narrative: Urinalysis is negative. I suspect that her pain is muscular in nature. She was reassured and advised Tylenol and ice. Treatment diagnosis and follow-up were discussed with the patient. Differential Diagnosis Differential Diagnosis: UTI, muscle pain Lab Data Lab results reviewed: Yes I reviewed the patient's lab results Labs: Lab Results 07/30/25 Range/Units 15:25 Urine Color Yellow (YELLOW) Urine Clarity Clear (CLEAR) Urine pH 5.5 (5.0-9.0) Ur Specific [place] >=1.030 A (1.005-1.025) Urine Protein Negative (NEG/TRACE) mg/dL Urine Glucose (UA) Negative (NEGATIVE) mg/dL Urine Ketones Negative (NEGATIVE) mg/dL Urine Occult Blood Negative (NEGATIVE) Urine Nitrite Negative (NEGATIVE) Urine Bilirubin Negative (NEGATIVE) Urine Urobilinogen 0.2 (0.2-1.0) EU/dL Ur Leukocyte Esterase Negative (NEGATIVE) Urine RBC 0-2 (0-2) #/HPF Urine WBC None seen (NONE SEEN) #/HPF Ur Squamous Epith Cells Few A (NONE/RARE) #/LPF Urine Crystals None seen (None Seen) #/HPF Urine Bacteria Trace A (NONE SEEN) #/HPF Urine Casts None seen (NONE SEEN) #/LPF Urine Mucus Trace A (NONE SEEN) Ur Culture Indicated? No Discharge Plan Discharge Chief Complaint: Back Pain/Injury Clinical Impression: Low back pain Patient Disposition: Home, Self-Care Time of Disposition Decision: 15:56 Condition: Good Mode of Transportation: Private Vehicle Prescriptions / Home Meds: No Action methocarbamol 500 mg tablet 500 mg PO Q8H PRN (Reason: pain) Qty: 20 0RF prednisone 10 mg tablet See Rx Instructions .ROUTE .COMPLEX Qty: 30 0RF Rx Instructions: 4 by mouth daily for three days then 3 by mouth daily for three days then 2 by mouth daily for three days then 1 by mouth daily for three days Print Language: Solomon Islander Instructions: Acute Low Back Pain (ED) Referrals: Oliver Montelongo MD [Primary Care Provider, Family Practice] - 1 week
== END 2025-07-30 16:04 | disposition home or self-care (01) ==
PROVIDERS: Emergency Provider Emergency Medicine; PCP Family Medicine
DX: O99.891 Other specified diseases and conditions complicating pregnancy (principal); M54.50 Low back pain, unspecified; Z3A.14 14 weeks gestation of pregnancy
CPT/HCPCS: 81001; 99283

== ENCOUNTER 2025-08-13 14:37 | Emergency (ER) | payer BC, SELFPAY ==
[2025-08-13 14:55] VITALS: BP 139/79; PULSE 107; TEMP 37.5; O2SAT 100; BMI 33.4
--- NOTE | 2025-08-13 15:35 | ED.GENADUL1 ---
HPI HPI - General Adult General Chief complaint: Abdominal Pain Stated complaint: 16 WKS ; ABD CRAMPS, NAUSEA, CHILLS, Time Seen by Provider: 08/13/25 14:47 Source: patient Mode of arrival: walk-in Limitations: no limitations History of Present Illness HPI narrative: Patient is a 19-year-old female G1, P0 who is 16 weeks that presents with complaints of upper abdominal pain, nausea, headache, chills, loss of appetite, and diarrhea that started yesterday. She denies any contractions or vaginal bleeding or discharge. She denies any urinary symptoms such as dysuria, frequency, urgency, or retention. She has been following for her care with Dr. Brown. Related Data Previous Rx's ?Medication ?Instructions ?Recorded methocarbamol 500 mg tablet 500 mg PO Q8H PRN pain #20 tabs 12/27/24 prednisone 10 mg tablet See Rx Instructions .Route 12/27/24 .COMPLEX #30 tabs Allergies Allergy/AdvReac Type Severity Reaction Status Date / Time No Known Drug Allergies Allergy Verified 07/07/25 11:04 Opioid HPI Opioid Management Most Recent Opioid Data: Last Pain Scale 8 12/27/24, 13:53 Ur Phencyclidine Scrn, (NEGATIVE) Negative 06/25/25, 11:07 Review of Systems ROS Status of ROS 10 or more systems reviewed and unremarkable except as noted in history and below PFSH PFSH Social History Little interest or pleasure in doing things: not at all Feeling down, depressed, or hopeless: not at all Exam Narrative Exam Narrative: General: No distress, age-appropriate Skin: Warm, dry, no pallor. No rash. Head: Normocephalic, atraumatic. Neck: Supple, non-tender. Eye: Pupils are equal, round and EOMI. No scleral icterus. Ears, Nose, Mouth, and Throat: No nasal mucosal hypertrophy. Oral mucosa is moist, no posterior oropharynx erythema, uvula is mid-line Cardiovascular: Regular Rate and Rhythm without murmur, gallop or rub. Respiratory: No accessory muscle use or respiratory distress. Lungs are clear to auscultation, no wheezing, rales or rhonchi Chest Wall: no tenderness Musculoskeletal: Full ROM of all extremities, no calf or popliteal tenderness GI: Abdomen is soft, gravid, mildly tender LUQ/RUQ tenderness with palpation. No masses appreciated. No rebound, guarding, or rigidity noted. Neurological: A&O x4. No cranial nerve dysfunction observed. No truncal ataxia. Moves all extremities. Sensation intact. Psychiatric: Cooperative and interactive. Normal mood and affect. Constitutional Vital Signs, click to edit/add: Last Vital Signs Temp 99.5 F 08/13/25 14:55 Pulse 107 H 08/13/25 14:55 Resp 18 08/13/25 14:55 BP 139/79 08/13/25 14:55 Pulse Ox 100 08/13/25 14:55 O2 Del Method Room Air 08/13/25 14:55 Documenting provider has reviewed patient's vital signs: yes Course Vital Signs Vital signs: Vital Signs Temperature 99.5 F 08/13/25 14:55 Pulse Rate 107 H 08/13/25 14:55 Respiratory Rate 18 08/13/25 14:55 Blood Pressure 139/79 08/13/25 14:55 Pulse Oximetry 100 08/13/25 14:55 Oxygen Delivery Method Room Air 08/13/25 14:55 Temperature 99.5 F 08/13/25 14:55 Pulse Rate 107 H 08/13/25 14:55 Respiratory Rate 18 08/13/25 14:55 Blood Pressure 139/79 08/13/25 14:55 Pulse Oximetry 100 08/13/25 14:55 Oxygen Delivery Method Room Air 08/13/25 14:55 Medical Decision Making MDM Narrative Medical decision making narrative: The patient is a 19-year-old , 16 weeks female presenting with acute upper abdominal pain, nausea, headache, chills, loss of appetite, and diarrhea of one day's duration. Initial examination revealed RUQ and LUQ tenderness, with a heart rate (FHT) of 156 bpm, which was reassuring. No reported contractions, pelvic pain, vaginal discharge or bleeding. She denies any urinary symptoms such as dysuria, frequency, urgency, or retention. Urinalysis showed ketonuria >80, moderate leukocyte esterase, 10?20 WBCs, trace bacteria, and trace mucus, but the patient denies any urinary symptoms such as dysuria, urgency, or frequency. The urinalysis results are similar to those from two weeks ago, which suggests potential ketosis or mild dehydration, but no clear evidence of active urinary tract infection. These findings raise concerns for possible pyelonephritis, although the absence of classic urinary symptoms makes this less likely. Urine culture sent and pending. The primary differential diagnosis includes acute cholecystitis, viral gastroenteritis, and early -related issues (such as dehydration leading to ketosis). Given her elevated WBC and left shift, bacterial infections like pyelonephritis or Listeria remain considerations, but the lack of significant symptoms points away from an immediate infectious source. The patient was administered Pepcid 20 mg IV for possible gastritis/reflux and Zofran 4 mg IV for nausea. On re-evaluation in the ED, the patient reported improvement in symptoms. Given the improvement and the lack of signs of severe infection or complications, the most likely diagnosis is viral gastroenteritis with possible dehydration and ketosis as contributing factors. The mildly elevated WBC and left shift may reflect a viral infection or mild inflammation, but there was no clear indication of a bacterial infection requiring antibiotics. The patient was advised to follow up with her INFORMATION TECHNOLOGY ANALYST provider, Dr. Brown, in 2-3 days, or sooner if symptoms worsen. She was provided with discharge instructions for hydration, rest, and symptom management, with instructions to monitor for worsening abdominal pain, fever, or difficulty with fluid intake. Close monitoring for any changes in urinary symptoms or signs of infection was emphasized. Differential Diagnosis Differential Diagnosis: Cholecystitis, gastroenteritis, Influenza A Lab Data Lab results reviewed: Yes I reviewed the patient's lab results Labs: Lab Results 08/13/25 08/13/25 Range/Units 15:04 15:56 WBC 13.6 H (4.0-11.0) 10^3/uL RBC 4.77 (4.20-5.40) 10^6/uL Hgb 14.1 (12.0-16.0) g/dL Hct 41.6 (36.0-48.0) % MCV 87.2 (81.0-99.0) fL MCH 29.6 (26.7-34.0) pg MCHC 33.9 (29.9-35.2) g/dL RDW 13.2 (11.0-15.0) % Plt Count 296 (150-450) 10^3/uL MPV 8.9 L (9.5-13.5) fL Neut % (Auto) 88.6 H (43.0-75.0) % Lymph % (Auto) 6.0 L (20.5-60.0) % [place] % (Auto) 4.7 (1.7-12.0) % Eos % (Auto) 0.2 L (0.9-7.0) % Baso % (Auto) 0.2 (0.2-2.0) % Neut # (Auto) 12.1 H (1.4-6.5) 10^3/uL Lymph # (Auto) 0.8 L (1.2-3.8) 10^3/uL [place] # (Auto) 0.6 (0.3-0.8) 10^3/uL Eos # (Auto) 0.0 (0.0-0.7) 10^3/uL Baso # (Auto) 0.0 (0.0-0.1) 10^3/uL Abs Immat Gran (auto) 0.04 H (0.00-0.03) 10^3/uL Imm/Tot Granulo (auto) 0.3 (0.0-0.5) % Sodium 133 L (136-145) mmol/L Potassium 4.0 (3.5-5.1) mmol/L Chloride 100 (98-107) mmol/L Carbon Dioxide 25.1 (21.0-32.0) mmol/L Anion Gap 11.9 BUN 6.0 L (7.0-18.0) mg/dL Creatinine 0.56 (0.55-1.02) mg/dL Est GFR ( Amer) >60 (>=60 mL/min/1.73m^2) Est GFR (Non-Af Amer) >60 (>=60 mL/min/1.73m^2) BUN/Creatinine Ratio 10.7 Glucose 82 (74-106) mg/dL Calcium 9.3 (8.5-10.1) mg/dL Total Bilirubin 0.5 (0.2-1.0) mg/dL AST 24 (15-37) U/L ALT 37 (14-59) U/L Alkaline Phosphatase 62 (46-116) U/L Total Protein 7.8 (6.4-8.2) g/dL Albumin 3.4 (3.4-5.0) g/dL Globulin 4.4 g/dL Albumin/Globulin Ratio 0.8 Lipase 37.0 (16.0-77.0) U/L Urine Color Lt. yellow (YELLOW) Urine Clarity Clear (CLEAR) Urine pH 6.0 (5.0-9.0) Ur Specific [place] 1.020 (1.005-1.025) Urine Protein Negative (NEG/TRACE) mg/dL Urine Glucose (UA) Negative (NEGATIVE) mg/dL Urine Ketones >=80 A (NEGATIVE) mg/dL Urine Occult Blood Negative (NEGATIVE) Urine Nitrite Negative (NEGATIVE) Urine Bilirubin Negative (NEGATIVE) Urine Urobilinogen 0.2 (0.2-1.0) EU/dL Ur Leukocyte Esterase Moderate A (NEGATIVE) Urine RBC 0-2 (0-2) #/HPF Urine WBC 10-20 A (NONE SEEN) #/HPF Ur Squamous Epith Cells Few A (NONE/RARE) #/LPF Ur Transition Epith Cell Rare A (NONE SEEN) #/LPF Urine Crystals None seen (None Seen) #/HPF Urine Bacteria Trace A (NONE SEEN) #/HPF Urine Casts None seen (NONE SEEN) #/LPF Urine Mucus Trace A (NONE SEEN) [place] [place] Type A Ag Negative Influenza Type B Ag Negative SARS-CoV-2 Ag (CV2AG) Negative (NEGATIVE) Discharge Plan Discharge Chief Complaint: Abdominal Pain Clinical Impression: Nausea during Patient Disposition: Home, Self-Care Time of Disposition Decision: 17:00 Condition: Good Mode of Transportation: Private Vehicle Prescriptions / Home Meds: No Action methocarbamol 500 mg tablet 500 mg PO Q8H PRN (Reason: pain) Qty: 20 0RF prednisone 10 mg tablet See Rx Instructions .ROUTE .COMPLEX Qty: 30 0RF Rx Instructions: 4 by mouth daily for three days then 3 by mouth daily for three days then 2 by mouth daily for three days then 1 by mouth daily for three days Print Language: Bahamian Instructions: Abdominal Pain in (ED) Additional Instructions: Home Care Instructions: Rest: Rest as much as possible to support your recovery. Hydration: Drink plenty of clear fluids (e.g., water, oral rehydration solutions) to prevent dehydration, especially with diarrhea. If unable to keep fluids down, return to the ED. Diet: Eat bland, [id number] foods (e.g., crackers, toast, bananas, rice) until nausea improves. Avoid spicy, greasy, or acidic foods until symptoms resolve. Avoid dairy if gastrointestinal symptoms (nausea/diarrhea) persist. Monitor Symptoms: If abdominal pain worsens or is persistent seek further medical attention. If you develop fever, chills, yellowing of the skin/eyes, or severe vomiting, return to the ER immediately. When to Seek Immediate Medical Attention: Severe abdominal pain (especially RUQ or LUQ) that doesn't improve. Fever >100.4?F (38?C), chills, or new yellowing of the skin or eyes (signs of possible liver issues). Inability to keep fluids down (persistent vomiting). Change in movements (if applicable). Blood in stool or vomit (indicating more serious gastrointestinal issues). Follow-up Care: Primary care provider (Dr. Brown): Follow up in 2-3 days or sooner if symptoms persist or worsen. If your symptoms do not improve or if new symptoms arise, call your INFORMATION TECHNOLOGY ANALYST or return to the ER. Referrals: Vickey Brown DO [Physician, INFORMATION TECHNOLOGY ANALYST] - 1 week Oliver Montelongo MD [Primary Care Provider, Family Practice] - 1 week Discharge Date/Time: 08/13/25 17:10
--- OUTSIDE RECORDS SUMMARY | 2025-08-13 15:41 | XMS_ITS | Clinical Summary ---
Author Organization [facility] Address [address] [place] [address] Care Team Providers Care Senior Financial Name Role Phone Oliver Montelongo MD Primary Care Provider [phone] Allergies No known active allergies Medications MedicationSigDispense QuantityRefillsLast FilledStart DateEnd DateStatus Vit-Fe Fumarate-FA ( VITAMINS PO) Take 1 each by mouth DailyActive ondansetron ODT (Zofran-ODT) 4 MG disintegrating tablet Indications:NauseaTake 1 tablet (4 mg) by mouth every 6 (six) hours if needed for nausea or vomiting 30 tablet 5109/16/2024Expired nitrofurantoin, macrocrystal-monohydrate, (Macrobid) 100 MG capsule Indications:Urinary tract infection without hematuria, site unspecifiedTake 1 capsule (100 mg) by mouth in the morning and 1 capsule (100 mg) before bedtime. Do all this for 7 days. 14 capsule 5110/03/2024Expired Active Problems ProblemNoted DateDiagnosed JsmlYhywqfaojgr56/26/2024Elevated TSH05/13/2024 Irregular menstrual cycle02/09/2024Encounter for fertility ffvemosh47/24/2024 Estimated Date of GdzbrelgBiyawrqkAnz00/13/2026ased on last menstrual period of 04/23/2025 Encounters DateTypeDepartmentCare XucyCgzhygxxfdw99/09/2025Telephone [facility] [address] [place] [address] Libia David MA 07/19/2025 2:20 PM ESTRoutine [facility] [address] [place] [address] Vickey Brown, DO Second trimester ([facility]); 12 weeks gestation of ([facility])07/19/2025amboo flowsheet [facility] [address] [place] [address] Vickey Brown, 07/18/20252830Fjfydi61/17/2025Abstract [facility] [address] [place] [address] Vickey Brown, DO 06/25/2025linisync Result Encounter [facility] Department Unsolicited Virginia Quiroz PA 06/17/2025 10:00 AM EDTInitial [facility] [address] [place] [phone] [place]: 7w6d1 9:30 AM EDTAncillary Procedure [facility] [address] [place] [phone] Missed menses; Positive urine test ([facility])06/16/20253678Vtvzia01/08/2025Clinisync Result Encounter [facility] Unsolicited Vickey Brown, DO 05/24/2025Telephone [facility] [address] [place] [phone] Libia David MA Error (VOID this visit)5Clinisync Result Encounter [facility] Unsolicited Vickey Brown, DO 05/23/2025Telephone [facility] [address] [place] [address] Libia David MA from Last 3 Months Family History Medical HistoryRelationNameCommentshigh blood pressureFatherCancerMaternal GrandmotherDeloris KrienkeAsthmaMotherJulie Hendersonhigh blood pressurePaternal GrandfatherRelationNameStatusCommentsFatherMaternal GrandmotherDeloris Krienke AliveMotherJulie HendersonAlivePaternal Grandfather Social History Tobacco UseTypesPacks/DayYears UsedDateSmoking Tobacco: NeverSmokeless Tobacco: Never Tobacco Cessation:Counseling Given: Not Answered Comments:sencond hand from family Alcohol UseStandard Drinks/WeekCommentsNever0 (1 standard drink = 0.6 oz pure alcohol)Estimated Date of UydwipvpYwlchuusAon30/13/2026ased on last menstrual period of 04/23/2025Sex and Gender InformationValueDate RecordedSex Assigned at VnssiFjvomd71/10/2024 11:52 AM EDTLegal UflCditco49/17/2023 4:30 PM EDTGender EoffgasoRrudrm58/10/2024 11:52 AM EDTSexual OrientationNot on file Last Filed Vital Signs Vital SignReadingTime TakenCommentsBlood Ofwedsrs459/6007/19/2025 2:44 PM EST Pulse--Temperature--Respiratory Rate--Oxygen Saturation--Inhaled Oxygen Concentration--Hgzclq36.6 kg (160 lb)07/19/2025 2:44 PM TAXTnbxqp948.9 cm (4' 11 )09/23/2023 1:34 PM ESTBody Mass Index32.32009/23/2023 1:34 PM EST Plan of Treatment DateTypeDepartmentCare Team (Latest Contact Info)Lciyfqfxccz52/05/2026 2:50 PM ESTRoutine [facility] [address] [place] [address] Vickey Brown DO [address] [place], [place] [id number] Procedures Procedure NamePriorityDate/TimeAssociated DiagnosisCommentsPOCT URINALYSIS NLRFCFYYDgwpcve61/09/2024 2:49 PM EST 12 weeks gestation of ([facility]) HBSAG OXOHXMIupbecv11/08/2025 11:20 AM EST RAPID PLASMA REAGIN, WCUZHWfknchn64/08/2025 11:20 AM EST HCV ANTIBODY RFX TO QUANT XXNHebwpld89/08/2025 11:20 AM EST ALL RUBELLA IGG OBDtcqxxx16/08/2025 11:20 AM EST HIV AB/P24 AG WITH LZTKONXbvymkg04/08/2025 11:20 AM EST ALL TYPE AND KTFUUQIsgjhlo59/08/2025 11:20 AM EST ALL THYROID STIM OBYJANDBhmhrwh19/08/2025 11:20 AM EST MLR HEMOGLOBIN N4DAwsnxhc62/08/2025 11:20 AM EST ALL CBC WITH AUTO MSCZUbxuuae41/08/2025 11:20 AM EST BOX OSOIPbpwsza18/08/2025 11:20 AM EST URINE CULTURE, SXETQBXSvhtgzs02/08/2025 11:07 AM EST [facility] DRUG SCREEN RAPID (URINE)Kupwrdt3506/25/2025 11:07 AM EST US OB EUVWFEKIBXOAYsxmovq37/31/2025 10:02 AM EDT Missed menses Positive urine test ([facility]) POCT URINALYSIS INOIEMXRNgcfqkf60/31/2025 10:01 AM EDT Missed menses POCT , LDDIMYgvibgj34/31/2025 10:00 AM EDT Missed menses [facility] PREG QUANT ADLYpxwtaq54/08/2025 8:00 AM EDT [facility] PREG QUANT FWQZmhnmdm74/06/2025 9:59 AM EDT from Last 3 Months [...] Location / LateralityCollection Method / VolumeCollection TimeReceived CounYmntq60/02/2025 2:49 PM EST Narrative Authorizing ProviderResult TypeResult StatusCorey Stephanie DOPOINT OF CARE TEST ENTER/EDIT ORDERABLESFinal Result * BOX TEST (06/25/2025 11:20 AM EST)ComponentValueRef RangeTest MethodAnalysis TimePerformed AtPathologist SignatureBOX TEST SENT MWXQBGYAWMPQCP7TJXMETGEJSS9 06/25/25TBHSpecimen (Source)Anatomical Location / LateralityCollection Method / VolumeCollection TimeReceived Time06/25/2025 11:20 AM EST06/25/2025 11:26 AM EST Narrative CLINISYNC - 06/25/2025 11:29 AM EST Authorizing ProviderResult TypeResult StatusAmy Gabriella [facility] BLOOD ORDERABLES Final ResultPerforming OrganizationAddressCity/State/ZIP CodePhone Number [facility] * HBSAG SCREEN (06/25/2025 11:20 AM EST)ComponentValueRef RangeTest Method Analysis TimePerformed AtPathologist SignatureHBSAG SCREENNegativeNegativeTBH Comment: Performed at: ??[address] ??[id number] Investigator Welfare: Sonny Cox PhD, Phone: ??[phone] Specimen (Source)Anatomical Location / LateralityCollection Method / Volume Collection TimeReceived Time06/25/2025 11:20 AM EST06/25/2025 11:26 AM EST Narrative CLINISYNC - 06/26/2025 2:08 PM EST Authorizing ProviderResult TypeResult StatusCorey Stephanie DOLAB BLOOD ORDERABLES Final ResultPerforming [facility] CodePhone Number [facility] * RAPID PLASMA [...] utilized, such as Treponema pallidum (Syphilis) Screening Altair ([id number]) or Rapid Plasma Reagin (RPR) Test With Reflex to Quantitative RPR and Confirmatory Treponema pallidum Antibodies ([id number]). Performed at: ??[address] ??[id number] Investigator Welfare: Sonny Cox PhD, Phone: ??[phone] Specimen (Source)Anatomical Location / LateralityCollection Method / Volume Collection TimeReceived Time06/25/2025 11:20 AM EST06/25/2025 11:26 AM EST Narrative CLINISYNC - 06/26/2025 2:08 PM EST Authorizing ProviderResult TypeResult StatusCorey Stephanie DOLAB BLOOD ORDERABLES Final ResultPerforming OrganizationAddressCity/State/ZIP CodePhone Number [facility] * HIV AB/P24 AG WITH REFLEX (06/25/2025 11:20 AM EST)ComponentValueRef RangeTest MethodAnalysis TimePerformed AtPathologist SignatureHIV AB/P24 AG SCREENNon ReactiveNon ReactiveTBHComment: HIV-1/HIV-2 antibodies and HIV-1 p24 antigen were NOT detected. There is no laboratory evidence of HIV infection. HIV Negative Performed at: ??[address] ??[id number] Investigator Welfare: Sonny Cox PhD, Phone: ??[phone] Specimen (Source)Anatomical Location / LateralityCollection Method / Volume Collection TimeReceived Time06/25/2025 11:20 AM EST06/25/2025 11:26 AM EST Narrative JAMEVA - 06/26/2025 8:09 AM EST Authorizing ProviderResult TypeResult StatusCorey Stephanie DOLAB BLOOD ORDERABLES Final ResultPerforming [facility] CodePhone Number [facility] * HCV ANTIBODY RFX TO QUANT PCR (06/25/2025 11:20 AM EST)ComponentValueRef Range Test MethodAnalysis TimePerformed AtPathologist SignatureHCV ABNon ReactiveNon ReactiveTBHINTERPRETATION:Comment.TBHComment: Not infected with HCV unless early or acute infection is suspected (which may be delayed in an immunocompromised individual), or other evidence exists to indicate HCV infection. Performed at: ??[address] ??[id number] Investigator Welfare: Sonny Cox PhD, Phone: ??[phone] Specimen (Source)Anatomical Location / LateralityCollection Method / Volume Collection TimeReceived Time06/25/2025 11:20 AM EST06/25/2025 11:26 AM EST Narrative AVELISYVA - 06/26/2025 10:09 AM EST Authorizing ProviderResult TypeResult StatusCorey Stephanie DOLAB BLOOD ORDERABLES Final ResultPerforming OrganizationAddL[facility]/State/ZIP CodePhone Number [facility] * MLR HEMOGLOBIN A1C (06/25/2025 11:20 AM EST)ComponentValueRef RangeTest Method Analysis TimePerformed AtPathologist SignatureGLYCOHEMOGLOBIN A1C5.04.5 - 6.2 %TBHComment: ADA RECOMMENDED LIMIT 4.0 - 6.0 ADA THERAPEUTIC TARGET < 7.0 ACTION SUGGESTED > 7.0 ESTIMATED AVERAGE QQZATAF18gr/dLTBHSpecimen (Source)Anatomical Location / LateralityCollection Method / VolumeCollection TimeReceived Time06/25/2025 11:20 AM EST06/25/2025 11:26 AM EST Narrative CLINISYNC - 06/25/2025 12:07 PM EST Authorizing ProviderResult TypeResult StatusCorey Stephanie DOCLINISYNCFinal Result Performing OrganizationAddressCity/State/ZIP CodePhone Number [facility] * ALL TYPE AND SCREEN (06/25/2025 11:20 AM EST)ComponentValueRef RangeTest MethodAnalysis TimePerformed AtPathologist SignatureBLOOD TYPEO PositiveTBH ANTIBODY SCREENNEGATIVETBHSpecimen (Source)Anatomical Location / Laterality Collection Method / VolumeCollection TimeReceived Time06/25/2025 11:20 AM EST 06/25/2025 11:26 AM EST Narrative CLINISYNC - 06/25/2025 1:51 PM EST [facility] , ?? Authorizing ProviderResult TypeResult StatusCorey Stephanie DOCLINISYNCFinal Result Performing OrganizationAddressCity/State/ZIP CodePhone Number [facility] * ALL THYROID STIM HORMONE (06/25/2025 11:20 AM EST)ComponentValueRef RangeTest MethodAnalysis TimePerformed AtPathologist SignatureTHYROID STIMULATING HORMONE1.4360.358 - 3.740 uIU/mLTBHSpecimen (Source)Anatomical Location / LateralityCollection Method / VolumeCollection TimeReceived Time06/25/2025 11:20 AM EST06/25/2025 11:26 AM EST Narrative CLINISYNC - 06/25/2025 12:07 PM EST Authorizing ProviderResult TypeResult StatusCorey Stephanie DOCLINISYNCFinal Result Performing OrganizationAddressCity/State/ZIP CodePhone Number [facility] * ALL RUBELLA IGG AB (06/25/2025 11:20 AM EST)ComponentValueRef RangeTest Method Analysis TimePerformed AtPathologist SignatureRUBELLA ANTIBODIES, IGG1.77 Immune >0.99 indexTBHComment: Non-immune <0.90 ?Equivocal ??0.90 - 0.99 Immune >0.99 Performed at: ??CB - [facility] [address], [place], [place] ??[id number] Investigator Welfare: Sonny Cox PhD, Phone: ??[phone] Specimen (Source)Anatomical Location / LateralityCollection Method / Volume Collection TimeReceived Time06/25/2025 11:20 AM EST06/25/2025 11:26 AM EST Narrative CLINISYNC - 06/26/2025 10:09 AM EST Authorizing ProviderResult TypeResult StatusCorey Stephanie DOCLINISYNCFinal Result Performing OrganizationAddressCity/State/ZIP CodePhone Number [facility] * (ABNORMAL) ALL CBC WITH AUTO DIFF (06/25/2025 11:20 AM EST)ComponentValueRef RangeTest MethodAnalysis TimePerformed AtPathologist SignatureTBH WBC10.24.0 - 11.0 10 3/uLTBHTBH RBC4.724.20 - 5.40 10 6/uLTBHTBH HGB14.012.0 - 16.0 g/dLTBH TBH HCT41.036.0 - 48.0 %TBHTBH MCV86.981.0 - 99.0 fLTBHTBH MCH29.726.7 - 34.0 pgTBHTBH MCHC34.129.9 - 35.2 g/dLTBHTBH RDW13.011.0 - 15.0 %TBHTBH GBN329124 - 450 10 3/uLTBHTBH MPV8.7(L)9.5 - 13.5 [...] AM EST 06/25/2025 11:26 AM EST Narrative AVELISYVA - 06/25/2025 11:35 AM EST Authorizing ProviderResult TypeResult StatusCorey Stephanie DOCLINISYNCFinal Result Performing OrganizationAddressCity/State/ZIP CodePhone Number [facility] * URINE CULTURE, ROUTINE (06/25/2025 11:07 AM EST)ComponentValueRef RangeTest MethodAnalysis TimePerformed AtPathologist SignatureURINE CULTURE, ROUTINE ??Urine Culture, Routine TBHURINE CULTURE, ROUTINEMixed urogenital floraTBHURINE CULTURE, ROUTINELess than 10,000 colonies/mLTBHURINE CULTURE, ROUTINEPerformed at: [facility] HospitalTBHURINE CULTURE, [id number] [place], [place] [id number] CULTURE, ROUTINELab Director: Sonny Cox PhD, Phone: [phone] Specimen (Source)Anatomical Location / LateralityCollection Method / Volume Collection TimeReceived Time06/25/2025 11:07 AM EST06/25/2025 11:26 AM EST Narrative CLINISYNC - 06/27/2025 3:07 AM EST Authorizing ProviderResult TypeResult StatusCorey Stephanie DOL BLOOD ORDERABLES Final ResultPerforming OrganizationAddressCity/State/ZIP CodePhone Number [facility] * TB DRUG SCREEN RAPID (URINE) (06/25/2025 [...] Santana MD Authorizing ProviderResult TypeResult StatusCorey Stephanie [facility] OB US PROCEDURES Final Result * (ABNORMAL) POCT , urine manually resulted (06/17/2025 10:00 AM EDT) ComponentValueRef RangeTest MethodAnalysis TimePerformed AtPathologist SignaturePreg Test, UrPositiveNegativeSpecimen (Source)Anatomical Location / LateralityCollection Method / VolumeCollection TimeReceived TimeUrine 06/17/2025 10:00 AM EDT Narrative Authorizing ProviderResult TypeResult StatusCorekellee Brown DOPOINT OF CARE TEST ENTER/EDIT ORDERABLESFinal Result [...] DateEnd Date Oliver Montelongo MD [address] [place] [address] PCP - GeneralFamily Medicine10/05/24
--- OUTSIDE RECORDS SUMMARY | 2025-08-13 15:41 | XMS_ITS | Patient Health Record ---
Author Organization The [facility] in [place] Address [address] [place] [address] Care Team Providers Care Wire Hanger Name Role Phone Rogelio Montelongo Primary Care Provider Allergies No Known Allergies Results Component Value Reference Range Notes US renal bladder Reviewed date:09/14/2024 05:04:28 PM Interpretation: Performing Lab: Notes/Report: Source Facility: [place] [address] Ultrasound Report Signed Patient: MIHIR WOOD MR#: [id number] : 2005 Acct:[id number] Age/Sex: 18 / F ADM Date: 09/11/24 Loc: US Attending Dr: Ian Montelongo M.D. Ordering Physician: Ian Montelongo M.D. Date of Service: 09/11/24 Procedure(s): US renal bladder Accession Number(s): [id number] cc: Ian Montelongo M.D. [place] [address] Patient Name: MIHIR WOOD MRN: [id number] date: 2005 Sex: F Assigned Patient Location: US Current Patient Location: Accession/Order Number: [id number] Exam Date: 09/11/2024 10:43 Report Date: 09/14/2024 [...] Signed By: 09/14/24 0452 DD/ 0449 TD/TT: Orchard Sprayer: INFLUENZA A AND B AG Reviewed date:08/25/2024 07:20:00 PM Interpretation: Performing Lab: Notes/Report: [facility] , Influenza Virus A Antigen Negative Negative for Flu A protein antigen. Infection due to Flu A cannot be ruled out. Flu A antigen in the sample may be below the detection limit of the test. Influenza Virus B AntigenNegative Negative for Flu B protein antigen. Infection due to Flu B cannot be ruled out. Flu B antigen in the sample may be below the detection limit of the test. Performing Lab:see noteML - [facility] LBPROF 14(COMP METB) Reviewed date:08/25/2024 07:20:00 PM Interpretation: Performing Lab: Notes/Report: [facility] ,Iouagm463488-856 mmol/LPotassium4.03.5-5.1 mmol/MXqmpptrs93792-493 mmol/LCarbon Ebpzplz91.121.0-32.0 mmol/LAnion Gap14.4Ilxpsmx0921-625 mg/dLBlood Urea Nitrogen 13.06.4-19.3 mg/dLCreatinine0.950.55-1.02 mg/dLEstimated GFR ( Felecia>60 >=60 mL/min/1.73m 2Estimated GFR (Non- Patricia>60>=60 mL/min/1.73m 2BUN Creatinine Ratio13.7Uibptaj1.08.5-10.1 mg/dLBilirubin Total0.30.2-1.0 mg/dL Aspartate Amino Zjogeuruknm1466-92 U/LAlanine Ieshlbrwjillbfsw7049-02 U/L Alkaline Eizohnlwrwm3622-202 U/LTotal Protein8.26.4-8.2 g/dLAlbumin Level4.13.4- 5.0 g/dLGlobulin4.1Albumin Globulin Ratio1.0Performing Lab:see noteML - [facility] LBURINE MICROSCOPIC ONLY Reviewed date:08/25/2024 07:20:00 PM Interpretation: Performing Lab: Notes/Report: [facility] ,WBC Kgiwj40-45RSFS SEEN #/HPFRBC UrineNONE SEEN0-2 #/HPFBacteria UrineLARGENONE SEEN #/HPFMucus UrineNONE SEENNONE SEENSquamous Epithelial Cell UrineMODERATE NONE/RARE #/LPFUrine Culture IndicatedYESPerforming Lab:see noteML - [facility] NZAMNK-IiC-5 Ag* Reviewed date:08/25/2024 07:20:00 PM Interpretation: Performing Lab: Notes/Report: [facility] ,SARS-CoV-2 AgNEGATIVENEGATIVE This test has not been FDA cleared or approved, but has been authorized by the FDA under an Emergency Use Authorization (EUA) for use by authorized laboratories certified under CLIA that meet the requirements to perform moderate or high complexity testing. This test has been authorized only for the detection of proteins from SARS-CoV-2, not for any other viruses or pathogens. The emergency use of this test is authorized for the duration of the declaration that circumstances exist justifying the authorization of emergency use of in vitro diagnostic tests for detection and/or diagnosis of Covid-19 under section 564(b)(1) of the Act, 21 U.S.C. 360bbb-3(b)(1), unless the declaration is terminated or authorization is revoked sooner. Performing Lab:see noteML - [facility] LBPREG QUANT HCG Reviewed date:05/25/2025 12:28:31 PM Interpretation: Performing Lab: Notes/Report: [facility] ,HCG Uebfjktezijy1040 5-50 0.2-1 WEEK 50-500 1-2 WEEKS 100-5,000 2-3 WEEKS 500-10,000 3-4 WEEKS 1,000-50,000 4-5 WEEKS 10,000-100,000 5-6 WEEKS 15,000-200,000 6-8 WEEKS 10,000-100,000 2-3 MONTHS Performing Lab:see note - [facility] LBUnity Box Reviewed date:06/26/2025 04:48:00 PM Interpretation: Performing Lab: Notes/Report: [facility] ,BOX Test Sent OutUNITYBOX Test Reference LabUNITYBOX Test Date Sent06/25/25 Performing Lab:see [facility] LBUS OB transvaginal Reviewed date:07/07/2025 08:02:41 PM Interpretation: Performing Lab: Notes/Report: Source Facility: [place] [address] Ultrasound Report Signed Patient: MIHIR WOOD MR#: [id number] : 2005 Acct:[id number] Age/Sex: 19 / F ADM Date: 07/07/25 Loc: ER Attending Dr: Ordering Physician: Barndon Stoddard M.D. Date of Service: 07/07/25 Procedure(s): US OB transvaginal Accession Number(s): [id number] cc: Ian Montelongo M.D.; Brandon Stoddard M.D. [place] [address] Patient Name: MIHIR WOOD MRN: [id number] date: 2005 Sex: F Assigned Patient Location: ED.MAIN Current Patient Location: ED.MAIN Accession/Order Number: [id number] Exam Date: 07/07/2025 11:30 Report Date: 07/07/2025 [...] Jr., D.O. 07/07/2025 12:31 PM Dictation Location: [place] [address] Electronically authenticated by: [id number] Y Date: 07/07/2025 12:31 Dictated By: Gabriel White M.D. Signed By: 07/07/25 1234 DD/ 1231 TD/TT: Orchard Sprayer:GLORIA RANDOM W or MICROSCOPIC Reviewed date:07/30/2025 05:05:41 PM Interpretation: Performing Lab: Notes/Report: [facility] ,Color UrineYELLOWYELLOWClarity UrineCLEARCLEARSpecific [place] Urine>=1.030 1.005-1.025pH Urine5.55.0-9.0Protein UrineNEGATIVENEG/TRACE mg/dLGlucose Urine UANEGATIVENEGATIVE mg/dLBilirubin UrineNEGATIVENEGATIVEKetones UrineNEGATIVE NEGATIVE mg/dLBlood UrineNEGATIVENEGATIVENitrite UrineNEGATIVENEGATIVE Urobilinogen Urine0.20.2-1.0 EU/dLLeukocyte Esterase UrineNEGATIVENEGATIVEWBC UrineNONE SEENNONE SEEN #/HPFRBC Urine0-20-2 #/HPFBacteria UrineTRACENONE SEEN #/HPFMucus UrineTRACENONE SEENSquamous Epithelial Cell UrineFEWNONE/RARE #/LPF Crystals Seen?None SeenNone Seen #/HPFCast Seen?NONE SEENNONE SEEN #/LPFUrine Culture IndicatedNOPerforming Lab:see noteML - [facility] LBHCV Antibody RFX to Quant PCR Reviewed date:06/26/2025 04:48:00 PM Interpretation: Performing Lab: Notes/Report: [facility] ,HCV AbNon ReactiveNon ReactiveInterpretation:Comment. Not infected with HCV unless early or acute infection is suspected (which may be delayed in an immunocompromised individual), or other evidence exists to indicate HCV infection. Performed at: [address] [id number] Supervisor [employer]: Sonny Cox PhD, Phone: [phone] Performing Lab:see [facility] LBType and Screen Reviewed date:06/26/2025 04:48:00 PM Interpretation: Performing Lab: Notes/Report: [facility] ,Blood TypeO PositiveAntibody ScreenNEGATIVETSH Reviewed date:06/26/2025 04:48:00 PM Interpretation: Performing Lab: Notes/Report: [facility] ,Thyroid Stimulating Hormone1.4360.358-3.740 uIU/mLPerforming Lab:see noteUniversity [facility] LBRUBELLA AB IGG Reviewed date:06/26/2025 04:48:00 PM Interpretation: Performing Lab: Notes/Report: [facility] ,Rubella Antibodies, IgG1.77Immune >0.99 index Non-immune <0.90 Equivocal 0.90 - 0.99 Immune >0.99 Performed at: [address] [id number] Supervisor [employer]: Sonny Cox PhD, Phone: [phone] Performing Lab:see [facility] LBGLYCOHEMOGLOBIN A1C Reviewed date:06/26/2025 04:48:00 PM Interpretation: Performing Lab: Notes/Report: [facility] ,Glycohemoglobin A1C5.04.5-6.2 % ADA RECOMMENDED LIMIT 4.0 - 6.0 ADA THERAPEUTIC TARGET < 7.0 ACTION SUGGESTED > 7.0 Estimated Average Wjzsxlk77Gtzylvzmjb Lab:see noteUniversity [facility]als [facility] LB DRUG SCREEN RAPID (URINE) Reviewed date:06/26/2025 04:48:00 PM Interpretation: Performing Lab: Notes/Report: [facility] ,Cannabinoid Screen UrineNEGATIVENEGATIVEPhencyclidine Screen UrineNEGATIVE NEGATIVECocaine Screen UrineNEGATIVENEGATIVEMethamphetamines Screen Urine NEGATIVENEGATIVEOpiate Screen UrineNEGATIVENEGATIVEAmphetamine Screen Urine NEGATIVENEGATIVEBenzodiazepines Screen UrineNEGATIVENEGATIVETricyclic Antidepressant UrineNEGATIVENEGATIVEMethadone Screen UrineNEGATIVENEGATIVE Barbiturates Screen UrineNEGATIVENEGATIVEOxycodone Screen UrineNEGATIVENEGATIVE Buprenorphine Screen UrineNEGATIVENEGATIVE DRUG CLASS TEST SYSTEM CUT-OFF CONCENTRATIONS ARE FOLLOWS: AMP (Amphetamine): 500 ng/mL BAR (Barbiturates): 200 ng/mL BZO (Benzodiazepines): 150 ng/mL BUP (Buprenorphine): 10 ng/mL AMARJIT (Cocaine): 150 ng/mL mAMP (Methamphetamine): 500 ng/mL MTD (Methadone): 200 ng/mL OPI (Opiates): 100 ng/mL OXY (Oxycodone): 100 ng/mL PCP (Phencyclidine): 25 ng/mL THC (Cannabinoids): 50 ng/mL TCA (Trycyclic Antidepressants): 300 ng/mL Performing Lab:see noteML - [facility] LBCBC AUTO DIFF Reviewed date:06/26/2025 04:48:00 PM Interpretation: Performing Lab: Notes/Report: [facility] ,White Blood Count10.24.0-11.0 10 3/uLRed Blood Count4.724.20-5.40 10 6/uL Tfphjsnbtf43.012.0-16.0 g/rXAdhunwleno91.036.0-48.0 %Mean Corpuscular Rsiojm33.9 81.0-99.0 fLMean Corpuscular Egkplpmtew78.726.7-34.0 pgMean Corpuscular HGB Conc 34.129.9-35.2 g/dLRed Cell Distribution Width13.011.0-15.0 %Platelet Hhwqe294 150-450 10 3/uLMean Platelet Volume8.79.5-13.5 fLNeutrophils Percent Auto76.2 43.0-75.0 %Lymphocytes Percent Auto17.720.5-60.0 %Monocytes Percent Auto5.11.7- 12.0 %Eosinophils Percent Auto0.40.9-7.0 %Basophils Percent Auto0.40.2-2.0 % Immature Granulocytes Pct Auto0.20.0-0.5 %Neutrophils Absolute Auto7.81.4-6.5 10 3/uLLymphocytes Absolute Auto1.81.2-3.8 10 3/uLMonocytes Absolute Auto0.50.3-0.8 10 3/uLEosinophils Absolute Auto0.00.0-0.7 10 3/uLBasophils Absolute Auto0.00.0- 0.1 10 3/uLImmature Granulocytes Abs Auto0.020.00-0.03 10 3/uLPerforming Lab:see noteML - [facility] LBPREG QUANT HCG Reviewed date:05/23/2025 12:56:54 PM Interpretation: Performing Lab: Notes/Report: [facility] ,HCG Ogubyydphhyq374 5-50 0.2-1 WEEK 50-500 1-2 WEEKS 100-5,000 2-3 WEEKS 500-10,000 3-4 WEEKS 1,000-50,000 4-5 WEEKS 10,000-100,000 5-6 WEEKS 15,000-200,000 6-8 WEEKS 10,000-100,000 2-3 MONTHS Performing Lab:see noteML - [facility] Reviewed date:04/04/2025 07:26:10 PM Interpretation: Performing Lab: Notes/Report: [facility]<1 5-50 0.2-1 WEEK 50-500 1-2 WEEKS 100-5,000 2-3 WEEKS 500-10,000 3-4 WEEKS 1,000-50,000 4-5 WEEKS 10,000-100,000 5-6 WEEKS 15,000-200,000 6-8 WEEKS 10,000-100,000 2-3 MONTHS Performing Lab:see noteML - [facility] LBFactor II, DNA Analysis Reviewed date:03/02/2025 08:22:01 PM Interpretation: Performing Lab: Notes/Report: [facility] ,Factor II, DNA AnalysisComment. Result: c.*97G>A - Not Detected This result is not associated with an increased risk for venous thromboembolism. See Additional Clinical Information and Comments. Additional Clinical Information: Venous thromboembolism is a multifactorial disease influenced by genetic, environmental, and circumstantial risk factors. The c.*97G>A variant in the F2 gene is a genetic risk factor for venous thromboembolism. Heterozygous carriers have a 2- to 4-fold increased risk for venous thromboembolism. Homozygotes for the c.*97G>A variant are rare. The annual risk of VTE in homozygotes has been reported to be 1.1%/year. Individuals who carry both a c.*97G>A variant in the F2 gene and a c.1601G>A (p. Mmr105Uwf) variant in the F5 gene (commonly referred to as Factor V Leiden) have an approximately 20- fold increased risk for venous thromboembolism. Risks are likely to be even higher in more complex genotype combinations involving the F2 c.*97G>A variant and Factor V Leiden (PMID: 76965369). Additional risk factors include but are not limited to: deficiency of protein C, protein S, or antithrombin III, age, male sex, personal or family history of deep vein thromboembolism, smoking, surgery, prolonged immobilization, malignant neoplasm, tamoxifen treatment, raloxifene treatment, oral contraceptive use, hormone replacement therapy, and . Management of thrombotic risk and thrombotic events should follow established guidelines and fit the clinical circumstance. This result cannot predict the occurrence or recurrence of a thrombotic event. Comments: Genetic counseling is recommended to discuss the potential clinical implications of positive results, as well as recommendations for testing family members. Genetic Coordinators are available for health care providers to discuss results at [phone] ([phone]). Test Details: Variant analyzed: c.*97G>A, previously referred to as V51568D Methods/Limitations: DNA analysis of the F2 gene (NM_000506.5) was performed by PCR amplification followed by restriction enzyme analysis. The diagnostic sensitivity is >99%. Results must be combined with clinical information for the most accurate interpretation. Molecular-based testing is highly accurate, but as in any laboratory test, diagnostic errors may occur. False positive or false negative results may occur for reasons that include genetic variants, blood transfusions, bone marrow transplantation, somatic or tissue-specific mosaicism, mislabeled samples, or erroneous representation of family relationships. This test was developed and its performance characteristics determined by [facility]. It has not been cleared or approved by the Food and Drug Administration. References: Katie S, Laurel AK, Cornelius R, Dinora WW, Adarsh WETZEL; ACMG Professional Practice and Guidelines Committee. Addendum: [employer] consensus statement on factor V Leiden mutation testing. Antonia Med. 2020Oct 20. doi: 10.1038/h66635-231-55678-n. PMID: 96029736. Baljeet LORA. Prothrombin Thrombophilia. 2005Mar 11 [Updated 2020Sep 21]. In: Bjorn MP, Annie HH, Brooke RA, et al., editors. Frances(Enriqueta) [Internet]. [place] ([place]): [facility]; 0028-9181. Available from: https://www.ncbi.nlm.nih.gov/books/HRO1690/ Albert S, Laurel AK, Lugo X, Paul B, Mike EB, Palma P, Marixa CS; [employer] Laboratory Intellectual Property Paralegal Committee. Venous thromboembolism laboratory testing (factor V Leiden and factor II c.*97G>A), 2018 update: a technical standard of the [employer] and [employer] (ACMG). Antonia Med. 2018 Jul;20(12):6658-4668. doi: 10.1038/k24995-469-5226-p. Epub 2017May 22. PMID: 72915202. Reviewed ByComment. Technical Component performed at [facility] [place] Professional Component performed by: Sarah Jorge, PhD, [facility] [id number], [facility], [address] [facility] [address] Performed at: - [facility] [address], [facility], [place] [id number] Supervisor [employer]: Henry Canales [facility], Phone: [phone] Performing Lab:see Consuelo - Sun LBFactor V Leiden Mutation Reviewed date:03/02/2025 08:22:01 PM Interpretation: Performing Lab: Notes/Report: SunFactor V Leiden MutationComment. Result: c.1601G>A (p.Vzf180Kjk) - Not Detected This result is not associated with an increased risk for venous thromboembolism. See Additional Clinical Information and Comments. Additional Clinical Information: Venous thromboembolism is a multifactorial disease influenced by genetic, environmental, and circumstantial risk factors. The c.1601G>A (p. Cdi973Yud) variant in the F5 gene, commonly referred to as Factor V Leiden, is a genetic risk factor for venous thromboembolism. Heterozygous carriers of this variant have a 6- to 8-fold increased risk for venous thromboembolism. Individuals homozygous for this variant (ie, with a copy of the variant on each chromosome) have an approximately 80-fold increased risk for venous thromboembolism. Individuals who carry both a c.*97G>A variant in the F2 gene and Factor V Leiden have an approximately 20-fold increased risk for venous thromboembolism. Risks are likely to be even higher in more complex genotype combinations involving the F2 c.*97G>A variant and Factor V Leiden (PMID: 00316722). Additional risk factors include but are not limited to: deficiency of protein C, protein S, or antithrombin III, age, male sex, personal or family history of deep vein thromboembolism, smoking, surgery, prolonged immobilization, malignant neoplasm, tamoxifen treatment, raloxifene treatment, oral contraceptive use, hormone replacement therapy, and . Management of thrombotic risk and thrombotic events should follow established guidelines and fit the clinical circumstance. This result cannot predict the occurrence or recurrence of a thrombotic event. Comment: Genetic counseling is recommended to discuss the potential clinical implications of positive results, as well as recommendations for testing family members. Genetic Coordinators are available for health care providers to discuss results at [phone]). Test Details: Variant Analyzed: c.1601G>A (p. Uwe121Nhs), referred to as Factor V Leiden Methods/Limitations: DNA analysis of the F5 gene (NM_000130.5) was performed by PCR amplification followed by electrophoresis. The diagnostic sensitivity is >99%. Results must be combined with clinical information for the most accurate interpretation. Molecular-based testing is highly accurate, but as in any laboratory test, diagnostic errors may occur. False positive or false negative results may occur for reasons that include genetic variants, blood transfusions, bone marrow transplantation, somatic or tissue-specific mosaicism, mislabeled samples, or erroneous representation of family relationships. This test was developed and its performance characteristics determined by [facility]. It has not been cleared or approved by the Food and Drug Administration. References: Katie S, Laurel AK, Shields R, Dinora WW, Adarsh JH; ACMG Professional Practice and Guidelines Committee. Addendum: [employer] consensus statement on factor V Leiden mutation testing. Antonia Med. 2020Oct 20. doi: 10.1038/t43827-690-34068-z. PMID: 78217047. Baljeet LORA. Factor V Leiden Thrombophilia. 1999 May 14 (Updated 2017Aug 21). In: Bjorn MP, Annie HH, Brooke RA, et al., editors. Frances(Enriqueta) (Internet). [place] ([place]): [facility]; 3374-3599. Available from: https://www.ncbi.nlm.nih.gov/books/GDE3163/ Albert S, Laurel AK, Lugo X, Paul B, Mike EB, Palma P, Marixa CS; AC Laboratory Intellectual Property Paralegal Committee. Venous thromboembolism laboratory testing (factor V Leiden and factor II c. *97G>A), 2018 update: a technical standard of the [employer] (ACMG). Antonia Med. 2018 Jul;20(12): 2237-5590. doi: 10.1038/t09255-247-5325-u. Epub 2017May 22. PMID: 41812846. Reviewed ByComment. Greer Jacinto, Ph.D., [facility] Performed at: [facility] [address] [place], [place] [id number] Supervisor [employer]: Henry Canales [facility], Phone: [phone] Performing Lab:see [facility] LBLAB TESTING Reviewed date:03/13/2025 09:37:49 PM Interpretation: Performing Lab: Notes/Report: [id number] Chromosome Analysis, Whole Blood (Constitutional) [facility] ,Miscellaneous TestCOMMENT. Test Ordered: [id number] Chromosome, Blood, Routine Specimen Type Comment: Reference Range: . BLOOD Cells Counted 20 MOULTON Reference Range: . Cells Analyzed 20 MOULTON Reference Range: . Cells Karyotyped 2 MOULTON Reference Range: . GTG Band Resolution Achieved 500 MOULTON Reference Range: . Cytogenetic Result Comment: Reference Range: . 46,XX Interpretation Comment: Reference Range: . NORMAL FEMALE KARYOTYPE Cytogenetic analysis of PHA stimulated cultures has revealed a FEMALE karyotype with an apparently normal GTG banding pattern in all cells observed. This result does not exclude the possibility of subtle rearrangements below the resolution of cytogenetics or congenital anomalies due to other etiologies. Technical Component-Processing performed at [address], [place] [address], [facility] CLIA [id number]. In Store Marketing Representative, Henry Canales M.D., Ph.D. Technical Component- Partial chromosome analysis performed at GBA5, [facility] [address], [facility] [address], CLIA [id number], Dry Boss, Katie New PhD. Technical Component-Partial chromosome analysis performed at [id number], [facility] [address], [facility] [address], CLIA [id number], Dry Boss, Katie New PhD. Director Review: Comment: MOULTON Reference Range: . Yue Teran, PhD, [facility], Professional Component performed by, [id number], CLIA [id number], [address], [place] [address]. In Store Marketing Representative, Henry Canales MD,PhD Performed at: [facility] [address], [facility], [place] [id number] Supervisor [employer]: Henry Canales [facility], Phone: [phone] Performed at: [address] [id number] Supervisor [employer]: Sonny Cox PhD, Phone: [phone] Performing Lab:[facility] LBProgesterone Reviewed date:11/14/2024 04:21:20 PM Interpretation: Performing Lab: Notes/Report: [facility] ,Ljvqugcrarir32.0. ng/mL Follicular phase 0.1 - 0.9 Luteal phase 1.8 - 23.9 Ovulation phase 0.1 - 12.0 First trimester 11.0 - 44.3 Second trimester 25.4 - 83.3 Third trimester 58.7 - 214.0 Postmenopausal 0.0 - 0.1 Performed at: [address] [id number] Supervisor [employer]: Sonny Cox PhD, Phone: [phone] Performing Lab:[facility] Reviewed date:09/08/2024 04:48:07 PM Interpretation: Performing Lab: Notes/Report: [facility] ,Thyroid Stimulating Hormone2.6660.516-4.130 uIU/mLPerforming Lab:see note - [facility] LBT4 Reviewed date:09/08/2024 04:48:07 PM Interpretation: Performing Lab: Notes/Report: [facility] ,T4 Thyroxine7.605.40-10.60 ug/dLPerforming Lab:see note - [facility] LBFREE T3 Reviewed date:09/08/2024 04:48:07 PM Interpretation: Performing Lab: Notes/Report: [facility] ,Free T32.752.91-4.70 pg/mLPerforming Lab:see note - [facility] LB Box Test Reviewed date:08/29/2024 10:43:25 AM Interpretation: Performing Lab: Notes/Report: [facility] ,BOX Test Sent OutURINE CULTUREBOX Test Reference LabFIRELANDSBOX Test Date Sent 08/25/24BOX Test ResultSEE SCANNED REPORTPerforming Lab:see note - [facility] LBHCG Qualitative Urine Reviewed date:08/25/2024 07:20:00 PM Interpretation: Performing Lab: Notes/Report: [facility] ,HCG Qualitative Urine*NEGATIVENEGATIVEPerforming Lab:see noteML - [facility] LBUA (CLEAN or CATCH) HUB CUTTER or MICRO IF IND. Reviewed date:08/25/2024 07:20:00 PM Interpretation: Performing Lab: Notes/Report: [facility] ,Color UrineLT. YELLOWYELLOWClarity UrineCLEARCLEARSpecific [place] Urine>=1.030 1.005-1.025pH Urine6.05.0-9.0Protein UrineNEGATIVENEG/TRACE mg/dLGlucose Urine UANEGATIVENEGATIVE mg/dLBilirubin UrineNEGATIVENEGATIVEKetones UrineNEGATIVE NEGATIVE mg/dLBlood UrineNEGATIVENEGATIVENitrite UrinePOSITIVENEGATIVE Urobilinogen Urine0.20.2-1.0 EU/dLLeukocyte Esterase UrineMODERATENEGATIVEUrine Microscopic IndicatedYESPerforming Lab:see note - [facility] LBCBC AUTO DIFF Reviewed date:08/25/2024 07:20:00 PM Interpretation: Performing Lab: Notes/Report: [facility] ,White Blood Count8.44.0-11.0 10 3/uLRed Blood Count5.234.20-5.40 10 6/uL Kqlndecrin71.012.0-16.0 g/kRUrkhlctnce07.636.0-48.0 %Mean Corpuscular Buqshm71.2 81.0-99.0 fLMean Corpuscular Ggvivkbfdj79.726.7-34.0 pgMean Corpuscular HGB Conc 32.929.9-35.2 g/dLRed Cell Distribution Width12.611.0-15.0 %Platelet Njjfv494 150-450 10 3/uLMean Platelet Volume8.89.5-13.5 fLNeutrophils Percent Auto58.9 43.0-75.0 %Lymphocytes Percent Auto30.620.5-60.0 %Monocytes Percent Auto8.61.7- 12.0 %Eosinophils Percent Auto1.20.9-7.0 %Basophils Percent Auto0.60.2-2.0 % Immature Granulocytes Pct Auto0.10.0-0.5 %Neutrophils Absolute Auto4.91.4-6.5 10 3/uLLymphocytes Absolute Auto2.61.2-3.8 10 3/uLMonocytes Absolute Auto0.70.3- 0.8 10 3/uLEosinophils Absolute Auto0.10.0-0.7 10 3/uLBasophils Absolute Auto0.1 0.0-0.1 10 3/uLImmature Granulocytes Abs Auto0.010.00-0.03 10 3/uLPerforming Lab:see noteML - [facility] LBTSH Reviewed date:08/18/2024 03:47:54 PM Interpretation: Performing Lab: Notes/Report: [facility] ,Thyroid Stimulating Hormone4.1900.516-4.130 uIU/mLPerforming Lab:see noteML - [facility] LBT4 Reviewed date:08/18/2024 03:47:54 PM Interpretation: Performing Lab: Notes/Report: [facility] ,T4 Thyroxine8.505.40-10.60 ug/dLPerforming Lab:see noteML - [facility] LBPROF 14(COMP METB) Reviewed date:08/18/2024 03:47:54 PM Interpretation: Performing Lab: Notes/Report: [facility] ,Wzeovb512534-298 mmol/LPotassium4.43.5-5.1 mmol/BMqyitfvw22030-371 mmol/LCarbon Amwrmls19.321.0-32.0 mmol/LAnion Gap11.2Nvkvuar3855-204 mg/dLBlood Urea Ujlthhgc24.06.4-19.3 mg/dLCreatinine0.990.55-1.02 mg/dLEstimated GFR ( Felecia>60>=60 mL/min/1.73m 2Estimated GFR (Non- Patricia>60>=60 mL/min/1.73m 2BUN Creatinine Ratio14.4Eepnmah9.28.5-10.1 mg/dLBilirubin Total0.30.2-1.0 mg/dL Aspartate Amino Ztpiripdhir7130-74 U/LAlanine Wlldbzxxdcvzjotl1353-25 U/L Alkaline Wngkabohcqg3303-986 U/LTotal Protein7.76.4-8.2 g/dLAlbumin Level3.93.4- 5.0 g/dLGlobulin3.8Albumin Globulin Ratio1.0Performing Lab:see note - [facility] LBLIPID PROFILE Reviewed date:08/18/2024 03:47:54 PM Interpretation: Performing Lab: Notes/Report: [facility] ,Lrrjhtqxxescp9631-824 mg/kVBgqzdycrpod354835-381 mg/dLHDL Hnalwdomfhj8813-03 mg/dL > or =60 mg/dl - LOW CARDIOVASCULAR RISK <40 mg/dl - HIGH CARDIOVASCULAR RISK LDL Cholesterol Szilvyngqb96.4 <100 mg/dl OPTIMAL 100-129 mg/dl NEAR OR ABOVE OPTIMAL 130-159 mg/dl BORDERLINE HIGH 160-189 mg/dl HIGH >190 mg/dl VERY HIGH VLDL HKLVQDJAMIK20.6Chol HDL Ratio2.8 3.3 - 4.4 LOW RISK 4.4 - 7.1 AVERAGE RISK 7.1 - 11.0 MODERATE RISK >11.0 HIGH RISK Performing Lab:see note - [facility] LBIRON Reviewed date:08/18/2024 03:47:54 PM Interpretation: Performing Lab: Notes/Report: [facility] ,Iron48.050.0-170.0 ug/dLPerforming Lab:see note - [facility] LB INSULIN Reviewed date:08/22/2024 08:57:18 PM Interpretation: Performing Lab: Notes/Report: [facility] ,Rhhwddo20.02.6-24.9 uIU/mL Performed at: - [address] [id number] Supervisor [employer]: Sonny Cox PhD, Phone: [phone] Performing Lab:see noteLC - [facility] LBGLYCOHEMOGLOBIN A1C Reviewed date:08/18/2024 03:47:54 PM Interpretation: Performing Lab: Notes/Report: [facility] ,Glycohemoglobin A1C5.54.5-6.2 % ADA RECOMMENDED LIMIT 4.0 - 6.0 ADA THERAPEUTIC TARGET < 7.0 ACTION SUGGESTED > 7.0 Estimated Average Iqgnklp443Mwonkurpgt Lab:see noteML - [facility] LB FREE T3 Reviewed date:08/18/2024 03:47:54 PM Interpretation: Performing Lab: Notes/Report: [facility] ,Free T33.132.91-4.70 pg/mLPerforming Lab:see noteML - [facility] LB CBC AUTO DIFF Reviewed date:08/18/2024 03:47:54 PM Interpretation: Performing Lab: Notes/Report: [facility] ,White Blood Count7.34.0-11.0 10 3/uLRed Blood Count4.914.20-5.40 10 6/uL Fcwpxyknio65.112.0-16.0 g/uZDqlbniyhhx48.136.0-48.0 %Mean Corpuscular Wzilup26.8 81.0-99.0 fLMean Corpuscular Xfhawwuqlb07.726.7-34.0 pgMean Corpuscular HGB Conc 32.729.9-35.2 g/dLRed Cell Distribution Width12.411.0-15.0 %Platelet Zlyfy258 150-450 10 3/uLMean Platelet Volume8.89.5-13.5 fLNeutrophils Percent Auto54.9 43.0-75.0 %Lymphocytes Percent Auto33.920.5-60.0 %Monocytes Percent Auto8.71.7- 12.0 %Eosinophils Percent Auto1.70.9-7.0 %Basophils Percent Auto0.70.2-2.0 % Immature Granulocytes Pct Auto0.10.0-0.5 %Neutrophils Absolute Auto4.01.4-6.5 10 3/uLLymphocytes Absolute Auto2.51.2-3.8 10 3/uLMonocytes Absolute Auto0.60.3- 0.8 10 3/uLEosinophils Absolute Auto0.10.0-0.7 10 3/uLBasophils Absolute Auto0.1 0.0-0.1 10 3/uLImmature Granulocytes Abs Auto0.010.00-0.03 10 3/uLPerforming Lab:see note - [facility] LBHBsAg Screen Reviewed date:06/26/2025 04:48:00 PM Interpretation: Performing Lab: Notes/Report: [facility] ,HBsAg ScreenNegativeNegative Performed at: [address] [id number] Supervisor [employer]: Sonny Cox PhD, Phone: [phone] Performing Lab[facility] LBRapid Plasma Reagin, Quant Reviewed date:06/26/2025 04:48:00 PM Interpretation: Performing Lab: Notes/Report: [facility] ,Rapid Plasma Reagin, QuantNon ReactiveNonRea<1:1 titer Please Note: This test does not meet current guidelines for screening and diagnosis of syphilis. This test is intended for following treatment response in patients being treated for syphilis infection. To screen for syphilis infection, a reflex cascade that includes both RPR and a treponema-specific assay should be utilized, such as Treponema pallidum (Syphilis) Screening [place] (055305) or Rapid Plasma Reagin (RPR) Test With Reflex to Quantitative RPR and Confirmatory Treponema pallidum Antibodies (897518). Performed at: [address] [id number] Supervisor [employer]: Sonny Cox PhD, Phone: [phone] Performing Lab[facility] LBHIV Ab/p24 Ag with Reflex Reviewed date:06/26/2025 04:48:00 PM Interpretation: Performing Lab: Notes/Report: [facility] ,HIV Ab/p24 Ag ScreenNon ReactiveNon Reactive HIV-1/HIV-2 antibodies and HIV-1 p24 antigen were NOT detected. There is no laboratory evidence of HIV infection. HIV Negative Performed at: [facility] [address], [place] [id number] Supervisor [employer]: Sonny Cox PhD, Phone: [phone] Performing Lab[facility] LBUrine Culture, Routine Reviewed date:06/27/2025 01:34:07 PM Interpretation: Performing Lab: Notes/Report: [facility] ,Urine Culture, RoutineSee Below For Report Urine Culture, Routine Urine Culture, RoutineMixed urogenital angela Urine Culture, Routine Urine Culture, RoutineLess than 10,000 colonies/mL Urine Culture, Routine Urine Culture, RoutinePerformed at: [facility] Urine Culture, Routine Urine Culture, [address] [place], [place] [id number] Urine Culture, Routine Urine Culture, RoutineLab Director: Sonny Cox PhD, Phone: [phone] Urine Culture, Routine Performing Lab:see note - [facility] LB SEE REPORT - [employer] Developer Id information not found for OBX-specific print producer legend Reason For Referral Diagnosis 1 Carpal tunnel syndro me (G56.00) Referral Organization [facility] Referring Provider First Name Rogelio Referring Provider Last Name Mingokellee Referring Provider Speciality [facility] Referred Provider [facility] Referred Provider Specialty Neurology Referral Priority Routine [...] alcohol in the p ast year? No Bofddx6LblpjcgacfhogiZpzelnee Problems Problem Type SNOMED Code ICD Code Onset Dates Problem Status W/U Status Risk Notes Problem Recurrent urinary tract infection (553937 001) Recurrent UTI (N39.0) ActiveconfirmedProblemAsthma (978013868)Asthma (J45.909)ActiveconfirmedProblem Carpal tunnel syndrome (10081121)Carpal tunnel syndrome (G56.00)Activeconfirmed ProblemAnxiety (93434839)Anxiety (F41.9)ActiveconfirmedProblemWell adult (003181353)Well adult (Z00.00)Activeconfirmed Vital Signs Blood pressure diastolic 70 mm Hg 02/28/2025 Nvsamc35 in02/28/2025MI Sabflycpnn17.91 %09/09/2024lood pressure gquhupcx755 mm Hg02/28/20251146Hjfoir812.6 lbs02/28/2025BMI31.89 kg/m202/28/2025 Encounters Encounter Location Date Provider Diagnosis [facility] [address] [place] [place] [address] 08/16/2024 Rogelio Hoy Well adult Z00.[address] [facility] [address] [place] [address] 09/09/2024 Rogelio Hoy Recurrent UTI N39.[address] [facility] [address] [place] [address] 12/29/2024 Rogelio Aguilay Carpal tunnel syndro me G56.[address] [facility] [address] [place] [place] [address] 01/28/2025 Rogelio Hoy Asthma J45.909 and Encounter for medication management Z79.899 [facility] [address] [place] [place] [address] 02/28/2025 Rogelio Hoy Asthma J45.[address] [facility] [address] [place] [place] [address] 08/18/2024 Rogelio Hoy Low thyroid stimulat ing hormone (TSH) level R79.89 [facility] [address] [place] [place] [address] 08/25/2024 Rogelio Hoy [facility] [place] [place] [address] 08/29/2024[facility] [place] [place] [address]/[facility] [place] [place] [address]/[facility] [place] [address]/[facility] [facility] [place] [address]/Doug HoyCarpal tunnel syndrome G56.00 Assessments Encounter Date Diagnosis (ICD Code) Assessment Notes Treatment Notes Treatment Clinical Notes Section Notes 08/16/2024 Well adult (ICD-10 - Z00.00) 09/09/2024Recurrent UTI (ICD-10 - N39.0)5Carpal tunnel syndrome (ICD-10 - G56.00)01/28/2025sthma (ICD-10 - J45.909)01/28/2025Encounter for medication management (ICD-10 - Z79.899)5Asthma (ICD-10 - J45.909)08/18/2024Low thyroid stimulating hormone (TSH) [...] ACCESS PPO PLUS LOCAL PLAN [address] [place] [address] [id number] Yancy Wood - patient is the insured Medical (General) History Medical History History ICD Code Asthma J45.909 Anxiety F41.9 Surgical History Surgery Date(Month/Year) Tonsillectomy and addenoidectomy
[2025-08-13 15:45] LABS: SARS-CoV-2 Ag NEGATIVE (NEGATIVE)
[2025-08-13] MEDS: FAMOTIDINE/PF 20 MG/2 ML VIAL IV (16:10)
[2025-08-13 16:13] LABS: Glucose Urine UA NEGATIVE (NEGATIVE)
[2025-08-13 16:14] LABS: Hematocrit 41.6 % (36.0-48.0); Hemoglobin 14.1 g/dL (12.0-16.0); Immature Granulocytes Abs Auto 0.04 10^3/uL (0.00-0.03); Immature Granulocytes Pct Auto 0.3 % (0.0-0.5); Lymphocytes Absolute Auto 0.8 10^3/uL (1.2-3.8); Mean Corpuscular HGB Conc 33.9 g/dL (29.9-35.2); Mean Corpuscular Hemoglobin 29.6 pg (26.7-34.0); Mean Corpuscular Volume 87.2 fL (81.0-99.0); Platelet Count 296 10^3/uL (150-450); Red Blood Count 4.77 10^6/uL (4.20-5.40); White Blood Count 13.6 10^3/uL (4.0-11.0)
[2025-08-13 16:34] LABS: Alanine Aminotransferase 37 U/L (14-59); Alkaline Phosphatase 62 U/L (46-116); Anion Gap 11.9; Aspartate Amino Transferase 24 U/L (15-37); Blood Urea Nitrogen 6.0 mg/dL (7.0-18.0); Calcium 9.3 mg/dL (8.5-10.1); Carbon Dioxide 25.1 mmol/L (21.0-32.0); Cast Seen? NONE SEEN #/LPF (NONE SEEN); Chloride 100 mmol/L (98-107); Crystals Seen? None Seen #/HPF (None Seen); Estimated GFR (African America >60 (>=60 mL/min/1.73m^2); Estimated GFR (Non-African Ame >60 (>=60 mL/min/1.73m^2); Glucose 82 mg/dL (74-106); Lipase 37.0 U/L (16.0-77.0); Potassium 4.0 mmol/L (3.5-5.1); Sodium 133 mmol/L (136-145); Total Protein 7.8 g/dL (6.4-8.2); Urine Culture Indicated YES-FRMC
[2025-08-13 16:35] LABS: Albumin Globulin Ratio 0.8; Albumin Level 3.4 g/dL (3.4-5.0); Globulin 4.4 g/dL
== END 2025-08-13 17:10 | disposition home or self-care (01) ==
PROVIDERS: Physician Assistant; Emergency Provider Student in an Organized Health Care Education/Training Program; PCP Family Medicine
DX: O26.892 Other specified pregnancy related conditions, second trimester (principal); Z3A.16 16 weeks gestation of pregnancy; R11.0 Nausea; R19.7 Diarrhea, unspecified; R51.9 Headache, unspecified
CPT/HCPCS: 36415; 80053; 81001; 83690; 85025; 87086; 87804; 87811; 99285; J2405; J3490